=== PATIENT | female | born 1950 | race Caucasian/White ===

== ENCOUNTER → 2016-03-13 | Outpatient (CLI) | payer BC, MEDICARE ==
--- NOTE | 2016-03-13 12:44 | US ---
EXAMINATION TYPE: US thyroid st tissue head/neck DATE OF EXAM: 03/13/2016 11:12 AM COMPARISON: 01/16/2015 CLINICAL HISTORY: E04.1 Thyroid Nodule. GLAND SIZE: Right Lobe: 4.3 x 1.6 x 1.8 cm Overall Parenchyma: homogenous Left Lobe: 3.9 x 1.8 x 1.8 cm Overall Parenchyma: homogeneous Isthmus Thickness: 0.5 cm cm NODULES RIGHT: # of nodules measured on right: 1 1. 2.2 X 1.3 x 1.5 cm isoechoic solid nodule at the lower pole with well-defined margins; . This n odule is wider than tall and shows intranodular vascularity. Prior size: 2.0 x 1.5 x 1.4 cm LEFT: # of nodules measured on left: 2 1. 2.2 X 1.6 x 1.4 cm isoechoic solid nodule at the lower pole with well-defined margins; . This n odule is taller than wide and shows intranodular vascularity. Prior size: 2.0 x 1.5 x 1.4 cm 2. 0.6 X 0.4 x 0.5 cm isoechoic solid nodule at the upper pole with poorly defined margins; . This nodule is wider than tall and shows intranodular vascularity. Prior size: 0.6 x 0.4 x 0.5 cm ISTHMUS: # of nodules measured in the isthmus: 0 IMPRESSION: Bilateral nonspecific thyroid nodules.
== END | disposition home or self-care (01) ==
LOC: RADUSWWP 10:43
PROVIDERS: ATTEND Otolaryngology
DX: E04.2 Nontoxic multinodular goiter (principal)
CPT/HCPCS: 76536

== ENCOUNTER → 2016-04-03 | Outpatient (CLI) | payer BC, MEDICARE ==
--- NOTE | 2016-04-03 12:27 | FL ---
EXAMINATION TYPE: FL barium swallow w video DATE OF EXAM ORDERED: 04/03/2016 12:17 PM HISTORY: Dysphagia. COMPARISON: None. FINDINGS: There is transient penetration with nectar thick liquids. The patient had a lower other fo odstuffs well. IMPRESSION: THIS PATIENT DEMONSTRATES INCREASED RISK FOR ASPIRATION WITH NECTAR THICK LIQUIDS.
== END | disposition home or self-care (01) ==
LOC: RADFLWHC 11:52
PROVIDERS: ATTEND Otolaryngology
DX: R13.10 Dysphagia, unspecified (principal)
CPT/HCPCS: 74230

== ENCOUNTER 2016-09-10 09:51 | Day surgery (SDC) | payer BC, MEDICARE ==
[2016-09-08 10:17] VITALS: BMI 38.4
[~2016-09-10 09:51] MED LIST: LACTATED RINGERS 1,000 ML IV SCH; LIDOCAINE 1% 20 ML VIAL (10MG/ML) FOR IV START INTRADERMA PRN
[2016-09-10 10:23] VITALS: TEMP 97.7
[2016-09-10] MEDS ORDERED: PROPOFOL 10 MG/ML 20 ML VIAL IV ONE (10:32)
[2016-09-10] MEDS ORDERED: LIDOCAINE 1% INJ 10MG/ML (20 ML MDV) ONE (10:32)
--- NOTE | 2016-09-10 10:47 | P.PCN ---
Date of Procedure: 09/10/16 Preoperative Diagnosis: Postoperative Diagnosis: Procedure(s) Performed: BRIEF HISTORY: Patient is a 66-year-old, pleasant, white female, scheduled for an elective upper endoscopy as a part of evaluation of epigastric pain, severe heartburn and intermittent nausea vomiting for the last 6 months duration. She is being maintained on Protonix 40 mg daily despite which continues remains symptomatic. PROCEDURE PERFORMED: Esophagogastroduodenoscopy and biopsy. PREOPERATIVE DIAGNOSIS: Epigastric pain, severe heartburn and intermittent nausea vomiting of 6 month duration. IV sedation per anesthesia. PROCEDURE: After informed consent was obtained, the patient was brought into the endoscopy unit. IV sedation was administered by Anesthesia under continuous monitoring. Initially the Olympus GIF-140 video endoscope was inserted into the mouth. Esophagus intubated without any difficulty. It was gradually advanced into the stomach and duodenum and carefully examined. The bulb and the second part of the duodenum appeared normal. The scope at this time was withdrawn to the stomach, adequately insufflated with air, and upon careful examination, mucosa of the antrum, had mild gastritis and biopsies were done from this area. The body, cardia and the fundus appeared normal. The scope was then withdrawn into the esophagus. Small hiatal hernia noted. The GE junction was located at 39 cm from the incisors. The esophagus appeared normal. There were no erosions or ulcerations seen and the patient tolerated the procedure well. IMPRESSION: 1. Mild antral gastritis. 2. Small hiatal hernia but no evidence of esophagitis or Lira's esophagus. RECOMMENDATIONS: The findings of this examination were discussed with the patient as well as her family. She was advised to follow with the biopsy results. She was advised to increase the Protonix to 40 mg daily and follow antireflux measures. Implants: Indications for Procedure: Operative Findings: Description of Procedure:
[2016-09-10 11:10] VITALS: BP 139/86; PULSE 72; RESP 24
== END 2016-09-10 11:41 | disposition home or self-care (01) ==
LOC: ORWHC2ENDO 09:51
PROVIDERS: ATTEND Internal Medicine Gastroenterology
DX: K21.9 Gastro-esophageal reflux disease without esophagitis (principal); K29.70 Gastritis, unspecified, without bleeding; K44.9 Diaphragmatic hernia without obstruction or gangrene; I11.0 Hypertensive heart disease with heart failure; I50.9 Heart failure, unspecified; I25.10 Atherosclerotic heart disease of native coronary artery without angina pectoris; E78.5 Hyperlipidemia, unspecified; J44.9 Chronic obstructive pulmonary disease, unspecified; R42 Dizziness and giddiness; I25.2 Old myocardial infarction; Z88.5 Allergy status to narcotic agent; Z88.1 Allergy status to other antibiotic agents; Z88.8 Allergy status to other drugs, medicaments and biological substances; Z79.82 Long term (current) use of aspirin; Z79.02 Long term (current) use of antithrombotics/antiplatelets; Z79.51 Long term (current) use of inhaled steroids; Z79.899 Other long term (current) drug therapy; Z86.73 Personal history of transient ischemic attack (TIA), and cerebral infarction without residual deficits; Z95.5 Presence of coronary angioplasty implant and graft
CPT/HCPCS: 43239; 88305; 88342; J2001; J2704

== ENCOUNTER → 2016-10-22 | Outpatient (CLI) | payer BC, MEDICARE ==
[2016-10-22 16:00] LABS: CH 28.8; CHCM 33.7; HCT 39.5 % (34.0-46.0); HDW 2.61; HGB 13.5 gm/dL (11.4-16.0); MCH 29.4 pg (25.0-35.0); MCHC 34.2 g/dL (31.0-37.0); MCV 85.8 fL (80.0-100.0); Mean Platelet Volume 8.3; RDW 12.6 % (11.5-15.5)
[2016-10-22 16:03] LABS: Anion Gap 11 mmol/L; Blood Urea Nitrogen 14 mg/dL (7-17); Carbon Dioxide 26 mmol/L (22-30); Chloride 107 mmol/L (98-107); Non-African American GFR(MDRD) >60 (>60 ml/min/1.73 sqM); Potassium 4.3 mmol/L (3.5-5.1); Sodium 144 mmol/L (137-145)
== END | disposition home or self-care (01) ==
LOC: LABPAT 15:28
PROVIDERS: ATTEND Internal Medicine Cardiovascular Disease
DX: Z01.812 Encounter for preprocedural laboratory examination (principal); I25.10 Atherosclerotic heart disease of native coronary artery without angina pectoris
CPT/HCPCS: 80051; 82565; 84520; 85027

== ENCOUNTER 2016-10-28 06:28 | Day surgery (SDC) | payer BC, MEDICARE ==
[2016-10-27 09:06] VITALS: BMI 38.4
[~2016-10-28 06:28] MED LIST changes: +ALPRAZolam 0.25 MG TAB PO PRN; +ASPIRIN 325 MG TAB PO ONE; -LACTATED RINGERS 1,000 ML IV SCH; -LIDOCAINE 1% 20 ML VIAL (10MG/ML) FOR IV START INTRADERMA PRN; +SODIUM CHLORIDE 0.9% 1,000 ML in EMPTY BAG 1 BAG IV ONE
[2016-10-28 07:03] VITALS: TEMP 98.3
[2016-10-28] MEDS ORDERED: amLODIPine 5 MG TAB PO ONE (07:24)
[2016-10-28] MEDS ORDERED: IV FLUID CONTINUATION 1,000 ML IV ONE (07:30)
[2016-10-28] MEDS ORDERED: fentaNYL (PF) 50 MCG/ML 2 ML AMP IVP ONE (07:49)
[2016-10-28] MEDS ORDERED: MIDAZOLAM 2 MG/2 ML VIAL IVP ONE (07:49)
[2016-10-28] MEDS ORDERED: NITROGLYCERIN OINT 1 INCH/GM PACKET TOPICAL ONE (07:50)
[2016-10-28] MEDS ORDERED: LIDOCAINE 2% INJ 20 MG/ML SQ ONE (07:54)
[2016-10-28] MEDS ORDERED: METOPROLOL TARTRATE 5 MG/5 ML VIAL IVP ONE (08:00)
[2016-10-28] MEDS ORDERED: FUROSEMIDE 10 MG/ML 4 ML VIAL IVP ONE (08:13)
[2016-10-28] MEDS ORDERED: LABETALOL 5 MG/ML VIAL MDV IVP STA (08:18)
[2016-10-28] MEDS ORDERED: LABETALOL 5 MG/ML VIAL MDV IVP ONE (08:33)
[2016-10-28] MEDS ORDERED: NITROGLYCERIN SL TABS 0.4 MG TAB SUBLINGUAL ONE (08:44)
[2016-10-28] MEDS ORDERED: HEPARIN SODIUM 1,000 UN/ML (10ML VL) IV ONE (08:46)
--- NOTE | 2016-10-28 08:50 | P.PCN ---
Date of Procedure: 10/28/16 Preoperative Diagnosis: Chest pain and exertional shortness of breath Postoperative Diagnosis: Borderline lesion in the mid LAD and also origin of the major diagonal. patent stent in the RCA. Severe nonischemic cardiomyopathy and also 3+ mitral regurgitation Procedure(s) Performed: Left heart catheterization with left ventriculography Implants: Indications for Procedure: Operative Findings: Description of Procedure: HISTORY: This is a 66-year-old female with history of ischemic heart disease with previous stent placement of the RCA. He has been complaining of nausea on exertional shortness of breath and chest pains. Her nuclear scan did not reveal any inducible ischemia. There is a discrepancy in the LV function on the nuclear study and echocardiogram. On the echocardiogram LV function appear to be about 30%.. Patient is advised to have cardiac catheterization for definitive diagnosis. Patient had a catheterization to the right radial approach in 2014 but had severe spasms. I will try to do cardiac catheterization from right groin. CONSENT:I have discussed the risks, benefits and alternative therapies for the above-mentioned procedure and for both sedation/analgesia as well as necessary blood product administration, if indicated, as they pertain to this patient. The patient has indicated understanding and acceptance of the risks and procedures discussed. The PROCEDURE: Patient was brought to the lab in a fasting state. Patient was given some IV sedation. The right groin is infiltrated with lidocaine and right femoral artery was entered using Seldinger technique. A 6-[place] catheter was left in place and selective coronary arteriography and left ventriculography was performed. Patient tolerated the procedure well. She was found to have a borderline eccentric lesion in the mid LAD at the origin of the diagonal. Patient is going to have FFR by Dr. RASHIDA Wang. No immediate complications were noted . Patient's blood pressure has been high and has received IV labetalol, Lopressor and also Nitropaste. Conscious Sedation: Versed :1mg Fentanyl 50 g Duration 30 minutes HEMODYNAMICS: The aortic pressure has been in the range of 180/100. Left ankle end-diastolic pressure is 27. There was no gradient across the aortic valve SELECTIVE CORONARY ARTERIOGRAPHY: LEFT MAIN: Normal length and patent THE LEFT ANTERIOR DESCENDING CORONARY ARTERY: Josephine caliber vessel with a eccentric 60-70% lesion involving the mid LAD at the origin of the major diagonal. There is also disease involving the ostium of the diagonal which seemed to borderline. Rest of the vessel is free of occlusive disease THE LEFT CIRCUMFLEX AND IS CORONARY ARTERY: Moderate caliber vessel with a disease in the midportion of mild degree THE RIGHT CORONARY ARTERY: Good caliber vessel with patent stent in the proximal portion without any other significant obstructive disease LEFT VENTRICULOGRAPHY: . Mildly enlarged left ventricle with severe generalized hypokinesia. Ejection fraction is about 30%. There is 3+ mitral regurg FINAL IMPRESSION: Borderline lesion in the mid LAD and diagonal. Dr. RASHIDA Wang is going to assess the lesion with the FFR .If necessary, stenting will be performed PLAN: To be decided after FFR PROGNOSIS: Guarded
[2016-10-28] MEDS ORDERED: DOPamine DRIP 800 MG in DEXTROSE/WATER 1 500ML.BAG IV ONE (08:54)
[2016-10-28] MEDS ORDERED: IOHEXOL 350 MG/ML 100 ML BOTTLE INJ ONE (09:00)
[2016-10-28] MEDS ORDERED: ADENOSINE 90 MG in SODIUM CHLORIDE 0.9% 60 ML IVP ONE (09:02)
[2016-10-28] MEDS ORDERED: NITROGLYCERIN 1000MCG/10ML SYRINGE INTRACORON ONE (09:04)
[2016-10-28] MEDS ORDERED: RX INFO: IV CONTRAST WAS GIVEN 1 EACH MISC MISCELLANE PRN (09:57)
[2016-10-28] MEDS ORDERED: FUROSEMIDE 40 MG TAB PO STA (09:59)
[2016-10-28] MEDS ORDERED: SODIUM CHLORIDE 0.9% 1,000 ML IV SCH (10:00)
[2016-10-28] MEDS ORDERED: ONDANSETRON 4 MG/2 ML VIAL IVP STA (10:38)
[2016-10-28 12:33] VITALS: RESP 18
[2016-10-28 17:38] VITALS: PULSE 83
[2016-10-28 17:50] VITALS: BP 134/70
--- NOTE | 2016-10-29 07:56 | PCN ---
PROCEDURE NOTE DATE OF SERVICE: 10/28/2016 PROCEDURE: Fractional flow reserve assessment of a mid LAD lesion. PERFORMED BY: Dr. Risa Wang. CLINICAL INFORMATION: Mrs. Maggie Ji is a 66-year-old lady with obesity, hypertension, hyperlipidemia who is a patient of Dr. Coombs underwent stenting of RCA 2 years ago. Because of abnormal stress test and because of decreasing LV function, Dr. Coombs performed coronary angiography which revealed that the RCA was widely patent, but LAD has about a 40% to 50% equivocal lesion in the mid portion just after the diagonal branch. She was admitted FFR after due discussion. I proceeded to perform the procedure at the same setting. PROCEDURE NOTE: The existing 6-Gabonese introducer in the right femoral artery was used to perform the procedure. I used a standard left Sharath type guide catheter to cannulate the left coronary artery. I used a [employer] wire and wire was kept distally. As per standard protocol with adenosine infusion, iFR and FFR were obtained. The iFR was 0.9. FFR was 0.88. Prior to the initiation of the procedure, the patient developed hypotension after I gave her some nitroglycerin because of elevated blood pressure. I waited for some time and gave her a brief dopamine drip and then the pressure came back to normal and I then performed the FFR evaluation. The patient tolerated procedure well. There were no complications. FFR was normal at 0.88. No intervention is indicated. Findings were discussed with the patient and and I expect that she will be discharged later on today. Moderate conscious sedation was provided for a total duration of 30 minutes. Patient's oxygen saturation was monitored closely. MMODL / IJN: [id number] /
[2016-10-29] MEDS ORDERED: SPIRONOLACTONE 25 MG TAB PO SCH (09:00)
== END 2016-10-28 17:59 | disposition home or self-care (01) ==
LOC: CATHCVL 06:28
PROVIDERS: ATTEND Internal Medicine Cardiovascular Disease
DX: I25.10 Atherosclerotic heart disease of native coronary artery without angina pectoris (principal); I42.0 Dilated cardiomyopathy; I10 Essential (primary) hypertension; Z87.891 Personal history of nicotine dependence; Z95.5 Presence of coronary angioplasty implant and graft; E78.5 Hyperlipidemia, unspecified; Z79.02 Long term (current) use of antithrombotics/antiplatelets; Z79.82 Long term (current) use of aspirin; Z79.51 Long term (current) use of inhaled steroids; Z79.899 Other long term (current) drug therapy; Z88.1 Allergy status to other antibiotic agents; Z88.5 Allergy status to narcotic agent; Z88.8 Allergy status to other drugs, medicaments and biological substances
CPT/HCPCS: 93571; 93458; 85347; 99152; 99153 ×4; C1887; C1894 ×2; C1769 ×2; J2001; J2250; J1940; Q9967; J2405; J1265; J3010; J1644; J0153

== ENCOUNTER → 2016-11-02 | Outpatient (CLI) | payer BC, MEDICARE ==
[2016-11-02 12:39] LABS: Calcium 9.5 mg/dL (8.4-10.2); Potassium 5.1 mmol/L (3.5-5.1)
== END | disposition home or self-care (01) ==
LOC: LABWHC1 11:39
PROVIDERS: ATTEND Internal Medicine Cardiovascular Disease
DX: I50.9 Heart failure, unspecified (principal)
CPT/HCPCS: 36415; 80048

== ENCOUNTER 2016-11-13 08:56 | Observation (INO) | payer BC, MEDICARE ==
[2016-11-13] MEDS ORDERED: ASPIRIN 81 MG PO STA (09:16)
[2016-11-13] MEDS ORDERED: NITROGLYCERIN SL TABS 0.4 MG TAB SUBLINGUAL STA (09:16)
[2016-11-13] MEDS ORDERED: SODIUM CHLORIDE 0.9% 1,000 ML IV STA (09:16)
[2016-11-13] MEDS ORDERED: ONDANSETRON 4 MG/2 ML VIAL IVP STA (09:16)
--- NOTE | 2016-11-13 09:24 | ED ---
General Adult HPI <Rajendra Cheek - Last Filed: 11/13/16 11:13> - General Source: patient, RN notes reviewed Mode of arrival: wheelchair Limitations: no limitations <Moshe Capellan - Last Filed: 11/13/16 11:16> - General Chief complaint: Dizziness Stated complaint: vomiting and chest pressure Time Seen by Provider: 11/13/16 09:08 - History of Present Illness Initial comments: Patient's a 66-year-old female who presents emergency room today with chief complaint of symptoms of nausea vomiting lightheaded and dizzy and chest pain that started this morning. Patient does admit that she began having some symptoms of vertigo last night. She states she's had symptoms of the room spinning. States had symptoms similar to this in the past. She does admit that she's had some nausea vomiting beginning last night. She states this morning which woke up she had some anterior chest pain. She describes it as a "burning" type pain. Currently rates pain 5/10. She does admit to a history of cardiac disease. Patient states that she's had stents placed in the past. Patient states that pain started approximately 8 AM. Patient denies any other complaints or symptoms at this time. Patient denies any recent fever, chills, shortness of breath, back pain, numbness or tingling, dysuria or hematuria, constipation or diarrhea, headaches or visual changes, or any other complaints. (Moshe Capellan) - Related Data Home Medications Medication Instructions Recorded Confirmed Aspirin EC [Ecotrin] 325 mg PO HS 08/22/13 11/13/16 Ipratropium/Albuterol Sulfate 1 puff INHALATION RT-DAILY PRN 08/22/13 11/13/16 [Combivent Respimat Inhaler] Lisinopril [Zestril] 10 mg PO QAM 08/22/13 11/13/16 Meclizine [Antivert] 12.5 mg PO DAILY PRN 08/22/13 11/13/16 Metoprolol Succinate [Toprol XL] 50 mg PO HS 08/22/13 11/13/16 Pantoprazole Sodium [Protonix] 40 mg PO DAILY 08/22/13 11/13/16 Albuterol Nebulized [Ventolin 2.5 mg INHALATION RT-TID 09/08/16 11/13/16 Nebulized] Atorvastatin [Lipitor] 40 mg PO HS 09/08/16 11/13/16 Fluticasone Nasal [place] [Flonase 1 spr EA NOSTRIL BID PRN 09/08/16 11/13/16 Nasal [place]] Clopidogrel [Plavix] 75 mg PO HS 11/13/16 11/13/16 Furosemide [Lasix] 40 mg PO DAILY 11/13/16 11/13/16 Previous Rx's Medication Instructions Recorded Isosorbide Mononitrate ER [Imdur] 30 mg PO DAILY #30 tab.er.24h 09/29/14 Nitroglycerin Sl Tabs [Nitrostat] 0.4 mg SUBLINGUAL Q5M PRN #25 tab 09/29/14 Allergies Allergy/AdvReac Type Severity Reaction Status Date / Time azithromycin [From Zithromax] Allergy Rash/Hives Verified 11/13/16 09:25 cephalexin monohydrate Allergy Rash/Hives Verified 11/13/16 09:25 [From Keflex] dexamethasone [From Decadron] Allergy Rash/Hives Verified 11/13/16 09:25 dexamethasone sod phosphate Allergy Rash/Hives Verified 11/13/16 09:25 [From Decadron] codeine AdvReac Nausea & Verified 11/13/16 09:25 Vomiting morphine AdvReac Nausea & Verified 11/13/16 09:25 Vomiting Review of Systems ROS Other: All systems not noted in ROS Statement are negative. <Rajendra Cheek - Last Filed: 11/13/16 11:13> ROS Other: All systems not noted in ROS Statement are negative. <Moshe Capellan - Last Filed: 11/13/16 11:16> ROS Statement: Those systems with pertinent positive or pertinent negative responses have been documented in the HPI. Past Medical History Past Medical History: Asthma, Cancer, Chest Pain / Angina, COPD, CVA/TIA, Deep Vein Thrombosis (DVT), Eye Disorder, GERD/Reflux, Hyperlipidemia, Hypertension, Liver Disease, Memory Impairment, Osteoarthritis (OA), Pneumonia, Vascular Disorder Additional Past Medical History / Comment(s): 09/28/14 Pt admitted to floor s/p PTCA with 3 stents to RCA. Other HX:MIGRAINES, VERTIGO,TIA (MULTIPLE- DATES UKN ), NAKITA CATARACTS,HEART MURMUR, PVD, HIATAL HERNIA,. IBS, FATTY LIVER, PANCREATITITS, COLON POLYPS, KIDNEY CYSTS, URINARY CALCULI, CHRONIC PAIN,ANEMIA , DVT LEFT MESENTERIC VEIN 2007, BREAST-1977 AND UTERINE CANCER-1979 History of Any Multi-Drug Resistant Organisms: None Reported Past Surgical History: Appendectomy, Bladder Surgery, Bowel Resection, Cholecystectomy, Heart Catheterization, Heart Catheterization With Stent, Hysterectomy, Tonsillectomy Additional Past Surgical History / Comment(s): 09/28/14 PTCA with stents (3) to RCA. Other SX HX: COLONOSCOPY, NAKITA MASTECTOMY, AORTIC STENTS,FEMORAL ILIAC ARTERY STENTS X 6-8 Past Anesthesia/Blood Transfusion Reactions: Motion Sickness Date of Last Stent Placement:: UNKNOWN Past Psychological History: Anxiety Smoking Status: Former smoker Past Alcohol Use History: None Reported Past Drug Use History: None Reported - Past Family History Mother Family Medical History: No Reported History Father Family Medical History: Cancer Additional Family Medical History / Comment(s): colon <Moshe Capellan - Last Filed: 11/13/16 11:16> General Exam <Rajendra Cheek - Last Filed: 11/13/16 11:13> Limitations: no limitations <Moshe Capellan - Last Filed: 11/13/16 11:16> - General Exam Comments Initial Comments: General: The patient is awake and alert, in mild distress, and does not appear acutely ill. Eye: Pupils are equal, round and reactive to light, extra-ocular movements are intact. No nystagmus. There is normal conjunctiva bilaterally. No signs of icterus. Ears, nose, mouth and throat: There are moist mucous membranes and no oral lesions. Neck: The neck is supple, there is no tenderness or JVD. Cardiovascular: There is a regular rate and rhythm. No murmur, rub or gallop is appreciated. Respiratory: Lungs are clear to auscultation, respirations are non-labored, breath sounds are equal. No wheezes, stridor, rales, or rhonchi. Gastrointestinal: Normal appearance abdomen. Normal bowel sounds. Soft on palpation. Patient does have tenderness epigastric. No rebound tenderness. No guarding. No CVA tenderness. Musculoskeletal: Normal ROM, no tenderness. Strength 5/5. Sensation intact. Pulses equal bilaterally 2+. Neurological: A&O x 3. CN II-XII intact, There are no obvious motor or sensory deficits. Coordination appears grossly intact. Speech is normal. Skin: Skin is warm and dry and no rashes or lesions are noted. Psychiatric: Cooperative, appropriate mood & affect, normal judgment. (Moshe Capellan) EKG Findings - EKG Comments: EKG Findings:: EKG performed at 0915: Shows sinus tachycardia at 103 beats per minute. OK interval 164. QRS of 118. QT/QTC 336/440. Compared to previous EKG on 09/29/2014. <Moshe Capellan - Last Filed: 11/13/16 11:16> Medical Decision Making - Lab Data Result diagrams: 11/13/16 09:25 11/13/16 09:25 <Rajendra Cheek - Last Filed: 11/13/16 11:13> - Lab Data Result diagrams: 11/13/16 09:25 11/13/16 09:25 <Moshe Capellan - Last Filed: 11/13/16 11:16> - Medical Decision Making Patient reevaluated by myself, Dr. Cheek. Patient resting comfortably in bed and symptom-free at this time. Patient updated on results and plan. Case discussed with Dr. Szymanski, who will admit for Dr. Jacobson. (Rajendra Cheek) Patient's labs been reviewed are unremarkable. EKG shows no acute ST changes. Results were discussed with the patient. Patient will be admitted to the hospital for serial enzymes. Patient is aware the plan states understanding. ( Moshe Capellan) - Lab Data Lab Results 11/13/16 11/13/16 11/13/16 Range/Units 09:25 09:25 09:25 WBC 6.1 (3.8-10.6) k/uL RBC 4.81 (3.80-5.40) m/uL Hgb 14.1 (11.4-16.0) gm/dL Hct 42.0 (34.0-46.0) % MCV 87.3 (80.0-100.0) fL MCH 29.3 (25.0-35.0) pg MCHC 33.5 (31.0-37.0) g/dL RDW 13.7 (11.5-15.5) % Plt Count 186 (150-450) k/uL Neutrophils % 58 % Lymphocytes % 32 % Monocytes % 7 % Eosinophils % 1 % Basophils % 1 % Neutrophils # 3.5 (1.3-7.7) k/uL Lymphocytes # 2.0 (1.0-4.8) k/uL Monocytes # 0.4 (0-1.0) k/uL Eosinophils # 0.1 (0-0.7) k/uL Basophils # 0.0 (0-0.2) k/uL PT (9.0-12.0) sec INR (<1.2) APTT (22.0-30.0) sec Sodium 143 (137-145) mmol/L Potassium 4.1 (3.5-5.1) mmol/L Chloride 109 H (98-107) mmol/L Carbon Dioxide 23 (22-30) mmol/L Anion Gap 11 mmol/L BUN 14 (7-17) mg/dL Creatinine 0.80 (0.52-1.04) mg/dL Est GFR (MDRD) Af Amer >60 (>60 ml/min/1.73 sqM) Est GFR (MDRD) Non-Af >60 (>60 ml/min/1.73 sqM) Glucose 97 (74-99) mg/dL Calcium 9.4 (8.4-10.2) mg/dL Magnesium 1.7 (1.6-2.3) mg/dL Total Bilirubin 0.8 (0.2-1.3) mg/dL AST 27 (14-36) U/L ALT 40 (9-52) U/L Alkaline Phosphatase 62 (38-126) U/L Total Creatine Kinase 67 (30-135) U/L CK-MB (CK-2) 0.6 (0.0-2.4) ng/mL CK-MB (CK-2) Rel Index 0.9 Troponin I <0.012 (0.000-0.034) ng/mL Total Protein 6.9 (6.3-8.2) g/dL Albumin 4.0 (3.5-5.0) g/dL Urine Color Urine Appearance (Clear) Urine pH (5.0-8.0) Ur Specific [place] (1.001-1.035) Urine Protein (Negative) Urine Glucose (UA) (Negative) Urine Ketones (Negative) Urine Blood (Negative) Urine Nitrite (Negative) Urine Bilirubin (Negative) Urine Urobilinogen (<2.0) mg/dL Ur Leukocyte Esterase (Negative) Urine WBC (0-5) /hpf Ur Squamous Epith Cells (0-4) /hpf Urine Bacteria (None) /hpf Urine Mucus (None) /hpf 11/13/16 11/13/16 Range/Units 09:25 09:25 WBC (3.8-10.6) k/uL RBC (3.80-5.40) m/uL Hgb (11.4-16.0) gm/dL Hct (34.0-46.0) % MCV (80.0-100.0) fL MCH (25.0-35.0) pg MCHC (31.0-37.0) g/dL RDW (11.5-15.5) % Plt Count (150-450) k/uL Neutrophils % % Lymphocytes % % Monocytes % % Eosinophils % % Basophils % % Neutrophils # (1.3-7.7) k/uL Lymphocytes # (1.0-4.8) k/uL Monocytes # (0-1.0) k/uL Eosinophils # (0-0.7) k/uL Basophils # (0-0.2) k/uL PT 10.2 (9.0-12.0) sec INR 1.0 (<1.2) APTT 23.9 (22.0-30.0) sec Sodium (137-145) mmol/L Potassium (3.5-5.1) mmol/L Chloride (98-107) mmol/L Carbon Dioxide (22-30) mmol/L Anion Gap mmol/L BUN (7-17) mg/dL Creatinine (0.52-1.04) mg/dL Est GFR (MDRD) Af Amer (>60 ml/min/1.73 sqM) Est GFR (MDRD) Non-Af (>60 ml/min/1.73 sqM) Glucose (74-99) mg/dL Calcium (8.4-10.2) mg/dL Magnesium (1.6-2.3) mg/dL Total Bilirubin (0.2-1.3) mg/dL AST (14-36) U/L ALT (9-52) U/L Alkaline Phosphatase (38-126) U/L Total Creatine Kinase (30-135) U/L CK-MB (CK-2) (0.0-2.4) ng/mL CK-MB (CK-2) Rel Index Troponin I (0.000-0.034) ng/mL Total Protein (6.3-8.2) g/dL Albumin (3.5-5.0) g/dL Urine Color Yellow Urine Appearance Cloudy H (Clear) Urine pH 5.0 (5.0-8.0) Ur Specific [place] 1.017 (1.001-1.035) Urine Protein Trace H (Negative) Urine Glucose (UA) Negative (Negative) Urine Ketones Negative (Negative) Urine Blood Negative (Negative) Urine Nitrite Negative (Negative) Urine Bilirubin Negative (Negative) Urine Urobilinogen <2.0 (<2.0) mg/dL Ur Leukocyte Esterase Negative (Negative) Urine WBC 1 (0-5) /hpf Ur Squamous Epith Cells 6 H (0-4) /hpf Urine Bacteria Rare H (None) /hpf Urine Mucus Rare H (None) /hpf Disposition <Rajendra Cheek - Last Filed: 11/13/16 11:13> Time of Disposition: 11:15 <Moshe Capellan - Last Filed: 11/13/16 11:16> Clinical Impression: Chest pain Disposition: ADMITTED IP TO THIS HOSP Condition: Stable Referrals: Kailash Jacobson III, MD [Primary Care Provider] - 1-2 days
[2016-11-13 09:45] LABS: Basophils % (A) 1 %; CH 30.2; CHCM 34.8; Eosinophils # (A) 0.1 k/uL (0-0.7); Eosinophils % (A) 1 %; HDW 2.51; HGB 14.1 gm/dL (11.4-16.0); Luc # (Auto) 0.12; Luc % (Auto) 2; Lymphocytes % (A) 32 %; MCH 29.3 pg (25.0-35.0); MCHC 33.5 g/dL (31.0-37.0); MCV 87.3 fL (80.0-100.0); Mean Platelet Volume 8.7; Monocytes # (A) 0.4 k/uL (0-1.0); Monocytes % (A) 7 %; Neutrophils # (A) 3.5 k/uL (1.3-7.7); Neutrophils % (A) 58 %; RBC 4.81 m/uL (3.80-5.40); RDW 13.7 % (11.5-15.5); WBC 6.1 k/uL (3.8-10.6); WBC (Perox) 5.86
[2016-11-13 09:53] LABS: Appearance,Urine Cloudy (Clear); Bacteria,Urine Rare /hpf; Bilirubin,Urine Negative (Negative); Glucose,Urine (UA) Negative (Negative); Ketones,Urine Negative (Negative); Leukocyte Esterase,Urine Negative (Negative); Mucus,Urine Rare /hpf; Nitrite,Urine Negative (Negative); Partial Thromboplastin Time 23.9 sec (22.0-30.0); Particle Count 6192; Protein,Urine Trace (Negative); Prothrombin Time 10.2 sec (9.0-12.0); Specific Gravity,Urine 1.017 (1.001-1.035); Squamous Epithelial Cell,Urine 6 /hpf (0-4); UA Billing (MACRO vs. MICRO) MICRO; Urobilinogen,Urine <2.0 mg/dL (<2.0); WBC,Urine 1 /hpf (0-5)
--- NOTE | 2016-11-13 10:09 | XR ---
EXAMINATION TYPE: XR chest 2V DATE OF EXAM: 11/13/2016 COMPARISON: 11/16/2015 TECHNIQUE: PA and lateral views submitted. HISTORY: Chest pain FINDINGS: The lungs are clear and there is no pneumothorax, pleural effusion, or focal pneumonia. Heart size enlarged there is atherosclerotic change of the aorta. Mild interstitial process noted. Arthropathy o f the shoulders. Degenerative change of the spine. IMPRESSION: 1. Cardiomegaly. Interstitium somewhat coarsened which could be seen with early venous congestion. No sizable pleural effusion or overt failure. Correlate clinically.
[2016-11-13 10:10] LABS: ALT 40 U/L (9-52); AST 27 U/L (14-36); Alkaline Phosphatase 62 U/L (38-126); Anion Gap 11 mmol/L; Blood Urea Nitrogen 14 mg/dL (7-17); Calcium 9.4 mg/dL (8.4-10.2); Carbon Dioxide 23 mmol/L (22-30); Chloride 109 mmol/L (98-107); Glucose 97 mg/dL (74-99); Magnesium 1.7 mg/dL (1.6-2.3); Non-African American GFR(MDRD) >60 (>60 ml/min/1.73 sqM); Potassium 4.1 mmol/L (3.5-5.1); Sodium 143 mmol/L (137-145); Total Bilirubin 0.8 mg/dL (0.2-1.3); Total Protein 6.9 g/dL (6.3-8.2)
[2016-11-13 10:36] LABS: Creatine Kinase 67 U/L (30-135)
[2016-11-13 10:48] LABS: Creatine Kinase MB 0.6 ng/mL (0.0-2.4); Troponin I <0.012 ng/mL (0.000-0.034)
[2016-11-13] MEDS ORDERED: HEPARIN SODIUM,PORCINE 5,000 UNIT/ML 1 ML VIAL IV ONE (11:12)
[2016-11-13] MEDS ORDERED: NITROGLYCERIN SL TABS 0.4 MG TAB SUBLINGUAL PRN ×2 (11:12→13:05)
[2016-11-13] MEDS ORDERED: SODIUM CHLORIDE 0.9% 1,000 ML IV ONE (11:12)
[2016-11-13] MEDS ORDERED: HEPARIN SODIUM,PORCINE/D5W PMX 25,000 UNIT in DEXTROSE/WATER 1 500ML.BAG IV SCH (11:15)
[2016-11-13] MEDS ORDERED: FLUTICASONE 50MCG/SPRAY NASAL 16GM EA NOSTRIL PRN (13:05)
[2016-11-13] MEDS ORDERED: MECLIZINE 12.5 MG TAB PO PRN (13:05)
[2016-11-13] MEDS ORDERED: MECLIZINE 12.5 MG TAB PO STA (13:12)
--- NOTE | 2016-11-13 13:15 | P.CRDCN ---
History of Present Illness Consult date: 11/13/16 History of present illness: This is a 66-year-old white female patient of Dr. Coombs. She is seen and examined by myself along with Dr. Marquez. She presented to the emergency department with complaints of the room spinning, nausea and one episode of chest tightness. She states this started in the middle of the night. It woke her up and the room was spinning. It subsided on its own. It then happened again this morning and that is prompted her to present to the emergency department. She underwent cardiac catheterization earlier this month with Dr. Coombs and was found to have stable CAD. She has one stent in the RCA. In mild disease of the LAD. Most recent echocardiogram was performed in the office in July of this year showed an ejection fraction 30-35% with mild left ventricular hypertrophy. Her current medication regimen includes Lasix 40 mg daily, Plavix 75 mg daily, Toprol 50 mg daily, lisinopril 10 mg daily, Imdur 30 mg daily, Lipitor 40 mg daily and meclizine 12.5 mg daily when necessary. The patient states she does not take the meclizine very frequently. But she did take some morning with no relief. She states this happen to her in the past with similar episodes in the meclizine does not work. She continues to complain of ongoing mild dizziness. She is tolerating oral intake with no symptoms of nausea or vomiting. Review of Systems Extensive review of systems performed, negative except mentioned in HPI. Past Medical History Past Medical History: Asthma, Coronary Artery Disease (CAD), Cancer, Chest Pain / Angina, Heart Failure, COPD, CVA/TIA, Deep Vein Thrombosis (DVT), Eye Disorder , GERD/Reflux, Hyperlipidemia, Hypertension, Liver Disease, Memory Impairment, Osteoarthritis (OA), Pneumonia, Sleep Apnea/CPAP/BIPAP, Vascular Disorder Additional Past Medical History / Comment(s): MIGRAINES, VERTIGO,TIA (MULTIPLE- DATES [facility]), PAST MARCIO BUT PT STATES NO LONGER A PROBLEM, NAKITA CATARACTS, MITRAL REGURG, CARDIOMYOPATHY, HEART MURMUR, PVD, HIATAL HERNIA, IBS, FATTY LIVER, PANCREATITITS, COLON POLYPS, KIDNEY CYSTS, NEPHROLITHIASIS, UTIS, CHRONIC PAIN- BACK, DDD, OLD LOW BACK FX, ANEMIA, MTHFR GENE, DVT LEFT MESENTERIC VEIN 2007, DVT L LEG, BREAST-1977 WITH SX AND 1 DOSE CHEMO (UNABLE TO TOLERATE AND SINGLE PARENT ISSUES) AND UTERINE CANCER-1979 WITH SURGERY, PAST L TIBIAL FRACTURE. History of Any Multi-Drug Resistant Organisms: None Reported Past Surgical History: Appendectomy, Bladder Surgery, Bowel Resection, Breast Surgery, Cholecystectomy, Heart Catheterization, Heart Catheterization With Stent, Hysterectomy, Tonsillectomy Additional Past Surgical History / Comment(s): 10/28/16 CARDIAC CATH, 09/28/14 PCI / stents (3) to RCA, EGD, COLONOSCOPY, BOWEL RESECTION D/T PERFORATION, NAKITA MASTECTOMY, ACCIDENTAL AORTIC STENT (DURING FEM ILIAC STENTING A STENT TRAVELED TO AORTA ,FEMORAL ILIAC ARTERY STENTS X 6-8, BLADDER SUSPENSION, R CARATID ENDARECTOMY X2, Past Anesthesia/Blood Transfusion Reactions: Motion Sickness, Postoperative Nausea & Vomiting (PONV) Additional Past Anesthesia/Blood Transfusion Reaction / Comment(s): SEVERE PONV. PT HAS RECEIVED BLOOD IN 1977 WITHOUT REACTION. Date of Last Stent Placement:: 2014 Smoking Status: Former smoker - Past Family History Mother Family Medical History: No Reported History Father Family Medical History: Cancer, Coronary Artery Disease (CAD), Musculoskeletal Disorder, Neurologic Disorder Additional Family Medical History / Comment(s): COLON CANCER, PARKINSONS Medications and Allergies Home Medications Medication Instructions Recorded Confirmed Type Aspirin EC [Ecotrin] 325 mg PO HS 08/22/13 11/13/16 History Ipratropium/Albuterol Sulfate 1 puff INHALATION RT-DAILY PRN 08/22/13 11/13/16 History [Combivent Respimat Inhaler] Lisinopril [Zestril] 10 mg PO QAM 08/22/13 11/13/16 History Meclizine [Antivert] 12.5 mg PO DAILY PRN 08/22/13 11/13/16 History Metoprolol Succinate [Toprol XL] 50 mg PO HS 08/22/13 11/13/16 History Pantoprazole Sodium [Protonix] 40 mg PO DAILY 08/22/13 11/13/16 History Isosorbide Mononitrate ER [Imdur] 30 mg PO DAILY #30 tab.er.24h 09/29/14 Rx Nitroglycerin Sl Tabs [Nitrostat] 0.4 mg SUBLINGUAL Q5M PRN #25 tab 09/29/14 Rx Albuterol Nebulized [Ventolin 2.5 mg INHALATION RT-TID 09/08/16 11/13/16 History Nebulized] Atorvastatin [Lipitor] 40 mg PO HS 09/08/16 11/13/16 History Fluticasone Nasal [place] [Flonase 1 spr EA NOSTRIL BID PRN 09/08/16 11/13/16 History Nasal [place]] Clopidogrel [Plavix] 75 mg PO HS 11/13/16 11/13/16 History Furosemide [Lasix] 40 mg PO DAILY 11/13/16 11/13/16 History Allergies Allergy/AdvReac Type Severity Reaction Status Date / Time azithromycin [From Zithromax] Allergy Rash/Hives Verified 11/13/16 09:25 cephalexin monohydrate Allergy Rash/Hives Verified 11/13/16 09:25 [From Keflex] dexamethasone [From Decadron] Allergy Rash/Hives Verified 11/13/16 09:25 dexamethasone sod phosphate Allergy Rash/Hives Verified 11/13/16 09:25 [From Decadron] codeine AdvReac Nausea & Verified 11/13/16 09:25 Vomiting morphine AdvReac Nausea & Verified 11/13/16 09:25 Vomiting Physical Exam Vitals: Vital Signs Temp Pulse Pulse Resp BP BP Pulse Ox 11/13/16 12:00 98.8 F 67 18 177/93 95 11/13/16 11:38 96.8 F L 74 17 159/70 96 11/13/16 10:48 76 18 171/91 98 11/13/16 09:35 98 11/13/16 09:31 89 18 174/91 93 L 11/13/16 09:00 98.8 F 87 18 194/84 95 Intake and Output 11/12/16 11/13/16 11/13/16 22:59 06:59 14:59 Other: Voiding Method Toilet Weight 98.9 kg Patient Weight 11/14/16 06:59 Weight 98.9 kg GENERAL: This is a 66-year-old female in no apparent distress at the time of my examination. Obese. HEENT: Head is atraumatic, normocephalic. Pupils are equal, round. Sclerae anicteric. Conjunctivae are clear. Mucous membranes of the mouth are moist. Neck is supple. There is no jugular venous distention. No carotid bruit is heard. LUNGS: Clear to auscultation no wheezes, rales or rhonchi. No chest wall tenderness is noted on palpation or with deep breathing. HEART: Regular rate and rhythm without murmurs, rubs or gallops. S1 and S2 heard. ABDOMEN: Soft, nontender. Bowel sounds are heard. No organomegaly noted. EXTREMITIES: 2+ peripheral pulses with no evidence of peripheral edema and no calf tenderness noted. NEUROLOGIC: Patient is awake, alert and oriented x3. Results 11/13/16 09:25 11/13/16 09:25 Cardiac Enzymes 11/13/16 11/13/16 Range/Units 09:25 09:25 AST 27 (14-36) U/L CK-MB (CK-2) 0.6 (0.0-2.4) ng/mL Troponin I <0.012 (0.000-0.034) ng/mL Coagulation 11/13/16 Range/Units 09:25 PT 10.2 (9.0-12.0) sec APTT 23.9 (22.0-30.0) sec CBC 11/13/16 Range/Units 09:25 WBC 6.1 (3.8-10.6) k/uL RBC 4.81 (3.80-5.40) m/uL Hgb 14.1 (11.4-16.0) gm/dL Hct 42.0 (34.0-46.0) % Plt Count 186 (150-450) k/uL Comprehensive Metabolic Panel 11/13/16 Range/Units 09:25 Sodium 143 (137-145) mmol/L Potassium 4.1 (3.5-5.1) mmol/L Chloride 109 H (98-107) mmol/L Carbon Dioxide 23 (22-30) mmol/L BUN 14 (7-17) mg/dL Creatinine 0.80 (0.52-1.04) mg/dL Glucose 97 (74-99) mg/dL Calcium 9.4 (8.4-10.2) mg/dL AST 27 (14-36) U/L ALT 40 (9-52) U/L Alkaline Phosphatase 62 (38-126) U/L Total Protein 6.9 (6.3-8.2) g/dL Albumin 4.0 (3.5-5.0) g/dL Current Medications Generic Name Dose Route Start Last Admin Trade Name Freq PRN Reason Stop Dose Admin Albuterol Sulfate 2.5 mg 11/13/16 20:00 Ventolin Nebulized INHALATION RT-TID [facility] Aspirin 325 mg 11/14/16 09:00 Aspirin PO DAILY [facility] Atorvastatin Calcium 40 mg 11/13/16 21:00 Lipitor PO HS FELIC[facility] Clopidogrel Bisulfate 75 mg 11/13/16 21:00 Plavix PO HS [facility] Fluticasone Propionate 1 spray 11/13/16 13:05 Flonase Nasal [place] EA NOSTRIL BID PRN Sinus Symptoms Furosemide 40 mg 11/14/16 09:00 Lasix PO DAILY [facility] Heparin Sodium/Dextrose 25,000 500 mls @ 19.99 mls/hr 11/13/16 11:15 11:47 unit/ IV Solution IV 11.02 units/kg/hr .Q24H FELICIA 19.99 mls/hr Protocol Administration 11.02 UNITS/KG/HR Sodium Chloride 1,000 mls @ 20 mls/hr 11/13/16 11:12 11/13/16 11:46 Saline 0.9% IV 11/14/16 11:11 20 mls/hr .Q24H ONE Administration Isosorbide Mononitrate 30 mg 11/14/16 09:00 Imdur PO DAILY [facility] Lisinopril 10 mg 11/14/16 09:00 Zestril PO QAM [facility] Meclizine HCl 12.5 mg 11/13/16 13:05 Antivert PO DAILY PRN Vertigo Meclizine HCl 12.5 mg 11/13/16 13:07 Antivert PO 11/13/16 13:08 ONCE STA Metoprolol Succinate 50 mg 11/13/16 21:00 Toprol Xl PO HS [facility] Nitroglycerin 0.4 mg 11/13/16 11:12 Nitrostat SUBLINGUAL Q5M PRN Chest Pain Nitroglycerin 0.4 mg 11/13/16 13:05 Nitrostat SUBLINGUAL Q5M PRN Chest Pain Non-Formulary Medication 325 mg 11/13/16 21:00 Aspirin Ec PO HS [facility] Pantoprazole Sodium 40 mg 11/13/16 13:05 Protonix PO DAILY [facility] Intake and Output 11/12/16 11/13/16 11/13/16 22:59 06:59 14:59 Other: Voiding Method Toilet Weight 98.9 kg Patient Weight 11/14/16 06:59 Weight 98.9 kg 11/13/16 09:25 11/13/16 09:25 EKG Interpretations (text) EKG indicates sinus tachycardia with premature atrial complexes. She has no acute ST or T-wave abnormality. Assessment and Plan Plan: ASSESSMENT 1. Acute exacerbation of chronic vertigo 2. Chronic stable CAD on appropriate medical therapy 3. Essential hypertension 4. Dyslipidemia maintained on Lipitor 5. Chronic systolic heart failure with EF 30-35% PLAN Dose of meclizine now. Continue to encourage oral intake. Monitor serial troponins and EKGs. Continue cardiac telemetry monitoring to assess for non- sustained ventricular tachycardia/SVT/arrhythmia. Needs elective AICD to avoid sudden cardiac . We will continue to follow this patient, further recommendations will be based upon clinical course. Records from the office have been placed on the chart. Nurse Practitioner note has been reviewed, I agree with a documented findings and plan of care. Patient was seen and examined.
[2016-11-13 16:01] LABS: Creatine Kinase MB 1.1 ng/mL (0.0-2.4); Troponin I 0.02 ng/mL (0.000-0.034)
[2016-11-13] MEDS: ALBUTEROL NEBULIZED 2.5 MG/3 ML INHALATION SCH (20:58)
[2016-11-13] MEDS ORDERED: METOPROLOL SUCCINATE (ER) 50 MG TAB.ER.24H PO SCH (21:00)
[2016-11-13] MEDS ORDERED: NON-FORMULARY DRUG (Aspirin Ec 325 MG) PO SCH (21:00)
[2016-11-13] MEDS ORDERED: CLOPIDOGREL 75 MG TAB PO SCH (21:00)
[2016-11-13] MEDS ORDERED: ATORVASTATIN 40 MG TAB PO SCH (21:00)
[2016-11-13 22:37] LABS: Creatine Kinase MB 1.2 ng/mL (0.0-2.4); Troponin I 0.031 ng/mL (0.000-0.034)
[2016-11-14 04:12] LABS: Cholesterol 105 mg/dL (<200); HDL Cholesterol 40 mg/dL (40-60)
[2016-11-14] MEDS ORDERED: PANTOPRAZOLE 40 MG TABLET PO SCH (07:30)
[2016-11-14 08:15] VITALS: RESP 16
[2016-11-14] MEDS ORDERED: LISINOPRIL 10 MG TAB PO SCH (09:00)
[2016-11-14] MEDS ORDERED: ASPIRIN 325 MG TAB PO SCH (09:00)
[2016-11-14] MEDS ORDERED: ISOSORBIDE MONONITRATE ER 30 MG TAB.ER.24H PO SCH (09:00)
[2016-11-14] MEDS ORDERED: FUROSEMIDE 40 MG TAB PO SCH (09:00)
[2016-11-14] MEDS: ALBUTEROL NEBULIZED 2.5 MG/3 ML INHALATION SCH ×2 (09:27→13:06)
--- NOTE | 2016-11-14 11:59 | P.PN ---
Subjective Principal diagnosis: Dizziness and lightheadedness This is a pleasant 66-year-old female patient who sees Dr. Coombs as an outpatient with a known CAD and prior stenting of the RCA who underwent a heart catheterization a few weeks ago and that showed patent stent in the RCA with intermediate disease in the LAD and at that point and FFR was performed and came in to be nonischemic, presented to the hospital complaining of dizziness and lightheadedness and vertigo kind of symptoms. She did not have any symptoms of chest pain or chest discomfort nor exertional dyspnea or orthopnea or PND. The cardiac enzymes came in to be unremarkable. Objective - Vital Signs Vital signs: Vital Signs Temp 98.0 F 11/14/16 08:00 Pulse 83 11/14/16 09:39 Resp 16 11/14/16 08:00 BP 140/62 11/14/16 08:00 Pulse Ox 96 11/14/16 08:00 Intake & Output 11/13/16 11/14/16 11/14/16 18:59 06:59 18:59 Intake Total 354 192.57 Balance 354 192.57 Weight 98.9 kg Intake: Intake, IV Titration 192.57 Amount Heparin Sodium,Porcine/ 192.57 D5w Pmx 25,000 unit In Dextrose/Water 1 500ml. bag @ 11.02 UNITS/KG/HR 19.99 mls/hr IV .Q24H [facility]EL[facility] Rx#:[id number] Oral 354 Other: Voiding Method Toilet Toilet Toilet # Voids 1 - Constitutional General appearance: Present: no acute distress - Respiratory Respiratory: bilateral: CTA - Cardiovascular Rhythm: regular Heart sounds: normal: S1, S2 - Labs CBC & Chem 7: 11/13/16 09:25 11/13/16 09:25 Labs: Abnormal Lab Results - Last 24 Hours (Table) 11/13/16 11/14/16 Range/Units 18:58 03:17 APTT 43.3 H 55.1 H (22.0-30.0) sec Assessment and Plan Plan: This is a pleasant 66-year-old female patient with a known CAD and prior stenting, presented to the hospital with dizziness and lightheadedness. She has been asymptomatic since she has been admitted to the hospital. The cardiac workup overall came in to be unremarkable. From a perivascular standpoint of view, she can be discharged home.
[2016-11-14 12:08] VITALS: BP 183/96; PULSE 72; TEMP 97.7
--- NOTE | 2016-11-14 15:05 | P.HPIM ---
History of Present Illness H&P Date: 11/13/16 Chief Complaint: vertigo and dizziness Patient is a 66-year-old female with a known history of ischemic cardiac myopathy ejection fraction 30-35%, recent heart catheterization with stable coronary artery disease, dizziness/vertigo history as well as hypertension and multiple other medical problems came to the hospital with complaints of low spinning around last night and felt episode of nausea and chest tightness. Patient had this dizziness in the morning with more severity also felt chest pressure which made her come to the ER. Patient had recent cardiac catheterization. Patient is supposed to follow with the cardiology clinic for AICD placement. Otherwise patient denied any fever or chills. No short of breath. Chest pain did not have any radiation. No neck pain as pain. Patient was admitted to the hospital for cardiac evaluation and currently patient symptomatically improved. Except mild dizziness at this time. There are any recent travel or sick contact. Chest x-ray showed cardiac megaly and possible vascular congestion. D-dimer is not elevated at 0.38 Troponin x 2 negative. Review of Systems Constitutional: Patient denies any fever or chills . No generalized weakness or weight loss. Abdomen: Patient denied nausea vomiting and diarrhea and abdominal pain. Cardiovascular: Patient does have chest tightness. No short of breath no palpitations. Respiratory: patient denied any cough is from production. No shortness of breath Neurologic: Patient denied any numbness or tingling headache. Does have dizziness and vertigo. Musculoskeletal: Patient denies any complaints of joint swelling or deformity. Skin: Negative Psychiatric: Negative Endocrine: No heat or cold intolerance. No recent weight gain. Genitourinary: No dysuria or hematuria. All other 14 point ROS negative except the above Past Medical History Past Medical History: Asthma, Cancer, Chest Pain / Angina, COPD, CVA/TIA, Deep Vein Thrombosis (DVT), Eye Disorder, GERD/Reflux, Hyperlipidemia, Hypertension, Liver Disease, Memory Impairment, Osteoarthritis (OA), Pneumonia, Vascular Disorder Additional Past Medical History / Comment(s): 09/28/14 Pt admitted to floor s/p PTCA with 3 stents to RCA. Other HX:MIGRAINES, VERTIGO,TIA (MULTIPLE- DATES UKN ), NAKITA CATARACTS,HEART MURMUR, PVD, HIATAL HERNIA,. IBS, FATTY LIVER, PANCREATITITS, COLON POLYPS, KIDNEY CYSTS, URINARY CALCULI, CHRONIC PAIN,ANEMIA , DVT LEFT MESENTERIC VEIN 2007, BREAST-1977 AND UTERINE CANCER-1979 History of Any Multi-Drug Resistant Organisms: None Reported Past Surgical History: Appendectomy, Bladder Surgery, Bowel Resection, Cholecystectomy, Heart Catheterization, Heart Catheterization With Stent, Hysterectomy, Tonsillectomy Additional Past Surgical History / Comment(s): 09/28/14 PTCA with stents (3) to RCA. Other SX HX: COLONOSCOPY, NAKITA MASTECTOMY, AORTIC STENTS,FEMORAL ILIAC ARTERY STENTS X 6-8 Past Anesthesia/Blood Transfusion Reactions: Motion Sickness Date of Last Stent Placement:: UNKNOWN Past Psychological History: Anxiety Smoking Status: Former smoker Past Alcohol Use History: None Reported Past Drug Use History: None Reported - Past Family History Mother Family Medical History: No Reported History Father Family Medical History: Cancer Additional Family Medical History / Comment(s): colon Medications and Allergies Home Medications Medication Instructions Recorded Confirmed Type Aspirin EC [Ecotrin] 325 mg PO HS 08/22/13 11/13/16 History Ipratropium/Albuterol Sulfate 1 puff INHALATION RT-DAILY PRN 08/22/13 11/13/16 History [Combivent Respimat Inhaler] Lisinopril [Zestril] 10 mg PO QAM 08/22/13 11/13/16 History Meclizine [Antivert] 12.5 mg PO DAILY PRN 08/22/13 11/13/16 History Metoprolol Succinate [Toprol XL] 50 mg PO HS 08/22/13 11/13/16 History Pantoprazole Sodium [Protonix] 40 mg PO DAILY 08/22/13 11/13/16 History Isosorbide Mononitrate ER [Imdur] 30 mg PO DAILY #30 tab.er.24h 09/29/14 Rx Nitroglycerin Sl Tabs [Nitrostat] 0.4 mg SUBLINGUAL Q5M PRN #25 tab 09/29/14 Rx Albuterol Nebulized [Ventolin 2.5 mg INHALATION RT-TID 09/08/16 11/13/16 History Nebulized] Atorvastatin [Lipitor] 40 mg PO HS 09/08/16 11/13/16 History Fluticasone Nasal [place] [Flonase 1 spr EA NOSTRIL BID PRN 09/08/16 11/13/16 History Nasal [place]] Clopidogrel [Plavix] 75 mg PO HS 11/13/16 11/13/16 History Furosemide [Lasix] 40 mg PO DAILY 11/13/16 11/13/16 History Allergies Allergy/AdvReac Type Severity Reaction Status Date / Time azithromycin [From Zithromax] Allergy Rash/Hives Verified 11/13/16 09:25 cephalexin monohydrate Allergy Rash/Hives Verified 11/13/16 09:25 [From Keflex] dexamethasone [From Decadron] Allergy Rash/Hives Verified 11/13/16 09:25 dexamethasone sod phosphate Allergy Rash/Hives Verified 11/13/16 09:25 [From Decadron] codeine AdvReac Nausea & Verified 11/13/16 09:25 Vomiting morphine AdvReac Nausea & Verified 11/13/16 09:25 Vomiting Physical Exam Vitals: Vital Signs Temp Pulse Resp BP Pulse Ox 11/13/16 11:38 96.8 F L 74 17 159/70 96 11/13/16 10:48 76 18 171/91 98 11/13/16 09:35 98 11/13/16 09:31 89 18 174/91 93 L 11/13/16 09:00 98.8 F 87 18 194/84 95 Intake and Output 11/12/16 11/13/16 11/13/16 22:59 06:59 14:59 Other: Weight 90.718 kg Patient Weight 11/14/16 06:59 Weight 90.718 kg PHYSICAL EXAMINATION: Patient is lying in the bed comfortably, no acute distress, awake alert and oriented.. HEENT: Normocephalic. Neck is supple. Pupils reactive. Nostrils clear. Oral cavity is moist. Ears reveal no drainage. Neck reveals no JVD, carotid bruits, or thyromegaly. CHEST EXAMINATION: Trachea is central. Symmetrical expansion. Lung kan clear to auscultation and percussion. CARDIAC: Normal S1, S2 with no gallops. No murmurs ABDOMEN: Soft. Bowel sounds normal. No organomegaly. No abdominal bruits. Extremities: reveal no edema. No clubbing or cyanosis Neurologically awake, alert, oriented x3 with well-coordinated movements. No focal deficits noted Skin: No rash or skin lesions. Psychiatric: Operative. Nonsuicidal Musculoskeletal: No joint swelling or deformity. Normal range of motion. Results CBC & Chem 7: 11/13/16 09:25 11/13/16 09:25 Labs: Abnormal Lab Results - Last 24 Hours (Table) 11/13/16 11/13/16 Range/Units 09:25 09:25 Chloride 109 H (98-107) mmol/L Urine Appearance Cloudy H (Clear) Urine Protein Trace H (Negative) Ur Squamous Epith Cells 6 H (0-4) /hpf Urine Bacteria Rare H (None) /hpf Urine Mucus Rare H (None) /hpf Thrombosis Risk Factor Assmnt - DVT/VTE Prophylaxis DVT/VTE Prophylaxis: Pharmacologic Prophylaxis ordered Assessment and Plan Plan: #1 dizziness and vertigo possible acute on chronic benign positional vertigo. #2 chest tightness. We'll rule out ACS. Patient did have recent cardiac catheter patient showing stable CAD #3 history of coronary artery disease status post stent placement to artery RCA #4 cardiomyopathy ischemic ejection fraction 30-35% #5 chronic CHF with systolic dysfunction #6 hypertension #7 asthma/COPD #8 history of CVA/TIA with no residual weakness. #9 History of DVT #10 history of vertigo. On meclizine when necessary at home #11 fatty liver infiltration #12 history of uterine cancer and breast cancer #13 history of peripheral vascular disease and femoroiliac artery stents 6-8 #14 DVT prophylaxis Plan: 66-year-old female with recent cardiac catheterization was admitted to the hospital with dizziness and vertigo most likely her symptoms are related to her long-standing vertigo. Rule out ACS. Continue with telemetry monitoring. Continue with meclizine when necessary and cardiology consult has in place. We will continue the current management and continue the home medications. Further recommendations based on the clinical course and cardiology evaluation. Time with Patient: Greater than 30
--- NOTE | 2017-01-08 11:13 | P.DS ---
Providers Date of admission: 11/13/16 11:13 Expected date of discharge: 11/14/16 Attending physician: Boy Szymanski Consults: 11/13/16 11:12 Consult Physician Stat Consulting Provider: [facility] Consult Reason/Comments: chest pain Do you want consulting provider notified?: Yes Primary care physician: Kailash Willingham [facility] Course: Discharge diagnosis #1 dizziness and vertigo possible acute on chronic benign positional vertigo. #2 chest tightness. ruled out ACS. Patient did have recent cardiac catheter patient showing stable CAD #3 history of coronary artery disease status post stent placement to artery RCA #4 cardiomyopathy ischemic ejection fraction 30-35% #5 chronic CHF with systolic dysfunction #6 hypertension #7 asthma/COPD #8 history of CVA/TIA with no residual weakness. #9 History of DVT #10 history of vertigo. On meclizine when necessary at home #11 fatty liver infiltration #12 history of uterine cancer and breast cancer #13 history of peripheral vascular disease and femoroiliac artery stents 6-8 #14 DVT prophylaxis Hospital course Patient is a 66-year-old female with a known history of ischemic cardiac myopathy ejection fraction 30-35%, recent heart catheterization with stable coronary artery disease, dizziness/vertigo history as well as hypertension and multiple other medical problems came to the hospital with complaints of low spinning around last night and felt episode of nausea and chest tightness. Patient had this dizziness in the morning with more severity also felt chest pressure which made her come to the ER. Patient had recent cardiac catheterization. Patient is supposed to follow with the cardiology clinic for AICD placement. Otherwise patient denied any fever or chills. No short of breath. Chest pain did not have any radiation. No neck pain as pain. Patient was admitted to the hospital for cardiac evaluation and currently patient symptomatically improved. Except mild dizziness at this time. There are any recent travel or sick contact. Chest x-ray showed cardiac megaly and possible vascular congestion. D-dimer is not elevated at 0.38 Troponin x 2 negative. 66-year-old female with recent cardiac catheterization was admitted to the hospital with dizziness and vertigo most likely her symptoms are related to her long-standing vertigo. Ruled out ACS. Continued with telemetry monitoring. Continued with meclizine when necessary and cardiology has seen the patient. Cardiac workup is negative. Otherwise patient is improved clinically. Stable to be discharged home. Discharge physical examination was done Patient Condition at Discharge: Stable Plan - Discharge Summary New Discharge Prescriptions: Continue Pantoprazole Sodium [Protonix] 40 mg PO DAILY Metoprolol Succinate [Toprol XL] 50 mg PO HS Lisinopril [Zestril] 10 mg PO QAM Ipratropium/Albuterol Sulfate [Combivent Respimat Inhaler] 1 puff INHALATION RT-DAILY PRN PRN Reason: sob Aspirin EC [Ecotrin] 325 mg PO HS Meclizine [Antivert] 12.5 mg PO DAILY PRN PRN Reason: Vertigo Isosorbide Mononitrate ER [Imdur] 30 mg PO DAILY #30 tab.er.24h Nitroglycerin Sl Tabs [Nitrostat] 0.4 mg SUBLINGUAL Q5M PRN #25 tab PRN Reason: Chest Pain Fluticasone Nasal [place] [Flonase Nasal [place]] 1 spr EA NOSTRIL BID PRN PRN Reason: Sinus Symptoms Atorvastatin [Lipitor] 40 mg PO HS Albuterol Nebulized [Ventolin Nebulized] 2.5 mg INHALATION RT-TID No Action Clopidogrel [Plavix] 75 mg PO HS Spironolactone [Aldactone] 25 mg PO DAILY #30 tablet Discharge Medication List Aspirin EC [Ecotrin] 325 mg PO HS 08/22/13 [History] Ipratropium/Albuterol Sulfate [Combivent Respimat Inhaler] 1 puff INHALATION RT- DAILY PRN 08/22/13 [History] Lisinopril [Zestril] 10 mg PO QAM 08/22/13 [History] Meclizine [Antivert] 12.5 mg PO DAILY PRN 08/22/13 [History] Metoprolol Succinate [Toprol XL] 50 mg PO HS 08/22/13 [History] Pantoprazole Sodium [Protonix] 40 mg PO DAILY 08/22/13 [History] Isosorbide Mononitrate ER [Imdur] 30 mg PO DAILY #30 tab.er.24h 09/29/14 [Rx] Nitroglycerin Sl Tabs [Nitrostat] 0.4 mg SUBLINGUAL Q5M PRN #25 tab 09/29/14 [Rx ] Albuterol Nebulized [Ventolin Nebulized] 2.5 mg INHALATION RT-TID 09/08/16 [ History] Atorvastatin [Lipitor] 40 mg PO HS 09/08/16 [History] Fluticasone Nasal [place] [Flonase Nasal [place]] 1 spr EA NOSTRIL BID PRN 09/08/16 [History] Clopidogrel [Plavix] 75 mg PO HS 12/09/16 [History] Spironolactone [Aldactone] 25 mg PO DAILY #30 tablet 12/13/16 [Rx] Follow up Appointment(s)/Referral(s): Kailash Jacobson III, MD [Primary Care Provider] - 1-2 days Maksim Coombs MD [STAFF PHYSICIAN] - 1 Week Patient Instructions/Handouts: Chest Pain (DC) Discharge Disposition: HOME SELF-CARE
== END 2016-11-14 15:25 | disposition home or self-care (01) ==
LOC: EC 08:56 → 3OBS 11:13
PROVIDERS: ADMIT Internal Medicine; ATTEND Internal Medicine
DX: R42 Dizziness and giddiness (principal); R07.89 Other chest pain; R11.2 Nausea with vomiting, unspecified; J44.9 Chronic obstructive pulmonary disease, unspecified; K21.9 Gastro-esophageal reflux disease without esophagitis; M19.90 Unspecified osteoarthritis, unspecified site; E78.5 Hyperlipidemia, unspecified; F41.9 Anxiety disorder, unspecified; I25.10 Atherosclerotic heart disease of native coronary artery without angina pectoris; I50.22 Chronic systolic (congestive) heart failure; I11.0 Hypertensive heart disease with heart failure; I25.5 Ischemic cardiomyopathy; I73.9 Peripheral vascular disease, unspecified; Z95.5 Presence of coronary angioplasty implant and graft; Z79.899 Other long term (current) drug therapy; Z79.82 Long term (current) use of aspirin; Z79.02 Long term (current) use of antithrombotics/antiplatelets; Z88.1 Allergy status to other antibiotic agents; Z88.5 Allergy status to narcotic agent; Z88.8 Allergy status to other drugs, medicaments and biological substances; Z86.73 Personal history of transient ischemic attack (TIA), and cerebral infarction without residual deficits; Z86.718 Personal history of other venous thrombosis and embolism; Z87.442 Personal history of urinary calculi; Z86.010 Personal history of colon polyps; Z85.42 Personal history of malignant neoplasm of other parts of uterus; Z87.891 Personal history of nicotine dependence; Z85.3 Personal history of malignant neoplasm of breast; Z95.828 Presence of other vascular implants and grafts; K58.9 Irritable bowel syndrome, unspecified; K76.0 Fatty (change of) liver, not elsewhere classified; Z80.0 Family history of malignant neoplasm of digestive organs; Z82.0 Family history of epilepsy and other diseases of the nervous system; R41.3 Other amnesia; G89.29 Other chronic pain; G43.909 Migraine, unspecified, not intractable, without status migrainosus; Z92.21 Personal history of antineoplastic chemotherapy; Z87.01 Personal history of pneumonia (recurrent)
CPT/HCPCS: 36415; 71020; 80053; 80061; 81001; 82550; 82553; 83735; 84484; 85025; 85379; 85610; 85730; 93005; 94640; 94760; 96361; 96365; 96366; 96375; 96376; 99285

== ENCOUNTER → 2016-12-07 | Outpatient (CLI) | payer BC, MEDICARE ==
[2016-12-07 11:06] LABS: CH 30.1; CHCM 33.8; HCT 40.4 % (34.0-46.0); HDW 2.57; HGB 13.2 gm/dL (11.4-16.0); MCH 29.2 pg (25.0-35.0); MCHC 32.7 g/dL (31.0-37.0); MCV 89.4 fL (80.0-100.0); Mean Platelet Volume 8.6; RBC 4.53 m/uL (3.80-5.40); RDW 13.8 % (11.5-15.5); WBC 7.1 k/uL (3.8-10.6)
[2016-12-07 11:23] LABS: Anion Gap 9 mmol/L; Blood Urea Nitrogen 18 mg/dL (7-17); Calcium 9.8 mg/dL (8.4-10.2); Carbon Dioxide 26 mmol/L (22-30); Chloride 107 mmol/L (98-107); Glucose 88 mg/dL (74-99); Non-African American GFR(MDRD) >60 (>60 ml/min/1.73 sqM); Potassium 4.7 mmol/L (3.5-5.1); Sodium 142 mmol/L (137-145)
== END | disposition home or self-care (01) ==
LOC: LABWHC1 10:36
PROVIDERS: ATTEND Internal Medicine Clinical Cardiac Electrophysiology
DX: I42.0 Dilated cardiomyopathy (principal)
CPT/HCPCS: 36415; 80048; 85027

== ENCOUNTER → 2016-12-29 | Outpatient (CLI) | payer BC, MEDICARE ==
--- NOTE | 2016-12-29 14:31 | XR ---
EXAMINATION TYPE: XR chest 2V DATE OF EXAM: 12/29/2016 COMPARISON: Prior chest x-ray 12/13/2016 HISTORY: Pneumonia, productive cough TECHNIQUE: Frontal and lateral views of the chest are obtained. FINDINGS: There is no focal air space opacity, pleural effusion, or pneumothorax seen. The cardiac silhouette size is within normal limits. Intracardiac defibrillator is stable. There is hyperinflati on of the lungs suggesting underlying COPD. Calcified breast prostheses are symmetric. Surgical clips present in the right upper quadrant. The osseous structures are intact. IMPRESSION: No acute cardiopulmonary process.
== END | disposition home or self-care (01) ==
LOC: RADXRMAIN 10:36
PROVIDERS: ATTEND Internal Medicine Sleep Medicine
DX: J18.9 Pneumonia, unspecified organism (principal)
CPT/HCPCS: 71020

== ENCOUNTER → 2017-07-15 | Outpatient (CLI) | payer BC, MEDICARE ==
--- NOTE | 2017-07-15 11:05 | US ---
EXAMINATION TYPE: US abdomen complete DATE OF EXAM: 07/15/2017 COMPARISON: NONE CLINICAL HISTORY: R10.84 Generalized abd pain E04.2 Nontoxic...... epigastric pain, cholecystectomy EXAM MEASUREMENTS: Liver Length: 17.8 cm Gallbladder Wall: Surgically absent CBD: 0.4 cm Spleen: 12.8 cm Right Kidney: 10.0 x 3.9 x 4.9 cm Left Kidney: 9.4 x 5.1 x 5.3 cm body habitus and bowel gas limits exam Pancreas: portions seen appear wnl Liver: difficult to penetrate . There is partial visualization of the portal triads and right hemidi aphragm, most commonly related to underlying hepatic steatosis and limiting evaluation for hepatic ma sses. No discrete hepatic mass is seen on today's examination. Gallbladder: Surgically absent Evidence for sonographic Meyer's sign: no CBD: wnl Spleen: Prominent in size without splenomegaly Right Kidney: wnl Left Kidney: wnl Upper IVC: wnl Abd Aorta: wnl The liver is hyperechoic and heterogenous. The intrahepatic portion of the IVC and proximal abdomina l aorta are within normal limits. Common bile duct is unremarkable. The visualized portions of the p ancreas are homogenous. The spleen is unremarkable. Kidneys are symmetric and free of hydronephrosi s. No renal lesions are seen. IMPRESSION: Findings most commonly relating to hepatic steatosis, appearing mild in degree.
--- NOTE | 2017-07-15 11:10 | US ---
EXAMINATION TYPE: US thyroid st tissue head/neck DATE OF EXAM: 07/15/2017 COMPARISON: 07/15/2017, 03/13/2016 and 01/16/2015 CLINICAL HISTORY: R10.84 Generalized abd pain E04.2 Nontoxic...... follow up exam GLAND SIZE: Right Lobe: 4.7 x 1.2 x 2.2 cm Overall Parenchyma: heterogenous Left Lobe: 4.2 x 1.7 x 1.8 cm Overall Parenchyma: heterogeneous Isthmus Thickness: 0.5 cm NODULES RIGHT: # of nodules measured on right: 1 1. 2.0 X 1.4 X 1.9 cm hypoechoic solid nodule at the mid pole with well-defined margins. This nodul e is wider than tall and shows no intranodular vascularity. Prior size: 2.3 x 1.5 x 1.8 cm LEFT: # of nodules measured on left: 2 1. 2.2 X 1.4 x 1.7 cm isoechoic solid nodule at the lower pole with well-defined margins. This nod ule is wider than tall and shows no intranodular vascularity. Prior size: 2.1 x 1.5 x 1.5 cm 2. 0.6 X 0.6 x 0.4 cm hypoechoic solid nodule at the upper pole with well-defined margins. This nod ule is wider than tall and shows no intranodular vascularity. Prior size: 0.6 x 0.4 x 0.6 cm ISTHMUS: # of nodules measured in the isthmus: 0 Bilateral neck scanned, no evidence of lymphadenopathy. IMPRESSION: Similar size of bilateral thyroid nodules in comparison to the exams of 07/15/2017, 03/13/2016 and 12/24. Therefore findings likely represent a multinodular goiter. Continued surveillance is recommen ded.
== END | disposition home or self-care (01) ==
LOC: RADUSWWP 08:47
PROVIDERS: ATTEND Family Medicine
DX: E04.2 Nontoxic multinodular goiter (principal); R10.84 Generalized abdominal pain
CPT/HCPCS: 76536; 76700

== ENCOUNTER → 2017-08-12 | Outpatient (CLI) | payer BC, MEDICARE ==
--- NOTE | 2017-08-12 12:59 | XR ---
EXAMINATION TYPE: XR cervical spine comp DATE OF EXAM: 08/12/2017 COMPARISON: NONE HISTORY: Neck pain TECHNIQUE: Four views are submitted. FINDINGS: The odontoid is intact. There are no compression deformities. The prevertebral soft tissue structur es are within normal limits. Severe degenerative disc disease C4-5, C5-6 and C6-C7 with anterior hyp ertrophic spurring. Minimal anterolisthesis of C3 on 4. Multilevel severe facet arthropathy. Calcification the soft tissue the neck likely related carotid artery calcification there appear to be chest leads in the upper mediastinum. Bilateral foraminal encroachment suspected at levels C4-C7. IMPRESSION: 1. Severe degenerative multilevel disc disease with foraminal encroachment as discussed above..
--- NOTE | 2017-08-12 13:18 | XR ---
EXAM TYPE: LUMBAR SPINE X RAY SERIES COMPARISON: NONE HISTORY: Chronic low back pain TECHNIQUE: 4 views are submitted. FINDINGS: Alignment is anatomic. The pedicles are intact. The transverse processes are intact. Vascular sten ts are seen. Previous surgery in the gallbladder fossa noted. Sclerosis overlying the left sacrum lik [place]. A millimeter calcification overlying the right transverse process of L5 is indetermi joe. There is multilevel degenerative disc disease with facet arthropathy at levels L3-S1 and grade 1 ante rolisthesis L4 on L5 and L5 on S1 IMPRESSION: 1. Multilevel degenerative disc disease and severe facet arthropathy with grade 1 anterolisthesis of L4 on L5 and L5 on S1. 2. Calcification overlying the right transverse process of L5 likely outside the course of the ureter but should be correlated clinically.
== END | disposition home or self-care (01) ==
LOC: RADXRMAIN 12:09
PROVIDERS: ATTEND Family Medicine
DX: M51.37 Other intervertebral disc degeneration, lumbosacral region (principal); M46.86 Other specified inflammatory spondylopathies, lumbar region; M43.17 Spondylolisthesis, lumbosacral region; M50.321 Other cervical disc degeneration at C4-C5 level
CPT/HCPCS: 72050; 72110

== ENCOUNTER 2017-09-11 20:45 | Emergency (ER) | payer BC, MEDICARE ==
[2017-09-11] MEDS ORDERED: ASPIRIN 81 MG PO STA (21:06)
[2017-09-11] MEDS ORDERED: ONDANSETRON 4 MG/2 ML VIAL IVP STA (21:06)
[2017-09-11] MEDS ORDERED: SODIUM CHLORIDE 0.9% 1,000 ML IV STA (21:06)
--- NOTE | 2017-09-11 21:06 | ED ---
General Adult HPI - General Chief complaint: Chest Pain Stated complaint: Vomiting Time Seen by Provider: 09/11/17 20:55 Source: patient, family Mode of arrival: ambulatory Limitations: no limitations - History of Present Illness Initial comments: Maggie Ji is a 67-year-old female with extensive past medical history most significant for vertigo for which she has been prescribed meclizine in the past. Patient presents the emergency department today complaining of vertigo, nausea, vomiting and the development of epigastric abdominal and chest pain after vomiting. Maggie states that she was in her usual state of health today, she states that she attended the [employer] with her family and while watching the children on the rise she began to feel very dizzy. They then decided to leave the fair. She reports that her dizziness progressively worsened to about nausea and vomiting. She attempted to take meclizine at home but was unable to keep it down and continued to vomit and feel dizzy. Similar to previous episodes of vertigo however much more severe in nature. With the persistent nausea or vomiting and dizziness she decided to come to the emergency department. She does report some discomfort in her epigastrium and retrosternal area after vomiting. She denies any exertional chest pain, shortness of breath, palpitations. - Related Data Home Medications Medication Instructions Recorded Confirmed Aspirin EC [Ecotrin] 325 mg PO HS 08/22/13 09/11/17 Ipratropium/Albuterol Sulfate 1 puff INHALATION RT-DAILY PRN 08/22/13 09/11/17 [Combivent Respimat Inhaler] Lisinopril [Zestril] 10 mg PO QAM 08/22/13 09/11/17 Meclizine [Antivert] 12.5 mg PO DAILY PRN 08/22/13 09/11/17 Metoprolol Succinate [Toprol XL] 50 mg PO 08/22/13 09/11/17 Pantoprazole Sodium [Protonix] 40 mg PO DAILY 08/22/13 09/11/17 Albuterol Nebulized [Ventolin 2.5 mg INHALATION RT-TID 09/08/16 09/11/17 Nebulized] Atorvastatin [Lipitor] 40 mg PO HS 09/08/16 09/11/17 Fluticasone Nasal [place] [Flonase 1 spr EA NOSTRIL BID PRN 09/08/16 09/11/17 Nasal [place]] Clopidogrel [Plavix] 75 mg PO HS 12/09/16 09/11/17 Previous Rx's Medication Instructions Recorded Isosorbide Mononitrate ER [Imdur] 30 mg PO DAILY #30 tab.er.24h 09/29/14 Nitroglycerin Sl Tabs [Nitrostat] 0.4 mg SUBLINGUAL Q5M PRN #25 tab 09/29/14 Spironolactone [Aldactone] 25 mg PO DAILY #30 tablet 12/13/16 Allergies Allergy/AdvReac Type Severity Reaction Status Date / Time azithromycin [From Zithromax] Allergy Rash/Hives Verified 09/11/17 20:53 cephalexin monohydrate Allergy Rash/Hives Verified 09/11/17 20:53 [From Keflex] dexamethasone [From Decadron] Allergy Rash/Hives Verified 09/11/17 20:53 dexamethasone sod phosphate Allergy Rash/Hives Verified 09/11/17 20:53 [From Decadron] codeine AdvReac Nausea & Verified 09/11/17 20:53 Vomiting morphine AdvReac Nausea & Verified 09/11/17 20:53 Vomiting Review of Systems ROS Statement: Those systems with pertinent positive or pertinent negative responses have been documented in the HPI. ROS Other: All systems not noted in ROS Statement are negative. Constitutional: Denies: fever, chills Eyes: Denies: eye pain, vision change ENT: Denies: throat pain Respiratory: Denies: cough, dyspnea Cardiovascular: Reports: chest pain. Denies: palpitations, dyspnea on exertion , orthopnea, edema Endocrine: Denies: fatigue Gastrointestinal: Reports: nausea, vomiting. Denies: diarrhea, constipation Genitourinary: Denies: urgency, dysuria Musculoskeletal: Denies: back pain Skin: Denies: rash, lesions Neurological: Reports: abnormal gait, vertigo. Denies: headache, weakness, numbness, paresthesias, confusion Psychiatric: Denies: anxiety, depression Hematological/Lymphatic: Denies: easy bleeding, easy bruising Past Medical History Past Medical History: Asthma, Cancer, Chest Pain / Angina, COPD, CVA/TIA, Deep Vein Thrombosis (DVT), Eye Disorder, GERD/Reflux, Hyperlipidemia, Hypertension, Liver Disease, Memory Impairment, Osteoarthritis (OA), Pneumonia, Vascular Disorder Additional Past Medical History / Comment(s): 09/28/14 Pt admitted to floor s/p PTCA with 3 stents to RCA. Other HX:MIGRAINES, VERTIGO,TIA (MULTIPLE- DATES UKN ), NAKITA CATARACTS,HEART MURMUR, PVD, HIATAL HERNIA,. IBS, FATTY LIVER, PANCREATITITS, COLON POLYPS, KIDNEY CYSTS, URINARY CALCULI, CHRONIC PAIN,ANEMIA , DVT LEFT MESENTERIC VEIN 2007, BREAST-1977 AND UTERINE CANCER-1979 History of Any Multi-Drug Resistant Organisms: None Reported Past Surgical History: Appendectomy, Bladder Surgery, Bowel Resection, Cholecystectomy, Heart Catheterization, Heart Catheterization With Stent, Hysterectomy, Tonsillectomy Additional Past Surgical History / Comment(s): 09/28/14 PTCA with stents (3) to RCA. COLONOSCOPY. BOWEL RESECTION, MULT. NAKITA MASTECTOMY with implants. AORTIC STENT, FEMORAL ILIAC ARTERY STENTS X 6-8. Carotid surgery Past Anesthesia/Blood Transfusion Reactions: Motion Sickness Additional Past Anesthesia/Blood Transfusion Reaction / Comment(s): SEVERE PONV. PT HAS RECEIVED BLOOD IN 1977 WITHOUT REACTION. Date of Last Stent Placement:: UNKNOWN Past Psychological History: Anxiety Smoking Status: Former smoker Past Alcohol Use History: None Reported Past Drug Use History: None Reported - Past Family History Mother Family Medical History: No Reported History Father Family Medical History: Cancer Additional Family Medical History / Comment(s): colon General Exam Limitations: no limitations General appearance: alert, other (Patient required assistance standing from the wheelchair to the bed. Sitting in the bed she is very vertiginous and uncomfortable) Head exam: Present: atraumatic, normocephalic Eye exam: Present: normal appearance, PERRL, EOMI, nystagmus ENT exam: Present: normal exam, TM's normal bilaterally Neck exam: Present: normal inspection, full ROM, other (No carotid bruit) Respiratory exam: Present: normal lung sounds bilaterally, respiratory distress Cardiovascular Exam: Present: regular rate, normal rhythm GI/Abdominal exam: Present: soft, other (Heaving on exam). Absent: distended, tenderness, guarding, rebound, rigid, normal bowel sounds, diminished bowel sounds Extremities exam: Present: full ROM, normal capillary refill. Absent: pedal edema Neurological exam: Present: alert, oriented X3, CN II-XII intact Psychiatric exam: Present: normal affect, normal mood Skin exam: Present: warm, dry Course Vital Signs 09/11/17 09/11/17 20:50 22:47 Temperature 97.8 F 97.3 F L Pulse Rate 88 72 Respiratory 20 17 Rate Blood Pressure 144/97 150/70 O2 Sat by Pulse 97 98 Oximetry - Reevaluation(s) Reevaluation #1: Patient standing, walking around the room. States she is eager for discharge 09/11/17 23:59 Reevaluation #2: After asking the patient to ambulate in the hallway so that I could see her ambulating comfortably. The patient was noted to walk down the hallway and out of the emergency department without receiving discharge paperwork or instructions. 09/12/17 00:11 Medical Decision Making - Medical Decision Making The patient was seen and evaluated, this is a patient with a history of recurrent episodes of vertigo, has been prescribed meclizine in the past, reports she was watching rides the [employer] today when she developed dizziness which progressively worsened and causes nausea and vomiting. After multiple episodes of nonbloody nonbilious emesis she developed epigastric and retrosternal discomfort. On exam the patient has horizontal nystagmus upon head turning. This is worse when turning her head to the left. Labs and Valium were ordered Patient was reevaluated after receiving Valium and Zofran. She sitting comfortably in bed reports she is feeling much better. Patient reports that her nausea has resolved completely and she believes her vertigo has improved. She is eager for discharge home and states she would like to sleep in her own bed. Upon standing the patient again became vertiginous. At this time head CT and meclizine were ordered. CT with no acute findings, there are chronic changes noted Patient was reevaluated after the meclizine. She reports that this time her vertigo has resolved. She is able to turn her head left and right without symptoms. She reports that she just feels very tired and wants to go home to sleep. The patient that if she is able to ambulate in the ER independently she can be discharged home. Patient was seen getting out of bed and walking out of the ER. Patient did not receive her discharge paperwork or instructions. - Lab Data Result diagrams: 09/11/17 21:02 09/11/17 21:02 Lab Results 07/21/18 07/21/18 07/21/18 Range/Units 21:02 21:02 21:02 WBC 9.6 (3.8-10.6) k/uL RBC 5.03 (3.80-5.40) m/uL Hgb 14.7 (11.4-16.0) gm/dL Hct 42.4 (34.0-46.0) % MCV 84.3 (80.0-100.0) fL MCH 29.2 (25.0-35.0) pg MCHC 34.6 (31.0-37.0) g/dL RDW 12.1 (11.5-15.5) % Plt Count 197 (150-450) k/uL Neutrophils % 72 % Lymphocytes % 21 % Monocytes % 5 % Eosinophils % 1 % Basophils % 0 % Neutrophils # 6.9 (1.3-7.7) k/uL Lymphocytes # 2.0 (1.0-4.8) k/uL Monocytes # 0.5 (0-1.0) k/uL Eosinophils # 0.1 (0-0.7) k/uL Basophils # 0.0 (0-0.2) k/uL PT (9.0-12.0) sec INR (<1.2) APTT (22.0-30.0) sec Sodium 138 (137-145) mmol/L Potassium 4.6 (3.5-5.1) mmol/L Chloride 105 (98-107) mmol/L Carbon Dioxide 22 (22-30) mmol/L Anion Gap 11 mmol/L BUN 20 H (7-17) mg/dL Creatinine 0.90 (0.52-1.04) mg/dL Est GFR (CKD-EPI)AfAm 76 (>60 ml/min/1.73 sqM) Est GFR (CKD-EPI)NonAf 66 (>60 ml/min/1.73 sqM) Glucose 108 H (74-99) mg/dL Calcium 9.7 (8.4-10.2) mg/dL Magnesium 1.8 (1.6-2.3) mg/dL Total Bilirubin 0.8 (0.2-1.3) mg/dL AST 33 (14-36) U/L ALT 41 (9-52) U/L Alkaline Phosphatase 50 (38-126) U/L Total Creatine Kinase 48 (30-135) U/L CK-MB (CK-2) 0.3 (0.0-2.4) ng/mL CK-MB (CK-2) Rel Index 0.6 Troponin I <0.012 (0.000-0.034) ng/mL Total Protein 7.3 (6.3-8.2) g/dL Albumin 4.5 (3.5-5.0) g/dL Lipase 217 (23-300) U/L 09/11/17 Range/Units 21:02 WBC (3.8-10.6) k/uL RBC (3.80-5.40) m/uL Hgb (11.4-16.0) gm/dL Hct (34.0-46.0) % MCV (80.0-100.0) fL MCH (25.0-35.0) pg MCHC (31.0-37.0) g/dL RDW (11.5-15.5) % Plt Count (150-450) k/uL Neutrophils % % Lymphocytes % % Monocytes % % Eosinophils % % Basophils % % Neutrophils # (1.3-7.7) k/uL Lymphocytes # (1.0-4.8) k/uL Monocytes # (0-1.0) k/uL Eosinophils # (0-0.7) k/uL Basophils # (0-0.2) k/uL PT 10.2 (9.0-12.0) sec INR 1.0 (<1.2) APTT 22.4 (22.0-30.0) sec Sodium (137-145) mmol/L Potassium (3.5-5.1) mmol/L Chloride (98-107) mmol/L Carbon Dioxide (22-30) mmol/L Anion Gap mmol/L BUN (7-17) mg/dL Creatinine (0.52-1.04) mg/dL Est GFR (CKD-EPI)AfAm (>60 ml/min/1.73 sqM) Est GFR (CKD-EPI)NonAf (>60 ml/min/1.73 sqM) Glucose (74-99) mg/dL Calcium (8.4-10.2) mg/dL Magnesium (1.6-2.3) mg/dL Total Bilirubin (0.2-1.3) mg/dL AST (14-36) U/L ALT (9-52) U/L Alkaline Phosphatase (38-126) U/L Total Creatine Kinase (30-135) U/L CK-MB (CK-2) (0.0-2.4) ng/mL CK-MB (CK-2) Rel Index Troponin I (0.000-0.034) ng/mL Total Protein (6.3-8.2) g/dL Albumin (3.5-5.0) g/dL Lipase (23-300) U/L Disposition Clinical Impression: Vertigo Disposition: HOME SELF-CARE Instructions: Vertigo (ED) Is patient prescribed a controlled substance at d/c from ED?: No Referrals: Kailash Jacobson III, MD [Primary Care Provider] - 1-2 days Time of Disposition: 00:12
[2017-09-11] MEDS ORDERED: DIAZEPAM 5 MG/ML 2 ML INJ IVP STA (21:07)
[2017-09-11 21:23] LABS: Basophils % (A) 0 %; Eosinophils # (A) 0.1 k/uL (0-0.7); Eosinophils % (A) 1 %; HCT 42.4 % (34.0-46.0); HGB 14.7 gm/dL (11.4-16.0); Lymphocytes % (A) 21 %; MCH 29.2 pg (25.0-35.0); MCHC 34.6 g/dL (31.0-37.0); MCV 84.3 fL (80.0-100.0); Mean Platelet Volume 8.3; Monocytes # (A) 0.5 k/uL (0-1.0); Monocytes % (A) 5 %; Neutrophils # (A) 6.9 k/uL (1.3-7.7); Neutrophils % (A) 72 %; Platelet Count 197 k/uL (150-450); RBC 5.03 m/uL (3.80-5.40); RDW 12.1 % (11.5-15.5); WBC 9.6 k/uL (3.8-10.6)
[2017-09-11 21:31] LABS: Partial Thromboplastin Time 22.4 sec (22.0-30.0); Prothrombin Time 10.2 sec (9.0-12.0)
[2017-09-11 21:32] LABS: Albumin 4.5 g/dL (3.5-5.0); Calcium 9.7 mg/dL (8.4-10.2); Creatine Kinase 48 U/L (30-135); Magnesium 1.8 mg/dL (1.6-2.3); Potassium 4.6 mmol/L (3.5-5.1); Total Bilirubin 0.8 mg/dL (0.2-1.3); Total Protein 7.3 g/dL (6.3-8.2)
[2017-09-11 21:43] LABS: Creatine Kinase MB 0.3 ng/mL (0.0-2.4); Troponin I <0.012 ng/mL (0.000-0.034)
--- NOTE | 2017-09-11 21:51 | XR ---
EXAMINATION TYPE: XR chest 2V DATE OF EXAM: 09/11/2017 COMPARISON: Prior chest x-ray dated 12/29/2016. HISTORY: Chest pain and dizziness, history of COPD and hypertension. History of prior pacemaker inser tion and cardiac stents. TECHNIQUE: Frontal and lateral views of the chest are obtained. FINDINGS: Inspiratory effort is less optimal than when compared with the prior study. Stable position of the pacemaker and pacer wires as compared to the prior exam. Slight increased dens ity at the lung bases as compared to the prior study which could be due to atelectatic changes second juancho to the less inspiratory effort. Costophrenic angles are relatively sharp without pleural effusion s. No pneumothorax. Cardiac silhouette remains stable. The osseous structures are intact. IMPRESSION: Less inspiratory effort than when compared with the prior study with slight increased density in the lung bases which could be due to atelectatic changes or artifactual due to the lesser inspiratory eff ort. No pneumothorax or significant pleural effusions. Stable position of the pacemaker and pacer wir es.
[2017-09-11 22:48] VITALS: BP 150/70; PULSE 72; RESP 17; TEMP 97.3
[2017-09-11] MEDS ORDERED: MECLIZINE 12.5 MG TAB PO STA (23:00)
--- NOTE | 2017-09-11 23:27 | CT ---
EXAMINATION TYPE: CT brain wo con DATE OF EXAM: 09/11/2017 COMPARISON: 05/19/2011 MR scan HISTORY: Vertigo CT DLP: 1014.40 mGycm Automated exposure control for dose reduction was used. FINDINGS: Ventricles and sulci appear normal for age. There is no mass effect nor midline shift. There is no si gn of intracranial hemorrhage. There is mild white matter hypodensity. The calvarium is intact. IMPRESSION: WHITE MATTER HYPODENSITY CONSISTENT WITH CHRONIC SMALL VESSEL ISCHEMIA OR DEMYELINATING DISEASE. NO A CUTE INTRACRANIAL ABNORMALITY. NO CHANGE COMPARED TO MR SCAN.
== END 2017-09-12 | disposition home or self-care (01) ==
LOC: EC 20:45
DX: R42 Dizziness and giddiness (principal); H55.00 Unspecified nystagmus; R06.03 Acute respiratory distress; R11.2 Nausea with vomiting, unspecified; R10.13 Epigastric pain; R07.9 Chest pain, unspecified; J44.9 Chronic obstructive pulmonary disease, unspecified; E78.5 Hyperlipidemia, unspecified; I10 Essential (primary) hypertension; K21.9 Gastro-esophageal reflux disease without esophagitis; M19.90 Unspecified osteoarthritis, unspecified site; I73.9 Peripheral vascular disease, unspecified; Z87.891 Personal history of nicotine dependence; Z79.02 Long term (current) use of antithrombotics/antiplatelets; Z79.82 Long term (current) use of aspirin; Z79.899 Other long term (current) drug therapy; Z88.1 Allergy status to other antibiotic agents; Z88.5 Allergy status to narcotic agent; Z88.8 Allergy status to other drugs, medicaments and biological substances; Z86.73 Personal history of transient ischemic attack (TIA), and cerebral infarction without residual deficits; Z86.718 Personal history of other venous thrombosis and embolism; Z86.79 Personal history of other diseases of the circulatory system; Z85.3 Personal history of malignant neoplasm of breast; Z85.42 Personal history of malignant neoplasm of other parts of uterus; Z90.49 Acquired absence of other specified parts of digestive tract; Z90.710 Acquired absence of both cervix and uterus; Z90.13 Acquired absence of bilateral breasts and nipples
CPT/HCPCS: 99285; 96374; 96375; 96361; 36415; 80053; 82550; 82553; 83690; 83735; 84484; 85025; 85610; 85730; 71046; 70450; J3360; J2405

== ENCOUNTER → 2017-10-23 | Outpatient (CLI) | payer BC, MEDICARE ==
[2017-10-23 11:43] LABS: Albumin 4.3 g/dL (3.5-5.0); Calcium 9.6 mg/dL (8.4-10.2); Potassium 5.1 mmol/L (3.5-5.1); Total Bilirubin 0.7 mg/dL (0.2-1.3); Total Protein 7.4 g/dL (6.3-8.2)
== END | disposition home or self-care (01) ==
LOC: LABWHC1 10:21
PROVIDERS: ATTEND Internal Medicine Clinical Cardiac Electrophysiology
DX: I25.10 Atherosclerotic heart disease of native coronary artery without angina pectoris (principal); I21.9 Acute myocardial infarction, unspecified; I50.9 Heart failure, unspecified
CPT/HCPCS: 36415; 80053; 80061; 84443

== ENCOUNTER → 2018-01-03 | Outpatient (CLI) | payer BC, MEDICARE ==
--- NOTE | 2018-01-03 15:50 | CT ---
EXAMINATION TYPE: CT cervical spine wo con DATE OF EXAM: 01/03/2018 COMPARISON: None HISTORY: Neck pain CT DLP: 612.0 mGycm CONTRAST: None CT of the cervical spine is performed in the axial plane at 2 mm thick sections. Reconstructed image s in the coronal, and sagittal plane are reviewed on the computer. No acute fractures are evident. Vertebral body alignment is straightened. Disc space narrowing is present C4-5 C5-6 C6-7. Minimal posterior endplate spurring is present C5-6. Vertebral body heights are preserved. No spinal canal stenosis is evident Uncovertebral joint hypertrophy is contributing to severe stenosis at the C5-6 level. Moderate to sev ere foraminal narrowing is present C4-5. Some posterior endplate spurring has moderate anterior theca l sac compression C6-7 and C5-6. IMPRESSIONS: 1. Degenerative disc changes, endplate spurring, and uncovertebral joint hypertrophy. 2. No acute osseous abnormality.
--- NOTE | 2018-01-03 16:12 | CT ---
EXAMINATION TYPE: CT lumbar spine wo con DATE OF EXAM: 01/03/2018 COMPARISON: None HISTORY: Low back pain CT DLP: 1707.9 mGycm CONTRAST: None TECHNIQUE: CT of the lumbar spine is performed on a spiral scan at 3 mm thick sections. Reconstructed images are performed in the coronal and sagittal planes. FINDINGS: T10-T11: No focal disc herniation or significant disc bulge is evident. There is a small amount of ca lcification of the posterior longitudinal ligament. No stenosis is present. T11-12: No focal disc herniation or significant disc bulge is evident. No spinal canal stenosis or ne ural foraminal stenosis is present. T12-L1: No focal disc herniation or significant disc bulge is evident. No spinal canal stenosis or neural foraminal stenosis is present. L1-L2: No focal disc herniation or significant disc bulge is evident. No spinal canal stenosis or n eural foraminal stenosis is present L2-L3: Mild disc bulge is present with anterior thecal sac compression. No AP spinal canal stenosis i s present. Neural foramen are patent. L3-L4: Broad-based disc bulge has anterior thecal sac flattening. Ligamentum flavum laxity is presen t with some canal narrowing. L4-L5: Broad-based disc bulge is present with moderate anterior thecal sac compression. Facet hypertr ophy and ligamentum flavum laxity is contributing to spinal canal stenosis through this level. AP alba meter is 0.7 cm. L5-S1: There is a central focal bulge with moderate anterior thecal sac compression. AP spinal canal narrowing is not present. Diameter is 1.2 cm. Facet hypertrophy is present. Ligamentum flavum laxity is present. Vertebral alignment appears normal. IMPRESSION: 1. Multilevel disc bulging greatest at L4-5. Ligamentum flavum laxity is present. This is contributin g to spinal canal narrowing. 2. Disc bulge is also focal at L5-S1. 3. Milder disc bulging present L2-3 L3-4.
== END ==
LOC: RADCTMAIN 08:26
PROVIDERS: ATTEND Psychiatry & Neurology Neurology
DX: M50.30 Other cervical disc degeneration, unspecified cervical region (principal); M48.061 Spinal stenosis, lumbar region without neurogenic claudication; M51.27 Other intervertebral disc displacement, lumbosacral region; M53.2X6 Spinal instabilities, lumbar region
CPT/HCPCS: 72125; 72131

== ENCOUNTER → 2018-02-01 | Outpatient (CLI) | payer BC, MEDICARE ==
--- NOTE | 2018-02-01 13:53 | US ---
EXAMINATION TYPE: US thyroid st tissue head/neck DATE OF EXAM: 02/01/2018 COMPARISON: US July 15, 2017 CLINICAL HISTORY: E04.1 THYROID NODULE. GLAND SIZE: Right Lobe: 4.7 x 2.0 x 1.8 cm Overall Parenchyma: homogenous Left Lobe: 4.0 x 1.8 x 2.0 cm Overall Parenchyma: homogeneous Isthmus Thickness: 0.5 cm NODULES RIGHT: # of nodules measured on right: 1 1. 2.1 X 1.5 x 1.5 cm hypoechoic solid nodule at the lower pole with well-defined margins. This no dule is wider than tall and shows intranodular vascularity. Prior size: 1.9 x 1.4 x 1.9 cm LEFT: # of nodules measured on left: 2 1. 2.2 X 1.7 x 1.6 cm isoechoic solid nodule at the lower pole with well-defined margins; . This n odule is wider than tall and shows intranodular vascularity. Prior size: 2.2 x 1.7 x 1.4 cm 2. 0.6 X 0.4 x 0.6 cm hypoechoic solid nodule at the mid pole with well-defined margins; . This nod ule is wider than tall and shows no intranodular vascularity. Prior size: 0.6 x 0.4 x 0.6 cm ISTHMUS: # of nodules measured in the isthmus: 0 Bilateral neck scanned, no evidence of lymphadenopathy. Homogeneous small size thyroid with stable bilateral larger solid thyroid nodules, no new nodules are evident. IMPRESSION: As above, no significant interval change.
== END ==
LOC: RADUSWWP 13:19
PROVIDERS: ATTEND Otolaryngology
DX: E04.1 Nontoxic single thyroid nodule (principal)
CPT/HCPCS: 76536

== ENCOUNTER → 2018-04-28 | Outpatient (CLI) | payer BC, MEDICARE ==
--- NOTE | 2018-04-28 16:30 | CT ---
EXAMINATION TYPE: CT brain wo/w con DATE OF EXAM: 04/28/2018 COMPARISON: 09/11/2017 HISTORY: 67-year-old female Dizziness for one month TECHNIQUE: Examination was done in axial plane before and after administration of 100 mL Isovue 300 intravenous contrast. Coronal and sagittal reconstructions performed. CT DLP: 2108.4 mGycm Automated exposure control for dose reduction was used. FINDINGS: There is no evidence of acute intracranial hemorrhage, acute ischemic changes, mass, mass-effect, or extra-axial fluid collection. There is no effacement of cerebral sulci or basal subarachnoid cister ns. There is no hydrocephalus. There is no midline shift. Martinez-white matter distinction is preserv ed. Moderate confluent white matter hypodensities in both cerebral hemispheres redemonstrated. Benign bas al ganglionic calcifications. After contrast administration, no enhancing intracranial lesions. Dural venous sinuses are patent. Pe rsistent origin right PA. Paranasal sinuses and mastoid air cells are well pneumatized. Orbits and globes are intact. IMPRESSION: No acute intracranial abnormality seen. Stable moderate confluent white matter hypodensities nonspeci fic, probably related to changes of chronic small vessel ischemic disease. Demyelinating disease is a lso a differential consideration. No enhancing lesions.
== END ==
LOC: RADCTMAIN 12:54
PROVIDERS: ATTEND Psychiatry & Neurology Neurology
DX: R90.89 Other abnormal findings on diagnostic imaging of central nervous system (principal); Z88.5 Allergy status to narcotic agent; Z88.1 Allergy status to other antibiotic agents; Z88.8 Allergy status to other drugs, medicaments and biological substances
CPT/HCPCS: 82565; 84520; 70470; 36415; Q9967

== ENCOUNTER → 2018-05-31 | Outpatient (CLI) | payer BC, MEDICARE ==
[2018-05-31 23:20] LABS: Anion Gap 7.1 mmol/L (4.00-12.00); Calcium 9.8 mg/dL (8.7-10.3); Carbon Dioxide 26.9 mmol/L (21.6-31.8); Magnesium 1.7 mg/dL (1.5-2.4); Potassium 4.4 mmol/L (3.5-5.5)
== END | disposition home or self-care (01) ==
LOC: LABWHC1 13:21
PROVIDERS: ATTEND Nurse Practitioner Adult Health
DX: I10 Essential (primary) hypertension (principal)
CPT/HCPCS: 36415; 80048; 83735

== ENCOUNTER → 2018-07-26 | Outpatient (CLI) | payer BC, MEDICARE ==
[2018-07-26 16:53] LABS: Basophils % (A) 1 %; Eosinophils # (A) 0.1 k/uL (0-0.7); Eosinophils % (A) 2 %; HCT 42.6 % (34.0-46.0); Lymphocytes # (A) 2.5 k/uL (1.0-4.8); Lymphocytes % (A) 37 %; MCH 28.3 pg (25.0-35.0); MCHC 32.9 g/dL (31.0-37.0); Monocytes # (A) 0.4 k/uL (0-1.0); Monocytes % (A) 6 %; Neutrophils # (A) 3.6 k/uL (1.3-7.7); Neutrophils % (A) 53 %; Platelet Count 194 k/uL (150-450); RBC 4.96 m/uL (3.80-5.40); RDW 12.1 % (11.5-15.5); WBC 6.8 k/uL (3.8-10.6)
[2018-07-27 01:10] LABS: Albumin 4.7 g/dL (3.80-4.90); Albumin/Globulin Ratio 2.24 (1.60-3.17); Anion Gap 8.9 mmol/L (4.00-12.00); Calcium 9.6 mg/dL (8.7-10.3); Carbon Dioxide 23.1 mmol/L (21.6-31.8); Globulin 2.1 g/dL (1.6-3.3); Potassium 4.8 mmol/L (3.5-5.5); Total Bilirubin 0.8 mg/dL (0.3-1.2); Total Protein 6.8 g/dL (6.2-8.2)
== END ==
LOC: LABWHC1 16:16
PROVIDERS: ATTEND Family Medicine
DX: R68.81 Early satiety (principal)
CPT/HCPCS: 36415; 80053; 85025

== ENCOUNTER → 2018-08-03 | Outpatient (CLI) | payer BC, MEDICARE ==
--- NOTE | 2018-08-03 11:56 | US ---
EXAMINATION TYPE: US abdomen complete DATE OF EXAM: 08/03/2018 COMPARISON: US 2018, CT 2016 CLINICAL HISTORY: R63.0 Anorexia,R14.0Abdominal distension,R68.81,. Bloating and abdomen pain after e ating x couple months, history of cholecystectomy EXAM MEASUREMENTS: Liver Length: 16.9 cm Gallbladder Wall: surgically absent CBD: 0.4 cm Spleen: 11.0 cm Right Kidney: 9.5 x 5.5 x 4.7 cm Left Kidney: 9.6 x 4.6 x 4.3 cm Difficult and limited study due to patient body habitus Pancreas: limited by overlying midline bowel gas Liver: mildly heterogeneous, attenuating, small 0.7cm cyst left lobe Gallbladder: surgically absent Evidence for sonographic Meyer's sign: no CBD: wnl Spleen: wnl Right Kidney: 0.5cm echogenic focus inferior pole, linear column of Boy Left Kidney: No hydronephrosis or nephrolithiasis Upper IVC: wnl Abd Aorta: visualized portions wnl, limited by overlying midline bowel gas The intrahepatic portion of the IVC and proximal abdominal aorta are within normal limits. Common bi le duct is unremarkable. The visualized portions of the pancreas are homogenous. The spleen is unre markable. Kidneys are symmetric and free of hydronephrosis. No renal lesions are seen. IMPRESSION: 1. Sonographic findings most commonly related to hepatic steatosis appearing mild in degree. Correlat e with liver function tests. 2. 7 mm left hepatic cyst is incidentally seen. 3. Nonobstructing 5 mm right renal calculus is seen.
== END | disposition home or self-care (01) ==
LOC: RADUSWWP 09:31
PROVIDERS: ATTEND Family Medicine
DX: N20.0 Calculus of kidney (principal); K76.0 Fatty (change of) liver, not elsewhere classified; K76.89 Other specified diseases of liver; R68.81 Early satiety; R14.0 Abdominal distension (gaseous); K59.09 Other constipation; R63.0 Anorexia; Z86.718 Personal history of other venous thrombosis and embolism
CPT/HCPCS: 76700

== ENCOUNTER 2018-09-28 08:09 | Day surgery (SDC) | payer BC, MEDICARE ==
[2018-09-23 10:33] VITALS: BMI 39.6
[~2018-09-28 08:09] MED LIST changes: -ALPRAZolam 0.25 MG TAB PO PRN; -ASPIRIN 325 MG TAB PO ONE; +LACTATED RINGERS 1,000 ML IV SCH; +LIDOCAINE 1% 20 ML VIAL (10MG/ML) FOR IV START INTRADERMA PRN; -SODIUM CHLORIDE 0.9% 1,000 ML in EMPTY BAG 1 BAG IV ONE
[2018-09-28 09:03] VITALS: TEMP 98.3
[2018-09-28] MEDS ORDERED: ONDANSETRON 4 MG/2 ML VIAL IVP ONE (09:23)
[2018-09-28] MEDS ORDERED: PROPOFOL 10 MG/ML 20 ML VIAL IV ONE (09:28)
[2018-09-28] MEDS ORDERED: LIDOCAINE 1% INJ 10MG/ML (20 ML MDV) ONE (09:28)
--- NOTE | 2018-09-28 09:38 | P.PCN ---
Date of Procedure: 09/28/18 Procedure(s) Performed: BRIEF HISTORY: Patient is a 68-year-old, pleasant, female, scheduled for an upper endoscopy as a part of evaluation of epigastric pain, abdominal bloating and early satiety for the last several months duration. Her symptoms are worse in the morning. No weight loss. Because of this and she is scheduled for an upper endoscopy to evaluate further.. PROCEDURE PERFORMED: Esophagogastroduodenoscopy with biopsy. PREOPERATIVE DIAGNOSIS: Postprandial epigastric pain and abdominal bl oating/early satiety a few months duration. IV sedation per anesthesia. PROCEDURE: After informed consent was obtained, the patient was brought into the endoscopy unit. IV sedation was administered by Anesthesia under continuous monitoring. Initially the Olympus GIF-140 video endoscope was inserted into the mouth. Esophagus intubated without any difficulty. It was gradually advanced into the stomach and duodenum and carefully examined. The bulb and the second part of the duodenum appeared normal. Biopsies were done from the duodenum to rule out celiac disease. The scope at this time was withdrawn to the stomach, adequately insufflated with air, and upon careful examination, mucosa of the antrum, had mild gastritis and biopsies were done from this area. The body, cardia and the fundus appeared normal. The scope was then withdrawn into the esophagus. The GE junction was located at 39 cm from the incisors. The esophagus appeared normal. There were no erosions or ulcerations seen , biopsies were done from the distal esophagus and the patient tolerated the procedure well. IMPRESSION: 1. Mild antral gastritis. 2. No evidence of esophagitis or peptic ulcer disease. RECOMMENDATIONS: The findings of this examination were discussed with the patient as well as her family. She was advised to follow with the biopsy results. She will continue with Protonix 40 mg daily and was briefly advised about small frequent meals and antireflux measures.
[2018-09-28 09:44] VITALS: RESP 16
[2018-09-28 09:57] VITALS: BP 138/77; PULSE 87
== END 2018-09-28 10:19 | disposition home or self-care (01) ==
LOC: ORWHC2ENDO 08:09
PROVIDERS: ATTEND Internal Medicine Gastroenterology
DX: K29.70 Gastritis, unspecified, without bleeding (principal); K31.9 Disease of stomach and duodenum, unspecified; K21.0 Gastro-esophageal reflux disease with esophagitis; E66.01 Morbid (severe) obesity due to excess calories; J44.9 Chronic obstructive pulmonary disease, unspecified; Z68.41 Body mass index [BMI] 40.0-44.9, adult; I25.119 Atherosclerotic heart disease of native coronary artery with unspecified angina pectoris; E72.12 Methylenetetrahydrofolate reductase deficiency; I11.0 Hypertensive heart disease with heart failure; I50.9 Heart failure, unspecified; Z86.73 Personal history of transient ischemic attack (TIA), and cerebral infarction without residual deficits; Z86.718 Personal history of other venous thrombosis and embolism; I25.2 Old myocardial infarction; Z85.3 Personal history of malignant neoplasm of breast; Z88.1 Allergy status to other antibiotic agents; Z88.5 Allergy status to narcotic agent; Z88.8 Allergy status to other drugs, medicaments and biological substances; Z79.82 Long term (current) use of aspirin; Z79.899 Other long term (current) drug therapy; Z90.13 Acquired absence of bilateral breasts and nipples; Z90.49 Acquired absence of other specified parts of digestive tract; Z90.710 Acquired absence of both cervix and uterus; Z87.891 Personal history of nicotine dependence; Z87.01 Personal history of pneumonia (recurrent)
CPT/HCPCS: 88305; 43239; J2405; J2001; J2704

== ENCOUNTER 2018-11-16 22:03 | Inpatient (IN) | payer BC, MEDICARE ==
[2018-11-16] MEDS ORDERED: SODIUM CHLORIDE 0.9% 500 ML 500 ML IV STA (22:35)
[2018-11-16] MEDS ORDERED: ONDANSETRON 4 MG/2 ML VIAL IVP STA (22:35)
[2018-11-16] MEDS ORDERED: MORPHINE SULFATE 4 MG/ML SYRINGE IV STA (22:35)
[2018-11-16] MEDS ORDERED: HYDROmorphone 1 MG/ML 1 ML SYRINGE IVP STA (22:50)
[2018-11-16 22:58] LABS: Anisocytosis Slight; Basophils % (A) 0 %; Eosinophils # (A) 0.1 k/uL (0-0.7); Eosinophils % (A) 1 %; HCT 44.2 % (34.0-46.0); HGB 15.4 gm/dL (11.4-16.0); Lymphocytes # (A) 1.3 k/uL (1.0-4.8); Lymphocytes % (A) 11 %; MCH 29.4 pg (25.0-35.0); MCHC 34.8 g/dL (31.0-37.0); MCV 84.6 fL (80.0-100.0); Mean Platelet Volume 8.5; Monocytes # (A) 0.3 k/uL (0-1.0); Monocytes % (A) 2 %; Neutrophils # (A) 10.2 k/uL (1.3-7.7); Neutrophils % (A) 85 %; Platelet Count 252 k/uL (150-450); RBC 5.23 m/uL (3.80-5.40); RDW 16.2 % (11.5-15.5)
--- NOTE | 2018-11-16 23:04 | ED ---
Abdominal Pain HPI - General Chief Complaint: Abdominal Pain Stated Complaint: Abd Pain Source: patient Mode of arrival: ambulatory Limitations: no limitations - History of Present Illness Initial Comments: Patient is a 59-year-old female with past medical history of small bowel o bstructions who presents to the emergency Department with reported nausea, vomiting and abdominal pain since yesterday. The patient reported that she ate dinner yesterday and afterwards she did feel nauseated. She has had several episodes of nonbilious, nonbloody vomiting. She awoke from sleep this morning with additional vomiting. She attempted to eat lunch however she took several bites and then began vomiting again. She's been unable to hold down any food or water. She is also reporting to diffuse abdominal pain. She was concerned for food poisoning however her ate the same food and did not get sick. She denies any fevers or chills. No chest pain or shortness of breath. She has been a patient of Dr. Prakash in the past. She has had to have surgeries for small bowel resections secondary to small bowel obstructions. States that her symptoms do feel similar at this time. She denies any back or flank pain. No changes in her urination to include dysuria, hematuria or difficulty voiding. States that she's had no flatus. Denies any bowel movements today. No diar valentino, melanotic stools or hematochezia. There are no other alleviating, precipitating or modifying factors - Related Data Home Medications Medication Instructions Recorded Confirmed Aspirin EC [Ecotrin] 81 mg PO HS 08/22/13 11/16/18 Meclizine [Antivert] 12.5 mg PO DAILY PRN 08/22/13 11/16/18 Metoprolol Succinate [Toprol XL] 50 mg PO DAILY 08/22/13 11/16/18 Pantoprazole Sodium [Protonix] 40 mg PO DAILY 08/22/13 11/16/18 Albuterol Nebulized [Ventolin 2.5 mg INHALATION RT-TID PRN 09/08/16 11/16/18 Nebulized] Fluticasone Nasal [place] [Flonase 1 spr EA NOSTRIL BID PRN 09/08/16 11/16/18 Nasal [place]] Clopidogrel [Plavix] 75 mg PO HS 12/09/16 11/16/18 Cetirizine HCl [Zyrtec] 10 mg PO DAILY 09/23/18 11/16/18 Furosemide [Lasix] 40 mg PO Q2D 09/23/18 11/16/18 Pravastatin Sodium [Pravachol] 40 mg PO HS 09/23/18 11/16/18 Sacubitril/Valsartan [Entresto 49 1 tab PO BID 09/23/18 11/16/18 mg-51 mg Tablet] Spironolactone [Aldactone] 25 mg PO DAILY 09/23/18 11/16/18 Previous Rx's Medication Instructions Recorded Nitroglycerin Sl Tabs [Nitrostat] 0.4 mg SUBLINGUAL Q5M PRN #25 tab 09/29/14 Allergies Allergy/AdvReac Type Severity Reaction Status Date / Time azithromycin [From Zithromax] Allergy Rash/Hives Verified 11/16/18 22:34 cephalexin monohydrate Allergy Rash/Hives Verified 11/16/18 22:34 [From Keflex] dexamethasone [From Decadron] Allergy Rash/Hives Verified 11/16/18 22:34 dexamethasone sod phosphate Allergy Rash/Hives Verified 11/16/18 22:34 [From Decadron] codeine AdvReac Nausea & Verified 11/16/18 22:34 Vomiting morphine AdvReac Nausea & Verified 11/16/18 22:34 Vomiting Review of Systems ROS Statement: Those systems with pertinent positive or pertinent negative responses have been documented in the HPI. ROS Other: All systems not noted in ROS Statement are negative. Past Medical History Past Medical History: Asthma, Cancer, Chest Pain / Angina, Heart Failure, COPD, CVA/TIA, Deep Vein Thrombosis (DVT), Eye Disorder, GERD/Reflux, Hyperlipidemia, Hypertension, Liver Disease, Memory Impairment, Osteoarthritis (OA), Pneumonia, Renal Disease, Vascular Disorder Additional Past Medical History / Comment(s): fullness after eating a few bites and distention,states lasix afftects my kidneys,09/28/14 Pt admitted to floor s/p PTCA with 3 stents to RCA. Other HX:MIGRAINES, VERTIGO,TIA (MULTIPLE- DATES UKN), NAKITA CATARACTS,HEART MURMUR, PVD, HIATAL HERNIA,. IBS, FATTY LIVER, PANCREATITITS, COLON POLYPS, KIDNEY CYSTS, URINARY CALCULI, CHRONIC PAIN,ANEMIA, DVT LEFT MESENTERIC VEIN 2007, [id number] received AND UTERINE CANCER- 1979 History of Any Multi-Drug Resistant Organisms: None Reported Past Surgical History: AICD, Appendectomy, Bladder Surgery, Bowel Resection, Cholecystectomy, Heart Catheterization, Heart Catheterization With Stent, Hysterectomy, Pacemaker, Tonsillectomy Additional Past Surgical History / Comment(s): 09/28/14 PTCA with stents (3) to RCA. COLONOSCOPY. BOWEL RESECTION, MULT. NAKITA MASTECTOMY with implants. AORTIC STENT, FEMORAL ILIAC ARTERY STENTS X 10. Rt Carotid surgery X 2 Past Anesthesia/Blood Transfusion Reactions: Motion Sickness, Postoperative Nausea & Vomiting (PONV) Additional Past Anesthesia/Blood Transfusion Reaction / Comment(s): SEVERE PONV. PT HAS RECEIVED BLOOD IN 1977 WITHOUT REACTION. Date of Last Stent Placement:: UNKNOWN Type of Cardiac Device: Permanent Pacemaker, AICD Device Placement Date:: [place] Past Psychological History: Anxiety Smoking Status: Former smoker Past Alcohol Use History: None Reported Past Drug Use History: None Reported - Past Family History Mother Family Medical History: Diabetes Mellitus Additional Family Medical History / Comment(s): severe diabetic Father Family Medical History: Cancer Additional Family Medical History / Comment(s): colon General Exam Limitations: no limitations Course Vital Signs 11/16/18 11/16/18 11/17/18 22:11 23:20 01:00 Temperature 98.0 F Pulse Rate 107 H 78 71 Respiratory 18 18 18 Rate Blood Pressure 116/79 124/84 119/74 O2 Sat by Pulse 94 L 95 96 Oximetry Medical Decision Making - Medical Decision Making Upon arrival the patient is placed into room 3. A thorough history and physical exam was performed. Peripheral IV is established. The patient was given 4 mg of morphine for pain control and 4 mg of Zofran for nausea. A 12-lead EKG is performed. The patient is given a 500 mL bolus of normal saline. Laboratory st udies were conducted. White blood cell count is 12, BUNs 19, glucose 137. Lactic acid is 3, first troponin is negative. Urinalysis shows 1+ protein, 18 white blood cells, rare sediment, 5 hyaline casts and few mucus. The patient is sent over for a CT contrast which demonstrates mildly dilated loops of small bowel down to the distal ileum suggestive of ileus or partial mechanical obstruction. I did discuss this with the patient. I did recommend hospital admission for antiemetics, pain control and an NG tube. The patient did agree to this. A call discuss case with Dr. Mason. She does greed to medicine admission with her to consult. I did admit the patient to the [facility] hospitalist. I did initiate antibiotics on the patient because of her elevated white blood cell count. The patient remained in stable condition and was transported to the floor - Lab Data Result diagrams: 11/16/18 22:40 11/16/18 22:40 Lab Results 11/16/18 11/16/18 11/16/18 Range/Units 22:40 22:40 22:40 WBC 12.0 H (3.8-10.6) k/uL RBC 5.23 (3.80-5.40) m/uL Hgb 15.4 (11.4-16.0) gm/dL Hct 44.2 (34.0-46.0) % MCV 84.6 (80.0-100.0) fL MCH 29.4 (25.0-35.0) pg MCHC 34.8 (31.0-37.0) g/dL RDW 16.2 H (11.5-15.5) % Plt Count 252 (150-450) k/uL Neutrophils % 85 % Lymphocytes % 11 % Monocytes % 2 % Eosinophils % 1 % Basophils % 0 % Neutrophils # 10.2 H (1.3-7.7) k/uL Lymphocytes # 1.3 (1.0-4.8) k/uL Monocytes # 0.3 (0-1.0) k/uL Eosinophils # 0.1 (0-0.7) k/uL Basophils # 0.0 (0-0.2) k/uL Anisocytosis Slight PT 9.9 (9.0-12.0) sec INR 0.9 (<1.2) APTT 25.2 (22.0-30.0) sec Sodium 140 (137-145) mmol/L Potassium 4.6 (3.5-5.1) mmol/L Chloride 99 (98-107) mmol/L Carbon Dioxide 27 (22-30) mmol/L Anion Gap 14 mmol/L BUN 19 H (7-17) mg/dL Creatinine 1.00 (0.52-1.04) mg/dL Est GFR (CKD-EPI)AfAm 67 (>60 ml/min/1.73 sqM) Est GFR (CKD-EPI)NonAf 58 (>60 ml/min/1.73 sqM) Glucose 137 H (74-99) mg/dL Lactic Ac Sepsis Rflx Plasma Lactic Acid Mark (0.7-2.0) mmol/L Calcium 10.4 H (8.4-10.2) mg/dL Total Bilirubin 0.7 (0.2-1.3) mg/dL AST 32 (14-36) U/L ALT 41 (9-52) U/L Alkaline Phosphatase 54 (38-126) U/L Troponin I (0.000-0.034) ng/mL Total Protein 8.1 (6.3-8.2) g/dL Albumin 4.7 (3.5-5.0) g/dL Lipase 152 (23-300) U/L Urine Color Urine Appearance (Clear) Urine pH (5.0-8.0) Ur Specific [place] (1.001-1.035) Urine Protein (Negative) Urine Glucose (UA) (Negative) Urine Ketones (Negative) Urine Blood (Negative) Urine Nitrite (Negative) Urine Bilirubin (Negative) Urine Urobilinogen (<2.0) mg/dL Ur Leukocyte Esterase (Negative) Urine WBC (0-5) /hpf Ur Squamous Epith Cells (0-4) /hpf Amorphous Sediment (None) /hpf Hyaline Casts (0-2) /lpf Urine Mucus (None) /hpf 11/16/18 11/16/18 11/16/18 Range/Units 22:40 22:40 23:21 WBC (3.8-10.6) k/uL RBC (3.80-5.40) m/uL Hgb (11.4-16.0) gm/dL Hct (34.0-46.0) % MCV (80.0-100.0) fL MCH (25.0-35.0) pg MCHC (31.0-37.0) g/dL RDW (11.5-15.5) % Plt Count (150-450) k/uL Neutrophils % % Lymphocytes % % Monocytes % % Eosinophils % % Basophils % % Neutrophils # (1.3-7.7) k/uL Lymphocytes # (1.0-4.8) k/uL Monocytes # (0-1.0) k/uL Eosinophils # (0-0.7) k/uL Basophils # (0-0.2) k/uL Anisocytosis PT (9.0-12.0) sec INR (<1.2) APTT (22.0-30.0) sec Sodium (137-145) mmol/L Potassium (3.5-5.1) mmol/L Chloride (98-107) mmol/L Carbon Dioxide (22-30) mmol/L Anion Gap mmol/L BUN (7-17) mg/dL Creatinine (0.52-1.04) mg/dL Est GFR (CKD-EPI)AfAm (>60 ml/min/1.73 sqM) Est GFR (CKD-EPI)NonAf (>60 ml/min/1.73 sqM) Glucose (74-99) mg/dL Lactic Ac Sepsis Rflx Y Plasma Lactic Acid Mark 3.0 H* (0.7-2.0) mmol/L Calcium (8.4-10.2) mg/dL Total Bilirubin (0.2-1.3) mg/dL AST (14-36) U/L ALT (9-52) U/L Alkaline Phosphatase (38-126) U/L Troponin I <0.012 (0.000-0.034) ng/mL Total Protein (6.3-8.2) g/dL Albumin (3.5-5.0) g/dL Lipase (23-300) U/L Urine Color Urine Appearance (Clear) Urine pH (5.0-8.0) Ur Specific [place] (1.001-1.035) Urine Protein (Negative) Urine Glucose (UA) (Negative) Urine Ketones (Negative) Urine Blood (Negative) Urine Nitrite (Negative) Urine Bilirubin (Negative) Urine Urobilinogen (<2.0) mg/dL Ur Leukocyte Esterase (Negative) Urine WBC (0-5) /hpf Ur Squamous Epith Cells (0-4) /hpf Amorphous Sediment (None) /hpf Hyaline Casts (0-2) /lpf Urine Mucus (None) /hpf 11/17/18 Range/Units 00:30 WBC (3.8-10.6) k/uL RBC (3.80-5.40) m/uL Hgb (11.4-16.0) gm/dL Hct (34.0-46.0) % MCV (80.0-100.0) fL MCH (25.0-35.0) pg MCHC (31.0-37.0) g/dL RDW (11.5-15.5) % Plt Count (150-450) k/uL Neutrophils % % Lymphocytes % % Monocytes % % Eosinophils % % Basophils % % Neutrophils # (1.3-7.7) k/uL Lymphocytes # (1.0-4.8) k/uL Monocytes # (0-1.0) k/uL Eosinophils # (0-0.7) k/uL Basophils # (0-0.2) k/uL Anisocytosis PT (9.0-12.0) sec INR (<1.2) APTT (22.0-30.0) sec Sodium (137-145) mmol/L Potassium (3.5-5.1) mmol/L Chloride (98-107) mmol/L Carbon Dioxide (22-30) mmol/L Anion Gap mmol/L BUN (7-17) mg/dL Creatinine (0.52-1.04) mg/dL Est GFR (CKD-EPI)AfAm (>60 ml/min/1.73 sqM) Est GFR (CKD-EPI)NonAf (>60 ml/min/1.73 sqM) Glucose (74-99) mg/dL Lactic Ac Sepsis Rflx Plasma Lactic Acid Mark (0.7-2.0) mmol/L Calcium (8.4-10.2) mg/dL Total Bilirubin (0.2-1.3) mg/dL AST (14-36) U/L ALT (9-52) U/L Alkaline Phosphatase (38-126) U/L Troponin I (0.000-0.034) ng/mL Total Protein (6.3-8.2) g/dL Albumin (3.5-5.0) g/dL Lipase (23-300) U/L Urine Color Yellow Urine Appearance Turbid H (Clear) Urine pH 5.5 (5.0-8.0) Ur Specific [place] 1.030 (1.001-1.035) Urine Protein 1+ H (Negative) Urine Glucose (UA) Negative (Negative) Urine Ketones Negative (Negative) Urine Blood Negative (Negative) Urine Nitrite Negative (Negative) Urine Bilirubin Negative (Negative) Urine Urobilinogen 3.0 (<2.0) mg/dL Ur Leukocyte Esterase Negative (Negative) Urine WBC 18 H (0-5) /hpf Ur Squamous Epith Cells 3 (0-4) /hpf Amorphous Sediment Rare H (None) /hpf Hyaline Casts 5 H (0-2) /lpf Urine Mucus Few H (None) /hpf - EKG Data EKG Comments: EKG demonstrates a normal sinus rhythm with a ventricular rate of 88. DE interval 126. QRS 114. QTC 471. There are inverted T waves and ST depression in leads 2, 3, aVF, V5 and V6. This is Compared to previous EKG from August 2017 and appears similar. Disposition Clinical Impression: Abdominal pain, Ileus, Partial small bowel obstruction Disposition: ADMITTED IP TO THIS HOSP Condition: Stable Is patient prescribed a controlled substance at d/c from ED?: No Decision to Admit Reason: Admit from EC Decision Date: 11/17/18 Decision Time: 00:39
[2018-11-16 23:07] LABS: INR 0.9 (<1.2); Partial Thromboplastin Time 25.2 sec (22.0-30.0); Prothrombin Time 9.9 sec (9.0-12.0)
[2018-11-16 23:10] LABS: Albumin 4.7 g/dL (3.5-5.0); Calcium 10.4 mg/dL (8.4-10.2); Potassium 4.6 mmol/L (3.5-5.1); Total Bilirubin 0.7 mg/dL (0.2-1.3); Total Protein 8.1 g/dL (6.3-8.2)
--- NOTE | 2018-11-17 00:09 | CT ---
EXAMINATION TYPE: CT abdomen pelvis wo con DATE OF EXAM: 11/16/2018 COMPARISON: 07/26/2015 HISTORY: PAIN CT DLP: 1060 mGycm Automated exposure control for dose reduction was used. TECHNIQUE: Helical acquisition of images was performed from the lung bases through the pelvis. FINDINGS: Multiple axial sections were obtained from the diaphragm to the floor the pelvis with no contrast. Lung bases are clear of infiltrate. There is no pleural effusion. Heart size is normal. There are jackson ateral breast implants. There is no pericardial effusion. Stomach appears intact. There are clips from cholecystectomy. Liver spleen pancreas appear normal. Bi le ducts are not dilated. There is no adrenal mass. Kidneys show normal size and contour. There is 2 mm calcification posterior left kidney. There is no hydronephrosis. Ureters are not dilated. There is no retroperitoneal adenop athy. Abdominal aorta is atheromatous. Bladder is almost empty. There is no inguinal hernia. There is small amount of free fluid in the pelvis. There is no mesenteric edema. There are multiple distended fluid-filled small bowel loops. This is mo re likely related to ileus. Small bowel is dilated up to 3.3 cm. There are surgical clips at the hepa tic flexure of the colon. There is apparent right hemicolectomy. Terminal ileum is distended. There is no evidence of free air. There is no ascites. Lumbar spine is intact. Bony pelvis appears in tact. There are some spondylotic changes and facet arthropathy in the lower lumbar spine. IMPRESSION: TINY LEFT RENAL CALCULUS. NO RENAL OBSTRUCTION. MILDLY DILATED LOOPS OF SMALL BOWEL DOWN TO THE DISTA L ILEUM SUGGESTIVE OF ILEUS OR PARTIAL MECHANICAL OBSTRUCTION. THIS APPEARS NEW COMPARED TO OLD EXAM. MINIMAL FREE FLUID IN THE PELVIS. RIGHT COLON SURGERY NOTED.
[2018-11-17] MEDS ORDERED: ONDANSETRON 4 MG/2 ML VIAL IVP PRN (00:39)
[2018-11-17] MEDS ORDERED: NALOXONE 0.4 MG/ML 1 ML VIAL IV PRN (00:39)
[2018-11-17] MEDS ORDERED: HYDROmorphone 1 MG/ML 1 ML SYRINGE IVP PRN (00:39)
[2018-11-17] MEDS ORDERED: ALBUTEROL NEBULIZED 2.5 MG/3 ML INHALATION PRN (00:42)
[2018-11-17 00:58] LABS: Amorphous Sediment,Urine Rare /hpf; Appearance,Urine Turbid (Clear); Bilirubin,Urine Negative (Negative); Blood,Urine Negative (Negative); Color,Urine Yellow; Glucose,Urine (UA) Negative (Negative); Hyaline Casts,Urine 5 /lpf (0-2); Ketones,Urine Negative (Negative); Leukocyte Esterase,Urine Negative (Negative); Mucus,Urine Few /hpf; Nitrite,Urine Negative (Negative); PH, Urine 5.5 (5.0-8.0); Protein,Urine 1+ (Negative); Squamous Epithelial Cell,Urine 3 /hpf (0-4); WBC,Urine 18 /hpf (0-5)
[2018-11-17] MEDS: SODIUM CHLORIDE 0.9% 1,000 ML IV SCH ×2 (00:58→15:18)
[2018-11-17] MEDS ORDERED: PROMETHAZINE INJ 25 MG in SODIUM CHLORIDE 0.9% 50 ML IVPB PRN (02:42)
[2018-11-17] MEDS: SPIRONOLACTONE 25 MG TAB PO SCH (08:09)
[2018-11-17] MEDS: LORATADINE 10 MG TAB PO SCH (08:09)
[2018-11-17] MEDS: METOPROLOL SUCCINATE (ER) 50 MG TAB.ER.24H PO SCH (08:09)
[2018-11-17] MEDS: SACUBITRIL/VALSARTAN 49 MG-51 MG TABLET PO SCH ×2 (08:09→20:42)
[2018-11-17] MEDS ORDERED: PANTOPRAZOLE 40 MG TABLET PO SCH (09:00)
[2018-11-17] MEDS ORDERED: KETOROLAC 30 MG/ML 1 ML VIAL IVP PRN (09:42)
--- NOTE | 2018-11-17 11:42 | P.HPIM ---
History of Present Illness 68-year-old present female came in with complaints of nausea vomiting abdominal pain severe diffuse restarted couple days ago. Patient is found to have a partial small bowel obstruction patient is not in any opiates for pain. Patient does have significant cardiac history including ischemic remapped ejection fraction of around 25% has an AICD in place patient is receiving IV fluids patient has a NG tube and draining significantly from the NG to. Patient will be resumed on IV fluids with close monitoring for heart failure exacerbation. Patient is on both aspirin and Plavix the patient's last cardiac catheterization was 2 years ago and stent was placed 2 years ago. Patient's vomiting is nonbilious nonbloody abdominal pain is better now. Review of Systems REVIEW OF SYSTEMS: CONSTITUTIONAL: No fever, no malaise, no fatigue. HEENT: No recent visual problems or hearing problems. Denied any sore throat. CARDIOVASCULAR: No chest pain, orthopnea, PND, no palpitations, no syncope. PULMONARY: No shortness of breath, no cough, no hemoptysis. GASTROINTESTINAL: As mentioned in HPI NEUROLOGICAL: No headaches, no weakness, no numbness. HEMATOLOGICAL: Denies any bleeding or petechiae. GENITOURINARY: Denies any burning micturition, frequency, or urgency. MUSCULOSKELETAL/RHEUMATOLOGICAL: Denies any joint pain, swelling, or any muscle pain. ENDOCRINE: Denies any polyuria or polydipsia. The rest of the 14-point review of systems is negative. Past Medical History Past Medical History: Asthma, Cancer, Chest Pain / Angina, Heart Failure, COPD, CVA/TIA, Deep Vein Thrombosis (DVT), Eye Disorder, GERD/Reflux, Hyperlipidemia, Hypertension, Liver Disease, Memory Impairment, Osteoarthritis (OA), Pneumonia, Renal Disease, Vascular Disorder Additional Past Medical History / Comment(s): fullness after eating a few bites and distention,states lasix afftects my kidneys,09/28/14 Pt admitted to floor s/p PTCA with 3 stents to RCA. Other HX:MIGRAINES, VERTIGO,TIA (MULTIPLE- DATES UKN), NAKITA CATARACTS,HEART MURMUR, PVD, HIATAL HERNIA,. IBS, FATTY LIVER, PANCREATITITS, COLON POLYPS, KIDNEY CYSTS, URINARY CALCULI, CHRONIC PAIN,ANEMIA, DVT LEFT MESENTERIC VEIN 2007, [id number] received AND UTERINE CANCER- 1979 History of Any Multi-Drug Resistant Organisms: None Reported Past Surgical History: AICD, Appendectomy, Bladder Surgery, Bowel Resection, Cholecystectomy, Heart Catheterization, Heart Catheterization With Stent, Hysterectomy, Pacemaker, Tonsillectomy Additional Past Surgical History / Comment(s): 09/28/14 PTCA with stents (3) to RCA. COLONOSCOPY. BOWEL RESECTION, MULT. NAKITA MASTECTOMY with implants. AORTIC STENT, FEMORAL ILIAC ARTERY STENTS X 10. Rt Carotid surgery X 2 Past Anesthesia/Blood Transfusion Reactions: Motion Sickness, Postoperative Nausea & Vomiting (PONV) Additional Past Anesthesia/Blood Transfusion Reaction / Comment(s): SEVERE PONV. PT HAS RECEIVED BLOOD IN 1977 WITHOUT REACTION. Date of Last Stent Placement:: UNKNOWN Type of Cardiac Device: Permanent Pacemaker, AICD Device Placement Date:: Nusirt Past Psychological History: Anxiety Smoking Status: Former smoker Past Alcohol Use History: None Reported Past Drug Use History: None Reported - Past Family History Mother Family Medical History: Diabetes Mellitus Additional Family Medical History / Comment(s): severe diabetic Father Family Medical History: Cancer Additional Family Medical History / Comment(s): colon Medications and Allergies Home Medications Medication Instructions Recorded Confirmed Type Aspirin EC [Ecotrin] 81 mg PO HS 08/22/13 11/16/18 History Meclizine [Antivert] 12.5 mg PO DAILY PRN 08/22/13 11/16/18 History Metoprolol Succinate [Toprol XL] 50 mg PO DAILY 08/22/13 11/16/18 History Pantoprazole Sodium [Protonix] 40 mg PO DAILY 08/22/13 11/16/18 History Nitroglycerin Sl Tabs [Nitrostat] 0.4 mg SUBLINGUAL Q5M PRN #25 tab 09/29/14 11/16/18 Rx Albuterol Nebulized [Ventolin 2.5 mg INHALATION RT-TID PRN 09/08/16 11/16/18 History Nebulized] Fluticasone Nasal [place] [Flonase 1 spr EA NOSTRIL BID PRN 09/08/16 11/16/18 History Nasal [place]] Clopidogrel [Plavix] 75 mg PO HS 12/09/16 11/16/18 History Cetirizine HCl [Zyrtec] 10 mg PO DAILY 09/23/18 11/16/18 History Furosemide [Lasix] 40 mg PO Q2D 09/23/18 11/16/18 History Pravastatin Sodium [Pravachol] 40 mg PO HS 09/23/18 11/16/18 History Sacubitril/Valsartan [Entresto 49 1 tab PO BID 09/23/18 11/16/18 History mg-51 mg Tablet] Spironolactone [Aldactone] 25 mg PO DAILY 09/23/18 11/16/18 History Allergies Allergy/AdvReac Type Severity Reaction Status Date / Time azithromycin [From Zithromax] Allergy Rash/Hives Verified 11/16/18 22:34 cephalexin monohydrate Allergy Rash/Hives Verified 11/16/18 22:34 [From Keflex] dexamethasone [From Decadron] Allergy Rash/Hives Verified 11/16/18 22:34 dexamethasone sod phosphate Allergy Rash/Hives Verified 11/16/18 22:34 [From Decadron] codeine AdvReac Nausea & Verified 11/16/18 22:34 Vomiting morphine AdvReac Nausea & Verified 11/16/18 22:34 Vomiting Physical Exam Vitals: Vital Signs Temp Pulse Pulse Resp BP BP Pulse Ox 11/17/18 06:50 97.9 F 77 16 138/81 92 L 11/17/18 03:16 96.7 F L 85 18 127/75 94 L 11/17/18 01:00 71 18 119/74 96 11/16/18 23:20 78 18 124/84 95 11/16/18 22:11 98.0 F 107 H 18 116/79 94 L Intake and Output 11/16/18 11/17/18 11/17/18 22:59 06:59 14:59 Intake Total 0 Output Total 200 Balance -200 Intake: Oral 0 Output: Gastric Drainage 200 Other: Voiding Method Toilet # Voids 0 1 Weight 102.058 kg PHYSICAL EXAMINATION: GENERAL: The patient is alert and oriented x3, not in any acute distress. Well developed, well nourished. HEENT: Pupils are round and equally reacting to light. EOMI. No scleral icterus. No conjunctival pallor. Normocephalic, atraumatic. No pharyngeal erythema. No thyromegaly. CARDIOVASCULAR: S1 and S2 present. No murmurs, rubs, or gallops. PULMONARY: Chest is clear to auscultation, no wheezing or crackles. ABDOMEN: Abdomen is distended nontender NG tube in place sluggish bowel sounds MUSCULOSKELETAL: No joint swelling or deformity. EXTREMITIES: No cyanosis, clubbing, or pedal edema. NEUROLOGICAL: Gross neurological examination did not reveal any focal deficits. SKIN: No rashes. Results CBC & Chem 7: 11/16/18 22:40 11/16/18 22:40 Labs: Abnormal Lab Results - Last 24 Hours (Table) 11/16/18 11/16/18 11/16/18 Range/Units 22:40 22:40 22:40 WBC 12.0 H (3.8-10.6) k/uL RDW 16.2 H (11.5-15.5) % Neutrophils # 10.2 H (1.3-7.7) k/uL BUN 19 H (7-17) mg/dL Glucose 137 H (74-99) mg/dL Plasma Lactic Acid Mark 3.0 H* (0.7-2.0) mmol/L Calcium 10.4 H (8.4-10.2) mg/dL Urine Appearance (Clear) Urine Protein (Negative) Urine WBC (0-5) /hpf Amorphous Sediment (None) /hpf Hyaline Casts (0-2) /lpf Urine Mucus (None) /hpf 11/17/18 11/17/18 11/17/18 Range/Units 00:30 03:35 07:13 WBC (3.8-10.6) k/uL RDW (11.5-15.5) % Neutrophils # (1.3-7.7) k/uL BUN (7-17) mg/dL Glucose (74-99) mg/dL Plasma Lactic Acid Mark 3.0 H* 2.3 H* (0.7-2.0) mmol/L Calcium (8.4-10.2) mg/dL Urine Appearance Turbid H (Clear) Urine Protein 1+ H (Negative) Urine WBC 18 H (0-5) /hpf Amorphous Sediment Rare H (None) /hpf Hyaline Casts 5 H (0-2) /lpf Urine Mucus Few H (None) /hpf Thrombosis Risk Factor Assmnt - Choose All That Apply Any of the Below Risk Factors Present?: Yes Each Factor Represents 1 point: Abnormal pulmonary function (COPD), Heart failure (<1month), Hx of IBD, Obesity (BMI >25) Other Risk Factors: Yes Each Risk Factor Represents 3 Points: History of DVT/PE Thrombosis Risk Factor Assessment Total Risk Factor Score: 7 Thrombosis Risk Factor Assessment Level: High Risk Assessment and Plan Plan: -Partial small bowel obstruction: Patient is presently nothing by mouth with the as needed ice chips patient is an NG tube in place link his IV fluids to 75 mL per hour. We'll closely monitor for any heart failure exacerbation -congestive heart failure chronic systolic dysfunction ejection fraction of around 25% ischemic myopathy patient will be resumed on her heart failure medications whenever she can tolerate oral medications, Lasix will be held as patient is receiving IV fluids. Patient has an AICD as mentioned above -Mild acute renal failure: Prerenal azotemia probably from nausea vomiting. -Coronary artery disease -History of DVT in the past Heparin hyperlipidemia -Hypertension
[2018-11-17] MEDS ORDERED: SODIUM CHLORIDE 0.9% 500 ML 500 ML IV ONE (14:49)
--- NOTE | 2018-11-17 14:53 | P.GSCN ---
<Hailey Perry - Last Filed: 11/17/18 14:49> History of Present Illness Consult date: 11/17/18 Reason for Consult: partial SBO Requesting physician: Domi Driscoll History of present illness: CHIEF COMPLAINT: abdominal pain HISTORY OF PRESENT ILLNESS: A 68-year-old female who presented to emergency room with a chief complaint of abdominal pain. Patient reports making spaghetti for dinner on Wednesday and began having some crampy abdominal pain afterwards. She had no other symptoms at that time. She states she had a few bites of left lower spaghetti yesterday for lunch and began having extreme abdominal pain. She reports having a bowel movement yesterday morning. She denies passing flatu s or having a bowel movement since that time. She reports nausea and vomiting yesterday. She states her abdomen was very bloated yesterday. Denies fever or chills. Patient reports having two surgeries for bowel obstructions and states her last one was about 10 years ago. She also reports having a bowel resection many years ago due to "little tiny holes in her colon". PAST MEDICAL HISTORY: See list. PAST SURGICAL HISTORY: See list. MEDICATIONS: See list. ALLERGIES: See list. SOCIAL HISTORY: No illicit drug use. REVIEW OF SYSTEMS: CONSTITUTIONAL: Denies fever or chills. HEENT: Denies blurred vision, vision changes, or eye pain. Denies hemoptysis ENDOCRINE: Denies heat or cold intolerance. CARDIOVASCULAR: Denies chest pain or pressure. RESPIRATORY: No shortness of breath. GASTROINTESTINAL: See HPI for pertinent information NEURO: Denies history of seizures. PSYCH: No depression or suicidal ideation HEMATOLOGIC: Denies bleeding disorders. LYMPHATIC: The patient denies any lumps and bumps around the neck. GENITOURINARY: Denies any blood in urine or increased urinary frequency. MUSCULOSKELETAL: Denies myalgias. Denies joint swelling. Denies decreased range of motion beyond patients baseline. SKIN: Denies pruitis. Denies rash. PHYSICAL EXAM: VITAL SIGNS: Reviewed GENERAL: Well-developed in no acute distress. HEENT: NG to LIS with bilious drainage. No sclera icterus. Extraocular movements grossly intact. Moist buccal mucosa. Head is atraumatic, normocephalic. Hears conversational speech. No nasal drainage. NECK: Supple without lymphadenopathy. CHEST: Non-labored respirations and equal bilateral excursions. CARDIOVASCULAR: Regular rate with regular rhythm. Palpable 2+ radial pulses. ABDOMEN: Soft. Distended. Nontender. No peritoneal signs. MUSCULOSKELETAL: No clubbing, cyanosis or edema. NEUROLOGIC: No focal or lateralizing signs. Cranial nerves II through XII grossly intact. PSYCH: Appropriate affect. Alert and oriented to person, place and time. SKIN: Well perfused. Good skin turgor. LABORATORY DATA: WBC 12.0. Hemoglobin 15.4. Potassium 4.6. BUN 19. Creatinine 1.0. Lactic acid 3.1. IMAGING: CT abdomen and pelvis: Tiny left renal calculus. No renal obstruction. Mildly dilated loops of small bowel down to the distal ileum suggestive of ileus or partial mechanical obstruction. Minimal free fluid in the pelvis. Right colon surgery noted. ASSESSMENT: 1. Abdominal pain 2. Partial small bowel obstruction 3. History of small bowel obstructions requiring surgical intervention 4. History of bowel resection 5. Coronary artery disease PLAN: 1. NPO except ice chips and popsicles 2. Continue IV fluids. 500cc bolus x 1. Patient does have cardiac history so will be cautious with IV fluid administration. Patient did have echocardiogram completed in July of 2016 at [facility] which reports EF of 35%. 3. Continue NG to LIS 4. Will attempt conservative management of bowel obstruction at this time. Hold aspirin and plavix in case patient requires surgical intervention Nurse practitioner note has been reviewed by physician. Signing provider agrees with the documented findings, assessment, and plan of care. Past Medical History Past Medical History: Asthma, Cancer, Chest Pain / Angina, Heart Failure, COPD, CVA/TIA, Deep Vein Thrombosis (DVT), Eye Disorder, GERD/Reflux, Hyperlipidemia, Hypertension, Liver Disease, Memory Impairment, Osteoarthritis (OA), Pneumonia, Renal Disease, Vascular Disorder Additional Past Medical History / Comment(s): fullness after eating a few bites and distention,states lasix afftects my kidneys,09/28/14 Pt admitted to floor s/p PTCA with 3 stents to RCA. Other HX:MIGRAINES, VERTIGO,TIA (MULTIPLE- DATES UKN), NAKITA CATARACTS,HEART MURMUR, PVD, HIATAL HERNIA,. IBS, FATTY LIVER, PANCREATITITS, COLON POLYPS, KIDNEY CYSTS, URINARY CALCULI, CHRONIC PAIN,ANEMIA, DVT LEFT MESENTERIC VEIN 2007, [id number] received AND UTERINE CANCER- 1979 History of Any Multi-Drug Resistant Organisms: None Reported Past Surgical History: AICD, Appendectomy, Bladder Surgery, Bowel Resection, Cholecystectomy, Heart Catheterization, Heart Catheterization With Stent, Hysterectomy, Pacemaker, Tonsillectomy Additional Past Surgical History / Comment(s): 09/28/14 PTCA with stents (3) to R CA. COLONOSCOPY. BOWEL RESECTION, MULT. NAKITA MASTECTOMY with implants. AORTIC STENT, FEMORAL ILIAC ARTERY STENTS X 10. Rt Carotid surgery X 2 Past Anesthesia/Blood Transfusion Reactions: Motion Sickness, Postoperative Nausea & Vomiting (PONV) Additional Past Anesthesia/Blood Transfusion Reaction / Comm: SEVERE PONV. PT HAS RECEIVED BLOOD IN 1977 WITHOUT REACTION. Date of Last Stent Placement:: UNKNOWN Type of Cardiac Device: Permanent Pacemaker, AICD Device Placement Date:: Scint-X Past Psychological History: Anxiety Smoking Status: Former smoker Past Alcohol Use History: None Reported Past Drug Use History: None Reported - Past Family History Mother Family Medical History: Diabetes Mellitus Additional Family Medical History / Comment(s): severe diabetic Father Family Medical History: Cancer Additional Family Medical History / Comment(s): colon Medications and Allergies Home Medications Medication Instructions Recorded Confirmed Type Aspirin EC [Ecotrin] 81 mg PO HS 08/22/13 11/16/18 History Meclizine [Antivert] 12.5 mg PO DAILY PRN 08/22/13 11/16/18 History Metoprolol Succinate [Toprol XL] 50 mg PO DAILY 08/22/13 11/16/18 History Pantoprazole Sodium [Protonix] 40 mg PO DAILY 08/22/13 11/16/18 History Nitroglycerin Sl Tabs [Nitrostat] 0.4 mg SUBLINGUAL Q5M PRN #25 tab 09/29/14 11/16/18 Rx Albuterol Nebulized [Ventolin 2.5 mg INHALATION RT-TID PRN 09/08/16 11/16/18 History Nebulized] Fluticasone Nasal [place] [Flonase 1 spr EA NOSTRIL BID PRN 09/08/16 11/16/18 History Nasal [place]] Clopidogrel [Plavix] 75 mg PO HS 12/09/16 11/16/18 History Cetirizine HCl [Zyrtec] 10 mg PO DAILY 09/23/18 11/16/18 History Furosemide [Lasix] 40 mg PO Q2D 09/23/18 11/16/18 History Pravastatin Sodium [Pravachol] 40 mg PO HS 09/23/18 11/16/18 History Sacubitril/Valsartan [Entresto 49 1 tab PO BID 09/23/18 11/16/18 History mg-51 mg Tablet] Spironolactone [Aldactone] 25 mg PO DAILY 09/23/18 11/16/18 History Allergies Allergy/AdvReac Type Severity Reaction Status Date / Time azithromycin [From Zithromax] Allergy Rash/Hives Verified 11/16/18 22:34 cephalexin monohydrate Allergy Rash/Hives Verified 11/16/18 22:34 [From Keflex] dexamethasone [From Decadron] Allergy Rash/Hives Verified 11/16/18 22:34 dexamethasone sod phosphate Allergy Rash/Hives Verified 11/16/18 22:34 [From Decadron] codeine AdvReac Nausea & Verified 11/16/18 22:34 Vomiting morphine AdvReac Nausea & Verified 11/16/18 22:34 Vomiting Surgical - Exam Vital Signs Temp Pulse Resp BP Pulse Ox 98.0 F 107 H 18 116/79 94 L 11/16/18 22:11 11/16/18 22:11 11/16/18 22:11 11/16/18 22:11 11/16/18 22:11 Results - Labs 11/16/18 22:40 11/16/18 22:40 Abnormal Lab Results - Last 24 Hours (Table) 11/16/18 11/16/18 11/16/18 Range/Units 22:40 22:40 22:40 WBC 12.0 H (3.8-10.6) k/uL RDW 16.2 H (11.5-15.5) % Neutrophils # 10.2 H (1.3-7.7) k/uL BUN 19 H (7-17) mg/dL Glucose 137 H (74-99) mg/dL Plasma Lactic Acid Mark 3.0 H* (0.7-2.0) mmol/L Calcium 10.4 H (8.4-10.2) mg/dL Urine Appearance (Clear) Urine Protein (Negative) Urine WBC (0-5) /hpf Amorphous Sediment (None) /hpf Hyaline Casts (0-2) /lpf Urine Mucus (None) /hpf 11/17/18 11/17/18 11/17/18 Range/Units 00:30 03:35 07:13 WBC (3.8-10.6) k/uL RDW (11.5-15.5) % Neutrophils # (1.3-7.7) k/uL BUN (7-17) mg/dL Glucose (74-99) mg/dL Plasma Lactic Acid Mark 3.0 H* 2.3 H* (0.7-2.0) mmol/L Calcium (8.4-10.2) mg/dL Urine Appearance Turbid H (Clear) Urine Protein 1+ H (Negative) Urine WBC 18 H (0-5) /hpf Amorphous Sediment Rare H (None) /hpf Hyaline Casts 5 H (0-2) /lpf Urine Mucus Few H (None) /hpf 11/17/18 Range/Units 11:50 WBC (3.8-10.6) k/uL RDW (11.5-15.5) % Neutrophils # (1.3-7.7) k/uL BUN (7-17) mg/dL Glucose (74-99) mg/dL Plasma Lactic Acid Mark 3.1 H* (0.7-2.0) mmol/L Calcium (8.4-10.2) mg/dL Urine Appearance (Clear) Urine Protein (Negative) Urine WBC (0-5) /hpf Amorphous Sediment (None) /hpf Hyaline Casts (0-2) /lpf Urine Mucus (None) /hpf Diabetes panel 11/16/18 Range/Units 22:40 Sodium 140 (137-145) mmol/L Potassium 4.6 (3.5-5.1) mmol/L Chloride 99 (98-107) mmol/L Carbon Dioxide 27 (22-30) mmol/L BUN 19 H (7-17) mg/dL Creatinine 1.00 (0.52-1.04) mg/dL Glucose 137 H (74-99) mg/dL Calcium 10.4 H (8.4-10.2) mg/dL AST 32 (14-36) U/L ALT 41 (9-52) U/L Alkaline Phosphatase 54 (38-126) U/L Total Protein 8.1 (6.3-8.2) g/dL Albumin 4.7 (3.5-5.0) g/dL Calcium panel 11/16/18 Range/Units 22:40 Calcium 10.4 H (8.4-10.2) mg/dL Albumin 4.7 (3.5-5.0) g/dL Pituitary panel 11/16/18 Range/Units 22:40 Sodium 140 (137-145) mmol/L Potassium 4.6 (3.5-5.1) mmol/L Chloride 99 (98-107) mmol/L Carbon Dioxide 27 (22-30) mmol/L BUN 19 H (7-17) mg/dL Creatinine 1.00 (0.52-1.04) mg/dL Glucose 137 H (74-99) mg/dL Calcium 10.4 H (8.4-10.2) mg/dL Adrenal panel 11/16/18 Range/Units 22:40 Sodium 140 (137-145) mmol/L Potassium 4.6 (3.5-5.1) mmol/L Chloride 99 (98-107) mmol/L Carbon Dioxide 27 (22-30) mmol/L BUN 19 H (7-17) mg/dL Creatinine 1.00 (0.52-1.04) mg/dL Glucose 137 H (74-99) mg/dL Calcium 10.4 H (8.4-10.2) mg/dL Total Bilirubin 0.7 (0.2-1.3) mg/dL AST 32 (14-36) U/L ALT 41 (9-52) U/L Alkaline Phosphatase 54 (38-126) U/L Total Protein 8.1 (6.3-8.2) g/dL Albumin 4.7 (3.5-5.0) g/dL Assessment and Plan (1) Abdominal pain Current Visit: Yes Status: Acute Code(s): R10.9 - UNSPECIFIED ABDOMINAL PAIN SNOMED Code(s): 58636173 (2) Partial small bowel obstruction Current Visit: Yes Status: Acute Code(s): K56.600 - PARTIAL INTESTINAL OBSTRUCTION, UNSPECIFIED TO CAUSE SNOMED Code(s): 365519529 <Reema Hickman - Last Filed: 11/18/18 09:35> History of Present Illness History of present illness: Patient seen and evaluated. In the evening, patient is passing flatus and having bowel movements. I personally discontinued her NG tube at 1821 11/18/18. Surgical - Exam Vital Signs Temp Pulse Resp BP Pulse Ox 98.0 F 107 H 18 116/79 94 L 11/16/18 22:11 11/16/18 22:11 11/16/18 22:11 11/16/18 22:11 11/16/18 22:11 Results - Labs 11/18/18 07:58 11/18/18 07:58 Abnormal Lab Results - Last 24 Hours (Table) 11/17/18 11/18/18 Range/Units 11:50 07:58 BUN 25 H (7-17) mg/dL Creatinine 1.06 H (0.52-1.04) mg/dL Plasma Lactic Acid Mark 3.1 H* (0.7-2.0) mmol/L Diabetes panel 11/18/18 Range/Units 07:58 Sodium 141 (137-145) mmol/L Potassium 4.2 (3.5-5.1) mmol/L Chloride 106 (98-107) mmol/L Carbon Dioxide 28 (22-30) mmol/L BUN 25 H (7-17) mg/dL Creatinine 1.06 H (0.52-1.04) mg/dL Glucose 99 (74-99) mg/dL Calcium 8.7 (8.4-10.2) mg/dL Calcium panel 11/18/18 Range/Units 07:58 Calcium 8.7 (8.4-10.2) mg/dL Pituitary panel 11/18/18 Range/Units 07:58 Sodium 141 (137-145) mmol/L Potassium 4.2 (3.5-5.1) mmol/L Chloride 106 (98-107) mmol/L Carbon Dioxide 28 (22-30) mmol/L BUN 25 H (7-17) mg/dL Creatinine 1.06 H (0.52-1.04) mg/dL Glucose 99 (74-99) mg/dL Calcium 8.7 (8.4-10.2) mg/dL Adrenal panel 11/18/18 Range/Units 07:58 Sodium 141 (137-145) mmol/L Potassium 4.2 (3.5-5.1) mmol/L Chloride 106 (98-107) mmol/L Carbon Dioxide 28 (22-30) mmol/L BUN 25 H (7-17) mg/dL Creatinine 1.06 H (0.52-1.04) mg/dL Glucose 99 (74-99) mg/dL Calcium 8.7 (8.4-10.2) mg/dL
[2018-11-17] MEDS: HEPARIN SODIUM,PORCINE 5,000 UNIT/ML 1 ML VIAL SQ SCH (16:51)
[2018-11-17] MEDS ORDERED: CLOPIDOGREL 75 MG TAB PO SCH (21:00)
[2018-11-17] MEDS ORDERED: ASPIRIN 81 MG PO SCH (21:00)
[2018-11-18] MEDS: HEPARIN SODIUM,PORCINE 5,000 UNIT/ML 1 ML VIAL SQ SCH ×2 (00:03→07:55)
[2018-11-18] MEDS: SODIUM CHLORIDE 0.9% 1,000 ML IV SCH (03:45)
[2018-11-18 07:43] VITALS: BP 126/74; PULSE 87; RESP 14; TEMP 98.2
[2018-11-18] MEDS: LORATADINE 10 MG TAB PO SCH (07:55)
[2018-11-18] MEDS: SPIRONOLACTONE 25 MG TAB PO SCH (07:55)
[2018-11-18] MEDS: METOPROLOL SUCCINATE (ER) 50 MG TAB.ER.24H PO SCH (07:55)
[2018-11-18] MEDS: SACUBITRIL/VALSARTAN 49 MG-51 MG TABLET PO SCH (07:57)
[2018-11-18 08:35] LABS: Basophils % (A) 0 %; Eosinophils # (A) 0.1 k/uL (0-0.7); Eosinophils % (A) 1 %; HCT 38.1 % (34.0-46.0); Lymphocytes # (A) 2.3 k/uL (1.0-4.8); Lymphocytes % (A) 25 %; MCH 29.8 pg (25.0-35.0); MCHC 34.3 g/dL (31.0-37.0); Mean Platelet Volume 7.3; Monocytes # (A) 0.5 k/uL (0-1.0); Monocytes % (A) 6 %; Neutrophils # (A) 6.3 k/uL (1.3-7.7); Neutrophils % (A) 67 %; Platelet Count 264 k/uL (150-450); RBC 4.38 m/uL (3.80-5.40); RDW 12.2 % (11.5-15.5); WBC 9.4 k/uL (3.8-10.6)
[2018-11-18 08:48] LABS: Calcium 8.7 mg/dL (8.4-10.2); Potassium 4.2 mmol/L (3.5-5.1)
[2018-11-18] MEDS ORDERED: PANTOPRAZOLE 40 MG/10 ML VIAL IVP SCH (09:00)
--- NOTE | 2018-11-18 09:35 | P.PN ---
Progress Note - Text Progress Note Date: 11/18/18 Please see separate note. Patient is passing flatus and having bowel movements. May start full liquid diet and advance diet as tolerated. She may be discharged home tomorrow.
[2018-11-18 10:29] VITALS: BMI 34.2
--- NOTE | 2018-11-18 12:09 | P.DS ---
Providers Date of admission: 11/17/18 00:39 Expected date of discharge: 11/18/18 Attending physician: Anaid Webb Consults: 11/17/18 00:40 Consult Physician Urgent Consulting Provider: Reema Hickman Consult Reason/Comments: ileus vs partial sbo Do you want consulting provider notified?: Already Contacted Primary care physician: [facility] Course: Final diagnosis -Partial small bowel obstruction -congestive heart failure chronic systolic dysfunction ejection fraction of around 25% ischemic myopathy -Mild acute renal failure: Prerenal azotemia probably from nausea vomiting. 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 Total time taken is 35 minutes. History of present illness This is a 68-year-old female who was recently admitted for partial small bowel obstruction with some nausea and vomiting and abdominal pain and was being closely monitored. Surgery was following. No surgical intervention was needed at this time. Patient did have an NG tube which was discontinued yesterday patient was tolerating ice chips and clear liquids. Patient was passing gas and had bowel movements yesterday and today. Patient states that she has some mild discomfort when eating but is not severe at all. Patient states that she would like to go home as she feels much better. Currently patient's condition is stable with much improvement sitting up in a chair with at the bedside. Patient is not requiring any oxygen and denies any shortness of breath or chest pain or palpitations at this time. Patient is afebrile. Discussed with the patient at length about continuing with a soft diet for the next couple of days and advancing as tolerated. Patient handouts and pamphlets were provided about soft diets. On exam vital signs are stable. Temp is 98.2F, pulse is 87, respirations are 14, oxygen saturation is 93% on room air, blood pressure is 126/74. Cardio S1 and S2 are heard. Respiratory system shows clear to auscultation. Abdomen is soft, obese, nontender upon palpation. Nervous system shows no focal deficits. Please refer to medication reconciliation sheet for a list of medications. Patient Condition at Discharge: Stable Plan - Discharge Summary New Discharge Prescriptions: Continue Pantoprazole Sodium [Protonix] 40 mg PO DAILY Metoprolol Succinate [Toprol XL] 50 mg PO DAILY Aspirin EC [Ecotrin] 81 mg PO HS Meclizine [Antivert] 12.5 mg PO DAILY PRN PRN Reason: Vertigo Nitroglycerin Sl Tabs [Nitrostat] 0.4 mg SUBLINGUAL Q5M PRN #25 tab PRN Reason: Chest Pain Fluticasone Nasal [place] [Flonase Nasal [place]] 1 spr EA NOSTRIL BID PRN PRN Reason: Sinus Symptoms Albuterol Nebulized [Ventolin Nebulized] 2.5 mg INHALATION RT-TID PRN PRN Reason: Shortness Of Breath Clopidogrel [Plavix] 75 mg PO HS Pravastatin Sodium [Pravachol] 40 mg PO HS Furosemide [Lasix] 40 mg PO Q2D Cetirizine HCl [Zyrtec] 10 mg PO DAILY Spironolactone [Aldactone] 25 mg PO DAILY Sacubitril/Valsartan [Entresto 49 mg-51 mg Tablet] 1 tab PO BID Discharge Medication List Aspirin EC [Ecotrin] 81 mg PO HS 08/22/13 [History] Meclizine [Antivert] 12.5 mg PO DAILY PRN 08/22/13 [History] Metoprolol Succinate [Toprol XL] 50 mg PO DAILY 08/22/13 [History] Pantoprazole Sodium [Protonix] 40 mg PO DAILY 08/22/13 [History] Nitroglycerin Sl Tabs [Nitrostat] 0.4 mg SUBLINGUAL Q5M PRN #25 tab 09/29/14 [Rx] Albuterol Nebulized [Ventolin Nebulized] 2.5 mg INHALATION RT-TID PRN 09/08/16 [History] Fluticasone Nasal [place] [Flonase Nasal [place]] 1 spr EA NOSTRIL BID PRN 09/08/16 [History] Clopidogrel [Plavix] 75 mg PO HS 12/09/16 [History] Cetirizine HCl [Zyrtec] 10 mg PO DAILY 09/23/18 [History] Furosemide [Lasix] 40 mg PO Q2D 09/23/18 [History] Pravastatin Sodium [Pravachol] 40 mg PO HS 09/23/18 [History] Sacubitril/Valsartan [Entresto 49 mg-51 mg Tablet] 1 tab PO BID 09/23/18 [History] Spironolactone [Aldactone] 25 mg PO DAILY 09/23/18 [History] Follow up Appointment(s)/Referral(s): Kailash Jacobson III, MD [Primary Care Provider] - 1-2 days Ambulatory/Diagnostic Orders: Basic Metabolic Panel [LAB.AMB] Time Frame: 3 Days, Location: None Selected Patient Instructions/Handouts: Soft Diet (DC), Ileus (DC) Activity/Diet/Wound Care/Special Instructions: Activity Limited until follow-up Follow-up with primary care provider this week Continue with soft diet for a couple of days and advance as tolerated Repeat labs in 3 days Discharge Disposition: HOME SELF-CARE
== END 2018-11-18 11:36 | disposition home or self-care (01) | DRG 389 ==
LOC: EC 22:03 → 4MS4W 11-17 00:39
PROVIDERS: ADMIT Hospitalist; ATTEND Hospitalist
DX: K56.600 Partial intestinal obstruction, unspecified as to cause (principal); I50.22 Chronic systolic (congestive) heart failure; N17.9 Acute kidney failure, unspecified; I25.5 Ischemic cardiomyopathy; I11.0 Hypertensive heart disease with heart failure; E78.5 Hyperlipidemia, unspecified; F41.9 Anxiety disorder, unspecified; I25.10 Atherosclerotic heart disease of native coronary artery without angina pectoris; I73.9 Peripheral vascular disease, unspecified; J44.9 Chronic obstructive pulmonary disease, unspecified; K21.9 Gastro-esophageal reflux disease without esophagitis; E66.9 Obesity, unspecified; Z79.82 Long term (current) use of aspirin; Z79.899 Other long term (current) drug therapy; Z83.3 Family history of diabetes mellitus; Z85.42 Personal history of malignant neoplasm of other parts of uterus; Z86.010 Personal history of colon polyps; Z86.718 Personal history of other venous thrombosis and embolism; Z86.73 Personal history of transient ischemic attack (TIA), and cerebral infarction without residual deficits; Z87.442 Personal history of urinary calculi; Z87.891 Personal history of nicotine dependence; Z90.49 Acquired absence of other specified parts of digestive tract; Z90.710 Acquired absence of both cervix and uterus; Z95.5 Presence of coronary angioplasty implant and graft; Z95.810 Presence of automatic (implantable) cardiac defibrillator; Z68.34 Body mass index [BMI] 34.0-34.9, adult; Z88.1 Allergy status to other antibiotic agents; Z88.5 Allergy status to narcotic agent; Z88.8 Allergy status to other drugs, medicaments and biological substances; Z90.89 Acquired absence of other organs
CPT/HCPCS: 36415; 74176; 80048; 80053; 81001; 83605; 83690; 84484; 85025; 85610; 85730; 93005; 96361; 96374; 96375; 99285

== ENCOUNTER → 2018-11-21 | Outpatient (CLI) | payer BC, MEDICARE ==
[2018-11-21 19:24] LABS: African American GFR (CKD) 75.6 (60.0-200.0); Anion Gap 11.1 mmol/L (4.00-12.00); Calcium 9.6 mg/dL (8.7-10.3); Carbon Dioxide 25.9 mmol/L (21.6-31.8); Potassium 4.2 mmol/L (3.5-5.5)
== END | disposition home or self-care (01) ==
LOC: LABWHC1 11:54
PROVIDERS: ATTEND Registered Nurse
DX: R79.89 Other specified abnormal findings of blood chemistry (principal)
CPT/HCPCS: 36415; 80048

== ENCOUNTER → 2018-12-06 | Outpatient (CLI) | payer BC, MEDICARE ==
[2018-12-06 13:53] LABS: Basophils # (A) 0.1 k/uL (0-0.2); Basophils % (A) 1 %; Eosinophils # (A) 0.1 k/uL (0-0.7); Eosinophils % (A) 2 %; HCT 41.1 % (34.0-46.0); HGB 13.9 gm/dL (11.4-16.0); Lymphocytes # (A) 2.1 k/uL (1.0-4.8); Lymphocytes % (A) 33 %; MCH 29.8 pg (25.0-35.0); MCHC 33.7 g/dL (31.0-37.0); MCV 88.4 fL (80.0-100.0); Mean Platelet Volume 7.6; Monocytes # (A) 0.5 k/uL (0-1.0); Monocytes % (A) 8 %; Neutrophils # (A) 3.4 k/uL (1.3-7.7); Neutrophils % (A) 53 %; Platelet Count 175 k/uL (150-450); RBC 4.65 m/uL (3.80-5.40); WBC 6.4 k/uL (3.8-10.6)
[2018-12-07 13:36] LABS: Alt. alternata IgE Class CLASS 0; Alternaria alternata IgE <0.35 kU/L (<0.35); Asperg. fumagatus IgE <0.35 kU/L (<0.35); Asperg. fumagatus IgE Class CLASS 0; Candida albicans IgE Class CLASS 0; Clad herbarum IgE <0.35 kU/L (<0.35); Clad herbarum IgE Class CLASS 0; Mucor racemosus IgE <0.35 kU/L (<0.35); Mucor racemosus IgE Class CLASS 0; Penicillium chrysogenum IgE <0.35 kU/L (<0.35); Penicillium chrysogenum IgE Cl CLASS 0
== END | disposition home or self-care (01) ==
LOC: LABWHC1 12:41
PROVIDERS: ATTEND Internal Medicine Sleep Medicine
DX: B44.81 Allergic bronchopulmonary aspergillosis (principal); J45.909 Unspecified asthma, uncomplicated
CPT/HCPCS: 36415; 82785; 85025; 86001; 86003; 86606; 86609

== ENCOUNTER → 2019-01-30 | Outpatient (CLI) | payer BC, MEDICARE ==
--- NOTE | 2019-01-30 14:10 | US ---
EXAMINATION TYPE: US thyroid st tissue head/neck DATE OF EXAM: 01/30/2019 COMPARISON: Thyroid ultrasound dated 02/01/2018 CLINICAL HISTORY: E04.1 Thyroid nodule. GLAND SIZE: Right Lobe: 4.0 x 1.6 x 1.6 cm Overall Parenchyma: heterogenous Left Lobe: 3.9 x 1.9 x 1.8 cm Overall Parenchyma: heterogeneous Isthmus Thickness: 0.5 cm NODULES RIGHT: # of nodules measured on right: 1. 2.1 X 1.5 x 1.5 cm isoechoic solid nodule at the mid pole with well-defined margins. This nodul e is wider than tall and shows intranodular vascularity. Prior size: 2.1 x 1.5 x 1.5cm LEFT: # of nodules measured on left: 2 1. 2.2 X 1.6 x 1.5 cm isoechoic solid nodule at the mid pole with well-defined margins. This nodul e is taller than wide and shows intranodular vascularity. Prior size: 2.2 x 1.7 x 1.6 cm 2. 0.6 X 0.5 x 0.5 cm hypoechoic cystic nodule at the lower pole with well-defined margins. This nod ule is wider than tall and shows no intranodular vascularity. Prior size: 0.6x 0.4 x 0.6 cm ISTHMUS: # of nodules measured in the isthmus: 0 Bilateral neck scanned, no evidence of lymphadenopathy. IMPRESSION: Similar size of the bilateral thyroid nodules in comparison to the prior exam of 2018. Ov erall multinodular goiter.
== END | disposition home or self-care (01) ==
LOC: RADUSWWP 11:57
PROVIDERS: ATTEND Otolaryngology
DX: E04.2 Nontoxic multinodular goiter (principal)
CPT/HCPCS: 76536

== ENCOUNTER → 2019-03-21 | Outpatient (CLI) | payer BC, MEDICARE ==
[2019-03-21 10:00] LABS: Basophils % (A) 0 %; Eosinophils # (A) 0.1 k/uL (0-0.7); Eosinophils % (A) 2 %; HCT 41.2 % (34.0-46.0); HGB 13.3 gm/dL (11.4-16.0); Lymphocytes % (A) 30 %; MCH 28.6 pg (25.0-35.0); MCHC 32.3 g/dL (31.0-37.0); MCV 88.6 fL (80.0-100.0); Mean Platelet Volume 8.9; Monocytes # (A) 0.5 k/uL (0-1.0); Monocytes % (A) 7 %; Neutrophils # (A) 3.8 k/uL (1.3-7.7); Neutrophils % (A) 58 %; Platelet Count 165 k/uL (150-450); RBC 4.65 m/uL (3.80-5.40); RDW 12.3 % (11.5-15.5); WBC 6.6 k/uL (3.8-10.6)
[2019-03-21 18:19] LABS: African American GFR (CKD) 59.3 (60.0-200.0); Albumin 4.4 g/dL (3.80-4.90); Albumin/Globulin Ratio 2.2 (1.60-3.17); Anion Gap 9.7 mmol/L (4.00-12.00); BUN/Creat Ratio 18.18 Ratio (12.00-20.00); Calcium 9.3 mg/dL (8.7-10.3); Carbon Dioxide 26.3 mmol/L (21.6-31.8); Chol/HDL Ratio 3.78; LDL Cholesterol,Calculated 74.2 mg/dL (0.0-131.0); Non-African American GFR(CKD) 51.2 (60.0-200.0); Potassium 4.5 mmol/L (3.5-5.5); Total Bilirubin 0.7 mg/dL (0.2-1.2); Total Protein 6.4 g/dL (6.2-8.2); VLDL Calculation 39.8 mg/dL (5.00-40.00)
== END | disposition home or self-care (01) ==
LOC: LABWHC1 09:15
PROVIDERS: ATTEND Family Medicine
DX: Z00.01 Encounter for general adult medical examination with abnormal findings (principal)
CPT/HCPCS: 36415; 80053; 80061; 84443; 85025

== ENCOUNTER 2019-04-22 07:06 | Emergency (ER) | payer BC, MEDICARE ==
[2019-04-22] MEDS ORDERED: DIAZEPAM 5 MG/ML 2 ML INJ IVP STA (07:09)
[2019-04-22] MEDS ORDERED: ONDANSETRON 4 MG/2 ML VIAL IVP STA ×2 (07:09→07:55)
[2019-04-22 07:19] VITALS: RESP 18; TEMP 98.2
[2019-04-22] MEDS ORDERED: SODIUM CHLORIDE 0.9% 500 ML 500 ML IV STA (07:26)
[2019-04-22 07:45] LABS: Basophils % (A) 0 %; Eosinophils # (A) 0.1 k/uL (0-0.7); Eosinophils % (A) 2 %; HCT 43.4 % (34.0-46.0); HGB 14.2 gm/dL (11.4-16.0); Lymphocytes % (A) 29 %; MCH 28.8 pg (25.0-35.0); MCHC 32.8 g/dL (31.0-37.0); MCV 87.8 fL (80.0-100.0); Monocytes # (A) 0.4 k/uL (0-1.0); Monocytes % (A) 6 %; Neutrophils # (A) 4.4 k/uL (1.3-7.7); Neutrophils % (A) 62 %; Platelet Count 165 k/uL (150-450); RBC 4.95 m/uL (3.80-5.40); RDW 12.3 % (11.5-15.5); WBC 7.1 k/uL (3.8-10.6)
[2019-04-22 07:53] LABS: Albumin 4.5 g/dL (3.5-5.0); Calcium 9.4 mg/dL (8.4-10.2); Potassium 4.1 mmol/L (3.5-5.1); Total Bilirubin 0.6 mg/dL (0.2-1.3); Total Protein 7.7 g/dL (6.3-8.2)
--- NOTE | 2019-04-22 08:11 | ED ---
Dizziness HPI - General Chief Complaint: Dizziness Stated Complaint: NVD/Vertigo Time Seen by Provider: 04/22/19 07:15 Source: patient, EMS Mode of arrival: EMS - History of Present Illness Initial Comments: The patient is a 68-year-old female past history of heart failure with ICD, TIA hypertension and hyperlipidemia who presents to the emergency room with reported vertiginous symptoms. Patient has a history of vertigo. States that her episodes are quite frequent and she required hospitalization for one week due to it. Symptoms started around 4 AM this morning. She attempted to get out of bed however anytime she changed positions she had extremity nauseated with vomiting. She does have meclizine at home to take for her symptoms. She took 12.5 mg around 5 AM without improvement. She was unable to get up from bed to use the restroom therefore called EMS. They did give her Zofran 4 mg ODT tablet which the patient ended up throwing up. She does admit to mild, intermittent chest discomfort. The patient has an AICD however cannot remember the last time she had a cardiac evaluation. She denies any current chest pain. Admits to left ear fullness and tinnitus. Admits to nonproductive cough. Grandson has been sick recently and she was concerned she is getting an upper respiratory infection. No fevers or chills. Denies any head trauma. No headaches or visual changes. No unilateral numbness or weakness. Patient has history of TIA without residual symptoms. She is on Plavix. Patient does admit to a sudden onset of symptoms. No recent chiropractic manipulations of the neck. There are no other alleviating, precipitating or modifying factors - Related Data Home Medications Medication Instructions Recorded Confirmed Aspirin EC [Ecotrin] 81 mg PO HS 08/22/13 11/16/18 Meclizine [Antivert] 12.5 mg PO DAILY PRN 08/22/13 11/16/18 Metoprolol Succinate [Toprol XL] 50 mg PO DAILY 08/22/13 11/16/18 Pantoprazole Sodium [Protonix] 40 mg PO DAILY 08/22/13 11/16/18 Albuterol Nebulized [Ventolin 2.5 mg INHALATION RT-TID PRN 09/08/16 11/16/18 Nebulized] Fluticasone Nasal [place] [Flonase 1 spr EA NOSTRIL BID PRN 09/08/16 11/16/18 Nasal [place]] Clopidogrel [Plavix] 75 mg PO HS 12/09/16 11/16/18 Cetirizine HCl [Zyrtec] 10 mg PO DAILY 09/23/18 11/16/18 Furosemide [Lasix] 40 mg PO Q2D 09/23/18 11/16/18 Pravastatin Sodium [Pravachol] 40 mg PO HS 09/23/18 11/16/18 Sacubitril/Valsartan [Entresto 49 1 tab PO BID 09/23/18 11/16/18 mg-51 mg Tablet] Spironolactone [Aldactone] 25 mg PO DAILY 09/23/18 11/16/18 Previous Rx's Medication Instructions Recorded Nitroglycerin Sl Tabs [Nitrostat] 0.4 mg SUBLINGUAL Q5M PRN #25 tab 09/29/14 Allergies Allergy/AdvReac Type Severity Reaction Status Date / Time azithromycin [From Zithromax] Allergy Rash/Hives Verified 04/22/19 07:10 cephalexin monohydrate Allergy Rash/Hives Verified 04/22/19 07:10 [From Keflex] dexamethasone [From Decadron] Allergy Rash/Hives Verified 04/22/19 07:10 dexamethasone sod phosphate Allergy Rash/Hives Verified 04/22/19 07:10 [From Decadron] codeine AdvReac Nausea & Verified 04/22/19 07:10 Vomiting morphine AdvReac Nausea & Verified 04/22/19 07:10 Vomiting Review of Systems ROS Statement: Those systems with pertinent positive or pertinent negative responses have been documented in the HPI. ROS Other: All systems not noted in ROS Statement are negative. Past Medical History Past Medical History: Asthma, Cancer, Chest Pain / Angina, Heart Failure, COPD, CVA/TIA, Deep Vein Thrombosis (DVT), Eye Disorder, GERD/Reflux, Hyperlipidemia, Hypertension, Liver Disease, Memory Impairment, Osteoarthritis (OA), Pneumonia, Renal Disease, Vascular Disorder Additional Past Medical History / Comment(s): fullness after eating a few bites and distention,states lasix afftects my kidneys,09/28/14 Pt admitted to floor s/p PTCA with 3 stents to RCA. Other HX:MIGRAINES, VERTIGO,TIA (MULTIPLE- DATES UKN), NAKITA CATARACTS,HEART MURMUR, PVD, HIATAL HERNIA,. IBS, FATTY LIVER, PANCRE ATITITS, COLON POLYPS, KIDNEY CYSTS, URINARY CALCULI, CHRONIC PAIN,ANEMIA, DVT LEFT MESENTERIC VEIN 2007, [id number] received AND UTERINE CANCER-1979 History of Any Multi-Drug Resistant Organisms: None Reported Past Surgical History: AICD, Appendectomy, Bladder Surgery, Bowel Resection, Cholecystectomy, Heart Catheterization, Heart Catheterization With Stent, Hysterectomy, Pacemaker, Tonsillectomy Additional Past Surgical History / Comment(s): 09/28/14 PTCA with stents (3) to RCA. COLONOSCOPY. BOWEL RESECTION, MULT. NAKITA MASTECTOMY with implants. AORTIC STENT, FEMORAL ILIAC ARTERY STENTS X 10. Rt Carotid surgery X 2 Past Anesthesia/Blood Transfusion Reactions: Motion Sickness, Postoperative Nausea & Vomiting (PONV) Additional Past Anesthesia/Blood Transfusion Reaction / Comment(s): SEVERE PONV. PT HAS RECEIVED BLOOD IN 1977 WITHOUT REACTION. Date of Last Stent Placement:: UNKNOWN Type of Cardiac Device: Permanent Pacemaker, AICD Device Placement Date:: Polar Past Psychological History: Anxiety Smoking Status: Former smoker Past Alcohol Use History: None Reported Past Drug Use History: None Reported - Past Family History Mother Family Medical History: Diabetes Mellitus Additional Family Medical History / Comment(s): severe diabetic Father Family Medical History: Cancer Additional Family Medical History / Comment(s): colon General Exam General appearance: alert, other (She arrives vomiting. patient remains upright in bed, unwilling to move her head to the left or right.) Head exam: Present: atraumatic, normocephalic, normal inspection Eye exam: Present: normal appearance, PERRL, EOMI, nystagmus (horizontal, no vertical or rotary nystagmus. ). Absent: scleral icterus, conjunctival injection, periorbital swelling ENT exam: Present: normal exam, mucous membranes moist Neck exam: Present: normal inspection. Absent: tenderness, meningismus, lymphadenopathy Respiratory exam: Present: normal lung sounds bilaterally. Absent: respiratory distress, wheezes, rales, rhonchi, stridor Cardiovascular Exam: Present: regular rate, normal rhythm, normal heart sounds. Absent: systolic murmur, diastolic murmur, rubs, gallop, clicks GI/Abdominal exam: Present: soft, normal bowel sounds. Absent: distended, tenderness, guarding, rebound, rigid Extremities exam: Present: normal inspection, full ROM, normal capillary refill. Absent: tenderness, pedal edema, joint swelling, calf tenderness Back exam: Present: normal inspection Neurological exam: Present: alert, oriented X3, CN II-XII intact, normal gait, other (patient is up and ambulatory to the bathroom without ataxia. Finger to nose is symmetric bilaterally. No truncal ataxia. No dysdiadochokinesia) Psychiatric exam: Present: normal affect, normal mood Skin exam: Present: warm, dry, intact, normal color. Absent: rash Course Vital Signs 04/22/19 04/22/19 04/22/19 07:11 09:01 10:00 Temperature 98.2 F Pulse Rate 87 86 Respiratory 18 18 18 Rate Blood Pressure 143/92 117/68 159/86 O2 Sat by Pulse 95 Oximetry EKG Findings - EKG Comments: EKG Findings:: EKG demonstrates a sinus rhythm with frequent PVCs. Rate of 100. IA interval 170. QRS 122. QTC of 485. No prolonged intervals. No acute ST segment elevations or depressions concerning for ischemic changes Medical Decision Making - Medical Decision Making Upon arrival the patient was placed into room 7. A thorough history and physical exam was performed. Peripheral IV had been established by EMS. The patient was given 5 mg of Valium and 4 mg of Zofran IV. I did recommend laboratory studies. Glucose is 138. Because the patient reports that this is the worst case of vertigo she has ever had, I recommended CT of her brain which was performed without contrast, which demonstrated no acute intracranial abnormality with chronic white matter ischemic changes. Chest x-ray demonstrates no acute intrathoracic process. The patient was notified of her results at 8:30. The patient reports to still feeling nauseated. She was given additional 4 mg at this time she did vomit when she laid flat for CT. She was also provided with a dose of Antivert 25 mg. I reevaluated the patient at 9:15 am and she does request to get up and ambulate to the bathroom to see if her symptoms are still present. She does ambulate without ataxia and does well until she returned from the bathroom. I recommended transfer to an outside facility with neurology capabilities and MRI. The patient understood this but thought that maybe with a little time, she would be better enough to go home. I did reevaluate her at 10:00. Patient reports to worsening vertiginous symptoms once again and begins vomiting. At this time I did order some Reglan and Benadryl. I once again stressed to the patient that requires hospital admission with MRI as I am highly concerned for a cerebellar stroke. The patient understood this. She is requesting to see if the new medications help her. The patient was evaluated once again at 10:30 am and reports she feels as if she is going to vomit. She does finally agree to transfer to [facility]. I called and discussed the case with them. Accepting doctor is Dr. Pacheco. The patient will be given an additional 5 mg of Valium prior to transfer. - Lab Data Result diagrams: 04/22/19 07:23 04/22/19 07:23 Lab Results 04/22/19 04/22/19 04/22/19 Range/Units 07:23 07:23 07:23 WBC 7.1 (3.8-10.6) k/uL RBC 4.95 (3.80-5.40) m/uL Hgb 14.2 (11.4-16.0) gm/dL Hct 43.4 (34.0-46.0) % MCV 87.8 (80.0-100.0) fL MCH 28.8 (25.0-35.0) pg MCHC 32.8 (31.0-37.0) g/dL RDW 12.3 (11.5-15.5) % Plt Count 165 (150-450) k/uL Neutrophils % 62 % Lymphocytes % 29 % Monocytes % 6 % Eosinophils % 2 % Basophils % 0 % Neutrophils # 4.4 (1.3-7.7) k/uL Lymphocytes # 2.0 (1.0-4.8) k/uL Monocytes # 0.4 (0-1.0) k/uL Eosinophils # 0.1 (0-0.7) k/uL Basophils # 0.0 (0-0.2) k/uL Sodium 138 (137-145) mmol/L Potassium 4.1 (3.5-5.1) mmol/L Chloride 105 (98-107) mmol/L Carbon Dioxide 20 L (22-30) mmol/L Anion Gap 13 mmol/L BUN 17 (7-17) mg/dL Creatinine 0.87 (0.52-1.04) mg/dL Est GFR (CKD-EPI)AfAm 79 (>60 ml/min/1.73 sqM) Est GFR (CKD-EPI)NonAf 68 (>60 ml/min/1.73 sqM) Glucose 138 H (74-99) mg/dL Calcium 9.4 (8.4-10.2) mg/dL Total Bilirubin 0.6 (0.2-1.3) mg/dL AST 38 H (14-36) U/L ALT 35 H (4-34) U/L Alkaline Phosphatase 43 (38-126) U/L Troponin I <0.012 (0.000-0.034) ng/mL Total Protein 7.7 (6.3-8.2) g/dL Albumin 4.5 (3.5-5.0) g/dL Urine Color Urine Appearance (Clear) Urine pH (5.0-8.0) Ur Specific [place] (1.001-1.035) Urine Protein (Negative) Urine Glucose (UA) (Negative) Urine Ketones (Negative) Urine Blood (Negative) Urine Nitrite (Negative) Urine Bilirubin (Negative) Urine Urobilinogen (<2.0) mg/dL Ur Leukocyte Esterase (Negative) Urine RBC (0-5) /hpf Urine WBC (0-5) /hpf Ur Squamous Epith Cells (0-4) /hpf Hyaline Casts (0-2) /lpf Urine Mucus (None) /hpf 04/22/19 Range/Units 09:58 WBC (3.8-10.6) k/uL RBC (3.80-5.40) m/uL Hgb (11.4-16.0) gm/dL Hct (34.0-46.0) % MCV (80.0-100.0) fL MCH (25.0-35.0) pg MCHC (31.0-37.0) g/dL RDW (11.5-15.5) % Plt Count (150-450) k/uL Neutrophils % % Lymphocytes % % Monocytes % % Eosinophils % % Basophils % % Neutrophils # (1.3-7.7) k/uL Lymphocytes # (1.0-4.8) k/uL Monocytes # (0-1.0) k/uL Eosinophils # (0-0.7) k/uL Basophils # (0-0.2) k/uL Sodium (137-145) mmol/L Potassium (3.5-5.1) mmol/L Chloride (98-107) mmol/L Carbon Dioxide (22-30) mmol/L Anion Gap mmol/L BUN (7-17) mg/dL Creatinine (0.52-1.04) mg/dL Est GFR (CKD-EPI)AfAm (>60 ml/min/1.73 sqM) Est GFR (CKD-EPI)NonAf (>60 ml/min/1.73 sqM) Glucose (74-99) mg/dL Calcium (8.4-10.2) mg/dL Total Bilirubin (0.2-1.3) mg/dL AST (14-36) U/L ALT (4-34) U/L Alkaline Phosphatase (38-126) U/L Troponin I (0.000-0.034) ng/mL Total Protein (6.3-8.2) g/dL Albumin (3.5-5.0) g/dL Urine Color Light Yellow Urine Appearance Clear (Clear) Urine pH 5.5 (5.0-8.0) Ur Specific [place] 1.018 (1.001-1.035) Urine Protein 2+ H (Negative) Urine Glucose (UA) Negative (Negative) Urine Ketones Negative (Negative) Urine Blood Negative (Negative) Urine Nitrite Negative (Negative) Urine Bilirubin Negative (Negative) Urine Urobilinogen <2.0 (<2.0) mg/dL Ur Leukocyte Esterase Negative (Negative) Urine RBC 1 (0-5) /hpf Urine WBC 1 (0-5) /hpf Ur Squamous Epith Cells 2 (0-4) /hpf Hyaline Casts 7 H (0-2) /lpf Urine Mucus Few H (None) /hpf Disposition Clinical Impression: Vertigo Disposition: OTHER INSTITUTION NOT DEFINED Condition: Stable Is patient prescribed a controlled substance at d/c from ED?: No Referrals: Kailash Jacobson III, MD [Primary Care Provider] - 1-2 days - Out of Hospital Transfer - Req. Specs Out of Hospital Transfer - Requested Specifics: Other Emergency Center ([facility]
--- NOTE | 2019-04-22 08:17 | XR ---
EXAMINATION TYPE: XR chest 2V DATE OF EXAM: 04/22/2019 HISTORY: cough. REFERENCE: Previous study dated 09/11/2017. FINDINGS: There is unipolar pacemaker place on the left. The lungs are clear. Pleural spaces are clear. Heart size is upper limits of normal. IMPRESSION: NO ACUTE INTRATHORACIC DISEASE.
--- NOTE | 2019-04-22 08:19 | CT ---
EXAMINATION TYPE: CT brain wo con DATE OF EXAM: 04/22/2019 COMPARISON: Previous study dated 04/28/2018. HISTORY: NVD/Vertigo CT DLP: 1099.4 mGycm Automated exposure control for dose reduction was used. FINDINGS: Central structures are midline. There is no evidence of hydrocephalus. There is diffuse periventricul ar white matter lucency, compatible with chronic white matter ischemic change. This is unchanged from the previous study. There is no focal lesion, mass effect or midline shift. There is physiologic jina cification of the basal ganglia. Visualized portions of the paranasal sinuses and mastoids are clear. The bony calvarium is intact. IMPRESSION: 1. NO ACUTE INTRACRANIAL ABNORMALITY. 2. CHRONIC WHITE MATTER ISCHEMIC CHANGE.
[2019-04-22] MEDS ORDERED: MECLIZINE 12.5 MG TAB PO STA (08:35)
[2019-04-22] MEDS ORDERED: METOCLOPRAMIDE 5 MG/ML 2 ML VIAL IVP STA (10:02)
[2019-04-22] MEDS ORDERED: diphenhydrAMINE 50 MG/ML 1 ML VIAL IVP STA (10:02)
[2019-04-22 10:10] LABS: Appearance,Urine Clear (Clear); Bilirubin,Urine Negative (Negative); Blood,Urine Negative (Negative); Color,Urine Light Yellow; Glucose,Urine (UA) Negative (Negative); Hyaline Casts,Urine 7 /lpf (0-2); Ketones,Urine Negative (Negative); Leukocyte Esterase,Urine Negative (Negative); Mucus,Urine Few /hpf; Nitrite,Urine Negative (Negative); PH, Urine 5.5 (5.0-8.0); Protein,Urine 2+ (Negative); RBC,Urine 1 /hpf (0-5); Specific Gravity,Urine 1.018 (1.001-1.035); Squamous Epithelial Cell,Urine 2 /hpf (0-4); Urobilinogen,Urine <2.0 mg/dL (<2.0); WBC,Urine 1 /hpf (0-5)
[2019-04-22 11:01] VITALS: BP 133/96; PULSE 84
== END 2019-04-22 11:18 | disposition other institution (70) ==
LOC: EC 07:06
DX: R42 Dizziness and giddiness (principal); R11.2 Nausea with vomiting, unspecified; J44.9 Chronic obstructive pulmonary disease, unspecified; I11.0 Hypertensive heart disease with heart failure; I50.9 Heart failure, unspecified; I25.2 Old myocardial infarction; K21.9 Gastro-esophageal reflux disease without esophagitis; E78.5 Hyperlipidemia, unspecified; M19.90 Unspecified osteoarthritis, unspecified site; K58.9 Irritable bowel syndrome, unspecified; F41.9 Anxiety disorder, unspecified; Z79.82 Long term (current) use of aspirin; Z79.02 Long term (current) use of antithrombotics/antiplatelets; Z79.51 Long term (current) use of inhaled steroids; Z79.899 Other long term (current) drug therapy; Z88.1 Allergy status to other antibiotic agents; Z88.8 Allergy status to other drugs, medicaments and biological substances; Z88.5 Allergy status to narcotic agent; Z85.42 Personal history of malignant neoplasm of other parts of uterus; Z85.3 Personal history of malignant neoplasm of breast; Z87.891 Personal history of nicotine dependence; Z92.21 Personal history of antineoplastic chemotherapy; Z95.810 Presence of automatic (implantable) cardiac defibrillator; Z95.5 Presence of coronary angioplasty implant and graft; Z86.73 Personal history of transient ischemic attack (TIA), and cerebral infarction without residual deficits; Z86.718 Personal history of other venous thrombosis and embolism; Z90.13 Acquired absence of bilateral breasts and nipples
CPT/HCPCS: 36415; 93005; 80053; 84484; 85025; 81001; 71046; 70450; 99285; 96374; 96375 ×3; 96376; J1200; J2765; J3360; J2405

== ENCOUNTER 2019-09-26 14:15 | Emergency (ER) | payer MEDICARE, BC ==
[2019-09-26 14:27] VITALS: TEMP 97.9
[2019-09-26] MEDS ORDERED: SODIUM CHLORIDE 0.9% 1,000 ML IV STA (14:45)
[2019-09-26] MEDS ORDERED: KETOROLAC 30 MG/ML 1 ML VIAL IVP STA (14:45)
--- NOTE | 2019-09-26 14:48 | ED ---
Abdominal Pain HPI - General Chief Complaint: Abdominal Pain Stated Complaint: Back/Abd Pain Time Seen by Provider: 09/26/19 14:27 Source: patient, family Mode of arrival: wheelchair Limitations: no limitations - History of Present Illness Initial Comments: Patient is a 69-year-old female, history of heart disease, COPD, multiple abdominal surgeries, kidney stones, presenting to the emergency department complaining of left sided flank pain and left-sided abdominal pain started suddenly this morning. Patient states the pain began approximately 9:30 this morning and has been steadily increasing. Patient states has been coming and waves and has radiation from her left low back into her left side of her abdomen. She currently rates the pain 8/10. She denies any alleviating factors. She denies any nausea, vomiting, diarrhea. She's been having normal bowel movements, her last was this morning. She denies any fever or chills. She denies any chest pain or shortness of breath. She denies any dysuria or increased frequency. She has no further complaints. Upon arrival to the ER, her vital signs are stable. - Related Data Home Medications Medication Instructions Recorded Confirmed Aspirin EC [Ecotrin] 81 mg PO HS 08/22/13 11/16/18 Meclizine [Antivert] 12.5 mg PO DAILY PRN 08/22/13 11/16/18 Metoprolol Succinate [Toprol XL] 50 mg PO DAILY 08/22/13 11/16/18 Pantoprazole Sodium [Protonix] 40 mg PO DAILY 08/22/13 11/16/18 Albuterol Nebulized [Ventolin 2.5 mg INHALATION RT-TID PRN 09/08/16 11/16/18 Nebulized] Fluticasone Nasal [place] [Flonase 1 spr EA NOSTRIL BID PRN 09/08/16 11/16/18 Nasal [place]] Clopidogrel [Plavix] 75 mg PO HS 12/09/16 11/16/18 Cetirizine HCl [Zyrtec] 10 mg PO DAILY 09/23/18 11/16/18 Furosemide [Lasix] 40 mg PO Q2D 09/23/18 11/16/18 Pravastatin Sodium [Pravachol] 40 mg PO HS 09/23/18 11/16/18 Sacubitril/Valsartan [Entresto 49 1 tab PO BID 09/23/18 11/16/18 mg-51 mg Tablet] Spironolactone [Aldactone] 25 mg PO DAILY 09/23/18 11/16/18 Previous Rx's Medication Instructions Recorded Nitroglycerin Sl Tabs [Nitrostat] 0.4 mg SUBLINGUAL Q5M PRN #25 tab 09/29/14 Hydrocodone/Acetaminophen [Lackey 1 tab PO Q6HR PRN #10 tab 09/26/19 5-325] Sulfamethox-Tmp 800-160Mg [Bactrim 1 each PO BID 5 Days #10 tab 09/26/19 Ds] Allergies Allergy/AdvReac Type Severity Reaction Status Date / Time azithromycin [From Zithromax] Allergy Rash/Hives Verified 04/22/19 07:10 cephalexin monohydrate Allergy Rash/Hives Verified 04/22/19 07:10 [From Keflex] dexamethasone [From Decadron] Allergy Rash/Hives Verified 04/22/19 07:10 dexamethasone sod phosphate Allergy Rash/Hives Verified 04/22/19 07:10 [From Decadron] codeine AdvReac Nausea & Verified 04/22/19 07:10 Vomiting morphine AdvReac Nausea & Verified 04/22/19 07:10 Vomiting Review of Systems ROS Statement: Those systems with pertinent positive or pertinent negative responses have been documented in the HPI. ROS Other: All systems not noted in ROS Statement are negative. Past Medical History Past Medical History: Asthma, Cancer, Chest Pain / Angina, Heart Failure, COPD, CVA/TIA, Deep Vein Thrombosis (DVT), Eye Disorder, GERD/Reflux, Hyperlipidemia, Hypertension, Liver Disease, Memory Impairment, Osteoarthritis (OA), Pneumonia, Renal Disease, Vascular Disorder Additional Past Medical History / Comment(s): fullness after eating a few bites and distention,states lasix afftects my kidneys,09/28/14 Pt admitted to floor s/p PTCA with 3 stents to RCA. Other HX:MIGRAINES, VERTIGO,TIA (MULTIPLE- DATES UKN), NAKITA CATARACTS,HEART MURMUR, PVD, HIATAL HERNIA,. IBS, FATTY LIVER, PANCREATITITS, COLON POLYPS, KIDNEY CYSTS, URINARY CALCULI, CHRONIC PAIN,ANEMIA, DVT LEFT MESENTERIC VEIN 2007, [id number] received AND UTERINE CANCER- 1979 History of Any Multi-Drug Resistant Organisms: None Reported Past Surgical History: AICD, Appendectomy, Bladder Surgery, Bowel Resection, Cholecystectomy, Heart Catheterization, Heart Catheterization With Stent, Hysterectomy, Pacemaker, Tonsillectomy Additional Past Surgical History / Comment(s): 09/28/14 PTCA with stents (3) to RCA. COLONOSCOPY. BOWEL RESECTION, MULT. NAKITA MASTECTOMY with implants. AORTIC STENT, FEMORAL ILIAC ARTERY STENTS X 10. Rt Carotid surgery X 2 Past Anesthesia/Blood Transfusion Reactions: Motion Sickness, Postoperative Nausea & Vomiting (PONV) Additional Past Anesthesia/Blood Transfusion Reaction / Comment(s): SEVERE PONV. PT HAS RECEIVED BLOOD IN 1977 WITHOUT REACTION. Date of Last Stent Placement:: UNKNOWN Type of Cardiac Device: Permanent Pacemaker, AICD Device Placement Date:: [email or web address] Past Psychological History: Anxiety Smoking Status: Never smoker Past Alcohol Use History: None Reported Past Drug Use History: None Reported - Past Family History Mother Family Medical History: Diabetes Mellitus Additional Family Medical History / Comment(s): severe diabetic Father Family Medical History: Cancer Additional Family Medical History / Comment(s): colon General Exam - General Exam Comments Initial Comments: GENERAL: Patient is well-developed and well-nourished. Patient is nontoxic and in no acute distress, but does appear uncomfortable, sitting upright on the gurney. HEAD: Atraumatic, normocephalic. EYES: Pupils equal round and reactive to light, extraocular movements intact, sclera anicteric, conjunctiva are normal. Eyelids were unremarkable. ENT: TMs normal, nares patent, oropharynx clear without exudates. Moist mucous membranes. NECK: Normal range of motion, supple without lymphadenopathy or JVD. LUNGS: Unlabored respirations. Breath sounds clear to auscultation bilaterally and equal. No wheezes rales or rhonchi. HEART: Regular rate and rhythm without murmurs, rubs or gallops. ABDOMEN: Tender on the left flank, left side of the abdomen. Soft, normoactive bowel sounds. No guarding, no rebound. No masses appreciated. : Deferred MUSCULOSKELETAL: Normal extremities with adequate strength and normal range of motion, no pitting or edema. No clubbing or cyanosis. NEUROLOGICAL: Normal speech, normal gait. Symmetrical smile. PSYCH: Normal mood, normal affect. SKIN: Warm, Dry, normal turgor, no rashes or lesions noted. Limitations: no limitations Course Vital Signs 09/26/19 14:25 Temperature 97.9 F Pulse Rate 79 Respiratory 17 Rate Blood Pressure 145/100 O2 Sat by Pulse 97 Oximetry Medical Decision Making - Medical Decision Making Patient is 69-year-old female here for left-sided flank pain, left abdominal pain that started suddenly this morning. She does have history of kidney stones, bowel obstruction. Denies any fevers. Vital signs are stable upon arrival. Labs show slight white count 11.1, kidney function is stable, lipase is normal. Urine shows a lot of blood, wbc's. Computed tomography scan of the abdomen shows a 3 mm left ureteral stone, mild hydronephrosis. No other abnormalities seen. Patient was given pain control, fluids reports improvement in her symptoms. I did discuss his findings with the patient. Patient will be given dose of Bactrim in the ER and will be sent home to continue with Bactrim as well as Lackey as needed for pain. Patient is in agreement with this plan of care. She'll follow-up with her PCP. Strict return parameters were discussed with the patient she verbalized understanding. Case discussed with Dr. Muhammad. - Lab Data Result diagrams: 09/26/19 15:01 09/26/19 15:01 Lab Results 09/26/19 09/26/19 09/26/19 Range/Units 15:01 15:01 15:01 WBC 11.1 H (3.8-10.6) k/uL RBC 5.03 (3.80-5.40) m/uL Hgb 14.8 (11.4-16.0) gm/dL Hct 44.2 (34.0-46.0) % MCV 87.8 (80.0-100.0) fL MCH 29.5 (25.0-35.0) pg MCHC 33.6 (31.0-37.0) g/dL RDW 12.1 (11.5-15.5) % Plt Count 186 (150-450) k/uL Neutrophils % 76 % Lymphocytes % 16 % Monocytes % 5 % Eosinophils % 1 % Basophils % 1 % Neutrophils # 8.4 H (1.3-7.7) k/uL Lymphocytes # 1.8 (1.0-4.8) k/uL Monocytes # 0.5 (0-1.0) k/uL Eosinophils # 0.2 (0-0.7) k/uL Basophils # 0.1 (0-0.2) k/uL Sodium 138 (137-145) mmol/L Potassium 4.4 (3.5-5.1) mmol/L Chloride 102 (98-107) mmol/L Carbon Dioxide 24 (22-30) mmol/L Anion Gap 12 mmol/L BUN 21 H (7-17) mg/dL Creatinine 1.03 (0.52-1.04) mg/dL Est GFR (CKD-EPI)AfAm 64 (>60 ml/min/1.73 sqM) Est GFR (CKD-EPI)NonAf 55 (>60 ml/min/1.73 sqM) Glucose 106 H (74-99) mg/dL Plasma Lactic Acid Mark (0.7-2.0) mmol/L Calcium 10.0 (8.4-10.2) mg/dL Total Bilirubin 1.0 (0.2-1.3) mg/dL AST 44 H (14-36) U/L ALT 43 H (4-34) U/L Alkaline Phosphatase 49 (38-126) U/L Total Protein 7.7 (6.3-8.2) g/dL Albumin 4.8 (3.5-5.0) g/dL Lipase 168 (23-300) U/L Urine Color Yellow Urine Appearance Cloudy H (Clear) Urine pH 5.0 (5.0-8.0) Ur Specific [place] 1.023 (1.001-1.035) Urine Protein Trace H (Negative) Urine Glucose (UA) Negative (Negative) Urine Ketones Trace H (Negative) Urine Blood Large H (Negative) Urine Nitrite Negative (Negative) Urine Bilirubin Negative (Negative) Urine Urobilinogen 2.0 (<2.0) mg/dL Ur Leukocyte Esterase Negative (Negative) Urine RBC >182 H (0-5) /hpf Urine WBC >182 H (0-5) /hpf Ur Squamous Epith Cells 5 H (0-4) /hpf Urine Bacteria Rare H (None) /hpf Hyaline Casts 10 H (0-2) /lpf Urine Mucus Many H (None) /hpf 09/26/19 Range/Units 15:01 WBC (3.8-10.6) k/uL RBC (3.80-5.40) m/uL Hgb (11.4-16.0) gm/dL Hct (34.0-46.0) % MCV (80.0-100.0) fL MCH (25.0-35.0) pg MCHC (31.0-37.0) g/dL RDW (11.5-15.5) % Plt Count (150-450) k/uL Neutrophils % % Lymphocytes % % Monocytes % % Eosinophils % % Basophils % % Neutrophils # (1.3-7.7) k/uL Lymphocytes # (1.0-4.8) k/uL Monocytes # (0-1.0) k/uL Eosinophils # (0-0.7) k/uL Basophils # (0-0.2) k/uL Sodium (137-145) mmol/L Potassium (3.5-5.1) mmol/L Chloride (98-107) mmol/L Carbon Dioxide (22-30) mmol/L Anion Gap mmol/L BUN (7-17) mg/dL Creatinine (0.52-1.04) mg/dL Est GFR (CKD-EPI)AfAm (>60 ml/min/1.73 sqM) Est GFR (CKD-EPI)NonAf (>60 ml/min/1.73 sqM) Glucose (74-99) mg/dL Plasma Lactic Acid Mark 1.3 (0.7-2.0) mmol/L Calcium (8.4-10.2) mg/dL Total Bilirubin (0.2-1.3) mg/dL AST (14-36) U/L ALT (4-34) U/L Alkaline Phosphatase (38-126) U/L Total Protein (6.3-8.2) g/dL Albumin (3.5-5.0) g/dL Lipase (23-300) U/L Urine Color Urine Appearance (Clear) Urine pH (5.0-8.0) Ur Specific [place] (1.001-1.035) Urine Protein (Negative) Urine Glucose (UA) (Negative) Urine Ketones (Negative) Urine Blood (Negative) Urine Nitrite (Negative) Urine Bilirubin (Negative) Urine Urobilinogen (<2.0) mg/dL Ur Leukocyte Esterase (Negative) Urine RBC (0-5) /hpf Urine WBC (0-5) /hpf Ur Squamous Epith Cells (0-4) /hpf Urine Bacteria (None) /hpf Hyaline Casts (0-2) /lpf Urine Mucus (None) /hpf Disposition Clinical Impression: Left flank pain, Left ureteral stone, UTI (urinary tract infection) Disposition: HOME SELF-CARE Condition: Stable Instructions (If sedation given, give patient instructions): Kidney Stones (ED) Additional Instructions: Please return to the Emergency Department if symptoms worsen or any other concerns. Take antibiotic and pain medicine as prescribed. Continue to increase fluid intake as discussed. Follow up with PCP in 1-3 days. Prescriptions: Sulfamethox-Tmp 800-160Mg [Bactrim Ds] 1 each PO BID 5 Days #10 tab Hydrocodone/Acetaminophen [Lackey 5-325] 1 tab PO Q6HR PRN #10 tab PRN Reason: Pain Is patient prescribed a controlled substance at d/c from ED?: No Referrals: Kailash Jacobson III, MD [Primary Care Provider] - 1-2 days
[2019-09-26 15:08] LABS: Basophils # (A) 0.1 k/uL (0-0.2); Basophils % (A) 1 %; Eosinophils # (A) 0.2 k/uL (0-0.7); Eosinophils % (A) 1 %; HCT 44.2 % (34.0-46.0); HGB 14.8 gm/dL (11.4-16.0); Lymphocytes # (A) 1.8 k/uL (1.0-4.8); Lymphocytes % (A) 16 %; MCH 29.5 pg (25.0-35.0); MCHC 33.6 g/dL (31.0-37.0); MCV 87.8 fL (80.0-100.0); Monocytes # (A) 0.5 k/uL (0-1.0); Monocytes % (A) 5 %; Neutrophils # (A) 8.4 k/uL (1.3-7.7); Neutrophils % (A) 76 %; Platelet Count 186 k/uL (150-450); RBC 5.03 m/uL (3.80-5.40); RDW 12.1 % (11.5-15.5); WBC 11.1 k/uL (3.8-10.6)
[2019-09-26 15:16] LABS: Albumin 4.8 g/dL (3.5-5.0); Potassium 4.4 mmol/L (3.5-5.1); Total Protein 7.7 g/dL (6.3-8.2)
[2019-09-26 15:22] LABS: Appearance,Urine Cloudy (Clear); Bacteria,Urine Rare /hpf; Bilirubin,Urine Negative (Negative); Blood,Urine Large (Negative); Color,Urine Yellow; Glucose,Urine (UA) Negative (Negative); Hyaline Casts,Urine 10 /lpf (0-2); Ketones,Urine Trace (Negative); Leukocyte Esterase,Urine Negative (Negative); Mucus,Urine Many /hpf; Nitrite,Urine Negative (Negative); Protein,Urine Trace (Negative); RBC,Urine >182 /hpf (0-5); Specific Gravity,Urine 1.023 (1.001-1.035); Squamous Epithelial Cell,Urine 5 /hpf (0-4); WBC,Urine >182 /hpf (0-5)
[2019-09-26] MEDS ORDERED: HYDROcodone/APAP 5-325MG 1 EACH TAB PO STA (15:33)
--- NOTE | 2019-09-26 15:53 | CT ---
EXAMINATION TYPE: CT abdomen pelvis wo con DATE OF EXAM: 09/26/2019 COMPARISON: CT abdomen pelvis 11/16/2018 HISTORY: Left flank pain. CT DLP: 1114.4 mGycm Automated exposure control for dose reduction was used. TECHNIQUE: Helical acquisition of images was performed from the lung bases through the pelvis. FINDINGS: LUNG BASES: Incompletely visualized pacemaker leads. Calcified coronary artery disease. Cardiac size normal. No pericardial or pleural effusion. LIVER/GB: Liver is normal in attenuation and not enlarged. No intrahepatic or extrahepatic biliary du ctal dilatation. Status post cholecystectomy. PANCREAS: No peripancreatic inflammation. SPLEEN: Not enlarged. ADRENALS: No nodule. KIDNEYS: Punctate nonobstructing nephrolithiasis of the right renal lower pole. No right hydronephros is. There is mild left hydroureteronephrosis. There is a 3 mm calculus at the left ureterovesicular j unction. Minimal left perinephric stranding. BOWEL: No evidence of bowel obstruction. Anastomosis within the right lower quadrant with right travis colectomy postsurgical changes. PERITONEUM: No free air or free fluid. LYMPH NODES: No lymphadenopathy. PELVIS: Urinary bladder is nondistended. Uterus likely surgically absent. VASCULATURE: No abdominal aortic aneurysm. Marked calcified atherosclerotic disease. Bilateral common iliac stents. Vascular calcifications are noted. OSSEOUS STRUCTURES: No acute osseous abnormality. Degenerative changes of the spine. IMPRESSION: 1. Partially obstructive 3 mm calculus at the left ureterovesicular junction. Mild left hydroureteron ephrosis. 2. Nonobstructive punctate right renal calculi.
[2019-09-26] MEDS ORDERED: SULFAMETHOX-TMP 800-160MG 1 EACH TAB PO STA (16:13)
[2019-09-26 16:35] VITALS: BP 124/83; PULSE 80; RESP 14
== END 2019-09-26 16:20 | disposition home or self-care (01) ==
LOC: EC 14:15
DX: N39.0 Urinary tract infection, site not specified (principal); N13.2 Hydronephrosis with renal and ureteral calculous obstruction; J44.9 Chronic obstructive pulmonary disease, unspecified; I11.0 Hypertensive heart disease with heart failure; I50.9 Heart failure, unspecified; K21.9 Gastro-esophageal reflux disease without esophagitis; E78.5 Hyperlipidemia, unspecified; M19.90 Unspecified osteoarthritis, unspecified site; G43.909 Migraine, unspecified, not intractable, without status migrainosus; Z79.01 Long term (current) use of anticoagulants; Z79.82 Long term (current) use of aspirin; Z79.899 Other long term (current) drug therapy; Z88.1 Allergy status to other antibiotic agents; Z88.2 Allergy status to sulfonamides; Z88.5 Allergy status to narcotic agent; Z88.8 Allergy status to other drugs, medicaments and biological substances; Z90.13 Acquired absence of bilateral breasts and nipples; Z90.49 Acquired absence of other specified parts of digestive tract; Z85.3 Personal history of malignant neoplasm of breast; Z85.42 Personal history of malignant neoplasm of other parts of uterus; Z98.42 Cataract extraction status, left eye; Z98.41 Cataract extraction status, right eye; Z95.810 Presence of automatic (implantable) cardiac defibrillator; Z86.718 Personal history of other venous thrombosis and embolism; Z86.73 Personal history of transient ischemic attack (TIA), and cerebral infarction without residual deficits
CPT/HCPCS: 36415; 80053; 83605; 83690; 85025; 81001; 87086; 74176; 99284; 96374; 96361; J1885

== ENCOUNTER → 2019-11-27 | Outpatient (CLI) | payer MEDICARE, BC ==
--- NOTE | 2019-11-27 14:38 | CT ---
EXAMINATION TYPE: CT iac wo/w con, CT orbits wo/w con DATE OF EXAM: 11/27/2019 COMPARISON: None HISTORY: Benign paroxysmal vertigo, right ear. CT DLP: 396.12 (accession [id number]), 926.73 (accession [id number]) mGycm. Automated Exposure Control f or Dose Reduction was Utilized. TECHNIQUE: CT scan of internal auditory canal is performed without contrast, thin cut axial images a re obtained, coronal reformatted images are also reviewed. Contrast enhanced CT of the orbits was al so performed. FINDINGS: The external auditory canals are patent bilaterally. Mastoid air cells show no evidence of abnormal opacification bilaterally. The middle ear ossicles are symmetric and unremarkable. There is no evidence of suspicious surrounding soft tissue density to suggest cholesteatoma. The scutum is preserved bilaterally. The cochlea and the semicircular canals are symmetric and unremarkable. Ves tibular aqueduct and internal carotid canal appear unremarkable. Temporomandibular joints are maintained bilaterally. Visualized paranasal sinuses are grossly clear. Visualized portion brain parenchyma is felt within normal limits. The globes are symmetric bilaterally as are the extraocular musculature. Optic nerves are free of mas s lesion. Intra and extraconal soft tissues are free of mass or fluid collection. No inflammatory pro cess seen. No evidence for proptosis. IMPRESSION: No significant abnormality seen to account for patient's symptoms.
== END | disposition home or self-care (01) ==
LOC: RADCTMAIN 13:11
PROVIDERS: ATTEND Psychiatry & Neurology Neurology
DX: H81.11 Benign paroxysmal vertigo, right ear (principal); Z13.89 Encounter for screening for other disorder
CPT/HCPCS: 82565; 84520; 70482 ×2; 36415; Q9967

== ENCOUNTER → 2019-12-06 | Outpatient (CLI) | payer MEDICARE, BC ==
--- NOTE | 2019-12-06 12:32 | US ---
EXAMINATION TYPE: US kidneys/renal and bladder DATE OF EXAM: 12/06/2019 COMPARISON: CT abdomen pelvis 09/26/2019 CLINICAL HISTORY: N13.2 HYDRONEPHROSIS WITH RENAL AND URETERAL CALCULUS. EXAM MEASUREMENTS: Right Kidney: 9.3 x 5.0 x 4.7 Left Kidney: 9.5 x 4.4 x 4.5 Right Kidney: Normal. Left Kidney: Normal. Punctate echogenic focus of the lower pole likely represents adjacent fat. Bladder: Normal Bilateral Jets seen: Yes There is no evidence for hydronephrosis at this point in time. No masses are identified. The urinar y bladder is anechoic. Bilateral ureteral jets are seen. IMPRESSION: 1. No hydronephrosis bilaterally. 2. Normal urinary bladder.
== END | disposition home or self-care (01) ==
LOC: RADUSWWP 07:32
PROVIDERS: ATTEND Family Medicine
DX: N13.2 Hydronephrosis with renal and ureteral calculous obstruction (principal)
CPT/HCPCS: 76770

== ENCOUNTER → 2019-12-20 | Outpatient (CLI) | payer MEDICARE, BC ==
[2019-12-20 17:15] LABS: African American GFR (CKD) 66.1 (60.0-200.0); Anion Gap 14.2 mmol/L (4.00-12.00); Calcium 9.6 mg/dL (8.7-10.3); Carbon Dioxide 21.8 mmol/L (21.6-31.8); Potassium 4.6 mmol/L (3.5-5.5)
== END | disposition home or self-care (01) ==
LOC: LABWHC1 09:41
PROVIDERS: ATTEND Physician Assistant
DX: I50.9 Heart failure, unspecified (principal)
CPT/HCPCS: 36415; 80048

== ENCOUNTER → 2020-02-06 | Outpatient (CLI) | payer MEDICARE, BC ==
--- NOTE | 2020-02-06 14:05 | US ---
EXAMINATION TYPE: US thyroid st tissue head/neck DATE OF EXAM: 02/06/2020 COMPARISON: US CLINICAL HISTORY: E04.1 Throid Nodule. F/U GLAND SIZE: Right Lobe: 4.8 x 1.7 x 2.1 cm Overall Parenchyma: heterogenous Left Lobe: 4.3 x 1.7 x 1.9 cm Overall Parenchyma: heterogeneous Isthmus Thickness: 0.4 cm NODULES RIGHT: # of nodules measured on right: 1 1. 2.3 X 1.5 x 1.8 cm solid or almost completely solid, hypoechoic nodule, which is wider than tall , with smooth margins, without echogenic foci. Prior size: 2.1 x 1.5 x 1.5 cm LEFT: # of nodules measured on left: 2 1. 2.3 X 1.7 x 1.7 cm solid or almost completely solid, isoechoic nodule, which is wider than tall, with smooth margins, without echogenic foci. Prior size: 2.2 x 1.6 x 1.5 cm 2. 0.7 X 0.4 x 0.5 cm solid or almost completely solid, hypoechoic nodule, which is wider than tall , with smooth margins, without echogenic foci. Prior size: 0.6 x 0.5 x 0.5 cm Bilateral neck scanned, no evidence of lymphadenopathy. Essentially stable nodules bilateral. IMPRESSION: Stable large nodule left lobe thyroid. 2017 ACR TI-RADS LEVEL: 4. If this is not been biopsied, biopsy would be recommended. Otherwise, foll ow-up 1 year. *Highest TI-RADS level nodule reported
== END | disposition home or self-care (01) ==
LOC: RADUSWWP 13:20
PROVIDERS: ATTEND Otolaryngology
DX: E04.1 Nontoxic single thyroid nodule (principal)
CPT/HCPCS: 76536

== ENCOUNTER → 2020-02-20 | Outpatient (CLI) | payer MEDICARE, BC ==
[2020-02-20 14:53] LABS: Basophils # (A) 0.1 k/uL (0-0.2); Basophils % (A) 1 %; Eosinophils # (A) 0.1 k/uL (0-0.7); Eosinophils % (A) 1 %; HCT 40.8 % (34.0-46.0); HGB 13.9 gm/dL (11.4-16.0); Lymphocytes # (A) 2.2 k/uL (1.0-4.8); Lymphocytes % (A) 35 %; MCH 30.1 pg (25.0-35.0); MCV 88.3 fL (80.0-100.0); Mean Platelet Volume 9.2; Monocytes # (A) 0.4 k/uL (0-1.0); Monocytes % (A) 7 %; Neutrophils # (A) 3.4 k/uL (1.3-7.7); Neutrophils % (A) 54 %; Platelet Count 171 k/uL (150-450); RBC 4.62 m/uL (3.80-5.40); WBC 6.4 k/uL (3.8-10.6)
[2020-02-21 01:09] LABS: African American GFR (CKD) 66.1 (60.0-200.0); Albumin 4.6 g/dL (3.80-4.90); Albumin/Globulin Ratio 2.09 (1.60-3.17); Anion Gap 9.4 mmol/L (4.00-12.00); Calcium 9.5 mg/dL (8.7-10.3); Carbon Dioxide 26.6 mmol/L (21.6-31.8); Globulin 2.2 g/dL (1.6-3.3); Potassium 4.6 mmol/L (3.5-5.5); Total Bilirubin 0.8 mg/dL (0.2-1.2); Total Protein 6.8 g/dL (6.2-8.2)
== END | disposition home or self-care (01) ==
LOC: LABWHC1 13:13
PROVIDERS: ATTEND Family Medicine
DX: E04.2 Nontoxic multinodular goiter (principal); A88.1 Epidemic vertigo; I11.0 Hypertensive heart disease with heart failure; I25.10 Atherosclerotic heart disease of native coronary artery without angina pectoris; I42.9 Cardiomyopathy, unspecified; I50.42 Chronic combined systolic (congestive) and diastolic (congestive) heart failure; J44.9 Chronic obstructive pulmonary disease, unspecified
CPT/HCPCS: 36415; 80053; 84439; 84443; 85025

== ENCOUNTER → 2020-05-20 | Outpatient (CLI) | payer MEDICARE, BC ==
--- NOTE | 2020-05-20 14:44 | CT ---
EXAMINATION TYPE: CT ChestAbdPelvis w con DATE OF EXAM: 05/20/2020 COMPARISON: September 26, 2019 HISTORY: thoracic anerurysm, liver cysts, renal stones CT DLP: 1989.2 mGycm CONTRAST: CT scan of the chest, abdomen and pelvis is performed with Oral Contrast and with IV Contrast, patien t injected with 100 mL of Isovue 300. CT Chest: LUNGS: The lungs are clear and free of infiltrate or atelectasis. No pulmonary nodule or mass is det ected. No pleural effusion or CT evidence of interstitial lung disease. MEDIASTINUM: Thoracic aorta is of normal caliber. The heart is not enlarged. No evidence for media stinal mass or adenopathy. HILAR STRUCTURES: No evidence for mass. No hilar adenopathy is appreciated. OTHER: Bilateral saline breast implants are in place. CONTRAST CT ABDOMEN AND PELVIS FINDINGS: LIVER/GB: The gallbladder surgically absent. There is evidence of hepatic steatosis. No space occupyi ng hepatic lesion. Biliary tree is of normal caliber. PANCREAS: No inflammation. No distinct mass. SPLEEN: No splenic enlargement. No lesion seen. ADRENALS: No nodule. No thickening. KIDNEYS/BLADDER: No hydronephrosis. No nephrolithiasis. No disctinct renal mass. BOWEL: Normal appendix. Normal bowel caliber. No inflammation. GENITAL ORGANS: Hysterectomy changes identified. LYMPH NODES: No greater than 1cm abdominal or pelvic lymph nodes are appreciated. AORTA: Abdominal and thoracic aorta are normal caliber. Bilateral iliac stents are in place. Mild sca ttered atheromatous change noted. OSSEOUS STRUCTURES: No significant abnormality is seen. OTHER: No significant additional abnormality is seen. IMPRESSION: 1. Hepatic steatosis with the cholecystectomy change. No hepatic lesion identified.
== END | disposition home or self-care (01) ==
LOC: RADCTMAIN 11:56
PROVIDERS: ATTEND Family Medicine
DX: K76.0 Fatty (change of) liver, not elsewhere classified (principal); Z90.49 Acquired absence of other specified parts of digestive tract
CPT/HCPCS: 82565; 84520; 71260; 74177; 36415; Q9967

== ENCOUNTER 2020-06-19 10:40 | Emergency (ER) | payer BC, MEDICARE, OTHER ==
[2020-06-19 10:48] VITALS: BP 144/89; PULSE 98; RESP 18; TEMP 97.9
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
--- NOTE | 2020-06-19 12:16 | XR ---
EXAMINATION TYPE: XR cervical spine comp DATE OF EXAM: 06/19/2020 COMPARISON: NONE HISTORY: Pain TECHNIQUE: 6 views submitted FINDINGS: There is severe multilevel degenerative disc disease. 2 mm anterolisthesis of C3 on C4. Mul tilevel facet arthropathy. Lateral view is limited to the level of C6-C7. Prevertebral soft tissue st ructures are similar to the prior exam. Therefore stable. Multilevel foraminal encroachment suspected . Odontoid intact. Soft tissue calcification in the right likely related carotid artery atherosclerot ic changes.. Cardiac leads noted. IMPRESSION: 1. Severe multilevel degenerative disc disease. Slight anterolisthesis of C3 on C4. Recommend follow- up CT scan. 2. Suspect right carotid atherosclerotic changes.
--- NOTE | 2020-06-19 12:17 | XR ---
EXAMINATION TYPE: XR chest 2V DATE OF EXAM: 06/19/2020 COMPARISON: 04/22/2019 TECHNIQUE: PA and lateral views submitted. HISTORY: Pain FINDINGS: The lungs are clear and there is no pneumothorax, pleural effusion, or focal pneumonia. Cardiac víctor ce seen. Surgical clips right upper quadrant. Heart size normal. No overt failure. Atherosclerotic ch nadeem aorta. IMPRESSION: 1. No acute process.
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
== END 2020-06-19 13:44 | disposition home or self-care (01) ==
LOC: EC 10:40
DX: Z04.1 Encounter for examination and observation following transport accident (principal); I11.0 Hypertensive heart disease with heart failure; I50.9 Heart failure, unspecified; J44.9 Chronic obstructive pulmonary disease, unspecified; E78.5 Hyperlipidemia, unspecified; K21.9 Gastro-esophageal reflux disease without esophagitis; F41.9 Anxiety disorder, unspecified; Z79.51 Long term (current) use of inhaled steroids; Z79.899 Other long term (current) drug therapy; Z79.82 Long term (current) use of aspirin; Z88.1 Allergy status to other antibiotic agents; Z88.8 Allergy status to other drugs, medicaments and biological substances; Z88.5 Allergy status to narcotic agent; Z95.0 Presence of cardiac pacemaker; Z90.13 Acquired absence of bilateral breasts and nipples; Z95.5 Presence of coronary angioplasty implant and graft; Z86.73 Personal history of transient ischemic attack (TIA), and cerebral infarction without residual deficits; Z86.718 Personal history of other venous thrombosis and embolism; Z85.3 Personal history of malignant neoplasm of breast; Z85.42 Personal history of malignant neoplasm of other parts of uterus; Z92.21 Personal history of antineoplastic chemotherapy
CPT/HCPCS: 71046; 72050; 72125; 99284

== ENCOUNTER → 2020-11-22 | Outpatient (CLI) | payer MEDICARE, BC ==
--- NOTE | 2020-11-22 15:14 | XR ---
Bilateral hips HISTORY: M25.551 M25.552 2 views of each hip submitted There is marginal spurring of the right femoral head, left femoral head. Alignment and joint spaces a re maintained, bone mineralization is within normal limits. IMPRESSION: Mild osteoarthritic changes.
== END | disposition home or self-care (01) ==
LOC: RADXRMAIN 13:25
PROVIDERS: ATTEND Psychiatry & Neurology Neurology
DX: M16.0 Bilateral primary osteoarthritis of hip (principal)
CPT/HCPCS: 73521

== ENCOUNTER → 2020-11-29 | Outpatient (CLI) | payer MEDICARE, BC ==
--- NOTE | 2020-12-01 08:57 | CT ---
EXAMINATION TYPE: CT lumbar spine wo con DATE OF EXAM: 11/29/2020 COMPARISON: CT 01/03/2018 HISTORY: low back pain, no injury CT DLP: 1465.2 mGycm Automated exposure control for dose reduction was used. An unenhanced CT of the lumbar spine was performed. Bone and soft tissue window settings are submitt ed as well as coronal and sagittal reconstructions. FINDINGS: Lumbar vertebral bodies show preserved height, alignment, stable mineralization. Loss of disc height is present at L2-3, L3-4, L5-S1, is multilevel spondylosis. Atheromatous changes are present noted in cidentally in the aorta, bilateral iliac stents are present. Lung bases are clear. No pleural effusio n. L1-L2: Normal disc space height. No disc herniation protrusion or central stenosis. No facet joint arthropathy. No evidence for foraminal encroachment. L2-L3: Mild posterior disc bulge noted. No significant spinal stenosis. Minimal encroachment of the f oramina due to circumferential extension of disc material. L3-L4: Posterior disc bulge causes anterior mass effect on the thecal sac. There is facet arthropathy with hypertrophy ligamentum flavum causing posterior lateral mass effect on the thecal sac, some spi nal stenosis, mild is suspected. Circumferential extension of disc material encroaches minimally on t he inferior aspect of the foramina. L4-L5: Posterior broad-based disc bulge causes anterior mass effect on the thecal sac. Facet arthropa thy with virtually the ligamentum flavum contributes to cause moderate to severe spinal stenosis bebe lar to prior exam. Circumflex frontal extension of disc material encroaches upon the inferior aspect of the foramina. L5-S1: Facet arthropathy changes extensive. Posterior disc bulge effaces the anterior thecal sac and possibly contact the proximal S1 nerve roots. Findings similar to prior exam. No definite foraminal e ncroachment. IMPRESSION: Degenerative disc disease, spinal stenosis, facet arthropathy and foraminal encroachment are similar to prior exam..
== END | disposition home or self-care (01) ==
LOC: RADCTMAIN 18:19
PROVIDERS: ATTEND Psychiatry & Neurology Neurology
DX: M51.36 Other intervertebral disc degeneration, lumbar region (principal); M48.061 Spinal stenosis, lumbar region without neurogenic claudication
CPT/HCPCS: 72131

== ENCOUNTER → 2020-12-24 | Outpatient (CLI) | payer MEDICARE, BC ==
--- NOTE | 2020-12-24 15:12 | XR ---
EXAMINATION TYPE: XR chest 2V DATE OF EXAM: 12/24/2020 COMPARISON: Chest x-ray 06/19/2020 HISTORY: J40, shortness of breath TECHNIQUE: Frontal and lateral views of the chest are obtained. FINDINGS: There is no focal air space opacity, pleural effusion, or pneumothorax seen. There is a ge nerator in the left pectoral region, intracardiac defibrillator lead present right ventricle. Aorta i s dense. Prominent lung volume can be seen in underlying COPD. Surgical clips present in the upper ab domen. The cardiac silhouette size is within normal limits. The osseous structures are intact. IMPRESSION: No acute cardiopulmonary process.
== END | disposition home or self-care (01) ==
LOC: RADXRMAIN 14:17
PROVIDERS: ATTEND Internal Medicine Sleep Medicine
DX: R06.02 Shortness of breath (principal)
CPT/HCPCS: 71046

== ENCOUNTER → 2021-02-06 | Outpatient (CLI) | payer MEDICARE, BC ==
--- NOTE | 2021-02-06 16:47 | US ---
EXAMINATION TYPE: US thyroid st tissue head/neck DATE OF EXAM: 02/06/2021 COMPARISON: 02/06/2020 CLINICAL HISTORY: 70-year-old female E04.1 THYROID NODULE. Follow up TECHNIQUE: Multiple sonographic images of the thyroid gland are obtained. FINDINGS: GLAND SIZE: Right Lobe: 5.4 x 1.8 x 2.1 cm Overall Parenchyma: heterogenous Left Lobe: 4.2 x 2.0 x 1.9 cm Overall Parenchyma: heterogeneous Isthmus Thickness: 0.6 cm NODULES RIGHT: # of nodules measured on right: 1 1. 2.2 X 1.8 x 1.6 cm, lower mid, solid or almost completely solid, TR 4 hypoechoic nodule, which i s taller than wide, with ill-defined margins, without echogenic foci. Prior size: 2.3 x 1.5 x 1.8 cm LEFT: # of nodules measured on left: 2 1. 2.4 X 1.7 x 1.8 cm, lower mid, mixed but primarily solid, TR 3 isoechoic nodule, which is wider than tall, with smooth margins, without echogenic foci. Prior size: 2.3 x 1.7 x 1.7 cm 2. 0.6 X 0.5 x 0.5 cm, mid mid, TR 4 solid or almost completely solid, hypoechoic nodule, which is taller than wide, with lobulated or irregular margins, without echogenic foci. Prior size: 0.7 x 0.4 x 0.5 cm ISTHMUS: # of nodules measured in the isthmus: 0 Bilateral neck scanned, no evidence of lymphadenopathy. IMPRESSION: Findings suggest multinodular goiter. Dominant nodules measure 2.2 cm on the right and 2.4 cm on the left, not significantly changed.
== END | disposition home or self-care (01) ==
LOC: RADUSWWP 12:03
PROVIDERS: ATTEND Otolaryngology
DX: E04.2 Nontoxic multinodular goiter (principal)
CPT/HCPCS: 76536

== ENCOUNTER → 2021-03-20 | Outpatient (CLI) | payer MEDICARE, BC ==
[2021-03-20 19:42] LABS: Basophils # (A) 0.06 X 10*3/uL (0.00-0.10); Basophils % (A) 0.9 %; Eosinophils # (A) 0.11 X 10*3/uL (0.04-0.35); Eosinophils % (A) 1.6 %; HCT 43.3 % (37.2-46.3); HGB 13.7 g/dL (12.0-15.0); Lymphocytes # (A) 2.18 X 10*3/uL (0.90-5.00); Lymphocytes % (A) 30.9 %; MCH 28.7 pg (27.0-32.0); MCHC 31.6 g/dL (32.0-37.0); MCV 90.8 fL (80.0-97.0); Mean Platelet Volume 12.9 fL (9.5-12.2); Monocytes # (A) 0.64 X 10*3/uL (0.20-1.00); Monocytes % (A) 9.1 %; Neutrophils # (A) 4.05 X 10*3/uL (1.80-7.70); Neutrophils % (A) 57.4 %; Platelet Count 201 X 10*3/uL (140-440); RBC 4.77 X 10*6/uL (4.10-5.20); RDW 12.2 % (11.5-14.5); WBC 7.05 X 10*3/uL (4.50-10.00)
[2021-03-20 20:09] LABS: LDL Cholesterol,Calculated 78.1 mg/dL (0.0-131.0)
== END | disposition home or self-care (01) ==
LOC: LABWHC1 09:56
PROVIDERS: ATTEND Family Medicine
DX: I11.0 Hypertensive heart disease with heart failure (principal); I25.10 Atherosclerotic heart disease of native coronary artery without angina pectoris; I42.9 Cardiomyopathy, unspecified; I50.42 Chronic combined systolic (congestive) and diastolic (congestive) heart failure; I73.9 Peripheral vascular disease, unspecified; J44.9 Chronic obstructive pulmonary disease, unspecified; E78.2 Mixed hyperlipidemia; E55.9 Vitamin D deficiency, unspecified
CPT/HCPCS: 36415; 80061; 82306; 84439; 84443; 85025

== ENCOUNTER → 2021-05-01 | Outpatient (CLI) | payer MEDICARE, BC ==
--- NOTE | 2021-05-01 12:51 | XR ---
EXAMINATION TYPE: XR chest 2V DATE OF EXAM: 05/01/2021 COMPARISON: Chest x-ray 12/24/[address] 01/24/2016, 05/20/2020 HISTORY: J 44.1, shortness of breath and bronchitis TECHNIQUE: Frontal and lateral views of the chest are obtained. FINDINGS: There is no focal air space opacity, pleural effusion, or pneumothorax seen. The cardiac silhouette size is within normal limits. There is a generator in left pectoral region, intracardiac d efibrillator lead is present. Right hemidiaphragm is elevated. There are prominent epicardial fat pad s. Bronchial wall thickening is present. The osseous structures are intact. Surgical clips are pres ent in the right upper quadrant. The aorta is dense. Right upper lobe lung nodule present and stable on CT not in with certainty on chest x-ray IMPRESSION: Correlate for bronchitis, reactive airways disease.
== END | disposition home or self-care (01) ==
LOC: RADXRMAIN 10:44
PROVIDERS: ATTEND Internal Medicine Sleep Medicine
DX: J44.1 Chronic obstructive pulmonary disease with (acute) exacerbation (principal)
CPT/HCPCS: 71046

== ENCOUNTER 2021-05-05 10:00 | Inpatient (IN) | payer MEDICARE, BC ==
[2021-05-05 11:36] LABS: Basophils % (A) 0 %; Eosinophils # (A) 0.2 k/uL (0-0.7); Eosinophils % (A) 1 %; HCT 42.6 % (34.0-46.0); HGB 14.4 gm/dL (11.4-16.0); Lymphocytes # (A) 1.4 k/uL (1.0-4.8); Lymphocytes % (A) 12 %; MCH 30.2 pg (25.0-35.0); MCHC 33.9 g/dL (31.0-37.0); MCV 89.3 fL (80.0-100.0); Mean Platelet Volume 9.1; Monocytes # (A) 0.4 k/uL (0-1.0); Monocytes % (A) 4 %; Neutrophils # (A) 9.5 k/uL (1.3-7.7); Neutrophils % (A) 81 %; Platelet Count 168 k/uL (150-450); RBC 4.77 m/uL (3.80-5.40); RDW 12.6 % (11.5-15.5); WBC 11.7 k/uL (3.8-10.6)
[2021-05-05 11:44] LABS: Albumin 4.3 g/dL (3.5-5.0); Calcium 8.9 mg/dL (8.4-10.2); Total Bilirubin 1.3 mg/dL (0.2-1.3); Total Protein 7.4 g/dL (6.3-8.2)
--- NOTE | 2021-05-05 12:13 | XR ---
EXAMINATION TYPE: XR chest 2V DATE OF EXAM: 05/05/2021 COMPARISON: 05/01/2021 HISTORY: 70 year-old female shortness of breath, difficulty breathing TECHNIQUE: PA and lateral views FINDINGS: Left anterior chest wall ICD generator right ventricular lead. Heart normal size. Hazy lower lung den sities related to overlying soft tissue. Some strandy atelectasis is present. No consolidation or ple ural effusion. Mild hyperinflation. IMPRESSION: Mild hyperinflation may relate to a depth of inspiration or underlying emphysema. Clinically correlat e. There is some strandy atelectasis in the lower lungs. Otherwise, no acute process seen.
[2021-05-05] MEDS ORDERED: Magnesium Replacement Protocol 1 EACH MISC MISCELLANE PRN (12:35)
[2021-05-05] MEDS ORDERED: ACETAMINOPHEN TAB 325 MG TAB PO STA (12:53)
[2021-05-05] MEDS ORDERED: NALOXONE 0.4 MG/ML 1 ML VIAL IV PRN (13:14)
[2021-05-05] MEDS ORDERED: ACETAMINOPHEN TAB 325 MG TAB PO PRN (13:14)
[2021-05-05] MEDS: MAGNESIUM SULFATE-D5W PMX 1 GM in DEXTROSE/WATER 1 100ML.BAG IVPB SCH ×3 (13:27→19:51)
[2021-05-05] MEDS ORDERED: methylPREDNISolone SOD SUCCI 125 MG/2 ML VIAL IV STA (13:43)
--- NOTE | 2021-05-05 13:49 | ED ---
General Adult HPI - General Chief complaint: Shortness of Breath Stated complaint: SOB Time Seen by Provider: 05/05/21 10:22 Source: patient Mode of arrival: ambulatory Limitations: no limitations - History of Present Illness Initial comments: She is a 70-year-old female with a history of CHF, COPD, hypertension, hyperlipidemia presenting with a chief complaint of cough. Patient was seen by her PCP 3 days ago who prescribed her doxycycline and prednisone for bronchitis. Patient states she has been noncompliant with the medication due to it causing nausea and diarrhea. He states that over the weekend the cough has worsened and she was encouraged to come to the ER to rule out pneumonia. She states that today she has been able to produce sputum. She states cough is worse with laying down and exertion. Patient admits to some chest tightness and headache. Denies chest pain, chills, abdominal pain, vomiting, constipation, palpitations, hemoptysis, hematemesis, hematochezia. - Related Data Home Medications Medication Instructions Recorded Confirmed Metoprolol Succinate [Toprol XL] 50 mg PO DAILY 08/22/13 06/19/20 Pantoprazole Sodium [Protonix] 40 mg PO DAILY 08/22/13 06/19/20 Fluticasone Nasal [place] [Flonase 1 spr EA NOSTRIL BID 09/08/16 06/19/20 Nasal [place]] Cetirizine HCl [Zyrtec] 10 mg PO DAILY 09/23/18 06/19/20 Pravastatin Sodium [Pravachol] 40 mg PO HS 09/23/18 06/19/20 Sacubitril/Valsartan [Entresto 49 1 tab PO BID 09/23/18 06/19/20 mg-51 mg Tablet] Spironolactone [Aldactone] 25 mg PO DAILY 09/23/18 06/19/20 Aspirin EC [Ecotrin Low Dose] 81 mg PO HS 06/19/20 06/19/20 Meclizine [Antivert] 25 mg PO BID PRN 06/19/20 06/19/20 Albuterol Sulfate [Albuterol 2 puff PO RT-Q6H PRN 05/05/21 05/05/21 Sulfate Hfa] Ondansetron [Zofran] 4 mg PO DAILY PRN 05/05/21 05/05/21 Previous Rx's Medication Instructions Recorded Nitroglycerin Sl Tabs [Nitrostat] 0.4 mg SUBLINGUAL Q5M PRN #25 tab 09/29/14 Allergies Allergy/AdvReac Type Severity Reaction Status Date / Time amoxicillin [From Augmentin] Allergy SEE Verified 05/05/21 13:21 COMMENTS azithromycin [From Zithromax] Allergy Rash/Hives Verified 05/05/21 10:06 cephalexin monohydrate Allergy Rash/Hives Verified 05/05/21 10:06 [From Keflex] clavulanic acid Allergy SEE Verified 05/05/21 13:21 [From Augmentin] COMMENTS dexamethasone [From Decadron] Allergy Rash/Hives Verified 05/05/21 10:06 dexamethasone sod phosphate Allergy Rash/Hives Verified 05/05/21 10:06 [From Decadron] codeine AdvReac Nausea & Verified 05/05/21 10:06 Vomiting doxycycline AdvReac Nausea & Verified 05/05/21 13:21 Vomiting morphine AdvReac Nausea & Verified 05/05/21 10:06 Vomiting Review of Systems ROS Statement: Those systems with pertinent positive or pertinent negative responses have been documented in the HPI. ROS Other: All systems not noted in ROS Statement are negative. Past Medical History Past Medical History: Asthma, Cancer, Chest Pain / Angina, Heart Failure, COPD, CVA/TIA, Deep Vein Thrombosis (DVT), Eye Disorder, GERD/Reflux, Hyperlipidemia, Hypertension, Liver Disease, Memory Impairment, Osteoarthritis (OA), Pneumonia, Renal Disease, Vascular Disorder Additional Past Medical History / Comment(s): fullness after eating a few bites and distention,states lasix afftects my kidneys,09/28/14 Pt admitted to floor s/p PTCA with 3 stents to RCA. Other HX:MIGRAINES, VERTIGO,TIA (MULTIPLE- DATES UKN), NAKITA CATARACTS,HEART MURMUR, PVD, HIATAL HERNIA,. IBS, FATTY LIVER, PANCREATITITS, COLON POLYPS, KIDNEY CYSTS, URINARY CALCULI, CHRONIC PAIN,ANEMIA, DVT LEFT MESENTERIC VEIN 2007, [id number] received AND UTERINE CANCER- 1979 History of Any Multi-Drug Resistant Organisms: None Reported Past Surgical History: AICD, Appendectomy, Bladder Surgery, Bowel Resection, Cholecystectomy, Heart Catheterization, Heart Catheterization With Stent, Hysterectomy, Pacemaker, Tonsillectomy Additional Past Surgical History / Comment(s): 09/28/14 PTCA with stents (3) to RCA. COLONOSCOPY. BOWEL RESECTION, MULT. NAKITA MASTECTOMY with implants. AORTIC STENT, FEMORAL ILIAC ARTERY STENTS X 10. Rt Carotid surgery X 2 Past Anesthesia/Blood Transfusion Reactions: Motion Sickness, Postoperative Nausea & Vomiting (PONV) Additional Past Anesthesia/Blood Transfusion Reaction / Comment(s): SEVERE PONV. PT HAS RECEIVED BLOOD IN 1977 WITHOUT REACTION. Date of Last Stent Placement:: UNKNOWN Type of Cardiac Device: Permanent Pacemaker, AICD Device Placement Date:: [place] Past Psychological History: Anxiety Smoking Status: Never smoker Past Alcohol Use History: None Reported Past Drug Use History: None Reported - Past Family History Mother Family Medical History: Diabetes Mellitus Additional Family Medical History / Comment(s): severe diabetic Father Family Medical History: Cancer Additional Family Medical History / Comment(s): colon General Exam Limitations: no limitations General appearance: alert, in no apparent distress Head exam: Present: atraumatic, normocephalic, normal inspection Eye exam: Present: normal appearance, PERRL, EOMI. Absent: scleral icterus, conjunctival injection, periorbital swelling ENT exam: Present: normal exam, mucous membranes moist Neck exam: Present: normal inspection Respiratory exam: Present: rhonchi. Absent: respiratory distress, wheezes, rales, stridor Cardiovascular Exam: Present: regular rate, normal rhythm, normal heart sounds. Absent: systolic murmur, diastolic murmur, rubs, gallop, clicks GI/Abdominal exam: Present: soft, normal bowel sounds. Absent: distended, tenderness, guarding, rebound, rigid Neurological exam: Present: alert, oriented X3, CN II-XII intact Psychiatric exam: Present: normal affect, normal mood Skin exam: Present: warm, dry, intact, normal color. Absent: rash Course Vital Signs 05/05/21 05/05/21 10:01 11:27 Temperature 100.7 F H 99.2 F Pulse Rate 78 80 Respiratory 18 14 Rate Blood Pressure 151/88 144/90 O2 Sat by Pulse 95 95 Oximetry EKG Findings - EKG Results: EKG: interpreted by ERMD (Left axis deviation, rate of 120 bpm, occasional PVCs) EKG shows: tachycardia Medical Decision Making - Medical Decision Making Patient is a 70-year-old female resenting with a chief complaint of cough. History of COPD, CHF, hypertension, hyperlipidemia. She states cough began about 3 days ago, she was evaluated by her PCP who diagnosed with bronchitis and prescribed her doxycycline and prednisone. Patient was noncompliant with medication due to nausea and diarrhea. Cough and shortness of breath has been increasing. Patient appeared for ED evaluation to rule out pneumonia. On exam there is expiratory rhonchi, patient is having coughing spells throughout exam. EKG is remarkable for sinus tachycardia with occasional PVCs. Lab work remarkable for hypomagnesemia with magnesium of 1.0. X-ray was remarkable for some strandy atelectasis in the lower lungs otherwise no acute process seen. Patient is being admitted to Dr. Reyna from [facility] hospitalist group for hypomagnesemia and bronchitis. I spoke with Dr. Reyna and he advised IV steroids and holding doxycycline at this time. She was given 125 mg of Solu- Medrol IV and is having magnesium replaced per EMR algorithm. Answered all questions. Patient conveyed verbal understanding and agreed with the plan. I discussed this case with my attending Dr. Braxton. - Lab Data Result diagrams: 05/05/21 11:26 05/05/21 11:26 Lab Results 05/05/21 05/05/21 05/05/21 Range/Units 11:26 11:26 11:26 WBC 11.7 H (3.8-10.6) k/uL RBC 4.77 (3.80-5.40) m/uL Hgb 14.4 (11.4-16.0) gm/dL Hct 42.6 (34.0-46.0) % MCV 89.3 (80.0-100.0) fL MCH 30.2 (25.0-35.0) pg MCHC 33.9 (31.0-37.0) g/dL RDW 12.6 (11.5-15.5) % Plt Count 168 (150-450) k/uL MPV 9.1 Neutrophils % 81 % Lymphocytes % 12 % Monocytes % 4 % Eosinophils % 1 % Basophils % 0 % Neutrophils # 9.5 H (1.3-7.7) k/uL Lymphocytes # 1.4 (1.0-4.8) k/uL Monocytes # 0.4 (0-1.0) k/uL Eosinophils # 0.2 (0-0.7) k/uL Basophils # 0.0 (0-0.2) k/uL Sodium 140 (137-145) mmol/L Potassium 4.0 (3.5-5.1) mmol/L Chloride 105 (98-107) mmol/L Carbon Dioxide 24 (22-30) mmol/L Anion Gap 11 mmol/L BUN 10 (7-17) mg/dL Creatinine 0.96 (0.52-1.04) mg/dL Est GFR (CKD-EPI)AfAm 69 (>60 ml/min/1.73 sqM) Est GFR (CKD-EPI)NonAf 60 (>60 ml/min/1.73 sqM) Glucose 108 H (74-99) mg/dL Plasma Lactic Acid Mark 1.8 (0.7-2.0) mmol/L Calcium 8.9 (8.4-10.2) mg/dL Magnesium 1.0 L (1.6-2.3) mg/dL Total Bilirubin 1.3 (0.2-1.3) mg/dL AST 35 (14-36) U/L ALT 33 (4-34) U/L Alkaline Phosphatase 41 (38-126) U/L Troponin I (0.000-0.034) ng/mL Total Protein 7.4 (6.3-8.2) g/dL Albumin 4.3 (3.5-5.0) g/dL Coronavirus (PCR) (Not Detectd) Influenza Type A RNA (Not Detectd) Influenza Type B (PCR) (Not Detectd) 05/05/21 05/05/21 05/05/21 Range/Units 11:26 11:26 11:29 WBC (3.8-10.6) k/uL RBC (3.80-5.40) m/uL Hgb (11.4-16.0) gm/dL Hct (34.0-46.0) % MCV (80.0-100.0) fL MCH (25.0-35.0) pg MCHC (31.0-37.0) g/dL RDW (11.5-15.5) % Plt Count (150-450) k/uL MPV Neutrophils % % Lymphocytes % % Monocytes % % Eosinophils % % Basophils % % Neutrophils # (1.3-7.7) k/uL Lymphocytes # (1.0-4.8) k/uL Monocytes # (0-1.0) k/uL Eosinophils # (0-0.7) k/uL Basophils # (0-0.2) k/uL Sodium (137-145) mmol/L Potassium (3.5-5.1) mmol/L Chloride (98-107) mmol/L Carbon Dioxide (22-30) mmol/L Anion Gap mmol/L BUN (7-17) mg/dL Creatinine (0.52-1.04) mg/dL Est GFR (CKD-EPI)AfAm (>60 ml/min/1.73 sqM) Est GFR (CKD-EPI)NonAf (>60 ml/min/1.73 sqM) Glucose (74-99) mg/dL Plasma Lactic Acid Mark (0.7-2.0) mmol/L Calcium (8.4-10.2) mg/dL Magnesium (1.6-2.3) mg/dL Total Bilirubin (0.2-1.3) mg/dL AST (14-36) U/L ALT (4-34) U/L Alkaline Phosphatase (38-126) U/L Troponin I <0.012 (0.000-0.034) ng/mL Total Protein (6.3-8.2) g/dL Albumin (3.5-5.0) g/dL Coronavirus (PCR) Not Detected (Not Detectd) Influenza Type A RNA Not Detected (Not Detectd) Influenza Type B (PCR) Not Detected (Not Detectd) Disposition Clinical Impression: Hypomagnesemia, Bronchitis Disposition: ADMITTED IP TO THIS [facility] Condition: Good Instructions (If sedation given, give patient instructions): Acute Bronchitis (ED) Is patient prescribed a controlled substance at d/c from ED?: No Referrals: Kailash Jacobson III, MD [Primary Care Provider] - 1-2 days Decision Date: 05/05/21 Decision Time: 13:52
--- NOTE | 2021-05-05 22:24 | P.HPIM ---
History of Present Illness H&P Date: 05/05/21 Chief Complaint: cough Patient is a 70-year-old female with a known history of asthma/COPD, chronic CHF with systolic dysfunction, cardiomyopathy ischemic status post AICD placement, history of DVT, CVA/TIA, hypertension, hyperlipidemia, memory impairment and fatty infiltration of liver, chronic pain and history of breast cancer status post chemotherapy and uterine cancer in 1979, anxiety presents to ER with complaints of shortness of breath and congestive cough. Patient was seen by her physician and was started prednisone and doxycycline. Patient throughout prednisone plan after taking doxycycline patient developed nausea vomiting and diarrhea. Patient felt very weak and has been having nausea vomiting for the past 1 week. patient called her physician and encouraged her to go to ER for further evaluation. Patient does have cough without any sputum production, unable to bring up any sputum. Symptoms gets worse when she lies down flat. No complaints of chest pain or tightness. No headache or dizziness or lightheadedness no complaints of abdominal pain. On admission patient had temperature at 100.7. Chest x-ray showed mild hyperinflation may relate to depth of inspiration or underlying emphysema. Correlate clinically. There is some strandy atelectasis in the lower lungs otherwise no acute process seen. EKG showed sinus tachycardia with occasional PVCs. Laboratory showed WBC 11.7 hemoglobin 14.4 and platelets 168 neutrophils 9.5 Sodium 140 potassium 4.0 chloride 105 bicarb is 24 BUN 10 and creatinine 0.96 magnesium level is 1.0 total bilirubin 1.3 liver enzymes are not elevated. proBNP level is 742 Coronavirus PCR not detected influenza PCR negative. Review of Systems Constitutional: Patient denies any fever or chills . Does have generalized weakness. Abdomen: Patient does have nausea and vomiting and diarrhea and no abdominal pain. Cardiovascular: Patient denies any chest pain. Positive short of breath no palpitations. Respiratory: Cough without sputum production and shortness of breath Neurologic: Patient denied any numbness or tingling headache. Musculoskeletal: Patient denies any complaints of joint swelling or deformity. Skin: Negative Psychiatric: Negative Endocrine: No heat or cold intolerance. No recent weight gain. Genitourinary: No dysuria or hematuria. All other 14 point ROS negative except the above Past Medical History Past Medical History: Asthma, Cancer, Chest Pain / Angina, Heart Failure, COPD, CVA/TIA, Deep Vein Thrombosis (DVT), Eye Disorder, GERD/Reflux, Hyperlipidemia, Hypertension, Liver Disease, Memory Impairment, Osteoarthritis (OA), Pneumonia, Renal Disease, Vascular Disorder Additional Past Medical History / Comment(s): fullness after eating a few bites and distention,states lasix afftects my kidneys,09/28/14 Pt admitted to floor s/p PTCA with 3 stents to RCA. Other HX:MIGRAINES, VERTIGO,TIA (MULTIPLE- DATES UKN), NAKITA CATARACTS,HEART MURMUR, PVD, HIATAL HERNIA,. IBS, FATTY LIVER, PANCREATITITS, COLON POLYPS, KIDNEY CYSTS, URINARY CALCULI, CHRONIC PAIN,ANEMIA, DVT LEFT MESENTERIC VEIN 2007, [id number] received AND UTERINE CANCER- 1979 History of Any Multi-Drug Resistant Organisms: None Reported Past Surgical History: AICD, Appendectomy, Bladder Surgery, Bowel Resection, Cholecystectomy, Heart Catheterization, Heart Catheterization With Stent, Hysterectomy, Pacemaker, Tonsillectomy Additional Past Surgical History / Comment(s): 09/28/14 PTCA with stents (3) to RCA. COLONOSCOPY. BOWEL RESECTION, MULT. NAKITA MASTECTOMY with implants. AORTIC STENT, FEMORAL ILIAC ARTERY STENTS X 10. Rt Carotid surgery X 2 Past Anesthesia/Blood Transfusion Reactions: Motion Sickness, Postoperative Nausea & Vomiting (PONV) Additional Past Anesthesia/Blood Transfusion Reaction / Comment(s): SEVERE PONV. PT HAS RECEIVED BLOOD IN 1977 WITHOUT REACTION. Date of Last Stent Placement:: UNKNOWN Type of Cardiac Device: Permanent Pacemaker, AICD Device Placement Date:: [employer] Past Psychological History: Anxiety Smoking Status: Never smoker Past Alcohol Use History: None Reported Past Drug Use History: None Reported - Past Family History Mother Family Medical History: Diabetes Mellitus Additional Family Medical History / Comment(s): severe diabetic Father Family Medical History: Cancer Additional Family Medical History / Comment(s): colon Medications and Allergies Home Medications Medication Instructions Recorded Confirmed Type Metoprolol Succinate [Toprol XL] 50 mg PO BID 08/22/13 05/05/21 History Pantoprazole Sodium [Protonix] 40 mg PO DAILY 08/22/13 05/05/21 History Nitroglycerin Sl Tabs [Nitrostat] 0.4 mg SUBLINGUAL Q5M PRN #25 tab 09/29/14 05/05/21 Rx Fluticasone Nasal [place] [Flonase 1 spr EA NOSTRIL BID 09/08/16 05/05/21 History Nasal [place]] Cetirizine HCl [Zyrtec] 10 mg PO DAILY 09/23/18 05/05/21 History Pravastatin Sodium [Pravachol] 40 mg PO HS 09/23/18 05/05/21 History Sacubitril/Valsartan [Entresto 49 1 tab PO BID 09/23/18 05/05/21 History mg-51 mg Tablet] Spironolactone [Aldactone] 25 mg PO DAILY 09/23/18 05/05/21 History Aspirin EC [Ecotrin Low Dose] 81 mg PO HS 06/19/20 05/05/21 History Meclizine [Antivert] 25 mg PO TID PRN 06/19/20 05/05/21 History Albuterol Sulfate [Albuterol 2 puff PO RT-Q6H PRN 05/05/21 05/05/21 History Sulfate Hfa] Ondansetron [Zofran] 4 mg PO DAILY PRN 05/05/21 05/05/21 History Allergies Allergy/AdvReac Type Severity Reaction Status Date / Time amoxicillin [From Augmentin] Allergy SEE Verified 05/05/21 13:21 COMMENTS azithromycin [From Zithromax] Allergy Rash/Hives Verified 05/05/21 10:06 cephalexin monohydrate Allergy Rash/Hives Verified 05/05/21 10:06 [From Keflex] clavulanic acid Allergy SEE Verified 05/05/21 13:21 [From Augmentin] COMMENTS dexamethasone [From Decadron] Allergy Rash/Hives Verified 05/05/21 10:06 dexamethasone sod phosphate Allergy Rash/Hives Verified 05/05/21 10:06 [From Decadron] codeine AdvReac Nausea & Verified 05/05/21 10:06 Vomiting doxycycline AdvReac Nausea & Verified 05/05/21 13:21 Vomiting morphine AdvReac Nausea & Verified 05/05/21 10:06 Vomiting Physical Exam Vitals: Vital Signs Temp Pulse Resp BP Pulse Ox 05/05/21 19:08 98.3 F 96 14 119/75 93 L 05/05/21 11:27 99.2 F 80 14 144/90 95 05/05/21 10:01 100.7 F H 78 18 151/88 95 Intake and Output 0305/05/21 05/05/21 06:59 14:59 22:59 Other: Weight 104.326 kg PHYSICAL EXAMINATION: Patient is lying in the bed comfortably, no acute distress, awake alert and oriented.. HEENT: Normocephalic. Neck is supple. Pupils reactive. Nostrils clear. Oral cavity is moist. Neck reveals no JVD, carotid bruits, or thyromegaly. CHEST EXAMINATION: Trachea is central. Symmetrical expansion. Patient does have expiratory wheezing bibasilar diminished sounds.. CARDIAC: Normal S1, S2 with no gallops. No murmurs ABDOMEN: Soft. Bowel sounds normal. No organomegaly. No abdominal bruits. Extremities: reveal no edema. No clubbing or cyanosis Neurologically awake, alert, oriented x3 with well-coordinated movements. No focal deficits noted Skin: No rash or skin lesions. Psychiatric: Cooperative. Nonsuicidal, anxious. Musculoskeletal: No joint swelling or deformity. Normal range of motion. Results CBC & Chem 7: 05/05/21 11:26 05/05/21 11:26 Labs: Abnormal Lab Results - Last 24 Hours (Table) 05/05/21 05/05/21 Range/Units 11:26 11:26 WBC 11.7 H (3.8-10.6) k/uL Neutrophils # 9.5 H (1.3-7.7) k/uL Glucose 108 H (74-99) mg/dL Magnesium 1.0 L (1.6-2.3) mg/dL Thrombosis Risk Factor Assmnt - DVT/VTE Prophylaxis DVT/VTE Prophylaxis: Pharmacologic Prophylaxis ordered Assessment and Plan Assessment: Shortness of breath secondary to acute asthma/COPD exacerbation Nausea vomiting and diarrhea likely due to antibiotic use. Improved now Severe hypomagnesemia Chronic CHF with systolic dysfunction Ischemic cardiomyopathy status post ICD placement Hypertension Hyperlipidemia GERD Memory impairment History of DVT History of CVA/TIA with no residual weakness History of breast cancer and uterine cancer GI and DVT prophylaxis with Pepcid, heparin subcu Plan: Patient will be continued oxygen supplementation as needed. Was given a dose of IV Solu-Medrol in the ER. Continue with Solu-Medrol 40 mg every 8 hourly and duo nebs. Patient will be started Levaquin due to allergy to multiple antibiotics. Replace magnesium. Patient will be continued home medications and follow-up closely. Cardio to follow closely. Follow-up CBC and BMP tomorrow. Time with Patient: Greater than 30
[2021-05-05] MEDS: guaiFENesin SYRUP 100MG/5ML 200 MG/10 ML CUP PO PRN (22:29)
[2021-05-05] MEDS ORDERED: LEVOFLOXACIN 500 MG TAB PO SCH (23:00)
[2021-05-06] MEDS: methylPREDNISolone SOD SUCCI 40 MG/ML 1 ML VIAL IV SCH ×4 (00:59→23:03)
[2021-05-06] MEDS: IPRATROPIUM-ALBUTEROL 3 ML NEB INHALATION PRN ×2 (01:00→19:26)
[2021-05-06 07:32] LABS: Glucose,Whole Blood 145 mg/dL (75-99)
[2021-05-06] MEDS: HEPARIN SODIUM,PORCINE/PF 5,000 UNIT/0.5 ML SYRINGE SQ SCH ×2 (08:41→19:55)
[2021-05-06] MEDS: SACUBITRIL/VALSARTAN 49 MG-51 MG TABLET PO SCH ×2 (08:41→20:21)
[2021-05-06] MEDS: METOPROLOL SUCCINATE (ER) 50 MG TAB.ER.24H PO SCH ×2 (08:41→20:21)
[2021-05-06] MEDS: SPIRONOLACTONE 25 MG TAB PO SCH (08:42)
[2021-05-06] MEDS ORDERED: FAMOTIDINE 20 MG TAB PO SCH (09:00)
[2021-05-06 09:06] LABS: Basophils # (A) 0.01 X 10*3/uL (0.00-0.10); Basophils % (A) 0.1 %; Eosinophils # (A) 0 X 10*3/uL (0.04-0.35); Eosinophils % (A) 0 %; HCT 38.5 % (37.2-46.3); HGB 12.4 g/dL (12.0-15.0); Immature Grans, Automated 0.5 %; Lymphocytes # (A) 0.66 X 10*3/uL (0.90-5.00); Lymphocytes % (A) 8.2 %; MCH 28.8 pg (27.0-32.0); MCHC 32.2 g/dL (32.0-37.0); MCV 89.5 fL (80.0-97.0); Mean Platelet Volume 12.5 fL (9.5-12.2); Monocytes # (A) 0.16 X 10*3/uL (0.20-1.00); NRBC Per 100 WBC 0 /100 WBCS (0.0-0.0); Neutrophils # (A) 7.19 X 10*3/uL (1.80-7.70); Neutrophils % (A) 89.2 %; Platelet Count 169 X 10*3/uL (140-440); RDW 12.5 % (11.5-14.5); WBC 8.06 X 10*3/uL (4.50-10.00)
[2021-05-06 09:14] LABS: African American GFR (CKD) 52.7 (60.0-200.0); Albumin 4.2 g/dL (3.8-4.9); Albumin/Globulin Ratio 1.75 (1.60-3.17); Anion Gap 13.9 mmol/L (10.00-18.00); BUN/Creat Ratio 12.75 Ratio (12.00-20.00); Blood Urea Nitrogen 15.3 mg/dL (9.0-27.0); Calcium 9.1 mg/dL (8.7-10.3); Carbon Dioxide 23.1 mmol/L (20.0-27.5); Globulin 2.4 g/dL (1.6-3.3); Magnesium 2.2 mg/dL (1.5-2.4); Non-African American GFR(CKD) 45.4 (60.0-200.0); Potassium 4.1 mmol/L (3.5-5.5); Total Bilirubin 0.7 mg/dL (0.30-1.20); Total Protein 6.6 g/dL (6.2-8.2)
[2021-05-06 12:08] LABS: Glucose,Whole Blood 139 mg/dL (75-99)
[2021-05-06 15:35] VITALS: BMI 42.0
--- NOTE | 2021-05-06 16:18 | CT ---
EXAMINATION TYPE: CT angio chest DATE OF EXAM: 05/06/2021 COMPARISON: CT May 20, 2020 HISTORY: SOB CT DLP: 484 mGycm. Automated Exposure Control for Dose Reduction was Utilized. CONTRAST: CTA scan of the thorax is performed with IV Contrast, patient injected with 80 mL of Isovue 370, pulm onary embolism protocol. MIP Images are created on CT scanner and reviewed. FINDINGS: LUNGS: Mild bibasilar linear scarring and/or atelectasis. No suspicious greater than 5 mm pulmonary n odules or masses. No suspicious focal consolidation. No pleural effusion or pneumothorax seen bilater ally. MEDIASTINUM: There is suboptimal bolus with most dense contrast in the SVC. No central pulmonary emb olism. Cannot entirely exclude segmental and subsegmental PE on this study. There are no greater than 1 cm hilar or mediastinal lymph nodes. No pericardial effusion is seen. Mild cardiomegaly redemons trated with mild to moderate left ventricular dilatation. Moderate to severe three-vessel coronary ar lisa calcification again seen. Single lead pacemaker/defibrillator redemonstrated. Stable low dense 1 .3 cm prevascular mediastinal lesion possible thin-walled cyst axial image 55. OTHER: Bilateral subpectoral breast implants redemonstrated. Cholecystectomy clips again seen. IMPRESSION: Suboptimal study without central pulmonary embolism. Cannot entirely exclude peripheral p ulmonary emboli. No suspicious acute pulmonary infiltrate.
[2021-05-06 17:47] LABS: Glucose,Whole Blood 143 mg/dL (75-99)
--- NOTE | 2021-05-06 17:54 | P.CNPUL ---
History of Present Illness Consult date: 05/06/21 Reason for consult: dyspnea, cough, COPD, hypoxemia, abnormal CXR/CT Chief complaint: Shortness of breath cough and poor response to outpatient the rapy History of present illness: Patient is a 70-year-old female came into the hospital for evaluation of ongoing cough congestion shortness of breath she is well-known to me have seen her in the office she was seen with COPD exacerbation in the office prescribed oral antibiotics and oral steroids 2 courses without any significant relief symptoms were persistent decided to come into the hospital for further evaluation and intervention and treatment as per advise. On specific questioning she denies any seizure-like activity loss of consciousness or hemiparesis, denies any chest pain or radiation of pain some pleuritic component of chest pain however is present which she feels is not present anymore, shortness breath is they're unable to complete full sentences, denies any hemoptysis does have cough with thick white sputum production, denies any bowel or bladder related problems and denies any nausea vomiting or diarrhea does have some gag due to consistent co ughing. On arrival she had a temperature 100.7, she was tachypneic tachycardic with some occasional PVCs magnesium level was very low BNP was 742, influenza and as well as covert were negative, white cell count 11,000 hemoglobin is 14, chest x-ray shows hyperinflation consistent with emphysema also have the strandy atelectasis bilaterally occult pneumonia cannot be excluded Review of Systems All systems: negative Past Medical History Past Medical History: Asthma, Cancer, Chest Pain / Angina, Heart Failure, COPD, CVA/TIA, Deep Vein Thrombosis (DVT), Eye Disorder, GERD/Reflux, Hyperlipidemia, Hypertension, Liver Disease, Memory Impairment, Osteoarthritis (OA), Pneumonia, Renal Disease, Thyroid Disorder, Vascular Disorder Additional Past Medical History / Comment(s): fullness after eating a few bites and distention,states lasix afftects my kidneys,09/28/14 Pt admitted to floor s/p PTCA with 3 stents to RCA. Other HX:MIGRAINES, VERTIGO,TIA (MULTIPLE- DATES [facility]N), NAKITA CATARACTS,HEART MURMUR, PVD, HIATAL HERNIA,. IBS, FATTY LIVER, PANCREATITITS, COLON POLYPS, KIDNEY CYSTS, URINARY CALCULI, CHRONIC PAIN,ANEMIA, DVT LEFT MESENTERIC VEIN 2007, [id number] received AND UTERINE CANCER- 1979 History of Any Multi-Drug Resistant Organisms: None Reported Past Surgical History: AICD, Appendectomy, Bladder Surgery, Bowel Resection, Ch olecystectomy, Heart Catheterization, Heart Catheterization With Stent, Hysterectomy, Pacemaker, Tonsillectomy Additional Past Surgical History / Comment(s): 09/28/14 PTCA with stents (3) to RCA. COLONOSCOPY. BOWEL RESECTION, MULT. NAKITA MASTECTOMY with implants. AORTIC STENT, FEMORAL ILIAC ARTERY STENTS X 10. Rt Carotid surgery X 2 Past Anesthesia/Blood Transfusion Reactions: Motion Sickness, Postoperative Nausea & Vomiting (PONV) Additional Past Anesthesia/Blood Transfusion Reaction / Comment(s): SEVERE PONV. PT HAS RECEIVED BLOOD IN 1977 WITHOUT REACTION. Date of Last Stent Placement:: UNKNOWN Type of Cardiac Device: Permanent Pacemaker, AICD Device Placement Date:: [employer] Past Psychological History: Anxiety Additional Psychological History / Comment(s): Pt resides with her spouse. She is independent. She uses no assistive device or home care. She drives. Smoking Status: Never smoker Past Alcohol Use History: None Reported Additional Past Alcohol Use History / Comment(s): PT STATES SHE QUIT SMOKING IN 2003, smoked approx 20 years,1ppd Past Drug Use History: None Reported - Past Family History Sister(s) Family Medical History: Dementia Additional Family Medical History / Comment(s): Brain bleeds Mother Family Medical History: Diabetes Mellitus Additional Family Medical History / Comment(s): severe diabetic, kidney diease, heart attack Father Family Medical History: Cancer, CVA/TIA Additional Family Medical History / Comment(s): colon, heart attack Medications and Allergies Home Medications Medication Instructions Recorded Confirmed Type Metoprolol Succinate [Toprol XL] 50 mg PO BID 08/22/13 05/05/21 History Pantoprazole Sodium [Protonix] 40 mg PO DAILY 08/22/13 05/05/21 History Nitroglycerin Sl Tabs [Nitrostat] 0.4 mg SUBLINGUAL Q5M PRN #25 tab 09/29/14 05/05/21 Rx Fluticasone Nasal [place] [Flonase 1 spr EA NOSTRIL BID 09/08/16 05/05/21 History Nasal [place]] Cetirizine HCl [Zyrtec] 10 mg PO DAILY 09/23/18 05/05/21 History Pravastatin Sodium [Pravachol] 40 mg PO HS 09/23/18 05/05/21 History Sacubitril/Valsartan [Entresto 49 1 tab PO BID 09/23/18 05/05/21 History mg-51 mg Tablet] Spironolactone [Aldactone] 25 mg PO DAILY 09/23/18 05/05/21 History Aspirin EC [Ecotrin Low Dose] 81 mg PO HS 06/19/20 05/05/21 History Meclizine [Antivert] 25 mg PO TID PRN 06/19/20 05/05/21 History Albuterol Sulfate [Albuterol 2 puff PO RT-Q6H PRN 05/05/21 05/05/21 History Sulfate Hfa] Ondansetron [Zofran] 4 mg PO DAILY PRN 05/05/21 05/05/21 History Allergies Allergy/AdvReac Type Severity Reaction Status Date / Time amoxicillin [From Augmentin] Allergy SEE Verified 05/05/21 13:21 COMMENTS azithromycin [From Zithromax] Allergy Rash/Hives Verified 05/05/21 10:06 cephalexin monohydrate Allergy Rash/Hives Verified 05/05/21 10:06 [From Keflex] clavulanic acid Allergy SEE Verified 05/05/21 13:21 [From Augmentin] COMMENTS dexamethasone [From Decadron] Allergy Rash/Hives Verified 05/05/21 10:06 dexamethasone sod phosphate Allergy Rash/Hives Verified 05/05/21 10:06 [From Decadron] codeine AdvReac Nausea & Verified 05/05/21 10:06 Vomiting doxycycline AdvReac Nausea & Verified 05/05/21 13:21 Vomiting morphine AdvReac Nausea & Verified 05/05/21 10:06 Vomiting Physical Exam Vitals: Vital Signs Temp Pulse Pulse Pulse Resp BP BP 05/06/21 13:05 98.1 F 86 19 117/63 05/06/21 04:18 98.6 F 105 H 16 101/60 05/06/21 02:31 98.4 F 55 L 18 129/73 05/06/21 01:08 115 H 05/06/21 01:04 90 18 127/83 05/06/21 01:01 104 H 05/05/21 19:08 98.3 F 96 14 119/75 Pulse Ox 05/06/21 13:05 92 L 05/06/21 04:18 91 L 05/06/21 02:31 98 05/06/21 01:08 05/06/21 01:04 100 05/06/21 01:01 05/05/21 19:08 93 L Intake and Output 05/06/21 05/06/21 05/06/21 06:59 14:59 22:59 Intake Total 200 Balance 200 Intake: Oral 200 Other: # Voids 1 Weight 104.326 kg 104.326 kg - Constitutional General appearance: disheveled, mild distress - EENT Eyes: PERRLA ENT: pharyngeal erythema Ears: bilateral: normal - Neck Carotids: bilateral: upstroke normal Thyroid: bilateral: normal size - Respiratory Respiratory: bilateral: diminished, wheezing - Cardiovascular Rhythm: regular Heart sounds: normal: S1, S2 - Gastrointestinal General gastrointestinal: normal bowel sounds - Integumentary Integumentary: normal turgor - Neurologic Neurologic: CNII-XII intact - Musculoskeletal Musculoskeletal: gait normal, generalized weakness, strength equal bilaterally - Psychiatric Psychiatric: A&O x's 3, appropriate affect, intact judgment & insight Results - Laboratory Findings CBC and BMP: 05/06/21 06:09 05/06/21 06:09 Abnormal lab findings: Abnormal Labs 05/05/21 05/05/21 05/06/21 11:26 11:26 06:09 WBC 11.7 H MPV Neutrophils # 9.5 H Lymphocytes # Monocytes # Eosinophils # Est GFR (CKD-EPI)AfAm 52.7 L Est GFR (CKD-EPI)NonAf 45.4 L Glucose 108 H 175 H POC Glucose (mg/dL) Magnesium 1.0 L Alkaline Phosphatase 36 L 05/06/21 05/06/21 05/06/21 06:09 07:30 11:53 WBC MPV 12.5 H Neutrophils # Lymphocytes # 0.66 L Monocytes # 0.16 L Eosinophils # 0 L Est GFR (CKD-EPI)AfAm Est GFR (CKD-EPI)NonAf Glucose POC Glucose (mg/dL) 145 H 139 H Magnesium Alkaline Phosphatase - Diagnostic Findings Chest x-ray: report reviewed, image reviewed Assessment and Plan Assessment: Tracheobronchitis Acute COPD exacerbation History of recurrent pneumonia Recent finding of pulmonary nodules on outpatient x-ray Pleuritic chest pain atypical but however pulmonary embolism cannot be excluded History of congestive heart failure Ischemic cardiomyopathy status post AICD Hypertension hypertensive cardiovascular disease Dyslipidemia History of CVA TIA History of breast cancer and uterine cancer Plan: Bronchodilators IV steroids Deep breathing sense incentive spirometry Antibiotics Supplemental oxygen We'll get a computed tomography scan of his chest with IV contrast on PE protocol Patient is concerned about recurrent pneumonia and bronchitis will proceed with bronchoscopy, procedure explained to the patient as well as risk alternative and side effect, patient would like to proceed with bronchoscopy Time with Patient: Greater than 30
[2021-05-06] MEDS: ASPIRIN 81 MG PO SCH (20:13)
[2021-05-06] MEDS: PRAVASTATIN SODIUM 40 MG TAB PO SCH (20:21)
[2021-05-06 20:26] LABS: Glucose,Whole Blood 145 mg/dL (75-99)
[2021-05-06] MEDS: LEVOFLOXACIN 250 MG TAB PO SCH (23:03)
--- NOTE | 2021-05-06 23:51 | P.PN ---
Subjective Progress Note Date: 05/06/21 Patient is a 70-year-old female with a known history of asthma/COPD, chronic CHF with systolic dysfunction, cardiomyopathy ischemic status post AICD placement, history of DVT, CVA/TIA, hypertension, hyperlipidemia, memory impairment and fatty infiltration of liver, chronic pain and history of breast cancer status post chemotherapy and uterine cancer in 1979, anxiety presents to ER with complaints of shortness of breath and congestive cough. Patient was seen by her physician and was started prednisone and doxycycline. Patient throughout prednisone plan after taking doxycycline patient developed nausea vomiting and diarrhea. Patient felt very weak and has been having nausea vomiting for the past 1 week. patient called her physician and encouraged her to go to ER for further evaluation. Patient does have cough without any sputum production, unable to bring up any sputum. Symptoms gets worse when she lies down flat. No complaints of chest pain or tightness. No headache or dizziness or l ightheadedness no complaints of abdominal pain. On admission patient had temperature at 100.7. Chest x-ray showed mild hyperinflation may relate to depth of inspiration or underlying emphysema. Correlate clinically. There is some strandy atelectasis in the lower lungs otherwise no acute process seen. EKG showed sinus tachycardia with occasional PVCs. Laboratory showed WBC 11.7 hemoglobin 14.4 and platelets 168 neutrophils 9.5 Sodium 140 potassium 4.0 chloride 105 bicarb is 24 BUN 10 and creatinine 0.96 magnesium level is 1.0 total bilirubin 1.3 liver enzymes are not elevated. proBNP level is 742 Coronavirus PCR not detected influenza PCR negative. 05/06/2021 Patient is seen in follow up this morning and continues to be bronchospastic and audible wheezing noted on exam. Patient is maintained on IV steroids along with breathing inhalational treatments. Patient states she feels somewhat better although continues to find herself short of breath and frequent coughing spells persist. Patient denies worsening shortness of breath, chest pain or palpitations. Patient is afebrile. Patient is tolerating diet with no reports of nausea or vomiting noted. Magnesium improved after replacement and is 2.[address] Boyd is consulted and pending. Review of systems: Constitutional: No reports of fatigue, fever, or chills Cardiovascular: No reports of chest pain or palpitations Respiratory: No reports of worsening shortness of breath, reports continued cough GI: reports of nausea, no reports of of vomiting, no diarrhea : No reports of dysuria or retention Neurovascular: no reports of generalized weakness All medications have been reviewed Active Medications Acetaminophen (Acetaminophen Tab 325 Mg Tab) 650 mg PO Q6HR PRN PRN Reason: Mild Pain or Fever > 100.5 Albuterol/Ipratropium (Ipratropium-Albuterol 3 Ml Neb) 3 ml INHALATION RT-QID PRN PRN Reason: Shortness Of Breath Or Wheezing Last Admin: 05/06/21 01:00 Dose: 3 ml Documented by: Aspirin (Aspirin 81 Mg) 81 mg PO HS [facility] Famotidine (Famotidine 20 Mg Tab) 20 mg PO DAILY [facility] Guaifenesin (Guaifenesin Syrup 100mg/5ml 200 Mg/10 Ml Cup) 200 mg PO Q6HR PRN PRN Reason: Cough Last Admin: 05/05/21 22:29 Dose: 200 mg Documented by: Heparin Sodium (Porcine) (Heparin Sodium,Porcine/Pf 5,000 Unit/0.5 Ml Syringe) 5,000 unit SQ Q12HR [facility] Last Admin: 05/06/21 08:41 Dose: Not Given Documented by: Levofloxacin (Levofloxacin 250 Mg Tab) 250 mg PO Q24H [facility]; Protocol Methylprednisolone Sodium Succinate (Methylprednisolone Sod Succi 40 Mg/Ml 1 Ml Vial) 40 mg IV Q8HR [facility] Last Admin: 05/06/21 08:40 Dose: 40 mg Documented by: Metoprolol Succinate (Metoprolol Succinate (Er) 50 Mg Tab.Er.24h) 50 mg PO BID [facility] Last Admin: 05/06/21 08:41 Dose: 50 mg Documented by: Miscellaneous Information (Magnesium Replacement Protocol 1 Each [facility]) 1 each MISCELLANE DAILY PRN; Protocol PRN Reason: Per Protocol Naloxone HCl (Naloxone 0.4 Mg/Ml 1 Ml Vial) 0.2 mg IV Q2M PRN PRN Reason: Opioid Reversal Pravastatin Sodium (Pravastatin Sodium 40 Mg Tab) 40 mg PO HS [facility] Sacubitril/Valsartan (Sacubitril/Valsartan 49 Mg-51 Mg Tablet) 1 each PO BID [facility] Last Admin: 05/06/21 08:41 Dose: 1 each Documented by: Spironolactone (Spironolactone 25 Mg Tab) 25 mg PO DAILY [facility] Last Admin: 05/06/21 08:42 Dose: 25 mg Documented by: Physical examination: GENERAL: The patient is alert and oriented x4, Well developed, well nourished. HEENT: Pupils are round and equally reacting to light. EOMI. does have scleral icterus. No conjunctival pallor. Normocephalic, atraumatic. No pharyngeal erythema. No thyromegaly. CARDIOVASCULAR: S1 and S2 muffled PULMONARY: diminished breath sounds bilaterally with significan expiratory wheezing and rhonchi noted. ABDOMEN: soft. Nontender on exam. obese. non-distended, normoactive bowel sounds. No palpable organomegaly. MUSCULOSKELETAL: No joint swelling or deformity. EXTREMITIES: No cyanosis, clubbing, or pedal edema. NEUROLOGICAL: Gross neurological examination did not reveal any focal deficits. SKIN: No rashes. Assessment: Shortness of breath secondary to acute asthma/COPD exacerbation Nausea vomiting and diarrhea likely due to antibiotic use. Improved now Severe hypomagnesemia, improved at 2.2 today Chronic CHF with systolic dysfunction Ischemic cardiomyopathy status post ICD placement Hypertension Hyperlipidemia GERD Memory impairment History of DVT History of CVA/TIA with no residual weakness History of breast cancer and uterine cancer GI prophylaxis with Pepcid DVT prophylaxis heparin subcu Plan: Patient will be continued oxygen supplementation as needed. Currently room air. Pulmonary Dr. Boyd consulted and appreciate input and recommendations Recommend to continue IV steroids and breathing inhalational treatments Encouraged increased activity as tolerated Magnesium improved after replacement and is 2.2 today Continue antibiotics Recommend repeat am labs Prognosis is guarded The impression and plan of care has been dictated by Nena Godfrey, nurse practitioner as directed. Dr. Axel MD I have performed a history and examination and MDM of this patient, discussed the same with the dictator, and agree with the dictator's assessment and plan as written ,documented as a scribe. Based on total visit time, I have performed more than 50% of the visit. Objective - Vital Signs Vital signs: Vital Signs Temp 98.6 F 05/06/21 04:18 Pulse 105 H 05/06/21 04:18 Resp 16 05/06/21 04:18 BP 101/60 05/06/21 04:18 Pulse Ox 91 L 05/06/21 04:18 Intake & Output 05/05/21 05/06/21 05/06/21 18:59 06:59 18:59 Intake Total 200 Balance 200 Weight 104.326 kg 104.326 kg Intake: Oral 200 Other: # Voids 1 - Labs CBC & Chem 7: 05/06/21 06:09 05/06/21 06:09 Labs: Abnormal Lab Results - Last 24 Hours (Table) 05/05/21 05/05/21 05/06/21 Range/Units 11:26 11:26 06:09 WBC 11.7 H (3.8-10.6) k/uL MPV (9.5-12.2) fL Neutrophils # 9.5 H (1.3-7.7) k/uL Lymphocytes # (0.90-5.00) X 10*3/uL Monocytes # (0.20-1.00) X 10*3/uL Eosinophils # (0.04-0.35) X 10*3/uL Est GFR (CKD-EPI)AfAm 52.7 L (60.0-200.0) Est GFR (CKD-EPI)NonAf 45.4 L (60.0-200.0) Glucose 108 H 175 H (74-99) mg/dL POC Glucose (mg/dL) (75-99) mg/dL Magnesium 1.0 L (1.6-2.3) mg/dL Alkaline Phosphatase 36 L (41-126) U/L 05/06/21 05/06/21 Range/Units 06:09 07:30 WBC (3.8-10.6) k/uL MPV 12.5 H (9.5-12.2) fL Neutrophils # (1.3-7.7) k/uL Lymphocytes # 0.66 L (0.90-5.00) X 10*3/uL Monocytes # 0.16 L (0.20-1.00) X 10*3/uL Eosinophils # 0 L (0.04-0.35) X 10*3/uL Est GFR (CKD-EPI)AfAm (60.0-200.0) Est GFR (CKD-EPI)NonAf (60.0-200.0) Glucose (74-99) mg/dL POC Glucose (mg/dL) 145 H (75-99) mg/dL Magnesium (1.6-2.3) mg/dL Alkaline Phosphatase (41-126) U/L
[2021-05-07] MEDS: guaiFENesin SYRUP 100MG/5ML 200 MG/10 ML CUP PO PRN (04:20)
[2021-05-07 07:05] LABS: Glucose,Whole Blood 113 mg/dL (75-99)
[2021-05-07] MEDS: FAMOTIDINE 20 MG TAB PO SCH (09:15)
[2021-05-07] MEDS: SPIRONOLACTONE 25 MG TAB PO SCH (09:15)
[2021-05-07] MEDS: METOPROLOL SUCCINATE (ER) 50 MG TAB.ER.24H PO SCH ×2 (09:15→20:17)
[2021-05-07] MEDS: methylPREDNISolone SOD SUCCI 40 MG/ML 1 ML VIAL IV SCH ×2 (09:15→23:20)
[2021-05-07] MEDS: HEPARIN SODIUM,PORCINE/PF 5,000 UNIT/0.5 ML SYRINGE SQ SCH ×3 (09:16→20:12)
[2021-05-07] MEDS: SACUBITRIL/VALSARTAN 49 MG-51 MG TABLET PO SCH ×2 (09:17→20:17)
[2021-05-07 09:37] LABS: Basophils # (A) 0.01 X 10*3/uL (0.00-0.10); Basophils % (A) 0.1 %; Eosinophils # (A) 0 X 10*3/uL (0.04-0.35); Eosinophils % (A) 0 %; HCT 42.5 % (37.2-46.3); HGB 13.3 g/dL (12.0-15.0); Immature Grans, Automated 1.1 %; Lymphocytes # (A) 1.34 X 10*3/uL (0.90-5.00); MCH 28.7 pg (27.0-32.0); MCHC 31.3 g/dL (32.0-37.0); MCV 91.6 fL (80.0-97.0); Mean Platelet Volume 12.5 fL (9.5-12.2); Monocytes # (A) 0.84 X 10*3/uL (0.20-1.00); Monocytes % (A) 6.3 %; NRBC Per 100 WBC 0 /100 WBCS (0.0-0.0); Neutrophils % (A) 82.5 %; Platelet Count 196 X 10*3/uL (140-440); RBC 4.64 X 10*6/uL (4.10-5.20); RDW 12.7 % (11.5-14.5); WBC 13.44 X 10*3/uL (4.50-10.00)
[2021-05-07 11:54] LABS: Glucose,Whole Blood 104 mg/dL (75-99)
[2021-05-07 14:33] LABS: African American GFR (CKD) 57.2 (60.0-200.0); Anion Gap 14.1 mmol/L (10.00-18.00); BUN/Creat Ratio 20.09 Ratio (12.00-20.00); Blood Urea Nitrogen 22.5 mg/dL (9.0-27.0); Calcium 9.5 mg/dL (8.7-10.3); Carbon Dioxide 21.2 mmol/L (20.0-27.5); Non-African American GFR(CKD) 49.4 (60.0-200.0); Potassium 4.7 mmol/L (3.5-5.5)
[2021-05-07] MEDS ORDERED: PROPOFOL 10 MG/ML 20 ML VIAL IV ONE (14:36)
[2021-05-07] MEDS ORDERED: ONDANSETRON 4 MG/2 ML VIAL ONE (14:36)
[2021-05-07] MEDS ORDERED: KETAMINE 10 MG/ML 20 ML VIAL ONE (14:36)
[2021-05-07] MEDS ORDERED: MIDAZOLAM 2 MG/2 ML VIAL ONE (14:36)
[2021-05-07] MEDS ORDERED: fentaNYL (PF) 50 MCG/ML 2 ML AMP ONE (14:36)
[2021-05-07] MEDS ORDERED: LIDOCAINE 1% INJ 10MG/ML (20 ML MDV) ONE (14:36)
[2021-05-07] MEDS ORDERED: LIDOCAINE 2% INJ 20 MG/ML INTRATRACH ONE (14:42)
[2021-05-07] MEDS ORDERED: LACTATED RINGERS 1,000 ML IV ONE (14:54)
[2021-05-07] MEDS ORDERED: methylPREDNISolone SOD SUCCI 40 MG/ML 1 ML VIAL IV SCH (16:00)
[2021-05-07] MEDS ORDERED: ONDANSETRON 4 MG/2 ML VIAL IVP PRN (16:05)
--- NOTE | 2021-05-07 16:17 | P.PN ---
Subjective Progress Note Date: 05/07/21 Principal diagnosis: Tracheobronchitis Acute COPD exacerbation History of recurrent pneumonia Recent finding of pulmonary nodules on outpatient x-ray Pleuritic chest pain atypical but however pulmonary embolism cannot be excluded History of congestive heart failure Ischemic cardiomyopathy status post AICD Hypertension hypertensive cardiovascular disease Dyslipidemia History of CVA TIA History of breast cancer and uterine cancer 05/07/2021, patient seen and evaluated examined, and is still left shortness of breath, intermittent wheezing, a she remains on bronchodilators by nebulization treatment, has been on oral antibiotics along with IV steroids and continuation of her home medications, patient is still feeling congested in the chest unable to expectorate secretions, computed tomography scan of the IV contrast was reviewed and discussed with the patient and at bedside, no pulmonary embolism seen, no specific nodules identified, peribronchial thickening however noted, discussed with patient about bronchoscopy side effect alternate if patient wants to proceed with bronchoscopy for pulmonary toilet and due to recurrent pneumonia Patient is a 70-year-old female came into the hospital for evaluation of ongoing cough congestion shortness of breath she is well-known to me have seen her in the office she was seen with COPD exacerbation in the office prescribed oral antibiotics and oral steroids 2 courses without any significant relief symptoms were persistent decided to come into the hospital for further evaluation and intervention and treatment as per advise. On specific questioning she denies any seizure-like activity loss of consciousness or hemiparesis, denies any chest pain or radiation of pain some pleuritic component of chest pain however is present which she feels is not present anymore, shortness breath is they're unable to complete full sentences, denies any hemoptysis does have cough with thick white sputum production, denies any bowel or bladder related problems and denies any nausea vomiting or diarrhea does have some gag due to consistent coughing. On arrival she had a temperature 100.7, she was tachypneic tachyca rdic with some occasional PVCs magnesium level was very low BNP was 742, influenza and as well as covert were negative, white cell count 11,000 hemoglobin is 14, chest x-ray shows hyperinflation consistent with emphysema also have the strandy atelectasis bilaterally occult pneumonia cannot be exclud ed Objective - Vital Signs Vital signs: Vital Signs Temp 97.6 F 05/07/21 15:30 Pulse 86 03/16/22 16:03 Resp 20 05/07/21 12:55 BP 137/89 05/07/21 16:03 Pulse Ox 91 L 05/07/21 16:03 Intake & Output 05/06/21 05/07/21 05/07/21 18:59 06:59 18:59 Intake Total 1040 400 300 Balance 1040 400 300 Weight 104.326 kg Intake: IV 300 Oral 1040 400 Other: Voiding Method Toilet # Voids 2 2 - Exam - Constitutional General appearance: disheveled, mild distress - EENT Eyes: PERRLA ENT: pharyngeal erythema Ears: bilateral: normal - Neck Carotids: bilateral: upstroke normal Thyroid: bilateral: normal size - Respiratory Respiratory: bilateral: diminished, wheezing - Cardiovascular Rhythm: regular Heart sounds: normal: S1, S2 - Gastrointestinal General gastrointestinal: normal bowel sounds - Integumentary Integumentary: normal turgor - Neurologic Neurologic: CNII-XII intact - Musculoskeletal Musculoskeletal: gait normal, generalized weakness, strength equal bilaterally - Psychiatric Psychiatric: A&O x's 3, appropriate affect, intact judgment & insight - Labs CBC & Chem 7: 05/07/21 06:14 05/07/21 06:14 Labs: Abnormal Lab Results - Last 24 Hours (Table) 05/06/21 05/06/21 05/07/21 Range/Units 17:30 20:24 06:14 WBC 13.44 H (4.50-10.00) X 10*3/uL MCHC 31.3 L (32.0-37.0) g/dL MPV 12.5 H (9.5-12.2) fL Immature Gran # 0.15 H (0.00-0.04) X 10*3/uL Neutrophils # 11.10 H (1.80-7.70) X 10*3/uL Eosinophils # 0 L (0.04-0.35) X 10*3/uL Est GFR (CKD-EPI)AfAm (60.0-200.0) Est GFR (CKD-EPI)NonAf (60.0-200.0) BUN/Creatinine Ratio (12.00-20.00) Ratio POC Glucose (mg/dL) 143 H 145 H (75-99) mg/dL 05/07/21 05/07/21 05/07/21 Range/Units 06:14 07:03 11:51 WBC (4.50-10.00) X 10*3/uL MCHC (32.0-37.0) g/dL MPV (9.5-12.2) fL Immature Gran # (0.00-0.04) X 10*3/uL Neutrophils # (1.80-7.70) X 10*3/uL Eosinophils # (0.04-0.35) X 10*3/uL Est GFR (CKD-EPI)AfAm 57.2 L (60.0-200.0) Est GFR (CKD-EPI)NonAf 49.4 L (60.0-200.0) BUN/Creatinine Ratio 20.09 H (12.00-20.00) Ratio POC Glucose (mg/dL) 113 H 104 H (75-99) mg/dL Assessment and Plan Assessment: Tracheobronchitis Acute COPD exacerbation History of recurrent pneumonia Recent finding of pulmonary nodules on outpatient x-ray Pleuritic chest pain atypical but however pulmonary embolism cannot be excluded History of congestive heart failure Ischemic cardiomyopathy status post AICD Hypertension hypertensive cardiovascular disease Dyslipidemia History of CVA TIA History of breast cancer and uterine cancer Plan: Bronchodilators IV steroids Deep breathing sense incentive spirometry Antibiotics Supplemental oxygen Reviewed with the patient computed tomography scan of his chest with IV contrast on PE protocol Patient is concerned about recurrent pneumonia and bronchitis will proceed with bronchoscopy later on today, procedure explained to the patient as well as risk alternative and side effect, patient would like to proceed with bronchoscopy Time with Patient: Greater than 30
--- NOTE | 2021-05-07 16:21 | P.PCN ---
Date of Procedure: 05/07/21 Preoperative Diagnosis: Recurrent pneumonia Postoperative Diagnosis: Recurrent pneumonia Procedure(s) Performed: Bronchoscopy, bronchoalveolar lavage of right lower lobe, left lower lobe, right upper lobe Anesthesia: MAC Surgeon: Ye Ali Condition: stable Disposition: floor Indications for Procedure: As above Operative Findings: Has developed Description of Procedure: Patient prepared and draped in the usual fashion for anesthesia was provided by the nurse discovery guide please look at the notes at length, patient had immediate desaturation after propofol sats went down all the way to 60s, Oleg spent over was given by anesthesia followed by bag valve mask ventilation with 100% oxygen with that her oxygen saturation improved to 95% after bagging multiple times. Fiberoptic bronchoscope was passed through the right nares, the vocal cord were normal in function and structure, slight less movement of right vocal cord however noted, tip of the scope was passed beyond the vocal cords diffuse edema of the tracheobronchial tree was noted with extensive mucus plugging in respiratory secretions and impacted into the bronchial moser of the right upper lobe and both lower lobe BAL was performed with aggressive cleaning and section patient continued to have intermittent desaturation episodes during which bronchoscope was withdrawn into the trachea once saturations stabilized into 90s proceeded into the lower segments. No endobronchial mass or lesion was noted no bleeding identified, BAL was predominantly performed from the right upper lobe right lower lobe and left lower lobe, patient tolerated procedure well except intermittent desaturation bronchoscope was withdrawn slowly oxygen saturation improved to mid 90s otherwise patient tolerated procedure well no complication noted
[2021-05-07 20:15] LABS: Glucose,Whole Blood 146 mg/dL (75-99)
[2021-05-07] MEDS: PRAVASTATIN SODIUM 40 MG TAB PO SCH (20:17)
[2021-05-07] MEDS: ASPIRIN 81 MG PO SCH (20:17)
[2021-05-07] MEDS: LEVOFLOXACIN 250 MG TAB PO SCH (23:21)
--- NOTE | 2021-05-07 23:58 | P.PN ---
Subjective Progress Note Date: 05/07/21 Patient is a 70-year-old female with a known history of asthma/COPD, chronic CHF with systolic dysfunction, cardiomyopathy ischemic status post AICD placement, history of DVT, CVA/TIA, hypertension, hyperlipidemia, memory impairment and fatty infiltration of liver, chronic pain and history of breast cancer status post chemotherapy and uterine cancer in 1979, anxiety presents to ER with complaints of shortness of breath and congestive cough. Patient was seen by her physician and was started prednisone and doxycycline. Patient throughout prednisone plan after taking doxycycline patient developed nausea vomiting and diarrhea. Patient felt very weak and has been having nausea vomiting for the past 1 week. patient called her physician and encouraged her to go to ER for further evaluation. Patient does have cough without any sputum production, unable to bring up any sputum. Symptoms gets worse when she lies down flat. No complaints of chest pain or tightness. No headache or dizziness or l ightheadedness no complaints of abdominal pain. On admission patient had temperature at 100.7. Chest x-ray showed mild hyperinflation may relate to depth of inspiration or underlying emphysema. Correlate clinically. There is some strandy atelectasis in the lower lungs otherwise no acute process seen. EKG showed sinus tachycardia with occasional PVCs. Laboratory showed WBC 11.7 hemoglobin 14.4 and platelets 168 neutrophils 9.5 Sodium 140 potassium 4.0 chloride 105 bicarb is 24 BUN 10 and creatinine 0.96 magnesium level is 1.0 total bilirubin 1.3 liver enzymes are not elevated. proBNP level is 742 Coronavirus PCR not detected influenza PCR negative. 05/06/2021 Patient is seen in follow up this morning and continues to be bronchospastic and audible wheezing noted on exam. Patient is maintained on IV steroids along with breathing inhalational treatments. Patient states she feels somewhat better although continues to find herself short of breath and frequent coughing spells persist. Patient denies worsening shortness of breath, chest pain or palpitations. Patient is afebrile. Patient is tolerating diet with no reports of nausea or vomiting noted. Magnesium improved after replacement and is 2.[address] Boyd is consulted and pending. 05/07/2021 Patient is seen this morning in follow up and has been evaluated by pulmonary and is scheduled to undergo bronchoscopy with Dr. Boyd today. Patient reports to having rough night with continuous coughing and no sleep. Patient reports to diarrhea approx 4 episodes since last night as well. Will order cdiff test. Patient denies worsening shortness of breath. Patient is afebrile. Patient is currently NPO for the bronch. Will await report. Review of systems: Constitutional: No reports of fatigue, fever, or chills Cardiovascular: No reports of chest pain or palpitations Respiratory: No reports of worsening shortness of breath, reports continued cough GI: reports of nausea, no reports of of vomiting, reports 4 episodes of diarrhea : No reports of dysuria or retention Neurovascular: no reports of generalized weakness All medications have been reviewed Active Medications Acetaminophen (Acetaminophen Tab 325 Mg Tab) 650 mg PO Q6HR PRN PRN Reason: Mild Pain or Fever > 100.5 Albuterol/Ipratropium (Ipratropium-Albuterol 3 Ml Neb) 3 ml INHALATION RT-QID PRN PRN Reason: Shortness Of Breath Or Wheezing Last Admin: 05/06/21 19:26 Dose: 3 ml Documented by: Aspirin (Aspirin 81 Mg) 81 mg PO HS FOR[facility]LY [facility], [facility]1983 Last Admin: 05/07/21 20:17 Dose: 81 mg Documented by: Famotidine (Famotidine 20 Mg Tab) 20 mg PO DAILY FOR[facility]LY [facility], [facility]1983 Last Admin: 05/07/21 09:15 Dose: 20 mg Documented by: Guaifenesin (Guaifenesin Syrup 100mg/5ml 200 Mg/10 Ml Cup) 200 mg PO Q6HR PRN PRN Reason: Cough Last Admin: 05/07/21 04:20 Dose: 200 mg Documented by: Heparin Sodium (Porcine) (Heparin Sodium,Porcine/Pf 5,000 Unit/0.5 Ml Syringe) 5,000 unit SQ Q12HR [facility], [facility]1983 Last Admin: 05/07/21 20:12 Dose: Not Given Documented by: Levofloxacin (Levofloxacin 250 Mg Tab) 250 mg PO Q24H [facility], [facility]; Protocol Last Admin: 05/07/21 23:21 Dose: 250 mg Documented by: Methylprednisolone Sodium Succinate (Methylprednisolone Sod Succi 40 Mg/Ml 1 Ml Vial) 40 mg IV Q8HR [facility], [facility]1983 Last Admin: 05/07/21 23:20 Dose: 40 mg Documented by: Metoprolol Succinate (Metoprolol Succinate (Er) 50 Mg Tab.Er.24h) 50 mg PO BID [facility], [facility] Last Admin: 05/07/21 20:17 Dose: Not Given Documented by: Miscellaneous Information (Magnesium Replacement Protocol 1 Each Misc) 1 each MISCELLANE DAILY PRN; Protocol PRN Reason: Per Protocol Naloxone HCl (Naloxone 0.4 Mg/Ml 1 Ml Vial) 0.2 mg IV Q2M PRN PRN Reason: Opioid Reversal Ondansetron HCl (Ondansetron 4 Mg/2 Ml Vial) 4 mg IVP Q6HR PRN PRN Reason: Nausea And Vomiting Last Admin: 05/07/21 16:10 Dose: 4 mg Documented by: Pravastatin Sodium (Pravastatin Sodium 40 Mg Tab) 40 mg PO HS [facility], [facility] Last Admin: 05/07/21 20:17 Dose: 40 mg Documented by: Sacubitril/Valsartan (Sacubitril/Valsartan 49 Mg-51 Mg Tablet) 1 each PO BID [facility], [facility]1983 Last Admin: 05/07/21 20:17 Dose: 1 each Documented by: Spironolactone (Spironolactone 25 Mg Tab) 25 mg PO DAILY [facility] Last Admin: 05/07/21 09:15 Dose: 25 mg Documented by: Physical examination: GENERAL: The patient is alert and oriented x4, Well developed, well nourished. HEENT: Pupils are round and equally reacting to light. EOMI. no scleral icterus. No conjunctival pallor. Normocephalic, atraumatic. No pharyngeal erythema. No thyromegaly. CARDIOVASCULAR: S1 and S2 muffled PULMONARY: diminished breath sounds bilaterally with significant expiratory wheezing and rhonchi noted. ABDOMEN: soft. Nontender on exam. obese. non-distended, normoactive bowel sounds. No palpable organomegaly. MUSCULOSKELETAL: No joint swelling or deformity. EXTREMITIES: No cyanosis, clubbing, or pedal edema. NEUROLOGICAL: Gross neurological examination did not reveal any focal deficits. SKIN: No rashes. Assessment: Shortness of breath secondary to acute asthma/COPD exacerbation Nausea vomiting and diarrhea likely due to antibiotic use. Improved now Severe hypomagnesemia, improved Chronic CHF with systolic dysfunction, not in exacerbation Ischemic cardiomyopathy status post ICD placement Hypertension Hyperlipidemia GERD Memory impairment History of DVT History of CVA/TIA with no residual weakness History of breast cancer and uterine cancer GI prophylaxis with Pepcid DVT prophylaxis heparin subcu full code Plan: Patient will be continued oxygen supplementation as needed. Currently room air. Pulmonary Dr. Oliver melo and patient is scheduled for bronchoscopy today Recommend to continue IV steroids and breathing inhalational treatments Encouraged increased activity as tolerated Magnesium improved Continue antibiotics Recommend repeat am labs Prognosis is guarded The impression and plan of care has been dictated by Nena Godfrey, nurse practitioner as directed. Dr. Axel MD I have performed a history and examination and MDM of this patient, discussed the same with the dictator, and agree with the dictator's assessment and plan as written ,documented as a scribe. Based on total visit time, I have performed more than 50% of the visit. Objective - Vital Signs Vital signs: Vital Signs Temp 98.0 F 05/07/21 04:16 Pulse 89 05/07/21 04:16 Resp 18 05/07/21 04:16 BP 120/69 05/07/21 04:16 Pulse Ox 93 L 05/07/21 04:16 Intake & Output 05/06/21 05/07/21 05/07/21 18:59 06:59 18:59 Intake Total 1040 400 Balance 1040 400 Weight 104.326 kg Intake: Oral 1040 400 Other: Voiding Method Toilet # Voids 2 2 - Labs CBC & Chem 7: 05/07/21 06:14 05/07/21 06:14 Labs: Abnormal Lab Results - Last 24 Hours (Table) 05/06/21 05/06/21 05/06/21 Range/Units 11:53 17:30 20:24 POC Glucose (mg/dL) 139 H 143 H 145 H (75-99) mg/dL 05/07/21 Range/Units 07:03 POC Glucose (mg/dL) 113 H (75-99) mg/dL
[2021-05-08 06:09] VITALS: RESP 20
[2021-05-08 06:49] LABS: African American GFR (CKD) 66 (>60 ml/min/1.73 sqM); Anion Gap 6 mmol/L; Blood Urea Nitrogen 24 mg/dL (7-17); Calcium 9.1 mg/dL (8.4-10.2); Carbon Dioxide 28 mmol/L (22-30); Chloride 105 mmol/L (98-107); Glucose 114 mg/dL (74-99); Non-African American GFR(CKD) 57 (>60 ml/min/1.73 sqM); Potassium 4.6 mmol/L (3.5-5.1); Sodium 139 mmol/L (137-145)
[2021-05-08 06:57] LABS: Glucose,Whole Blood 154 mg/dL (75-99)
[2021-05-08] MEDS: methylPREDNISolone SOD SUCCI 40 MG/ML 1 ML VIAL IV SCH (09:34)
[2021-05-08] MEDS: METOPROLOL SUCCINATE (ER) 50 MG TAB.ER.24H PO SCH (09:35)
[2021-05-08] MEDS: FAMOTIDINE 20 MG TAB PO SCH (09:35)
[2021-05-08] MEDS: SPIRONOLACTONE 25 MG TAB PO SCH (09:35)
[2021-05-08] MEDS: SACUBITRIL/VALSARTAN 49 MG-51 MG TABLET PO SCH (09:35)
[2021-05-08] MEDS: HEPARIN SODIUM,PORCINE/PF 5,000 UNIT/0.5 ML SYRINGE SQ SCH (09:35)
--- NOTE | 2021-05-08 10:26 | P.PN ---
Subjective Progress Note Date: 05/08/21 Principal diagnosis: Tracheobronchitis Acute COPD exacerbation History of recurrent pneumonia Recent finding of pulmonary nodules on outpatient x-ray Pleuritic chest pain atypical but however pulmonary embolism cannot be excluded History of congestive heart failure Ischemic cardiomyopathy status post AICD Hypertension hypertensive cardiovascular disease Dyslipidemia History of CVA TIA History of breast cancer and uterine cancer 05/08/2021 patient seen eval examined overall feeling better less congested less cough, sequence of events of bronchoscopy and bronchoscopic features with bronchoscopic finding reviewed with the patient, culture results and cytology remains pending, patient wishes to go home would recommend oral antibiotics and oral steroids pending follow-up next week 05/07/2021, patient seen and evaluated examined, and is still left shortness of breath, intermittent wheezing, a she remains on bronchodilators by nebulization treatment, has been on oral antibiotics along with IV steroids and continuation of her home medications, patient is still feeling congested in the chest unable to expectorate secretions, computed tomography scan of the IV contrast was reviewed and discussed with the patient and at bedside, no pulmonary embolism seen, no specific nodules identified, peribronchial thickening however noted, discussed with patient about bronchoscopy side effect alternate if patient wants to proceed with bronchoscopy for pulmonary toilet and due to recurrent pneumonia Patient is a 70-year-old female came into the hospital for evaluation of ongoing cough congestion shortness of breath she is well-known to me have seen her in the office she was seen with COPD exacerbation in the office prescribed oral antibiotics and oral steroids 2 courses without any significant relief symptoms were persistent decided to come into the hospital for further evaluation and intervention and treatment as per advise. On specific questioning she denies any seizure-like activity loss of consciousness or hemiparesis, denies any chest pain or radiation of pain some pleuritic component of chest pain however is present which she feels is not present anymore, shortness breath is they're unable to complete full sentences, denies any hemoptysis does have cough with thick white sputum production, denies any bowel or bladder related problems and denies any nausea vomiting or diarrhea does have some gag due to consistent coughing. On arrival she had a temperature 100.7, she was tachypneic tachycardic with some occasional PVCs magnesium level was very low BNP was 742, influenza and as well as covert were negative, white cell count 11,000 hemoglobin is 14, chest x-ray shows hyperinflation consistent with emphysema also have the strandy atelectasis bilaterally occult pneumonia cannot be excluded Objective - Vital Signs Vital signs: Vital Signs Temp 97.8 F 05/08/21 05:00 Pulse 55 L 05/08/21 05:00 Resp 20 05/08/21 05:00 BP 109/71 05/08/21 05:00 Pulse Ox 93 L 05/08/21 05:00 Intake & Output 05/07/21 05/08/21 05/08/21 18:59 06:59 18:59 Intake Total 300 600 Balance 300 600 Intake: IV 300 Oral 600 Other: Voiding Method Toilet Toilet # Voids 4 2 # Bowel Movements 1 - Exam - Constitutional General appearance: disheveled, mild distress - EENT Eyes: PERRLA ENT: pharyngeal erythema Ears: bilateral: normal - Neck Carotids: bilateral: upstroke normal Thyroid: bilateral: normal size - Respiratory Respiratory: bilateral: diminished, wheezing - Cardiovascular Rhythm: regular Heart sounds: normal: S1, S2 - Gastrointestinal General gastrointestinal: normal bowel sounds - Integumentary Integumentary: normal turgor - Neurologic Neurologic: CNII-XII intact - Musculoskeletal Musculoskeletal: gait normal, generalized weakness, strength equal bilaterally - Psychiatric Psychiatric: A&O x's 3, appropriate affect, intact judgment & insight - Labs CBC & Chem 7: 05/07/21 06:14 05/08/21 05:40 Labs: Abnormal Lab Results - Last 24 Hours (Table) 05/07/21 05/07/21 05/07/21 Range/Units 06:14 11:51 20:14 BUN (7-17) mg/dL Est GFR (CKD-EPI)AfAm 57.2 L (60.0-200.0) Est GFR (CKD-EPI)NonAf 49.4 L (60.0-200.0) BUN/Creatinine Ratio 20.09 H (12.00-20.00) Ratio Glucose (74-99) mg/dL POC Glucose (mg/dL) 104 H 146 H (75-99) mg/dL 05/08/21 05/08/21 Range/Units 05:40 06:53 BUN 24 H (7-17) mg/dL Est GFR (CKD-EPI)AfAm (60.0-200.0) Est GFR (CKD-EPI)NonAf (60.0-200.0) BUN/Creatinine Ratio (12.00-20.00) Ratio Glucose 114 H (74-99) mg/dL POC Glucose (mg/dL) 154 H (75-99) mg/dL Microbiology - Last 24 Hours (Table) 05/07/21 12:00 Fungal Culture - Preliminary Bronchial Washings - Right 05/07/21 12:00 Acid Fast Bacilli Culture - Preliminary Bronchial Washings - Right 05/07/21 12:00 Bronchial Washings Culture - Preliminary Bronchial Washings - Right Assessment and Plan Assessment: Tracheobronchitis Acute COPD exacerbation History of recurrent pneumonia Recent finding of pulmonary nodules on outpatient x-ray, however computed tomography scan of the chest no nodules seen Pleuritic chest pain atypical likely related to cough/musculoskeletal tracheobronchitis and COPD exacerbation History of congestive heart failure Ischemic cardiomyopathy status post AICD Hypertension hypertensive cardiovascular disease Dyslipidemia History of CVA TIA History of breast cancer and uterine cancer Plan: Bronchodilators IV steroids, can be switched to oral at the time of this Deep breathing sense incentive spirometry Antibiotics Supplemental oxygen Reviewed with the patient computed tomography scan of his chest with IV contrast on PE protocol Bronchoscopic finding reviewed with the patient Time with Patient: Greater than 30
[2021-05-08 11:28] VITALS: BP 120/71; PULSE 57; TEMP 98
[2021-05-08 11:47] LABS: Glucose,Whole Blood 119 mg/dL (75-99)
--- NOTE | 2021-05-08 14:07 | P.DS ---
Providers Date of admission: 05/05/21 12:34 Expected date of discharge: 05/08/21 Attending physician: Lisa Reyna Consults: 05/06/21 12:48 Consult Physician Urgent Consulting Provider: Ye Boyd Consult Reason/Comments: COPD exac, known to patient Do you want consulting provider notified?: Yes Primary care physician: Kailash Jacobson Hospital Course: Final diagnosis Shortness of breath secondary to acute asthma/COPD exacerbation Nausea vomiting and diarrhea likely due to antibiotic use. Improved now Severe hypomagnesemia, improved Chronic CHF with systolic dysfunction, not in exacerbation Ischemic cardiomyopathy status post ICD placement Hypertension Hyperlipidemia GERD Memory impairment History of DVT History of CVA/TIA with no residual weakness History of breast cancer and uterine cancer GI prophylaxis with Pepcid DVT prophylaxis heparin subcu full code Discharge disposition Patient is being discharged in a stable condition with guarded prognosis to home. Patient will follow-up with Dr. Jacobson upon discharge. Patient will continue with a short course of oral antibiotics in the form of Levaquin 250 mg daily for the next 5 days along with a prednisone taper on discharge. Patient to continue with breathing inhalational treatments and albuterol inhalers. Patient will follow-up with pulmonary Dr. Boyd in the outpatient setting. Total time taken is greater than 35 minutes. Hospital course This is a pleasant 70-year-old female who was recently admitted with increasing shortness of breath and COPD acute exacerbation was being closely monitored. Patient started on IV steroids along with breathing inhalational treatments. Patient also with significant hypomagnesemia at 1.1 and replaced and improved. Patient had been experiencing multiple episodes of vomiting and loose stools and failed outpatient therapy with the start of doxycycline and steroids. Pulmonary Dr. Boyd consulted as she sees him in the outpatient setting as patient continued to be bronchospastic wheezing and underwent bronchoscopy with BAL and washings were sent for analysis and currently pending. Patient will follow-up with Dr. Boyd in the clinic in one week. Patient reports to feeling much better and asking if she can go home. Case management following an arrangements being made to supply patient with a nebulizer to manage her COPD. Currently no reports of chest pain, worsening shortness of breath, or palpitations. Patient is afebrile. No reports of nausea or vomiting and patient is tolerating diet. She will be discharged home today. Guarded prognosis. Physical exam: GENERAL: The patient is alert and oriented x4, Well developed, well nourished. HEENT: Pupils are round and equally reacting to light. EOMI. no scleral icterus. No conjunctival pallor. Normocephalic, atraumatic. No pharyngeal erythema. No thyromegaly. CARDIOVASCULAR: S1 and S2 muffled PULMONARY: diminished breath sounds bilaterally with mild expiratory wheezing noted. Improvement status post bronchoscopy ABDOMEN: soft. Nontender on exam. obese. non-distended, normoactive bowel sounds. No palpable organomegaly. MUSCULOSKELETAL: No joint swelling or deformity. EXTREMITIES: No cyanosis, clubbing, or pedal edema. NEUROLOGICAL: Gross neurological examination did not reveal any focal deficits. SKIN: No rashes. Please refer to medication reconciliation sheet for a list of medications. The impression and plan of care has been dictated by Nena Godfrey, Nurse Practitioner as directed. Dr. Axel MD I have performed a history and examination and MDM of this patient, discussed the same with the dictator, and agree with the dictator's assessment and plan as written ,documented as a scribe. Based on total visit time, I have performed more than 50% of the visit. Patient Condition at Discharge: Good Plan - Discharge Summary Discharge Rx Participant: No New Discharge Prescriptions: New Ipratropium-Albuterol Nebulize [Duoneb 0.5 mg-3 mg/3 ml Soln] 3 ml INHALATION RT-QID PRN 30 Days #120 ml PRN Reason: Shortness Of Breath Or Wheezing Levofloxacin [Levaquin] 250 mg PO Q24H 5 Days #5 tab Famotidine [Pepcid] 20 mg PO DAILY 30 Days #30 tab predniSONE 10 mg PO DIRECTED #30 tab Acetaminophen Tab [Tylenol] 650 mg PO Q6HR PRN tab PRN Reason: Mild Pain Or Fever > 100.5 Continue Pantoprazole Sodium [Protonix] 40 mg PO DAILY Metoprolol Succinate [Toprol XL] 50 mg PO BID Nitroglycerin Sl Tabs [Nitrostat] 0.4 mg SUBLINGUAL Q5M PRN #25 tab PRN Reason: Chest Pain Fluticasone Nasal [place] [Flonase Nasal [place]] 1 spr EA NOSTRIL BID Pravastatin Sodium [Pravachol] 40 mg PO HS Cetirizine HCl [Zyrtec] 10 mg PO DAILY Spironolactone [Aldactone] 25 mg PO DAILY Sacubitril/Valsartan [Entresto 49 mg-51 mg Tablet] 1 tab PO BID Aspirin EC [Ecotrin Low Dose] 81 mg PO HS Meclizine [Antivert] 25 mg PO TID PRN PRN Reason: Vertigo Albuterol Sulfate [Albuterol Sulfate Hfa] 2 puff PO RT-Q6H PRN PRN Reason: Shortness Of Breath Ondansetron [Zofran] 4 mg PO DAILY PRN PRN Reason: Nausea Discharge Medication List Metoprolol Succinate [Toprol XL] 50 mg PO BID 08/22/13 [History] Pantoprazole Sodium [Protonix] 40 mg PO DAILY 08/22/13 [History] Nitroglycerin Sl Tabs [Nitrostat] 0.4 mg SUBLINGUAL Q5M PRN #25 tab 09/29/14 [Rx] Fluticasone Nasal [place] [Flonase Nasal [place]] 1 spr EA NOSTRIL BID 09/08/16 [History] Cetirizine HCl [Zyrtec] 10 mg PO DAILY 09/23/18 [History] Pravastatin Sodium [Pravachol] 40 mg PO HS 09/23/18 [History] Sacubitril/Valsartan [Entresto 49 mg-51 mg Tablet] 1 tab PO BID 09/23/18 [History] Spironolactone [Aldactone] 25 mg PO DAILY 09/23/18 [History] Aspirin EC [Ecotrin Low Dose] 81 mg PO HS 06/19/20 [History] Meclizine [Antivert] 25 mg PO TID PRN 06/19/20 [History] Albuterol Sulfate [Albuterol Sulfate Hfa] 2 puff PO RT-Q6H PRN 05/05/21 [History] Ondansetron [Zofran] 4 mg PO DAILY PRN 05/05/21 [History] Acetaminophen Tab [Tylenol] 650 mg PO Q6HR PRN tab 05/08/21 [Rx] Famotidine [Pepcid] 20 mg PO DAILY 30 Days #30 tab 05/08/21 [Rx] Ipratropium-Albuterol Nebulize [Duoneb 0.5 mg-3 mg/3 ml Soln] 3 ml INHALATION RT-QID PRN 30 Days #120 ml 05/08/21 [Rx] Levofloxacin [Levaquin] 250 mg PO Q24H 5 Days #5 tab 05/08/21 [Rx] predniSONE 10 mg PO DIRECTED #30 tab 05/08/21 [Rx] Follow up Appointment(s)/Referral(s): Kailash Jacobson III, MD [Primary Care Provider] - 05/15/21 12:00 pm () Ye Boyd MD [STAFF PHYSICIAN] - 1 Week (Office closed at time of discharge. Patient to make own follow-up appt. ) Ambulatory/Diagnostic Orders: Basic Metabolic Panel [LAB.AMB] Time Frame: 3 Days, Location: None Selected Patient Instructions/Handouts: Famotidine (By mouth), Prednisone (By mouth), Levofloxacin (By mouth), Ipratropium/Albuterol (By breathing), Acute Bronchitis (ED), Pneumonia (DC), Flexible Bronchoscopy (DC) Discharge/Stand Alone Forms: Who Do I Call?, Help In The Home Discharge Disposition: HOME SELF-CARE
== END 2021-05-08 14:45 | disposition home or self-care (01) | DRG 202 ==
LOC: EC 10:00 → 5NMEDONC 12:34
PROVIDERS: ADMIT Internal Medicine; ATTEND Internal Medicine
PROC: 0B9F8ZZ Drainage of Right Lower Lung Lobe, Via Natural or Artificial Opening Endoscopic (ICD-10-PCS; principal; 2021-05-05)
PROC: 0B9C8ZZ Drainage of Right Upper Lung Lobe, Via Natural or Artificial Opening Endoscopic (ICD-10-PCS; principal; 2021-05-05)
PROC: 0B9J8ZZ Drainage of Left Lower Lung Lobe, Via Natural or Artificial Opening Endoscopic (ICD-10-PCS; principal; 2021-05-05)
DX: J45.901 Unspecified asthma with (acute) exacerbation (principal); J44.1 Chronic obstructive pulmonary disease with (acute) exacerbation; I50.22 Chronic systolic (congestive) heart failure; J98.11 Atelectasis; I49.3 Ventricular premature depolarization; I73.9 Peripheral vascular disease, unspecified; K21.9 Gastro-esophageal reflux disease without esophagitis; K76.0 Fatty (change of) liver, not elsewhere classified; R09.02 Hypoxemia; E78.5 Hyperlipidemia, unspecified; E83.42 Hypomagnesemia; F41.9 Anxiety disorder, unspecified; I11.0 Hypertensive heart disease with heart failure; I25.5 Ischemic cardiomyopathy; I25.10 Atherosclerotic heart disease of native coronary artery without angina pectoris; R41.3 Other amnesia; G43.909 Migraine, unspecified, not intractable, without status migrainosus; Z98.42 Cataract extraction status, left eye; Z98.41 Cataract extraction status, right eye; Z86.010 Personal history of colon polyps; Z90.13 Acquired absence of bilateral breasts and nipples; Z85.3 Personal history of malignant neoplasm of breast; Z98.82 Breast implant status; Z79.52 Long term (current) use of systemic steroids; Z79.899 Other long term (current) drug therapy; Z79.82 Long term (current) use of aspirin; Z82.3 Family history of stroke; Z82.49 Family history of ischemic heart disease and other diseases of the circulatory system; Z83.3 Family history of diabetes mellitus; Z85.42 Personal history of malignant neoplasm of other parts of uterus; Z86.718 Personal history of other venous thrombosis and embolism; Z86.73 Personal history of transient ischemic attack (TIA), and cerebral infarction without residual deficits; Z87.01 Personal history of pneumonia (recurrent); Z87.442 Personal history of urinary calculi; Z90.710 Acquired absence of both cervix and uterus; Z91.14 Patient's other noncompliance with medication regimen; Z92.21 Personal history of antineoplastic chemotherapy; Z95.5 Presence of coronary angioplasty implant and graft; Z95.810 Presence of automatic (implantable) cardiac defibrillator; Z88.1 Allergy status to other antibiotic agents; Z88.5 Allergy status to narcotic agent; Z88.0 Allergy status to penicillin; Z90.49 Acquired absence of other specified parts of digestive tract; Z90.89 Acquired absence of other organs; Z98.890 Other specified postprocedural states; Z80.0 Family history of malignant neoplasm of digestive organs
CPT/HCPCS: 31624; 36415; 71046; 71275; 80048; 80053; 83605; 83735; 83880; 84484; 85025; 87070; 87102; 87116; 87205; 87206; 87252; 87502; 87635; 88108; 88305; 93005; 96374; 96375; 99285

== ENCOUNTER → 2021-05-15 | Outpatient (CLI) | payer MEDICARE, BC ==
[2021-05-15 19:04] LABS: African American GFR (CKD) 59.2 (60.0-200.0); Anion Gap 15.6 mmol/L (10.00-18.00); BUN/Creat Ratio 15.6 Ratio (12.00-20.00); Calcium 9.6 mg/dL (8.7-10.3); Carbon Dioxide 20.2 mmol/L (20.0-27.5); Potassium 4.6 mmol/L (3.5-5.5)
== END | disposition home or self-care (01) ==
LOC: LABWHC1 13:22
PROVIDERS: ATTEND Registered Nurse
DX: E83.42 Hypomagnesemia (principal); R94.4 Abnormal results of kidney function studies
CPT/HCPCS: 36415; 80048; 83735

== ENCOUNTER → 2021-06-24 | Outpatient (CLI) | payer MEDICARE, BC ==
[2021-06-24 18:30] LABS: Basophils # (A) 0.06 X 10*3/uL (0.00-0.10); Basophils % (A) 0.9 %; Eosinophils # (A) 0.07 X 10*3/uL (0.04-0.35); HCT 42.8 % (37.2-46.3); HGB 13.4 g/dL (12.0-15.0); Immature Grans, Automated 0.1 %; Lymphocytes # (A) 2.07 X 10*3/uL (0.90-5.00); Lymphocytes % (A) 29.7 %; MCH 28.5 pg (27.0-32.0); MCHC 31.3 g/dL (32.0-37.0); MCV 90.9 fL (80.0-97.0); Mean Platelet Volume 12.3 fL (9.5-12.2); Monocytes # (A) 0.67 X 10*3/uL (0.20-1.00); Monocytes % (A) 9.6 %; NRBC Per 100 WBC 0 /100 WBCS (0.0-0.0); Neutrophils # (A) 4.08 X 10*3/uL (1.80-7.70); Neutrophils % (A) 58.7 %; Platelet Count 204 X 10*3/uL (140-440); RBC 4.71 X 10*6/uL (4.10-5.20); RDW 12.5 % (11.5-14.5); WBC 6.96 X 10*3/uL (4.50-10.00)
[2021-06-24 19:42] LABS: ALT 33 U/L (8-44); AST 27 U/L (13-35); African American GFR (CKD) 66.2 (60.0-200.0); Albumin 4.4 g/dL (3.8-4.9); Albumin/Globulin Ratio 1.52 (1.60-3.17); Alkaline Phosphatase 38 U/L (41-126); BUN/Creat Ratio 12.99 Ratio (12.00-20.00); Blood Urea Nitrogen 12.9 mg/dL (9.0-27.0); Calcium 9.9 mg/dL (8.7-10.3); Carbon Dioxide 23.5 mmol/L (20.0-27.5); Chloride 104 mmol/L (96-109); Chol/HDL Ratio 3.72 Ratio; Globulin 2.9 g/dL (1.6-3.3); Glucose 98 mg/dL (70-110); LDL Cholesterol,Calculated 72.8 mg/dL (0.0-131.0); Magnesium 1.7 mg/dL (1.5-2.4); Non-African American GFR(CKD) 57.1 (60.0-200.0); Potassium 4.4 mmol/L (3.5-5.5); Sodium 140 mmol/L (135-145); Total Protein 7.3 g/dL (6.2-8.2)
== END | disposition home or self-care (01) ==
LOC: LABWHC1 10:01
PROVIDERS: ATTEND Family Medicine
DX: Z00.01 Encounter for general adult medical examination with abnormal findings (principal); K21.9 Gastro-esophageal reflux disease without esophagitis; I25.10 Atherosclerotic heart disease of native coronary artery without angina pectoris; I42.9 Cardiomyopathy, unspecified; I73.9 Peripheral vascular disease, unspecified; E83.42 Hypomagnesemia; M15.0 Primary generalized (osteo)arthritis; E78.2 Mixed hyperlipidemia; I50.42 Chronic combined systolic (congestive) and diastolic (congestive) heart failure; I65.21 Occlusion and stenosis of right carotid artery; E66.01 Morbid (severe) obesity due to excess calories; I11.0 Hypertensive heart disease with heart failure
CPT/HCPCS: 36415; 80053; 80061; 82306; 83735; 85025

== ENCOUNTER → 2021-11-24 | Outpatient (CLI) | payer MEDICARE, BC ==
--- NOTE | 2021-11-24 12:35 | XR ---
EXAMINATION TYPE: XR chest 2V DATE OF EXAM: 11/24/2021 COMPARISON: 05/05/2021 TECHNIQUE: PA and lateral views submitted. HISTORY: Shortness of breath FINDINGS: The lungs are clear and there is no pneumothorax, pleural effusion, or focal pneumonia. Atheroscler otic change aorta. Heart size normal. Cardiac device seen. Biapical pleural thickening. No overt fail ure. Hypertrophic and degenerative change of the spine. IMPRESSION: 1. No acute process.
== END | disposition home or self-care (01) ==
LOC: RADXRMAIN 12:14
PROVIDERS: ATTEND Internal Medicine Sleep Medicine
DX: J44.1 Chronic obstructive pulmonary disease with (acute) exacerbation (principal)
CPT/HCPCS: 71046

== ENCOUNTER 2022-01-26 16:56 | Inpatient (IN) | payer MEDICARE, BC ==
[2022-01-26 19:31] LABS: Basophils # (A) 0.1 k/uL (0-0.2); Basophils % (A) 0 %; Eosinophils # (A) 0.1 k/uL (0-0.7); Eosinophils % (A) 1 %; HCT 44.3 % (34.0-46.0); HGB 15.1 gm/dL (11.4-16.0); Lymphocytes # (A) 1.6 k/uL (1.0-4.8); Lymphocytes % (A) 13 %; MCH 30.2 pg (25.0-35.0); MCV 88.8 fL (80.0-100.0); Mean Platelet Volume 8.8; Monocytes # (A) 0.5 k/uL (0-1.0); Monocytes % (A) 4 %; Neutrophils % (A) 81 %; Platelet Count 292 k/uL (150-450); RBC 4.99 m/uL (3.80-5.40); RDW 12.1 % (11.5-15.5); WBC 12.4 k/uL (3.8-10.6)
[2022-01-26] MEDS ORDERED: IPRATROPIUM 0.5 MG/2.5 ML NEBU INHALATION STA (19:34)
[2022-01-26] MEDS ORDERED: ALBUTEROL NEBULIZED 2.5 MG/3 ML INHALATION STA (19:34)
--- NOTE | 2022-01-26 19:40 | ED ---
General Adult HPI - General Chief complaint: Shortness of Breath Stated complaint: Pnemonia Time Seen by Provider: 01/26/22 19:27 Source: patient Mode of arrival: ambulatory - History of Present Illness Initial comments: Dictation was produced using [employer] dictation software. please excuse any grammatical, word or spelling errors. Chief Complaint: 71-year-old female with extensive pulmonary and cardiac history presents to the ER for cough, congestion and mild sore throat History of Present Illness: 71-year-old female she presents to emergency department for recurrence of cough and congestion. Patient has extensive pulmonary history. 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 Denies any fevers but does complain of some chills and night sweats. She states that this is her fourth bout of pneumonia this year. States that her shortness of breath is worse when lying flat. Patient denies any history of heart failure but she does have history of coronary artery disease and pacemaker. The ROS documented in this emergency department record has been reviewed and confirmed by me. Those systems with pertinent positive or negative responses have been documented in the HPI. All other systems are other negative and/or noncontributory. PHYSICAL EXAM: General Impression: Alert and oriented x3, acute distress secondary to dyspnea HEENT: Normocephalic atraumatic, extra-ocular movements intact, pupils equal and reactive to light bilaterally, mucous membranes moist. Cardiovascular: Heart regular rate and rhythm Chest: Mild dyspnea, diffuse rhonchi Abdomen: abdomen soft, non-tender, non-distended, no organomegaly Musculoskeletal: Pulses present and equal in all extremities, no peripheral edema Motor: no focal deficits noted Neurological: CN II-XII grossly intact, no focal motor or sensory deficits noted Skin: Intact with no visualized rashes Psych: Normal affect and mood ED course: 71-year-old female sent from restaurant crew member office for admission to treat COPD exacerbation and likely a recurrence of pneumonia. vital signs upon arrival shows 93% on room air, rest vital signs within acceptable limits. EKG concerning for ischemic changes. However patient does not complain of any chest pain. She does not have any diaphoresis or radiating symptoms to the extremity. Denies any nausea. Abdomen evaluation obtained. Mild leukocytosis 12.4. Coag panel is negative. Metabolic panel is negative. Troponin is negative. Chest x-ray shows lingular infiltrate. Patient given Levaquin. She also ordered for breathing treatment. [facility] be [facility] with consultation to pulmonology. Nursing notes and chart review was performed My EKG interpretation: Ventricular rate 72, sinus rhythm,. 174, QRS 120, QTC 447. No ME prolongation, no QTC prolongation.there is appeared to be diffuse ST depressions and inferior leads and lateral precordial leads. This EKG is nonspecific. Critical Care: yes Critical Care time: 33 - Related Data Home Medications Medication Instructions Recorded Confirmed Metoprolol Succinate [Toprol XL] 50 mg PO BID 08/22/13 05/05/21 Pantoprazole Sodium [Protonix] 40 mg PO DAILY 08/22/13 05/05/21 Fluticasone Nasal [place] [Flonase 1 spr EA NOSTRIL BID 09/08/16 05/05/21 Nasal [place]] Cetirizine HCl [Zyrtec] 10 mg PO DAILY 09/23/18 05/05/21 Pravastatin Sodium [Pravachol] 40 mg PO HS 09/23/18 05/05/21 Sacubitril/Valsartan [Entresto 49 1 tab PO BID 09/23/18 05/05/21 mg-51 mg Tablet] Spironolactone [Aldactone] 25 mg PO DAILY 09/23/18 05/05/21 Aspirin EC [Ecotrin Low Dose] 81 mg PO HS 06/19/20 05/05/21 Meclizine [Antivert] 25 mg PO TID PRN 06/19/20 05/05/21 Albuterol Sulfate [Albuterol 2 puff PO RT-Q6H PRN 05/05/21 05/05/21 Sulfate Hfa] Ondansetron [Zofran] 4 mg PO DAILY PRN 05/05/21 05/05/21 Previous Rx's Medication Instructions Recorded Nitroglycerin Sl Tabs [Nitrostat] 0.4 mg SUBLINGUAL Q5M PRN #25 tab 09/29/14 Acetaminophen Tab [Tylenol] 650 mg PO Q6HR PRN tab 05/08/21 Famotidine [Pepcid] 20 mg PO DAILY 30 Days #30 tab 05/08/21 Ipratropium-Albuterol Nebulize 3 ml INHALATION RT-QID PRN 30 Days 05/08/21 [Duoneb 0.5 mg-3 mg/3 ml Soln] #120 ml Levofloxacin [Levaquin] 250 mg PO Q24H 5 Days #5 tab 05/08/21 predniSONE 10 mg PO DIRECTED #30 tab 05/08/21 Allergies Allergy/AdvReac Type Severity Reaction Status Date / Time amoxicillin [From Augmentin] Allergy SEE Verified 01/26/22 17:11 COMMENTS azithromycin [From Zithromax] Allergy Rash/Hives Verified 01/26/22 17:11 cephalexin monohydrate Allergy Rash/Hives Verified 01/26/22 17:11 [From Keflex] clavulanic acid Allergy SEE Verified 01/26/22 17:11 [From Augmentin] COMMENTS dexamethasone [From Decadron] Allergy Rash/Hives Verified 01/26/22 17:11 dexamethasone sod phosphate Allergy Rash/Hives Verified 01/26/22 17:11 [From Decadron] codeine AdvReac Nausea & Verified 01/26/22 17:11 Vomiting doxycycline AdvReac Nausea & Verified 01/26/22 17:11 Vomiting morphine AdvReac Nausea & Verified 01/26/22 17:11 Vomiting Review of Systems ROS Statement: Those systems with pertinent positive or pertinent negative responses have been documented in the HPI. ROS Other: All systems not noted in ROS Statement are negative. Past Medical History Past Medical History: Asthma, Cancer, Chest Pain / Angina, Heart Failure, COPD, CVA/TIA, Deep Vein Thrombosis (DVT), Eye Disorder, GERD/Reflux, Hyperlipidemia, Hypertension, Liver Disease, Memory Impairment, Osteoarthritis (OA), Pneumonia, Renal Disease, Thyroid Disorder, Vascular Disorder Additional Past Medical History / Comment(s): fullness after eating a few bites and distention,states lasix afftects my kidneys,09/28/14 Pt admitted to floor s/p PTCA with 3 stents to RCA. Other HX:MIGRAINES, VERTIGO,TIA (MULTIPLE- DATES UKN), NAKITA CATARACTS,HEART MURMUR, PVD, HIATAL HERNIA,. IBS, FATTY LIVER, PANCREATITITS, COLON POLYPS, KIDNEY CYSTS, URINARY CALCULI, CHRONIC PAIN,ANEMIA, DVT LEFT MESENTERIC VEIN 2007, [id number] received AND UTERINE CANCER- 1979 History of Any Multi-Drug Resistant Organisms: None Reported Past Surgical History: AICD, Appendectomy, Bladder Surgery, Bowel Resection, Cholecystectomy, Heart Catheterization, Heart Catheterization With Stent, Hysterectomy, Pacemaker, Tonsillectomy Additional Past Surgical History / Comment(s): 09/28/14 PTCA with stents (3) to RCA. COLONOSCOPY. BOWEL RESECTION, MULT. NAKITA MASTECTOMY with implants. AORTIC STENT, FEMORAL ILIAC ARTERY STENTS X 10. Rt Carotid surgery X 2 Past Anesthesia/Blood Transfusion Reactions: Motion Sickness, Postoperative Nausea & Vomiting (PONV) Additional Past Anesthesia/Blood Transfusion Reaction / Comment(s): SEVERE PONV. PT HAS RECEIVED BLOOD IN 1977 WITHOUT REACTION. Date of Last Stent Placement:: UNKNOWN Type of Cardiac Device: Permanent Pacemaker, AICD Device Placement Date:: [employer] Past Psychological History: Anxiety Smoking Status: Never smoker Past Alcohol Use History: None Reported Past Drug Use History: None Reported - Past Family History Sister(s) Family Medical History: Dementia Additional Family Medical History / Comment(s): Brain bleeds Mother Family Medical History: Diabetes Mellitus Additional Family Medical History / Comment(s): severe diabetic, kidney diease, heart attack Father Family Medical History: Cancer, CVA/TIA Additional Family Medical History / Comment(s): colon, heart attack Course Vital Signs 01/26/22 01/26/22 01/26/22 17:07 20:00 20:19 Temperature 97.5 F L Pulse Rate 88 72 91 Respiratory 18 18 Rate Blood Pressure 165/91 193/96 O2 Sat by Pulse 93 L 97 Oximetry Medical Decision Making - Lab Data Result diagrams: 01/26/22 19:17 01/26/22 19:17 Lab Results 01/26/22 01/26/22 01/26/22 Range/Units 19:17 19:17 19:17 WBC 12.4 H (3.8-10.6) k/uL RBC 4.99 (3.80-5.40) m/uL Hgb 15.1 (11.4-16.0) gm/dL Hct 44.3 (34.0-46.0) % MCV 88.8 (80.0-100.0) fL MCH 30.2 (25.0-35.0) pg MCHC 34.0 (31.0-37.0) g/dL RDW 12.1 (11.5-15.5) % Plt Count 292 (150-450) k/uL MPV 8.8 Neutrophils % 81 % Lymphocytes % 13 % Monocytes % 4 % Eosinophils % 1 % Basophils % 0 % Neutrophils # 10.0 H (1.3-7.7) k/uL Lymphocytes # 1.6 (1.0-4.8) k/uL Monocytes # 0.5 (0-1.0) k/uL Eosinophils # 0.1 (0-0.7) k/uL Basophils # 0.1 (0-0.2) k/uL PT 10.4 (9.0-12.0) sec INR 1.0 (<1.2) APTT 24.0 (22.0-30.0) sec Sodium 138 (137-145) mmol/L Potassium 4.5 (3.5-5.1) mmol/L Chloride 106 (98-107) mmol/L Carbon Dioxide 22 (22-30) mmol/L Anion Gap 10 mmol/L BUN 21 H (7-17) mg/dL Creatinine 1.43 H (0.52-1.04) mg/dL Est GFR (CKD-EPI)AfAm 42 (>60 ml/min/1.73 sqM) Est GFR (CKD-EPI)NonAf 37 (>60 ml/min/1.73 sqM) Glucose 112 H (74-99) mg/dL Calcium 9.6 (8.4-10.2) mg/dL Magnesium 1.7 (1.6-2.3) mg/dL Total Bilirubin 0.7 (0.2-1.3) mg/dL AST 25 (14-36) U/L ALT 27 (4-34) U/L Alkaline Phosphatase 40 (38-126) U/L Troponin I (0.000-0.034) ng/mL Total Protein 7.3 (6.3-8.2) g/dL Albumin 4.4 (3.5-5.0) g/dL 01/26/22 Range/Units 19:17 WBC (3.8-10.6) k/uL RBC (3.80-5.40) m/uL Hgb (11.4-16.0) gm/dL Hct (34.0-46.0) % MCV (80.0-100.0) fL MCH (25.0-35.0) pg MCHC (31.0-37.0) g/dL RDW (11.5-15.5) % Plt Count (150-450) k/uL MPV Neutrophils % % Lymphocytes % % Monocytes % % Eosinophils % % Basophils % % Neutrophils # (1.3-7.7) k/uL Lymphocytes # (1.0-4.8) k/uL Monocytes # (0-1.0) k/uL Eosinophils # (0-0.7) k/uL Basophils # (0-0.2) k/uL PT (9.0-12.0) sec INR (<1.2) APTT (22.0-30.0) sec Sodium (137-145) mmol/L Potassium (3.5-5.1) mmol/L Chloride (98-107) mmol/L Carbon Dioxide (22-30) mmol/L Anion Gap mmol/L BUN (7-17) mg/dL Creatinine (0.52-1.04) mg/dL Est GFR (CKD-EPI)AfAm (>60 ml/min/1.73 sqM) Est GFR (CKD-EPI)NonAf (>60 ml/min/1.73 sqM) Glucose (74-99) mg/dL Calcium (8.4-10.2) mg/dL Magnesium (1.6-2.3) mg/dL Total Bilirubin (0.2-1.3) mg/dL AST (14-36) U/L ALT (4-34) U/L Alkaline Phosphatase (38-126) U/L Troponin I <0.012 (0.000-0.034) ng/mL Total Protein (6.3-8.2) g/dL Albumin (3.5-5.0) g/dL Disposition Clinical Impression: Pneumonia Disposition: ADMITTED IP TO THIS [facility] Condition: Serious Referrals: Kailash Jacobson III, MD [Primary Care Provider] - 1-2 days Decision Time: 20:34
[2022-01-26 19:43] LABS: Prothrombin Time 10.4 sec (9.0-12.0)
[2022-01-26 19:49] LABS: Albumin 4.4 g/dL (3.5-5.0); Calcium 9.6 mg/dL (8.4-10.2); Magnesium 1.7 mg/dL (1.6-2.3); Potassium 4.5 mmol/L (3.5-5.1); Total Bilirubin 0.7 mg/dL (0.2-1.3); Total Protein 7.3 g/dL (6.3-8.2)
--- NOTE | 2022-01-26 19:56 | XR ---
EXAMINATION TYPE: XR chest 2V DATE OF EXAM: 01/26/2022 COMPARISON: 11/24/2021 HISTORY: Difficulty breathing TECHNIQUE: 2 views FINDINGS: There is coarsening of the interstitial markings. There is left axillary pacemaker. No pleu ral effusion. There are no hilar masses. Bony thorax is intact. There is some increased density in th e lingula left upper lobe. IMPRESSION: There is some lingula pleural thickening or infiltrate which is increased compared to old exam. No heart failure.
[2022-01-26] MEDS ORDERED: LEVOFLOXACIN 750MG-D5W PMX 750 MG in DEXTROSE/WATER 1 150ML.BAG IVPB STA (20:05)
[2022-01-26] MEDS ORDERED: NALOXONE 0.4 MG/ML 1 ML VIAL IVP PRN (20:31)
[2022-01-26] MEDS ORDERED: LEVOFLOXACIN 750MG-D5W PMX 750 MG in DEXTROSE/WATER 1 150ML.BAG IVPB SCH (21:00)
[2022-01-27] MEDS ORDERED: NITROGLYCERIN SL TABS 0.4 MG TAB SUBLINGUAL PRN (07:24)
[2022-01-27] MEDS ORDERED: BENZONATATE 100 MG CAP PO PRN (07:24)
[2022-01-27] MEDS ORDERED: ALBUTEROL NEBULIZED 2.5 MG/3 ML INHALATION PRN ×2 (07:24→07:32)
[2022-01-27] MEDS ORDERED: DEXTROSE 50% SYRINGE 50 ML IVP PRN ×2 (07:41)
--- NOTE | 2022-01-27 07:43 | P.HPIM ---
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 Boyd for respiratory symptoms and pneumonia and for IV antibiotic. Patient has been complaining of from shortness of breath with cough and occasional phlegm for about one month but with no chest pain. She denies abdominal pain vomiting diarrhea, no urinary complaints, no headache dizziness weakness or numbness. She denies smoking alcohol or illicit drugs. She quit smoking in 2002 after 20 years she has history of COPD and asthma and her symptoms started at the age of 59 She does not have pets at home Vitals on admission showing no fever, blood pressure on the high side, currently improved. Mildly tachycardic, Mild leukocytosis, rest of CBC, INR is unremarkable Creatinine is mildly elevated at 1.4, BNP 699 troponin negative. Chest x-ray shows some lingula pleural thickening or infiltrate which is increased compared to old exam. No heart failure. By radiologist Patient was started on Levaquin and pulmonary team were consulted Review of Systems Review of systems CONSTITUTIONAL: No fever, no malaise, no fatigue. HEENT: No recent visual problems or hearing problems. Denied any sore throat. CARDIOVASCULAR: No orthopnea, PND, no palpitations, no syncope. PULMONARY: No chest wall tenderness, no hemoptysis. GASTROINTESTINAL: No diarrhea, no nausea, no vomiting, no abdominal pain. Normoactive bowel sounds. NEUROLOGICAL: No headaches, no weakness, no numbness. HEMATOLOGICAL: Denies any bleeding or petechiae. GENITOURINARY: Denies any burning micturition, frequency, or urgency. MUSCULOSKELETAL/RHEUMATOLOGICAL: Denies any joint pain, swelling, or any muscle pain. ENDOCRINE: Denies any polyuria or polydipsia. Past Medical History Past Medical History: Asthma, Cancer, Chest Pain / Angina, Heart Failure, COPD, CVA/TIA, Deep Vein Thrombosis (DVT), Eye Disorder, GERD/Reflux, Hyperlipidemia, Hypertension, Liver Disease, Memory Impairment, Osteoarthritis (OA), Pneumonia, Renal Disease, Thyroid Disorder, Vascular Disorder Additional Past Medical History / Comment(s): fullness after eating a few bites and distention,states lasix afftects my kidneys,09/28/14 Pt admitted to floor s/p PTCA with 3 stents to RCA. Other HX:MIGRAINES, VERTIGO,TIA (MULTIPLE- DATES UKN), NAKITA CATARACTS,HEART MURMUR, PVD, HIATAL HERNIA,. IBS, FATTY LIVER, PANCREATITITS, COLON POLYPS, KIDNEY CYSTS, URINARY CALCULI, CHRONIC PAIN,ANEMIA, DVT LEFT MESENTERIC VEIN 2007, [id number] received AND UTERINE CANCER- 1979 History of Any Multi-Drug Resistant Organisms: None Reported Past Surgical History: AICD, Appendectomy, Bladder Surgery, Bowel Resection, Cholecystectomy, Heart Catheterization, Heart Catheterization With Stent, Hysterectomy, Pacemaker, Tonsillectomy Additional Past Surgical History / Comment(s): 09/28/14 PTCA with stents (3) to RCA. COLONOSCOPY. BOWEL RESECTION, MULT. NAKITA MASTECTOMY with implants. AORTIC STENT, FEMORAL ILIAC ARTERY STENTS X 10. Rt Carotid surgery X 2 Past Anesthesia/Blood Transfusion Reactions: Motion Sickness, Postoperative Nausea & Vomiting (PONV) Additional Past Anesthesia/Blood Transfusion Reaction / Comment(s): SEVERE PONV. PT HAS RECEIVED BLOOD IN 1977 WITHOUT REACTION. Date of Last Stent Placement:: UNKNOWN Type of Cardiac Device: Permanent Pacemaker, AICD Device Placement Date:: [employer] Past Psychological History: Anxiety Smoking Status: Never smoker Past Alcohol Use History: None Reported Past Drug Use History: None Reported - Past Family History Sister(s) Family Medical History: Dementia Additional Family Medical History / Comment(s): Brain bleeds Mother Family Medical History: Diabetes Mellitus Additional Family Medical History / Comment(s): severe diabetic, kidney diease, heart attack Father Family Medical History: Cancer, CVA/TIA Additional Family Medical History / Comment(s): colon, heart attack Medications and Allergies Home Medications Medication Instructions Recorded Confirmed Type Metoprolol Succinate [Toprol XL] 50 mg PO DAILY 08/22/13 01/26/22 History Pantoprazole Sodium [Protonix] 40 mg PO HS 08/22/13 01/26/22 History Nitroglycerin Sl Tabs [Nitrostat] 0.4 mg SUBLINGUAL Q5M PRN #25 tab 09/29/14 01/26/22 Rx Fluticasone Nasal [place] [Flonase 1 spr EA NOSTRIL DAILY 09/08/16 01/26/22 History Nasal [place]] Cetirizine HCl [Zyrtec] 10 mg PO DAILY 09/23/18 01/26/22 History Pravastatin Sodium [Pravachol] 40 mg PO HS 09/23/18 01/26/22 History Sacubitril/Valsartan [Entresto 49 1 tab PO BID 09/23/18 01/26/22 History mg-51 mg Tablet] Spironolactone [Aldactone] 25 mg PO DAILY 09/23/18 01/26/22 History Aspirin EC [Ecotrin Low Dose] 81 mg PO HS 06/19/20 01/26/22 History Meclizine [Antivert] 25 mg PO DAILY 06/19/20 01/26/22 History Albuterol Sulfate [Albuterol 2 puff PO RT-Q6H PRN 05/05/21 01/26/22 History Sulfate Hfa] Ondansetron [Zofran] 4 mg PO DAILY PRN 05/05/21 01/26/22 History Benzonatate [Tessalon [place]] 100 mg PO TID PRN 01/26/22 01/26/22 History Furosemide [Lasix] 40 mg PO DIRECTED PRN 01/26/22 01/26/22 History predniSONE See Taper PO DIRECTED 01/26/22 01/26/22 History Allergies Allergy/AdvReac Type Severity Reaction Status Date / Time amoxicillin [From Augmentin] Allergy SEE Verified 01/26/22 21:01 COMMENTS azithromycin [From Zithromax] Allergy Rash/Hives Verified 01/26/22 21:01 cephalexin monohydrate Allergy Rash/Hives Verified 01/26/22 21:01 [From Keflex] clavulanic acid Allergy SEE Verified 01/26/22 21:01 [From Augmentin] COMMENTS dexamethasone [From Decadron] Allergy Rash/Hives Verified 01/26/22 21:01 dexamethasone sod phosphate Allergy Rash/Hives Verified 01/26/22 21:01 [From Decadron] codeine AdvReac Nausea & Verified 01/26/22 21:01 Vomiting doxycycline AdvReac Nausea & Verified 01/26/22 21:01 Vomiting morphine AdvReac Nausea & Verified 01/26/22 21:01 Vomiting Physical Exam Vitals: Vital Signs Temp Pulse Resp BP Pulse Ox 01/27/22 05:24 72 20 135/70 93 L 01/27/22 04:00 85 22 127/66 96 01/27/22 03:07 75 20 131/74 94 L 01/27/22 02:00 73 20 123/55 94 L 01/27/22 00:26 92 12 115/88 94 L 01/26/22 23:00 98 18 98 01/26/22 22:00 112 H 18 118/88 93 L 01/26/22 21:05 74 01/26/22 21:00 105 H 16 146/80 93 L 01/26/22 20:40 76 01/26/22 20:19 91 01/26/22 20:00 72 18 193/96 97 01/26/22 17:07 97.5 F L 88 18 165/91 93 L Intake and Output 01/26/22 01/27/22 01/27/22 22:59 06:59 14:59 Other: Weight 103.873 kg GENERAL: The patient is alert and oriented x3, not in any acute distress. Well developed, well nourished. HEENT: Pupils are round and equally reacting to light. EOMI. No scleral icterus. No conjunctival pallor. Normocephalic, atraumatic. No pharyngeal erythema. No thyromegaly. CARDIOVASCULAR: S1 and S2 present. No murmurs, rubs, or gallops. -PULMONARY: Chest is clear to auscultation, no crackles. expiratory wheezing ABDOMEN: Soft, nontender, nondistended, normoactive bowel sounds. No palpable organomegaly. MUSCULOSKELETAL: No joint swelling or deformity. EXTREMITIES: No cyanosis, clubbing, or pedal edema. NEUROLOGICAL: Gross neurological examination did not reveal any focal deficits. SKIN: No rashes. no petechiae. Gait is normal Results CBC & Chem 7: 01/26/22 19:17 01/26/22 19:17 Labs: Abnormal Lab Results - Last 24 Hours (Table) 01/26/22 01/26/22 Range/Units 19:17 19:17 WBC 12.4 H (3.8-10.6) k/uL Neutrophils # 10.0 H (1.3-7.7) k/uL BUN 21 H (7-17) mg/dL Creatinine 1.43 H (0.52-1.04) mg/dL Glucose 112 H (74-99) mg/dL Assessment and Plan Assessment: Acute COPD exacerbation Possible community acquired pneumonia of the lingula of the lung Chronic heart failure, status post pacemaker and AICD. She follows up with Dr. Ambriz History of CVA/TIA History of DVT History of gastroesophageal reflux disease Hypertension Hyperlipidemia Memory problem Hypothyroidism History of coronary artery disease status post stents History of migraine History of vertigo Status post pacemaker and AICD Obesity with BMI of 41.9 Plan: Continue with Levaquin procalcitonin Start Solu-Medrol and Symbicort and bronchodilator Pulmonary consult Labs and medication were reviewed.. Continue same treatment. Continue with symptomatic treatment. Resume home medication. Monitor lytes and vitals. DVT and GI prophylaxis. Further recommendations as per clinical course of the patient DVT prophylaxis: Subcutaneous heparin GI Prophylaxis: Ppi Prognosis is guarded
[2022-01-27 07:56] LABS: African American GFR (CKD) 60 (>60 ml/min/1.73 sqM); Anion Gap 11 mmol/L; Blood Urea Nitrogen 26 mg/dL (7-17); Calcium 9.4 mg/dL (8.4-10.2); Carbon Dioxide 23 mmol/L (22-30); Chloride 107 mmol/L (98-107); Glucose 77 mg/dL (74-99); Non-African American GFR(CKD) 52 (>60 ml/min/1.73 sqM); Potassium 3.8 mmol/L (3.5-5.1); Sodium 141 mmol/L (137-145)
[2022-01-27] MEDS: IPRATROPIUM-ALBUTEROL 3 ML NEB INHALATION SCH ×4 (08:00→19:59)
[2022-01-27 08:07] LABS: Basophils # (A) 0.1 k/uL (0-0.2); Basophils % (A) 1 %; Eosinophils % (A) 0 %; HCT 41.8 % (34.0-46.0); HGB 14.1 gm/dL (11.4-16.0); Lymphocytes # (A) 3.3 k/uL (1.0-4.8); Lymphocytes % (A) 23 %; MCH 30.5 pg (25.0-35.0); MCHC 33.7 g/dL (31.0-37.0); MCV 90.5 fL (80.0-100.0); Mean Platelet Volume 8.9; Monocytes # (A) 0.9 k/uL (0-1.0); Monocytes % (A) 6 %; Neutrophils # (A) 9.9 k/uL (1.3-7.7); Neutrophils % (A) 69 %; Platelet Count 304 k/uL (150-450); RBC 4.61 m/uL (3.80-5.40); RDW 12.3 % (11.5-15.5); WBC 14.4 k/uL (3.8-10.6)
[2022-01-27] MEDS: METOPROLOL SUCCINATE (ER) 50 MG TAB.ER.24H PO SCH (08:35)
[2022-01-27] MEDS: MECLIZINE 25 MG TAB PO SCH (08:35)
[2022-01-27] MEDS: methylPREDNISolone SOD SUCCI 125 MG/2 ML VIAL IV SCH ×3 (08:36→17:12)
[2022-01-27] MEDS: FLUTICASONE 50MCG/SPRAY NASAL 16GM EA NOSTRIL SCH (08:36)
[2022-01-27] MEDS ORDERED: predniSONE 20 MG TAB PO SCH (09:00)
[2022-01-27] MEDS: SYMBICORT 160-4.5 MCG INHALER INHALATION SCH ×2 (12:06→20:00)
[2022-01-27 13:04] LABS: Glucose,Whole Blood 131 mg/dL (70-110)
[2022-01-27] MEDS: INSULIN ASPART (NovoLOG) 100 UNIT/ML VIAL SQ SCH ×3 (13:21→20:46)
--- NOTE | 2022-01-27 13:47 | P.CNPUL ---
History of Present Illness Consult date: 01/27/22 Reason for consult: dyspnea, cough, COPD, hypoxemia, pneumonia Chief complaint: Worsening or shortness of breath History of present illness: Patient is a 71-year-old female with severe COPD as well as has a component of asthmatic bronchitis she has ongoing symptoms going on for last several week which have been progressive patient was treated with multiple courses of antibiotics and steroids without any significant relief she was seen in the office yesterday very short of breath very coarse breath sounds bilaterally is present with respiratory respiratory wheezing and rhonchi advised to be admitted into the hospital as likelihood of decompensation and developed an respiratory failure was high patient has very congested cough but mostly nonproductive, labs reviewed white cell count is 12.4 increased to 14.4, BUN/creatinine is 21/1.43, chest x-ray shows coarse bilateral interstitial marking some increased density in the lingular left upper lobe seen, patient has been on bronchodilator, Tessalon Perles, broad-spectrum antibiotics with Levaquin along with Solu-Medrol and supplemental oxygen at room air her oxygen saturation have been 88-90% when she is resting not talking improved to low 90s Review of Systems All systems: negative Past Medical History Past Medical History: Asthma, Cancer, Chest Pain / Angina, Heart Failure, COPD, CVA/TIA, Deep Vein Thrombosis (DVT), Eye Disorder, GERD/Reflux, Hyperlipidemia, Hypertension, Liver Disease, Memory Impairment, Osteoarthritis (OA), Pneumonia, Renal Disease, Thyroid Disorder, Vascular Disorder Additional Past Medical History / Comment(s): fullness after eating a few bites and distention,states lasix afftects my kidneys,09/28/14 Pt admitted to floor s/p PTCA with 3 stents to RCA. Other HX:MIGRAINES, VERTIGO,TIA (MULTIPLE- DATES UKN), NAKITA CATARACTS,HEART MURMUR, PVD, HIATAL HERNIA,. IBS, FATTY LIVER, PANCREATITITS, COLON POLYPS, KIDNEY CYSTS, URINARY CALCULI, CHRONIC PAIN,ANEMIA, DVT LEFT MESENTERIC VEIN 2007, [id number] received AND UTERINE CANCER- 1979 History of Any Multi-Drug Resistant Organisms: None Reported Past Surgical History: AICD, Appendectomy, Bladder Surgery, Bowel Resection, Cholecystectomy, Heart Catheterization, Heart Catheterization With Stent, Hysterectomy, Pacemaker, Tonsillectomy Additional Past Surgical History / Comment(s): 09/28/14 PTCA with stents (3) to RCA. COLONOSCOPY. BOWEL RESECTION, MULT. NAKITA MASTECTOMY with implants. AORTIC STENT, FEMORAL ILIAC ARTERY STENTS X 10. Rt Carotid surgery X 2 Past Anesthesia/Blood Transfusion Reactions: Motion Sickness, Postoperative Nausea & Vomiting (PONV) Additional Past Anesthesia/Blood Transfusion Reaction / Comment(s): SEVERE PONV. PT HAS RECEIVED BLOOD IN 1977 WITHOUT REACTION. Date of Last Stent Placement:: UNKNOWN Type of Cardiac Device: Permanent Pacemaker, AICD Device Placement Date:: [employer] Past Psychological History: Anxiety Smoking Status: Never smoker Past Alcohol Use History: None Reported Past Drug Use History: None Reported - Past Family History Sister(s) Family Medical History: Dementia Additional Family Medical History / Comment(s): Brain bleeds Mother Family Medical History: Diabetes Mellitus Additional Family Medical History / Comment(s): severe diabetic, kidney diease, heart attack Father Family Medical History: Cancer, CVA/TIA Additional Family Medical History / Comment(s): colon, heart attack Medications and Allergies Home Medications Medication Instructions Recorded Confirmed Type Metoprolol Succinate [Toprol XL] 50 mg PO DAILY 08/22/13 01/26/22 History Pantoprazole Sodium [Protonix] 40 mg PO HS 08/22/13 01/26/22 History Nitroglycerin Sl Tabs [Nitrostat] 0.4 mg SUBLINGUAL Q5M PRN #25 tab 09/29/14 01/26/22 Rx Fluticasone Nasal [place] [Flonase 1 spr EA NOSTRIL DAILY 09/08/16 01/26/22 History Nasal [place]] Cetirizine HCl [Zyrtec] 10 mg PO DAILY 09/23/18 01/26/22 History Pravastatin Sodium [Pravachol] 40 mg PO HS 09/23/18 01/26/22 History Sacubitril/Valsartan [Entresto 49 1 tab PO BID 09/23/18 01/26/22 History mg-51 mg Tablet] Spironolactone [Aldactone] 25 mg PO DAILY 09/23/18 01/26/22 History Aspirin EC [Ecotrin Low Dose] 81 mg PO HS 06/19/20 01/26/22 History Meclizine [Antivert] 25 mg PO DAILY 06/19/20 01/26/22 History Albuterol Sulfate [Albuterol 2 puff PO RT-Q6H PRN 05/05/21 01/26/22 History Sulfate Hfa] Ondansetron [Zofran] 4 mg PO DAILY PRN 05/05/21 01/26/22 History Benzonatate [Tessalon Perles] 100 mg PO TID PRN 01/26/22 01/26/22 History Furosemide [Lasix] 40 mg PO DIRECTED PRN 01/26/22 01/26/22 History predniSONE See Taper PO DIRECTED 01/26/22 01/26/22 History Allergies Allergy/AdvReac Type Severity Reaction Status Date / Time amoxicillin [From Augmentin] Allergy SEE Verified 01/26/22 21:01 COMMENTS azithromycin [From Zithromax] Allergy Rash/Hives Verified 01/26/22 21:01 cephalexin monohydrate Allergy Rash/Hives Verified 01/26/22 21:01 [From Keflex] clavulanic acid Allergy SEE Verified 01/26/22 21:01 [From Augmentin] COMMENTS dexamethasone [From Decadron] Allergy Rash/Hives Verified 01/26/22 21:01 dexamethasone sod phosphate Allergy Rash/Hives Verified 01/26/22 21:01 [From Decadron] codeine AdvReac Nausea & Verified 01/26/22 21:01 Vomiting doxycycline AdvReac Nausea & Verified 01/26/22 21:01 Vomiting morphine AdvReac Nausea & Verified 01/26/22 21:01 Vomiting Physical Exam Vitals: Vital Signs Temp Pulse Resp BP Pulse Ox 01/27/22 13:11 92 17 145/91 94 L 01/27/22 12:20 74 01/27/22 12:06 72 01/27/22 08:10 72 01/27/22 08:00 69 01/27/22 07:31 78 18 136/68 99 01/27/22 05:24 72 20 135/70 93 L 01/27/22 04:00 85 22 127/66 96 01/27/22 03:07 75 20 131/74 94 L 01/27/22 02:00 73 20 123/55 94 L 01/27/22 00:26 92 12 115/88 94 L 01/26/22 23:00 98 18 98 01/26/22 22:00 112 H 18 118/88 93 L 01/26/22 21:05 74 01/26/22 21:00 105 H 16 146/80 93 L 01/26/22 20:40 76 01/26/22 20:19 91 01/26/22 20:00 72 18 193/96 97 01/26/22 17:07 97.5 F L 88 18 165/91 93 L Intake and Output 01/26/22 01/27/22 01/27/22 22:59 06:59 14:59 Other: Weight 103.873 kg - Constitutional General appearance: average body habitus, cooperative, disheveled, mild distress - EENT Eyes: EOMI, PERRLA ENT: normal oropharynx Ears: bilateral: normal - Neck Neck: normal ROM Carotids: bilateral: upstroke normal Thyroid: bilateral: normal size - Respiratory Respiratory: bilateral: wheezing, prolonged expiration - Cardiovascular Rhythm: regular Heart sounds: normal: S1, S2 - Gastrointestinal General gastrointestinal: soft - Integumentary Integumentary: normal turgor - Neurologic Neurologic: CNII-XII intact - Musculoskeletal Musculoskeletal: gait normal, generalized weakness, strength equal bilaterally - Psychiatric Psychiatric: A&O x's 3, appropriate affect, intact judgment & insight Results - Laboratory Findings CBC and BMP: 01/27/22 07:31 01/27/22 07:31 PT/INR, D-dimer PT 10.4 sec (9.0-12.0) 01/26/22 19:17 INR 1.0 (<1.2) 01/26/22 19:17 Abnormal lab findings: Abnormal Labs 01/26/22 01/26/22 01/27/22 19:17 19:17 07:31 WBC 12.4 H 14.4 H Neutrophils # 10.0 H 9.9 H BUN 21 H Creatinine 1.43 H Glucose 112 H POC Glucose (mg/dL) 01/27/22 01/27/22 07:31 13:03 WBC Neutrophils # BUN 26 H Creatinine 1.07 H Glucose POC Glucose (mg/dL) 131 H - Diagnostic Findings Chest x-ray: report reviewed, image reviewed (Finding as above) Assessment and Plan Assessment: Left upper lobe pneumonia on IV Levaquin Acute COPD exacerbation Purulent tracheobronchitis Acute on chronic hypoxic respiratory failure Ischemic cardiomyopathy with chronic systolic heart failure status post AICD and pacemaker History of CVA/TIA History of deep venous thrombosis GERD Hypertension hypertensive cardiovascular disease Dyslipidemia Coronary artery disease status post stent placement Morbid obesity with BMI of 42 Plan: Continue bronchodilator IV steroids Breathing treatments Broad-spectrum antibiotics Continue home medication Further plan of care as per clinical response of the patient Time with Patient: Greater than 30
[2022-01-27 17:10] LABS: Glucose,Whole Blood 206 mg/dL (70-110)
[2022-01-27 20:13] LABS: Glucose,Whole Blood 127 mg/dL (70-110)
[2022-01-27] MEDS: PANTOPRAZOLE 40 MG TABLET PO SCH (20:47)
[2022-01-27] MEDS: PRAVASTATIN SODIUM 40 MG TAB PO SCH (20:47)
[2022-01-27] MEDS: ASPIRIN 81 MG PO SCH (20:47)
[2022-01-28] MEDS: methylPREDNISolone SOD SUCCI 125 MG/2 ML VIAL IV SCH ×4 (00:12→17:41)
[2022-01-28 06:23] LABS: Glucose,Whole Blood 125 mg/dL (70-110)
[2022-01-28] MEDS: INSULIN ASPART (NovoLOG) 100 UNIT/ML VIAL SQ SCH ×4 (06:31→20:13)
[2022-01-28] MEDS ORDERED: ACETAMINOPHEN TAB 325 MG TAB PO PRN (07:02)
--- NOTE | 2022-01-28 07:36 | CDI ---
Documentation Clarification Form Date: 01/28/2022 07:27:57 AM From: Rula OlveraWorthyALICIA, CCDS Admit Date: 01/26/2022 08:32:00 PM Patient Name: Maggie Ji Visit Number: [id number] Discharge Date: ATTENTION: The Clinical Documentation Specialists (CDI) and [facility] Coding Staff appreciate your assistance in clarifying documentation. Please respond to the clarification below the line at the bottom and electronically sign. The CDI & [facility] Coding staff will review the response and follow-up if needed. Please note: Queries are made part of the Legal Health Record. If you have any questions, please contact the author of this message via ITS. Dr. Ye Boyd: Asthma is documented throughout the chart in the patient's Past Medical History without further specificity. Per the 01/26 Pulmonary Consult, Asthmatic Bronchitis is documented. Additional clarification regarding the type of Asthma is requested. History/risk factors per the 01/27 H/P: Asthma, COPD, Pneumonia, Breast Cancer status post mastectomy, Uterine Cancer, CHF, COPD, TIAs, CAD with stent & Pacemaker, DVT, GERD, Hypertension, Hyperlipidemia, Hypothyroidism, Fatty Liver Disease, Memory Loss, Osteoarthritis, Kidney Stones, Pancreatitis, Kidney Stones, Colon Polyps, Chronic Pain, Anemia, Former smoker. 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 Admit with Pneumonia and COPD Exacerbation. 01/26 VS: T 97.5, P 88, R 18 (sob, cough), BP 165/91, PO 93 RA, BMI: 41.9. 01/26 LAB: WBC 14.4, Neutrophils 9.9; CO2 23, BUN 26, Creatinine 1.07, Glucose 131 01/26 CXR: There is some lingula pleural thickening or infiltrate which is increased compared to old exam. No heart failure. Treatment 01/26: O2 (standby), INH Ventolin 10 mg x1, INH Atrovent 0.5 mg x1, IV Levaquin 150 mls @ 100 mls/hr q24H. Please clarify the Type & Severity of Asthma, if known: [ ] Extrinsic asthma [ ] with exacerbation [ ] without exacerbation [ ] Intrinsic asthma [ ] with exacerbation [ ] without exacerbation [ ] Mild intermittent asthma [ ] with exacerbation [ ] without exacerbation [ x ] Mild persistent asthma [ x] with exacerbation [ ] without exacerbation [ ] Moderate persistent asthma [ ] with exacerbation [ ] without exacerbation [ ] Severe persistent asthma [ ] with exacerbation [ ] without exacerbation [ ] Other, please specify ____ [ ] Unable to determine (Template Last Revised: April 2020) MTDD
[2022-01-28 07:47] LABS: Basophils % (A) 0 %; Eosinophils # (A) 0.1 k/uL (0-0.7); Eosinophils % (A) 1 %; HGB 14.2 gm/dL (11.4-16.0); Lymphocytes # (A) 1.2 k/uL (1.0-4.8); Lymphocytes % (A) 10 %; MCH 29.6 pg (25.0-35.0); MCV 89.7 fL (80.0-100.0); Mean Platelet Volume 8.9; Monocytes # (A) 0.2 k/uL (0-1.0); Monocytes % (A) 2 %; Neutrophils # (A) 10.9 k/uL (1.3-7.7); Neutrophils % (A) 87 %; Platelet Count 255 k/uL (150-450); RBC 4.79 m/uL (3.80-5.40); RDW 12.2 % (11.5-15.5); WBC 12.5 k/uL (3.8-10.6)
[2022-01-28 07:59] LABS: African American GFR (CKD) 72 (>60 ml/min/1.73 sqM); Anion Gap 10 mmol/L; Blood Urea Nitrogen 24 mg/dL (7-17); Calcium 9.7 mg/dL (8.4-10.2); Carbon Dioxide 22 mmol/L (22-30); Chloride 108 mmol/L (98-107); Glucose 141 mg/dL (74-99); Non-African American GFR(CKD) 62 (>60 ml/min/1.73 sqM); Potassium 4.4 mmol/L (3.5-5.1); Sodium 140 mmol/L (137-145)
[2022-01-28] MEDS: FLUTICASONE 50MCG/SPRAY NASAL 16GM EA NOSTRIL SCH (09:21)
[2022-01-28] MEDS: HEPARIN SODIUM,PORCINE/PF 5,000 UNIT/0.5 ML SYRINGE SQ SCH ×2 (09:21→20:13)
[2022-01-28] MEDS: METOPROLOL SUCCINATE (ER) 50 MG TAB.ER.24H PO SCH (09:21)
[2022-01-28] MEDS: MECLIZINE 25 MG TAB PO SCH (09:21)
[2022-01-28] MEDS: DOXYCYCLINE 100 MG CAP PO SCH ×3 (09:52→20:16)
[2022-01-28] MEDS: SYMBICORT 160-4.5 MCG INHALER INHALATION SCH ×2 (09:53→20:23)
[2022-01-28] MEDS: IPRATROPIUM-ALBUTEROL 3 ML NEB INHALATION SCH ×4 (09:53→20:23)
[2022-01-28] MEDS: SPIRONOLACTONE 25 MG TAB PO SCH (10:56)
[2022-01-28] MEDS: SACUBITRIL/VALSARTAN 49 MG-51 MG TABLET PO SCH ×2 (10:56→20:13)
[2022-01-28] MEDS: BUTALB/APAP/CAFF 50-325-40MG TAB PO PRN ×2 (10:56→17:41)
[2022-01-28] MEDS ORDERED: LEVOFLOXACIN 500 MG TAB PO SCH (11:00)
[2022-01-28 11:34] LABS: Glucose,Whole Blood 111 mg/dL (70-110)
[2022-01-28 12:41] VITALS: BMI 41.8
--- NOTE | 2022-01-28 15:06 | P.PN ---
Subjective Progress Note Date: 01/28/22 Principal diagnosis: Left upper lobe pneumonia on IV Levaquin Acute COPD exacerbation Purulent tracheobronchitis Acute on chronic hypoxic respiratory failure Ischemic cardiomyopathy with chronic systolic heart failure status post AICD and pacemaker History of CVA/TIA History of deep venous thrombosis GERD Hypertension hypertensive cardiovascular disease Dyslipidemia Coronary artery disease status post stent placement Morbid obesity with BMI of 42 01/28/2022, ongoing cough congestion is present but symptoms overall improved with less coughing now compared to today off of oxygen now white cell count is continued to decline is not 12.5, chemistries stable, patient remains afebrile, saturations 98%, Patient remains on IV steroids breathing treatments and antibiotics tolerating a well, noted results of COVID-19 and influenza A and B are negative Patient is a 71-year-old female with severe COPD as well as has a component of asthmatic bronchitis she has ongoing symptoms going on for last several week which have been progressive patient was treated with multiple courses of antibiotics and steroids without any significant relief she was seen in the office yesterday very short of breath very coarse breath sounds bilaterally is present with respiratory respiratory wheezing and rhonchi advised to be admitted into the hospital as likelihood of decompensation and developed an respiratory failure was high patient has very congested cough but mostly nonproductive, labs reviewed white cell count is 12.4 increased to 14.4, BUN/creatinine is 21/1.43, chest x-ray shows coarse bilateral interstitial marking some increased density in the lingular left upper lobe seen, patient has been on bronchodilator, Tessalon Perles, broad-spectrum antibiotics with Levaquin along with Solu-Medrol and supplemental oxygen at room air her oxygen saturation have been 88-90% when she is resting not talking improved to low 90s Objective - Vital Signs Vital signs: Vital Signs Temp 97.5 F L 01/28/22 14:47 Pulse 53 L 01/28/22 14:47 Resp 18 01/28/22 14:47 BP 154/80 01/28/22 14:47 Pulse Ox 98 01/28/22 14:47 FiO2 Intake & Output 01/27/22 01/28/22 01/28/22 18:59 06:59 18:59 Intake Total 480 Balance 480 Weight 103.873 kg 103.873 kg Intake: Oral 480 Other: Voiding Method Toilet Toilet # Voids 1 2 - Exam - Constitutional General appearance: average body habitus, cooperative, disheveled, mild distress - EENT Eyes: EOMI, PERRLA ENT: normal oropharynx Ears: bilateral: normal - Neck Neck: normal ROM Carotids: bilateral: upstroke normal Thyroid: bilateral: normal size - Respiratory Respiratory: bilateral: wheezing, prolonged expiration - Cardiovascular Rhythm: regular Heart sounds: normal: S1, S2 - Gastrointestinal General gastrointestinal: soft - Integumentary Integumentary: normal turgor - Neurologic Neurologic: CNII-XII intact - Musculoskeletal Musculoskeletal: gait normal, generalized weakness, strength equal bilaterally - Psychiatric Psychiatric: A&O x's 3, appropriate affect, intact judgment & insight - Labs CBC & Chem 7: 01/28/22 07:26 12 07:26 Labs: Abnormal Lab Results - Last 24 Hours (Table) 01/27/22 01/27/22 01/28/22 Range/Units 17:08 20:12 06:22 WBC (3.8-10.6) k/uL Neutrophils # (1.3-7.7) k/uL Chloride (98-107) mmol/L BUN (7-17) mg/dL Glucose (74-99) mg/dL POC Glucose (mg/dL) 206 H 127 H 125 H (70-110) mg/dL 01/28/22 01/28/22 12 Range/Units 07:26 07:26 11:33 WBC 12.5 H (3.8-10.6) k/uL Neutrophils # 10.9 H (1.3-7.7) k/uL Chloride 108 H (98-107) mmol/L BUN 24 H (7-17) mg/dL Glucose 141 H (74-99) mg/dL POC Glucose (mg/dL) 111 H (70-110) mg/dL Assessment and Plan Assessment: Left upper lobe pneumonia on IV Levaquin Acute COPD exacerbation Purulent tracheobronchitis Acute on chronic hypoxic respiratory failure Ischemic cardiomyopathy with chronic systolic heart failure status post AICD and pacemaker History of CVA/TIA History of deep venous thrombosis GERD Hypertension hypertensive cardiovascular disease Dyslipidemia Coronary artery disease status post stent placement Morbid obesity with BMI of 42 Plan: Continue bronchodilator IV steroids, however they can be switched to oral at the time of discharge Breathing treatments Broad-spectrum antibiotics Continue home medication Further plan of care as per clinical response of the patient Increase activity as tolerated
[2022-01-28 16:38] LABS: Glucose,Whole Blood 128 mg/dL (70-110)
--- NOTE | 2022-01-28 18:01 | P.PN ---
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 Boyd for respiratory symptoms and pneumonia and for IV antibiotic. Patient has been complaining of from shortness of breath with cough and occasional phlegm for about one month but with no chest pain. She denies abdominal pain vomiting diarrhea, no urinary complaints, no headache dizziness weakness or numbness. She denies smoking alcohol or illicit drugs. She quit smoking in 2002 after 20 years she has history of COPD and asthma and her symptoms started at the age of 59 She does not have pets at home Vitals on admission showing no fever, blood pressure on the high side, currently improved. Mildly tachycardic, Mild leukocytosis, rest of CBC, INR is unremarkable Creatinine is mildly elevated at 1.4, BNP 699 troponin negative. Chest x-ray shows some lingula pleural thickening or infiltrate which is increased compared to old exam. No heart failure. By radiologist Patient was started on Levaquin and pulmonary team were consulted 01/28/2022 Patient breathing and wheezing improving significantly compared to yesterday, patient was seen in walking in the hallway by herself. Patient denies any other new complaints, no chest pain or coughing. Patient had diarrhea on admission, she has about 5-6 bouts of bowel movements yesterday but this morning it feels better. No abdominal pain or vomiting. 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 Ambriz for her history of CHF, she is on pacemaker and AICD and she told me she has appointment with Dr. Ambriz this coming Wednesday recurrent currently patient is euvolemic Objective - Vital Signs Vital signs: Vital Signs Temp 98.3 F 01/28/22 07:33 Pulse 72 01/28/22 10:05 Resp 16 01/28/22 10:05 BP 154/86 01/28/22 07:33 Pulse Ox 91 L 01/28/22 07:33 FiO2 Intake & Output 01/27/22 01/28/22 01/28/22 18:59 06:59 18:59 Intake Total 480 Balance 480 Weight 103.873 kg Intake: Oral 480 Other: Voiding Method Toilet Toilet # Voids 1 2 - Exam GENERAL: The patient is alert and oriented x3, not in any acute distress. Well developed, well nourished. HEENT: Pupils are round and equally reacting to light. EOMI. No scleral icterus. No conjunctival pallor. Normocephalic, atraumatic. No pharyngeal erythema. No thyromegaly. CARDIOVASCULAR: S1 and S2 present. No murmurs, rubs, or gallops. -PULMONARY: Chest is clear to auscultation, no crackles. Wheezing is improving ABDOMEN: Soft, nontender, nondistended, normoactive bowel sounds. No palpable organomegaly. MUSCULOSKELETAL: No joint swelling or deformity. EXTREMITIES: No cyanosis, clubbing, or pedal edema. NEUROLOGICAL: Gross neurological examination did not reveal any focal deficits. SKIN: No rashes. no petechiae. - Labs CBC & Chem 7: 01/28/22 07:26 01/28/22 07:26 Labs: Abnormal Lab Results - Last 24 Hours (Table) 01/27/22 01/27/22 01/27/22 Range/Units 13:03 17:08 20:12 WBC (3.8-10.6) k/uL Neutrophils # (1.3-7.7) k/uL Chloride (98-107) mmol/L BUN (7-17) mg/dL Glucose (74-99) mg/dL POC Glucose (mg/dL) 131 H 206 H 127 H (70-110) mg/dL 01/28/22 01/28/22 01/28/22 Range/Units 06:22 07:26 07:26 WBC 12.5 H (3.8-10.6) k/uL Neutrophils # 10.9 H (1.3-7.7) k/uL Chloride 108 H (98-107) mmol/L BUN 24 H (7-17) mg/dL Glucose 141 H (74-99) mg/dL POC Glucose (mg/dL) 125 H (70-110) mg/dL 01/28/22 Range/Units 11:33 WBC (3.8-10.6) k/uL Neutrophils # (1.3-7.7) k/uL Chloride (98-107) mmol/L BUN (7-17) mg/dL Glucose (74-99) mg/dL POC Glucose (mg/dL) 111 H (70-110) mg/dL Assessment and Plan Assessment: Acute COPD exacerbation Possible community acquired pneumonia of the lingula of the lung Chronic heart failure, status post pacemaker and AICD. She follows up with Dr. Ambriz History of CVA/TIA History of DVT History of gastroesophageal reflux disease Hypertension Hyperlipidemia Memory problem Hypothyroidism History of coronary artery disease status post stents History of migraine History of vertigo Status post pacemaker and AICD Obesity with BMI of 41.9 Plan: Continue with Levaquin procalcitonin Start Solu-Medrol and Symbicort and bronchodilator Pulmonary consult Labs and medication were reviewed.. Continue same treatment. Continue with symptomatic treatment. Resume home medication. Monitor lytes and vitals. DVT and GI prophylaxis. Further recommendations as per clinical course of the patient DVT prophylaxis: Subcutaneous heparin GI Prophylaxis: Ppi Prognosis is guarded
[2022-01-28 19:14] LABS: Glucose,Whole Blood 177 mg/dL (70-110)
[2022-01-28] MEDS: ASPIRIN 81 MG PO SCH (20:12)
[2022-01-28] MEDS: PANTOPRAZOLE 40 MG TABLET PO SCH (20:12)
[2022-01-28] MEDS: PRAVASTATIN SODIUM 40 MG TAB PO SCH (20:13)
[2022-01-28] MEDS ORDERED: LEVOFLOXACIN 750MG-D5W PMX 750 MG in DEXTROSE/WATER 1 150ML.BAG IVPB SCH (21:00)
[2022-01-29] MEDS: methylPREDNISolone SOD SUCCI 125 MG/2 ML VIAL IV SCH ×3 (00:37→12:42)
[2022-01-29 05:51] LABS: Glucose,Whole Blood 132 mg/dL (70-110)
[2022-01-29] MEDS: INSULIN ASPART (NovoLOG) 100 UNIT/ML VIAL SQ SCH ×2 (05:53→12:01)
[2022-01-29 07:32] VITALS: BP 146/87; RESP 17; TEMP 98
[2022-01-29] MEDS: DOXYCYCLINE 100 MG CAP PO SCH (07:35)
[2022-01-29] MEDS: SYMBICORT 160-4.5 MCG INHALER INHALATION SCH (07:59)
[2022-01-29] MEDS: IPRATROPIUM-ALBUTEROL 3 ML NEB INHALATION SCH ×3 (07:59→15:33)
[2022-01-29] MEDS ORDERED: LORATADINE 10 MG TAB PO SCH (09:00)
[2022-01-29] MEDS: METOPROLOL SUCCINATE (ER) 50 MG TAB.ER.24H PO SCH (09:21)
[2022-01-29] MEDS: HEPARIN SODIUM,PORCINE/PF 5,000 UNIT/0.5 ML SYRINGE SQ SCH (09:21)
[2022-01-29] MEDS: SACUBITRIL/VALSARTAN 49 MG-51 MG TABLET PO SCH (09:21)
[2022-01-29] MEDS: MECLIZINE 25 MG TAB PO SCH ×2 (09:21→09:25)
[2022-01-29] MEDS: SPIRONOLACTONE 25 MG TAB PO SCH (09:21)
[2022-01-29] MEDS: FLUTICASONE 50MCG/SPRAY NASAL 16GM EA NOSTRIL SCH (09:22)
[2022-01-29 10:33] LABS: Basophils # (A) 0.01 X 10*3/uL (0.00-0.10); Basophils % (A) 0.1 %; Eosinophils # (A) 0 X 10*3/uL (0.04-0.35); Eosinophils % (A) 0 %; HCT 41.7 % (37.2-46.3); HGB 13.3 g/dL (12.0-15.0); Immature Grans, Automated 1.1 %; Lymphocytes # (A) 1.21 X 10*3/uL (0.90-5.00); Lymphocytes % (A) 9.2 %; MCH 28.9 pg (27.0-32.0); MCHC 31.9 g/dL (32.0-37.0); MCV 90.5 fL (80.0-97.0); Mean Platelet Volume 11.5 fL (9.5-12.2); Monocytes # (A) 0.41 X 10*3/uL (0.20-1.00); Monocytes % (A) 3.1 %; NRBC Per 100 WBC 0.2 /100 WBCS (0.0-0.0); Neutrophils # (A) 11.37 X 10*3/uL (1.80-7.70); Neutrophils % (A) 86.5 %; Platelet Count 284 X 10*3/uL (140-440); RBC 4.61 X 10*6/uL (4.10-5.20); RDW 12.7 % (11.5-14.5); WBC 13.14 X 10*3/uL (4.50-10.00)
[2022-01-29 10:49] LABS: African American GFR (CKD) 65.2 (60.0-200.0); Anion Gap 15.6 mmol/L (10.00-18.00); BUN/Creat Ratio 29.3 Ratio (12.00-20.00); Blood Urea Nitrogen 29.3 mg/dL (9.0-27.0); Calcium 9.7 mg/dL (8.7-10.3); Carbon Dioxide 20.4 mmol/L (20.0-27.5); Non-African American GFR(CKD) 56.2 (60.0-200.0); Potassium 4.3 mmol/L (3.5-5.5)
[2022-01-29] MEDS ORDERED: LEVOFLOXACIN 250 MG TAB PO SCH (11:00)
[2022-01-29 11:43] LABS: Glucose,Whole Blood 97 mg/dL (70-110)
[2022-01-29 15:36] VITALS: PULSE 72
--- NOTE | 2022-01-31 14:11 | P.PN ---
Subjective Progress Note Date: 01/29/22 Principal diagnosis: Left upper lobe pneumonia on IV Levaquin Acute COPD exacerbation Purulent tracheobronchitis Acute on chronic hypoxic respiratory failure Ischemic cardiomyopathy with chronic systolic heart failure status post AICD and pacemaker History of CVA/TIA History of deep venous thrombosis GERD Hypertension hypertensive cardiovascular disease Dyslipidemia Coronary artery disease status post stent placement Morbid obesity with BMI of 42 01/29/2022, patient seen eval examined, history status significantly improved, on room air breathing comfortably denies any chest pain, patient remains antibiotics steroids, would recommend switched to oral patient stable pulmonary standpoint for discharge follow-up in outpatient basis 01/28/2022, ongoing cough congestion is present but symptoms overall improved with less coughing now compared to today off of oxygen now white cell count is continued to decline is not 12.5, chemistries stable, patient remains afebrile, saturations 98%, Patient remains on IV steroids breathing treatments and antibiotics tolerating a well, noted results of COVID-19 and influenza A and B are negative Patient is a 71-year-old female with severe COPD as well as has a component of asthmatic bronchitis she has ongoing symptoms going on for last several week which have been progressive patient was treated with multiple courses of antibiotics and steroids without any significant relief she was seen in the office yesterday very short of breath very coarse breath sounds bilaterally is present with respiratory respiratory wheezing and rhonchi advised to be admitted into the hospital as likelihood of decompensation and developed an respiratory failure was high patient has very congested cough but mostly nonproductive, labs reviewed white cell count is 12.4 increased to 14.4, BUN/creatinine is 21/1.43, chest x-ray shows coarse bilateral interstitial marking some increased density in the lingular left upper lobe seen, patient has been on bronchodilator, Tessalon Perles, broad-spectrum antibiotics with Levaquin along with Solu-Medrol and supplemental oxygen at room air her oxygen saturation have been 88-90% when she is resting not talking improved to low 90s Objective - Vital Signs Vital signs: Vital Signs Temp 98.0 F 01/29/22 07:31 Pulse 76 01/29/22 11:28 Resp 17 01/29/22 07:31 BP 146/87 01/29/22 07:31 Pulse Ox 96 01/29/22 10:48 FiO2 Intake & Output 12/09/1201/29/22 01/29/22 18:59 06:59 18:59 Weight 103.873 kg Other: Voiding Method Toilet Toilet # Voids 5 5 # Bowel Movements 1 - Exam - Constitutional General appearance: average body habitus, cooperative, disheveled, mild distress - EENT Eyes: EOMI, PERRLA ENT: normal oropharynx Ears: bilateral: normal - Neck Neck: normal ROM Carotids: bilateral: upstroke normal Thyroid: bilateral: normal size - Respiratory Respiratory: bilateral: wheezing, prolonged expiration - Cardiovascular Rhythm: regular Heart sounds: normal: S1, S2 - Gastrointestinal General gastrointestinal: soft - Integumentary Integumentary: normal turgor - Neurologic Neurologic: CNII-XII intact - Musculoskeletal Musculoskeletal: gait normal, generalized weakness, strength equal bilaterally - Psychiatric Psychiatric: A&O x's 3, appropriate affect, intact judgment & insight - Labs CBC & Chem 7: 01/29/22 05:46 01/29/22 05:46 Labs: Abnormal Lab Results - Last 24 Hours (Table) 01/28/22 01/28/22 01/29/22 Range/Units 16:37 19:12 05:46 WBC 13.14 H (4.50-10.00) X 10*3/uL MCHC 31.9 L (32.0-37.0) g/dL Absolute Nucleated RBC 0.02 H (0.00-0.00) X 10*3/uL Immature Gran # 0.14 H (0.00-0.04) X 10*3/uL Neutrophils # 11.37 H (1.80-7.70) X 10*3/uL Eosinophils # 0 L (0.04-0.35) X 10*3/uL NRBC/100 WBC Diff 0.2 H (0.0-0.0) /100 WBCS BUN (9.0-27.0) mg/dL Est GFR (CKD-EPI)NonAf (60.0-200.0) BUN/Creatinine Ratio (12.00-20.00) Ratio Glucose (70-110) mg/dL POC Glucose (mg/dL) 128 H 177 H (70-110) mg/dL 01/29/22 01/29/22 Range/Units 05:46 05:50 WBC (4.50-10.00) X 10*3/uL MCHC (32.0-37.0) g/dL Absolute Nucleated RBC (0.00-0.00) X 10*3/uL Immature Gran # (0.00-0.04) X 10*3/uL Neutrophils # (1.80-7.70) X 10*3/uL Eosinophils # (0.04-0.35) X 10*3/uL NRBC/100 WBC Diff (0.0-0.0) /100 WBCS BUN 29.3 H (9.0-27.0) mg/dL Est GFR (CKD-EPI)NonAf 56.2 L (60.0-200.0) BUN/Creatinine Ratio 29.30 H (12.00-20.00) Ratio Glucose 115 H (70-110) mg/dL POC Glucose (mg/dL) 132 H (70-110) mg/dL Assessment and Plan Assessment: Left upper lobe pneumonia on IV Levaquin Acute COPD exacerbation Purulent tracheobronchitis Acute on chronic hypoxic respiratory failure Ischemic cardiomyopathy with chronic systolic heart failure status post AICD and pacemaker History of CVA/TIA History of deep venous thrombosis GERD Hypertension hypertensive cardiovascular disease Dyslipidemia Coronary artery disease status post stent placement Morbid obesity with BMI of 42 Plan: Continue bronchodilator IV steroids, however they can be switched to oral at the time of discharge Breathing treatments Broad-spectrum antibiotics Continue home medication Further plan of care as per clinical response of the patient Increase activity as tolerated Time with Patient: Greater than 30
--- NOTE | 2022-02-06 10:09 | P.DS ---
Providers Date of admission: 01/26/22 20:32 Attending physician: Anaid Webb Consults: 01/26/22 20:31 Consult Physician Routine Consulting Provider: Ye Boyd Consult Reason/Comments: pneumonia Do you want consulting provider notified?: Yes Primary care physician: Kailash Jacobson Hospital Course: Diagnoses: Acute COPD exacerbation Possible community acquired pneumonia of the lingula of the lung Chronic heart failure, status post pacemaker and AICD. She follows up with Dr. 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 Boyd for respiratory symptoms and pneumonia and for IV antibiotic. Patient has been complaining of from shortness of breath with cough and occasional phlegm for about one month but with no chest pain. Patient found to have COPD and pneumonia, evaluated by pulmonary team, patient is treated with antibiotic and IV steroids, patient showed interval improvement and on the day of discharge she was walking the hallway by herself. She denies any chest pain or dyspnea, respiratory symptoms improvement. Denies any new GI or endocrine symptoms. Patient was cleared for discharge by pulmonary service. Problems and management plan were discussed with the patient and he verbalized understanding and acceptance Patient was found stable and can be discharged home in guarded prognosis however he needs follow-up as an outpatient. Patient was instructed to follow up with PCP Dr. Jacobson within one week and patient agrees She was instructed to follow up with Dr. Boyd editor greeting card in 1 week and she agrees to call and make appointment Physical exam Gen: patient is a AAOx3, no distress CVS: S1-S2, RRR, no murmur Lungs: B/L CTA, no wheezing Abdomen: soft, no distention, no tenderness, positive bowel sounds Extremity: no leg edema or induration Time spent more than 35 minutes Patient Condition at Discharge: Serious Plan - Discharge Summary Discharge Rx Participant: Yes New Discharge Prescriptions: New Levofloxacin [Levaquin] 250 mg PO Q24H 3 Days #3 tab Acetaminophen Tab [Tylenol] 650 mg PO Q6HR PRN tab PRN Reason: Fever And/ Or Pain predniSONE 10 mg PO DIRECTED #30 tab guaiFENesin-DM 100-10MG/5ML [Robitussin DM] 10 ml PO Q6HR 3 Days #100 ml Budesonide-Formot 160-4.5 Mcg [Symbicort 160-4.5 Mcg Inhaler] 2 puff INHALATION RT-BID #1 each Continue Pantoprazole Sodium [Protonix] 40 mg PO HS Metoprolol Succinate [Toprol XL] 50 mg PO DAILY Nitroglycerin Sl Tabs [Nitrostat] 0.4 mg SUBLINGUAL Q5M PRN #25 tab PRN Reason: Chest Pain Fluticasone Nasal [place] [Flonase Nasal [place]] 1 spr EA NOSTRIL DAILY Pravastatin Sodium [Pravachol] 40 mg PO HS Cetirizine HCl [Zyrtec] 10 mg PO DAILY Spironolactone [Aldactone] 25 mg PO DAILY Sacubitril/Valsartan [Entresto 49 mg-51 mg Tablet] 1 tab PO BID Aspirin EC [Ecotrin Low Dose] 81 mg PO HS Meclizine [Antivert] 25 mg PO DAILY Ondansetron [Zofran] 4 mg PO DAILY PRN PRN Reason: Nausea Furosemide [Lasix] 40 mg PO DIRECTED PRN PRN Reason: Edema Albuterol Sulfate [Albuterol Sulfate Hfa] 2 puff PO RT-Q6H PRN #1 each PRN Reason: Shortness Of Breath Discontinued predniSONE See Taper PO DIRECTED Benzonatate [Tessalon Perles] 100 mg PO TID PRN PRN Reason: Cough Discharge Medication List Metoprolol Succinate [Toprol XL] 50 mg PO DAILY 08/22/13 [History] Pantoprazole Sodium [Protonix] 40 mg PO HS 08/22/13 [History] Nitroglycerin Sl Tabs [Nitrostat] 0.4 mg SUBLINGUAL Q5M PRN #25 tab 09/29/14 [Rx] Fluticasone Nasal [place] [Flonase Nasal [place]] 1 spr EA NOSTRIL DAILY 09/08/16 [History] Cetirizine HCl [Zyrtec] 10 mg PO DAILY 09/23/18 [History] Pravastatin Sodium [Pravachol] 40 mg PO HS 09/23/18 [History] Sacubitril/Valsartan [Entresto 49 mg-51 mg Tablet] 1 tab PO BID 09/23/18 [History] Spironolactone [Aldactone] 25 mg PO DAILY 09/23/18 [History] Aspirin EC [Ecotrin Low Dose] 81 mg PO HS 06/19/20 [History] Meclizine [Antivert] 25 mg PO DAILY 06/19/20 [History] Ondansetron [Zofran] 4 mg PO DAILY PRN 05/05/21 [History] Furosemide [Lasix] 40 mg PO DIRECTED PRN 01/26/22 [History] Acetaminophen Tab [Tylenol] 650 mg PO Q6HR PRN tab 01/29/22 [Rx] Albuterol Sulfate [Albuterol Sulfate Hfa] 2 puff PO RT-Q6H PRN #1 each 01/29/22 [Rx] Budesonide-Formot 160-4.5 Mcg [Symbicort 160-4.5 Mcg Inhaler] 2 puff INHALATION RT-BID #1 each 01/29/22 [Rx] Levofloxacin [Levaquin] 250 mg PO Q24H 3 Days #3 tab 01/29/22 [Rx] guaiFENesin-DM 100-10MG/5ML [Robitussin DM] 10 ml PO Q6HR 3 Days #100 ml 01/29/22 [Rx] predniSONE 10 mg PO DIRECTED #30 tab 01/29/22 [Rx] Follow up Appointment(s)/Referral(s): Kailash Jacobson III, MD [Primary Care Provider] - 1-2 days [facility] [NON-STAFF] - As Needed (Please contact [facility] if you have any questions regarding your new wheelchair. ) Ye Boyd MD [STAFF PHYSICIAN] - 1 Week Patient Instructions/Handouts: Pneumonia (DC) Activity/Diet/Wound Care/Special Instructions: heart healthy diet activity is restricted till you see your doctor Discharge Disposition: HOME SELF-CARE
== END 2022-01-29 16:18 | disposition home or self-care (01) | DRG 193 ==
LOC: EC 16:56 → 4SSUR 20:32
PROVIDERS: ADMIT Hospitalist; ATTEND Hospitalist
DX: J18.9 Pneumonia, unspecified organism (principal); J96.21 Acute and chronic respiratory failure with hypoxia; I50.22 Chronic systolic (congestive) heart failure; J44.0 Chronic obstructive pulmonary disease with (acute) lower respiratory infection; J44.1 Chronic obstructive pulmonary disease with (acute) exacerbation; J45.31 Mild persistent asthma with (acute) exacerbation; Z68.41 Body mass index [BMI] 40.0-44.9, adult; I11.0 Hypertensive heart disease with heart failure; E66.01 Morbid (severe) obesity due to excess calories; I73.9 Peripheral vascular disease, unspecified; Z20.822 Contact with and (suspected) exposure to COVID-19; Z28.310 Unvaccinated for COVID-19; I25.10 Atherosclerotic heart disease of native coronary artery without angina pectoris; I25.5 Ischemic cardiomyopathy; K21.9 Gastro-esophageal reflux disease without esophagitis; E03.9 Hypothyroidism, unspecified; E78.5 Hyperlipidemia, unspecified; K58.9 Irritable bowel syndrome, unspecified; K76.0 Fatty (change of) liver, not elsewhere classified; G43.909 Migraine, unspecified, not intractable, without status migrainosus; G89.29 Other chronic pain; K44.9 Diaphragmatic hernia without obstruction or gangrene; M19.90 Unspecified osteoarthritis, unspecified site; Z79.82 Long term (current) use of aspirin; Z79.899 Other long term (current) drug therapy; Z87.01 Personal history of pneumonia (recurrent); Z95.5 Presence of coronary angioplasty implant and graft; Z86.718 Personal history of other venous thrombosis and embolism; Z95.810 Presence of automatic (implantable) cardiac defibrillator; Z87.891 Personal history of nicotine dependence; Z87.442 Personal history of urinary calculi; Z85.42 Personal history of malignant neoplasm of other parts of uterus; Z86.73 Personal history of transient ischemic attack (TIA), and cerebral infarction without residual deficits; Z85.3 Personal history of malignant neoplasm of breast; Z71.3 Dietary counseling and surveillance; Z88.1 Allergy status to other antibiotic agents; Z88.5 Allergy status to narcotic agent; Z88.0 Allergy status to penicillin; Z88.8 Allergy status to other drugs, medicaments and biological substances
CPT/HCPCS: 36415; 71046; 80048; 80053; 83036; 83735; 83880; 84145; 84484; 85025; 85610; 85730; 87324; 87502; 87635; 93005; 94640; 94644; 96365; 96375; 99291

== ENCOUNTER → 2022-02-19 | Outpatient (CLI) | payer MEDICARE, BC ==
--- NOTE | 2022-02-20 09:45 | XR ---
EXAMINATION TYPE: XR chest 2V DATE OF EXAM: 02/19/2022 COMPARISON: 01/26/2022 and 05/06/2021 CT HISTORY: 71-year-old female J4 4.1, shortness of breath, multiple episodes of pneumonia this year. TECHNIQUE: Frontal and lateral views FINDINGS: Left anterior chest wall AICD generator with right ventricular lead. Heart normal size. Ongoing opaci ty along the left heart margin and left base. Mild hyperinflation. Remainder of the lungs and pleural spaces appear clear. IMPRESSION: 1. COPD with mild emphysema. 2. Mild density at the periphery of the left lower lung favored to represent atelectasis rather than infiltrate. Correlate with patient's symptoms. 3. Additional opacity along the left heart margin corresponds to a prominent epicardial fat pad when correlating with prior CT.
== END | disposition home or self-care (01) ==
LOC: RADXRMAIN 10:44
PROVIDERS: ATTEND Internal Medicine Sleep Medicine
DX: J43.9 Emphysema, unspecified (principal); R91.8 Other nonspecific abnormal finding of lung field
CPT/HCPCS: 71046

== ENCOUNTER → 2022-03-16 | Outpatient (CLI) | payer MEDICARE, BC ==
[2022-03-16 12:11] LABS: Basophils # (A) 0.1 k/uL (0-0.2); Basophils % (A) 1 %; Eosinophils # (A) 0.1 k/uL (0-0.7); Eosinophils % (A) 0 %; HCT 42.6 % (34.0-46.0); HGB 14.4 gm/dL (11.4-16.0); Lymphocytes # (A) 4.8 k/uL (1.0-4.8); Lymphocytes % (A) 32 %; MCH 29.4 pg (25.0-35.0); MCHC 33.9 g/dL (31.0-37.0); MCV 86.6 fL (80.0-100.0); Mean Platelet Volume 9.2; Monocytes # (A) 0.9 k/uL (0-1.0); Monocytes % (A) 6 %; Neutrophils % (A) 60 %; Platelet Count 251 k/uL (150-450); RBC 4.92 m/uL (3.80-5.40); RDW 12.6 % (11.5-15.5); WBC 15.2 k/uL (3.8-10.6)
[2022-03-16 12:38] LABS: ALT 21 U/L (4-34); AST 23 U/L (14-36); African American GFR (CKD) 61 (>60 ml/min/1.73 sqM); Albumin 4.6 g/dL (3.5-5.0); Albumin/Globulin Ratio 1.5; Alkaline Phosphatase 40 U/L (38-126); Anion Gap 10 mmol/L; Blood Urea Nitrogen 28 mg/dL (7-17); Calcium 9.6 mg/dL (8.4-10.2); Carbon Dioxide 23 mmol/L (22-30); Chloride 106 mmol/L (98-107); Glucose 82 mg/dL (74-99); Magnesium 1.6 mg/dL (1.6-2.3); Non-African American GFR(CKD) 53 (>60 ml/min/1.73 sqM); Potassium 3.9 mmol/L (3.5-5.1); Sodium 139 mmol/L (137-145); Total Bilirubin 0.7 mg/dL (0.2-1.3); Total Protein 7.6 g/dL (6.3-8.2)
--- NOTE | 2022-03-16 13:26 | CT ---
EXAMINATION TYPE: CT brain w con CT DLP: 1121 mGycm, Automated exposure control for dose reduction was used. DATE OF EXAM: 03/16/2022 1:01 PM COMPARISON: CT IAC 11/27/2019, CT brain 04/22/2019. CLINICAL INDICATION:Female, 71 years old with history of R42 DIZZY R11.0 NAUSEA R25.2 CRAMP/SPASM; PH H, DIZZY TECHNIQUE: Axial CT images of the brain were obtained followed by contrast enhanced axial images of t he brain with 70 cc of ISO-view 370 IV contrast. One or more CT dose reduction strategies were utiliz ed during this examination. FINDINGS: Extra-axial spaces: No abnormal extra-axial fluid collections. Ventricular system: Within normal limits Cerebral parenchyma: No acute intraparenchymal hemorrhage or mass effect. The villela-white junction is well differentiated. Confluent hypoattenuating areas are seen within the periventricular subcortical white matter, unchanged. No abnormal enhancement is seen after the administration of intravenous con trast. Cerebellum: Unremarkable. Mass effect: No evidence of midline shift. Intracranial vasculature: Atherosclerotic calcifications of the intracranial vessels. Soft tissues: Normal. Calvarium/osseous structures: No depressed skull fracture. Paranasal sinuses and mastoid air cells: Clear. Visualized orbits: Orbital contents are intact. IMPRESSION: 1. No acute intracranial process or abnormal contrast enhancement. 2. Nonspecific white matter changes, likely secondary to chronic small vessel ischemic disease. Demye linating disease is also in the differential.
== END | disposition home or self-care (01) ==
LOC: RADCTMAIN 11:36
PROVIDERS: ATTEND Family Medicine
DX: G37.9 Demyelinating disease of central nervous system, unspecified (principal); G93.89 Other specified disorders of brain; I73.9 Peripheral vascular disease, unspecified; I50.42 Chronic combined systolic (congestive) and diastolic (congestive) heart failure; J44.9 Chronic obstructive pulmonary disease, unspecified; D72.829 Elevated white blood cell count, unspecified; N28.89 Other specified disorders of kidney and ureter; I42.9 Cardiomyopathy, unspecified; R42 Dizziness and giddiness; R11.0 Nausea; R25.2 Cramp and spasm; R26.81 Unsteadiness on feet
CPT/HCPCS: 80053; 83735; 85025; 82306; 70460; 36415; Q9967

== ENCOUNTER → 2022-05-06 | Outpatient (CLI) | payer MEDICARE, BC ==
--- NOTE | 2022-05-06 12:50 | XR ---
EXAMINATION TYPE: XR chest 2V DATE OF EXAM: 05/06/2022 COMPARISON: 02/19/2022 TECHNIQUE: PA and lateral views submitted. HISTORY: Difficulty breathing FINDINGS: The lungs are clear and there is no pneumothorax, pleural effusion, or focal pneumonia. Heart size normal and no overt failure. Left-sided cardiac device seen. Atherosclerotic change aorta. Biapical p leural thickening. Mild degenerative disc disease. Surgical clips in the abdomen. No overt failure. E levated right hemidiaphragm. IMPRESSION: 1. No acute process.
== END | disposition home or self-care (01) ==
LOC: RADXRMAIN 12:25
PROVIDERS: ATTEND Internal Medicine Sleep Medicine
DX: J18.9 Pneumonia, unspecified organism (principal)
CPT/HCPCS: 71046

== ENCOUNTER → 2022-07-15 | Outpatient (CLI) | payer MEDICARE, BC ==
--- NOTE | 2022-07-16 12:07 | CT ---
EXAMINATION TYPE: CT abdomen pelvis w con DATE OF EXAM: 07/15/2022 HISTORY: nausea and abdominal pain. CT DLP: 1646.30mGycm Automated Exposure Control for Dose Reduction was Utilized. CONTRAST: CT scan of the abdomen and pelvis is performed with oral and with IV Contrast, patient injected with 75 mL of Isovue 300. COMPARISON: Most recent CT May 20, 2020 FINDINGS: LUNG BASES: Bilateral breast implants are partially imaged. Right-sided pacemaker leads are redemonst rated. LIVER/GB: Cholecystectomy clips are again seen. PANCREAS: No significant abnormality is seen. SPLEEN: No significant abnormality is seen. ADRENALS: No significant abnormality is seen. KIDNEYS: Symmetric cortical medullary uptake and excretion without hydronephrosis seen bilaterally. O ccasional tiny thin-walled cysts scattered throughout the left kidney is redemonstrated. BOWEL: Oral contrast reaches level of the rectum. No suspicious small or large bowel dilatation. Norm al contrast-filled appendix. UTERUS/ADNEXA: Uterus is surgically absent. LYMPH NODES: No greater than 1cm abdominal or pelvic lymph nodes are appreciated. OSSEOUS STRUCTURES: Mild disc space narrowing with vacuum disc phenomenon at L2-L3 level. Multilevel facet arthropathy in the lower lumbar spine. OTHER: Moderate to severe calcified plaque of the infrarenal abdominal aorta. There are metallic sten ts in the common iliac arteries bilaterally redemonstrated. IMPRESSION: No bowel obstruction. No significant new or acute finding is seen to account for patient' s clinical symptoms.
== END | disposition home or self-care (01) ==
LOC: RADCTMAIN 13:46
PROVIDERS: ATTEND Family Medicine
DX: K21.9 Gastro-esophageal reflux disease without esophagitis (principal); R14.0 Abdominal distension (gaseous); R11.0 Nausea
CPT/HCPCS: 82565; 84520; 74177; 36415; Q9967

== ENCOUNTER → 2022-12-03 | Outpatient (CLI) | payer MEDICARE, BC ==
--- NOTE | 2022-12-03 13:53 | US ---
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 TECHNIQUE: Multiple sonographic images of the right parotid gland. Images of the contralateral side for comparison purposes. FINDINGS: Solar Process Engineer notes: Scanned right parotid and left for comparison. No abnormalities visualized. IMPRESSION: No specific abnormality seen. Scanning targeted over the right parotid gland. Comparison images of the contralateral side were also obtained.
== END | disposition home or self-care (01) ==
LOC: RADUSWWP 12:16
PROVIDERS: ATTEND Family Medicine
DX: K11.9 Disease of salivary gland, unspecified (principal)
CPT/HCPCS: 76536

== ENCOUNTER → 2023-04-06 | Outpatient (CLI) | payer MEDICARE, BC ==
--- NOTE | 2023-04-06 18:03 | CT ---
EXAMINATION TYPE: CT brain wo con DATE OF EXAM: 04/06/2023 COMPARISON: 03/16/2022 INDICATION: LACK OF COORDINATION DLP: 957.1 mGycm, Automated exposure control for dose reduction was used. CONTRAST: None CT of the brain is performed utilizing 3 mm thick sections through the posterior fossa and 3 mm thick sections through the remaining calvarium. Study is performed within 24 hours of arrival to the hosp ital. No abnormal hyperdensity is present to suggest an acute intracranial hemorrhage. No mass lesion is evident. Mild physiologic basal ganglia calcification is present. No acute infarcts are evident. Periventricular white matter hypodensity is present, likely on the bas is of chronic white matter ischemic changes. Ventricles and sulci are appropriate for the patient age. Paranasal sinuses and mastoid air cells within the [id number] are clear. IMPRESSION: 1. Mild chronic appearing periventricular white matter ischemic changes.
--- NOTE | 2023-04-07 11:46 | CT ---
EXAMINATION TYPE: CT lumbar spine wo con DATE OF EXAM: 04/06/2023 COMPARISON: HISTORY: BACK PAIN CT DLP: 1495.9 mGycm CONTRAST: CT scan of the lumbar is performed , patient injected with mL of . TECHNIQUE: CT of the lumbar spine is performed on a spiral scan at 3 mm thick sections. Reconstructed images are performed in the coronal and sagittal planes. FINDINGS: Vertebral body heights are preserved. There is narrowing disc space at L2-3. Remaining disc heights are preserved. No spondylolisthesis is evident. There may be some mild scoliosis present. T12-L1: No focal disc herniation or significant disc bulge is evident. No spinal canal stenosis or neural foraminal stenosis is present. L1-L2: No focal disc herniation or significant disc bulge is evident. No spinal canal stenosis or n eural foraminal stenosis is present L2-L3: Back and disc phenomenon is present. No focal disc herniation. Minimal disc bulges and thecal sac contact.. Mild narrowing of disc height is present. No spinal canal stenosis or neural foraminal stenosis. L3-L4: No focal disc herniation or significant disc bulge is evident. No spinal canal stenosis is p resent. Moderate foraminal present. L4-L5: Broad-based disc bulge is [id number]-zo-[id number] anterior thecal sac compression. Facet hypertrophy and ligamentum flavum laxity contributing to spinal canal stenosis. Pedicles appear congenitally shor t L5-S1: Some disc bulging is present with antegrade sac contact. No AP spinal canal stenosis present. Facet hypertrophy is present. No spinal canal stenosis or neural foraminal stenosis is present. IMPRESSION: 1. Disc bulging and congenitally short pedicles and facet hypertrophy with ligamentum flavum laxity c ontributing to spinal canal stenosis at the L4-5 level. 2. Mild disc bulging L2-3 and L5-S1 without spinal canal stenosis. 3. Degenerative disc changes L2-3 with vacuum disc phenomenon. 4. Findings appears similar to comparison.
== END | disposition home or self-care (01) ==
LOC: RADCTMAIN 12:36
PROVIDERS: ATTEND Family Medicine
DX: R27.8 Other lack of coordination (principal); M54.16 Radiculopathy, lumbar region; I67.82 Cerebral ischemia
CPT/HCPCS: 70450; 72131

== ENCOUNTER → 2023-04-14 | Outpatient (CLI) | payer MEDICARE, BC ==
--- NOTE | 2023-04-14 14:01 | XR ---
EXAMINATION TYPE: XR chest 2V DATE OF EXAM: 04/14/2023 COMPARISON: 05/06/2022, CT abdomen and pelvis 07/15/2022 TECHNIQUE: PA and lateral views submitted. HISTORY: Chest pain. FINDINGS: The lungs are clear and there is no pneumothorax, pleural effusion, or focal pneumonia. Heart size normal and no overt failure. Osseous structures intact. Cardiac device stable. Diffuse osteopenia. At herosclerotic change aorta. Prominent pericardial fat pad along the right costophrenic angle. IMPRESSION: 1. No acute process.
== END | disposition home or self-care (01) ==
LOC: RADXRMAIN 13:38
PROVIDERS: ATTEND Internal Medicine Sleep Medicine
DX: R07.9 Chest pain, unspecified (principal)
CPT/HCPCS: 71046

== ENCOUNTER → 2023-05-03 | Outpatient (CLI) | payer MEDICARE, BC ==
[2023-05-03 18:46] LABS: HCT 41.9 % (37.2-46.3); HGB 13.7 g/dL (12.0-15.0); MCH 28.6 pg (27.0-32.0); MCHC 32.7 g/dL (32.0-37.0); MCV 87.5 FL (80.0-97.0); Mean Platelet Volume 12.4 FL (9.5-12.2); NRBC Per 100 WBC 0 X 10*3/uL (0.00-0.01); Platelet Count 211 X 10*3/uL (140-440); RBC 4.79 X 10*6/uL (4.10-5.20); RDW 12.1 % (11.5-14.5); WBC 8.22 X 10*3/uL (4.50-10.00)
[2023-05-03 19:35] LABS: Appearance,Urine Clear (Clear); Bilirubin,Urine Negative (Negative); Blood,Urine Negative (Negative); Color,Urine Yellow (Yellow); Ketones,Urine Negative (Negative); Nitrite,Urine Negative (Negative); Urobilinogen,Urine 0.2 E.U./DL
[2023-05-03 19:39] LABS: ALT 30 U/L (8-44); AST 20 U/L (13-35); Albumin 4.5 g/dL (3.8-4.9); Albumin/Globulin Ratio 1.67 Ratio (1.60-3.17); Alkaline Phosphatase 45 U/L (41-126); BUN/Creat Ratio 21.55 Ratio (12.00-20.00); Blood Urea Nitrogen 23.7 mg/dL (9.0-27.0); Calcium 9.6 mg/dL (8.7-10.3); Carbon Dioxide 23.5 mmol/L (21.6-31.8); Chloride 104 mmol/L (96-109); Chol/HDL Ratio 3.49 Ratio; Globulin 2.7 g/dL (1.6-3.3); Glucose 101 mg/dL (70-110); LDL Cholesterol,Calculated 67.4 mg/dL (0.0-131.0); Potassium 4.5 mmol/L (3.5-5.5); Sodium 140 mmol/L (135-145); T4, Free (Free Thyroxine) 1.08 ng/dL (0.80-1.80); Total Bilirubin 0.5 mg/dL (0.3-1.2); Total Protein 7.2 g/dL (6.2-8.2)
== END | disposition home or self-care (01) ==
LOC: LABWHC1 09:52
PROVIDERS: ATTEND Family Medicine
DX: I10 Essential (primary) hypertension (principal); E78.5 Hyperlipidemia, unspecified; E04.2 Nontoxic multinodular goiter; E66.9 Obesity, unspecified
CPT/HCPCS: 36415; 80053; 80061; 81003; 82306; 83036; 84439; 84443; 85027

== ENCOUNTER → 2023-05-11 | Outpatient (CLI) | payer MEDICARE, BC ==
[2023-05-11 17:31] LABS: BUN/Creat Ratio 20.22 Ratio (12.00-20.00); Blood Urea Nitrogen 18.2 mg/dL (9.0-27.0); Calcium 9.7 mg/dL (8.7-10.3); Carbon Dioxide 24.6 mmol/L (21.6-31.8); Chloride 104 mmol/L (96-109); Glucose 101 mg/dL (70-110); Potassium 4.4 mmol/L (3.5-5.5); Sodium 140 mmol/L (135-145)
== END | disposition home or self-care (01) ==
LOC: LABWHC1 09:00
PROVIDERS: ATTEND Family Medicine
DX: R94.4 Abnormal results of kidney function studies (principal)
CPT/HCPCS: 36415; 80048

== ENCOUNTER → 2023-05-31 | Outpatient (CLI) | payer MEDICARE, BC ==
--- NOTE | 2023-05-31 13:06 | CT ---
EXAMINATION TYPE: CT cervical spine wo con DATE OF EXAM: 05/31/2023 COMPARISON: 06/19/2020 HISTORY: pain, vertigo CT DLP: 767.7 mGycm CONTRAST: None CT of the cervical spine is performed in the axial plane at 2 mm thick sections. Reconstructed image s in the coronal, and sagittal plane are reviewed on the computer. No acute fractures are evident. There is slight kyphosis of the cervical spine There is loss of disc height at C4-5 C5-6 C6-7. Anterior vertebral body spurring is present C4-5. Mansoor e mild endplate spurring may be present posteriorly at C5-6. Vertebral body heights are preserved. No spinal canal stenosis is evident Mild right foraminal narrowing is present C2-3, C3-4. Bilateral foraminal narrowing present at C4-5, C5-6, C6-7. IMPRESSION: 1. Chronic degenerative disc changes with foraminal narrowing, greater on the right, discussed abov asa
== END | disposition home or self-care (01) ==
LOC: RADCTMAIN 11:54
PROVIDERS: ATTEND Psychiatry & Neurology Neurology
DX: M99.71 Connective tissue and disc stenosis of intervertebral foramina of cervical region (principal); M47.12 Other spondylosis with myelopathy, cervical region; M48.02 Spinal stenosis, cervical region; R42 Dizziness and giddiness; R26.89 Other abnormalities of gait and mobility
CPT/HCPCS: 72125

== ENCOUNTER → 2023-05-31 | Outpatient (CLI) | payer MEDICARE, BC ==
--- NOTE | 2023-05-31 19:07 | US ---
EXAMINATION TYPE: US thyroid st tissue head/neck DATE OF EXAM: 05/31/2023 COMPARISON: 06/29/2022 CLINICAL INDICATION: Female, 72 years old with history of E04.2 NONTOXIC MULTINODULAR GOITER; 06/29/22 GLAND SIZE: Right Lobe: 4.8 x 2.0 x 1.4 cm Overall Parenchyma: heterogeneous Left Lobe: 4.6 x 2.1 x 2.0 cm Overall Parenchyma: heterogeneous Isthmus Thickness: 0.8 cm NODULES RIGHT: # of nodules measured on right: 1 1. 2.5 X 1.7 x 1.8 cm, lower mid, Prior size: 2.4 x 1.7 x 1.9 cm TIRADS Score: 4 TIRADS Category 4: Composition: Solid or almost completely solid (2 points). Echogenicity: Hypoechoic (2 points). Shape: Wider than tall (0 points). Margin: Smooth (0 points). Echogenic foci: None or large comet-tail artifacts (0 points) Recommendation: If >1.5cm: FNA; If >1cm: Follow up at 1,2, 3,5 years LEFT: # of nodules measured on left: 2 1. 0.5 X 0.5 x 0.5 cm, upper lateral, Prior size: 0.6 x 0.5 x 0.5 cm TIRADS Score: 4 TIRADS Category 4: Composition: Solid or almost completely solid (2 points). Echogenicity: Hypoechoic (2 points). Shape: Wider than tall (0 points). Margin: Smooth (0 points). Echogenic foci: None or large comet-tail artifacts (0 points) Recommendation: If >1.5cm: FNA; If >1cm: Follow up at 1,2, 3,5 years 2. 2.4 X 1.7 x 1.9 cm, lower mid, Prior size: 2.4 x 1.7 x 1.9 cm TIRADS Score: 4 TIRADS Category 4: Composition: Solid or almost completely solid (2 points). Echogenicity: Hypoechoic (2 points). Shape: Wider than tall (0 points). Margin: Smooth (0 points). Echogenic foci: None or large comet-tail artifacts (0 points) Recommendation: If >1.5cm: FNA; If >1cm: Follow up at 1,2, 3,5 years ISTHMUS: # of nodules measured in the isthmus: 0 Bilateral neck scanned, no evidence of lymphadenopathy. IMPRESSION: Multiple thyroid nodules that meet criteria for fine-needle aspiration if not moderately performed.
== END | disposition home or self-care (01) ==
LOC: RADUSWWP 11:15
PROVIDERS: ATTEND Family Medicine
DX: E04.2 Nontoxic multinodular goiter (principal)
CPT/HCPCS: 76536

== ENCOUNTER → 2023-06-22 | Outpatient (CLI) | payer MEDICARE, BC ==
[2023-06-22 15:27] LABS: Protein, Total 6.8 g/dL (6.2-8.2)
[2023-06-22 15:49] LABS: C Reactive Protein <0.30 mg/dL (0.00-0.80); Creatine Kinase 37 U/L (26-186)
[2023-06-23 18:11] LABS: Albumin 3.81 g/dL (3.80-4.90); Gamma Globulin 0.96 g/dL (0.70-1.50)
== END | disposition home or self-care (01) ==
LOC: LABWHC1 10:15
PROVIDERS: ATTEND Psychiatry & Neurology Neurology
DX: G62.9 Polyneuropathy, unspecified (principal)
CPT/HCPCS: 36415; 82550; 82607; 82746; 83036; 84165; 85652; 86140

== ENCOUNTER 2023-07-09 20:38 | Emergency (ER) | payer MEDICARE, BC ==
--- NOTE | 2023-07-09 20:43 | ED ---
Abdominal Pain HPI - General Source: patient Mode of arrival: ambulatory Limitations: no limitations <Emory Peck - Last Filed: 07/09/23 20:42> <Johnie Braxton - Last Filed: 07/09/23 23:48> - General Stated Complaint: Vomitting, abd pain Time Seen by Provider: 07/09/23 20:42 - History of Present Illness Initial Comments: 72-year-old female presenting with chief complaint of abdominal pain nausea and vomiting. Pain is located on the left side. Feels similar to previous bowel obstructions. (Emory Peck) Dictation was produced using [employer] dictation software. please excuse any grammatical, word or spelling errors. Chief Complaint: 72-year-old female with episode of left-sided abdominal pain History of Present Illness: Patient 72-year-old female she was watching TV with her and all of a sudden she had significant severe abdominal pain to her left abdomen states it lasted for 1 to 2 hours however it resolved entirely by the time she left to the emergency department. Patient has history of small bowel obstruction. She has had bowel resection in the past. Patient [place] any fever. She did not have any nausea or vomiting. Patient has no complaints at the bedside. The ROS documented in this emergency department record has been reviewed and confirmed by me. Those systems with pertinent positive or negative responses have been documented in the HPI. All other systems are other negative and/or noncontributory. (Johnie Braxton) - Related Data Home Medications Medication Instructions Recorded Confirmed Metoprolol Succinate [Toprol XL] 50 mg PO DAILY 08/22/13 01/26/22 Pantoprazole Sodium [Protonix] 40 mg PO HS 08/22/13 01/26/22 Fluticasone Nasal [place] [Flonase 1 spr EA NOSTRIL DAILY 09/08/16 01/26/22 Nasal [place]] Cetirizine HCl [Zyrtec] 10 mg PO DAILY 09/23/18 01/26/22 Pravastatin Sodium [Pravachol] 40 mg PO HS 09/23/18 01/26/22 Sacubitril/Valsartan [Entresto 49 1 tab PO BID 09/23/18 01/26/22 mg-51 mg Tablet] Spironolactone [Aldactone] 25 mg PO DAILY 09/23/18 01/26/22 Aspirin EC [Ecotrin Low Dose] 81 mg PO HS 06/19/20 01/26/22 Meclizine [Antivert] 25 mg PO DAILY 06/19/20 01/26/22 Ondansetron [Zofran] 4 mg PO DAILY PRN 05/05/21 01/26/22 Furosemide [Lasix] 40 mg PO DIRECTED PRN 01/26/22 01/26/22 Previous Rx's Medication Instructions Recorded Nitroglycerin Sl Tabs [Nitrostat] 0.4 mg SUBLINGUAL Q5M PRN #25 tab 09/29/14 Acetaminophen Tab [Tylenol] 650 mg PO Q6HR PRN tab 01/29/22 Albuterol Sulfate [Albuterol 2 puff PO RT-Q6H PRN #1 each 01/29/22 Sulfate Hfa] Budesonide-Formot 160-4.5 Mcg 2 puff INHALATION RT-BID #1 each 01/29/22 [Symbicort 160-4.5 Mcg Inhaler] Levofloxacin [Levaquin] 250 mg PO Q24H 3 Days #3 tab 01/29/22 guaiFENesin-DM 100-10MG/5ML 10 ml PO Q6HR 3 Days #100 ml 01/29/22 [Robitussin DM] predniSONE 10 mg PO DIRECTED #30 tab 01/29/22 Allergies Allergy/AdvReac Type Severity Reaction Status Date / Time amoxicillin [From Augmentin] Allergy SEE Verified 07/09/23 21:18 COMMENTS azithromycin [From Zithromax] Allergy Rash/Hives Verified 07/09/23 21:18 cephalexin monohydrate Allergy Rash/Hives Verified 07/09/23 21:18 [From Keflex] clavulanic acid Allergy SEE Verified 07/09/23 21:18 [From Augmentin] COMMENTS dexamethasone [From Decadron] Allergy Rash/Hives Verified 07/09/23 21:18 dexamethasone sod phosphate Allergy Rash/Hives Verified 07/09/23 21:18 [From Decadron] codeine AdvReac Nausea & Verified 07/09/23 21:18 Vomiting doxycycline AdvReac Nausea & Verified 07/09/23 21:18 Vomiting morphine AdvReac Nausea & Verified 07/09/23 21:18 Vomiting Review of Systems ROS Other: All systems not noted in ROS Statement are negative. <Emory Peck - Last Filed: 07/09/23 20:42> ROS Other: All systems not noted in ROS Statement are negative. <Johnie Braxton - Last Filed: 07/09/23 23:48> ROS Statement: Those systems with pertinent positive or pertinent negative responses have been documented in the HPI. Past Medical History Past Medical History: Asthma, Cancer, Chest Pain / Angina, Heart Failure, COPD, CVA/TIA, Deep Vein Thrombosis (DVT), Eye Disorder, GERD/Reflux, Hyperlipidemia, Hypertension, Liver Disease, Memory Impairment, Osteoarthritis (OA), Pneumonia, Renal Disease, Thyroid Disorder, Vascular Disorder Additional Past Medical History / Comment(s): fullness after eating a few bites and distention,states lasix afftects my kidneys,09/28/14 Pt admitted to floor s/p PTCA with 3 stents to RCA. Other HX:MIGRAINES, VERTIGO,TIA (MULTIPLE- DATES UKN), NAKITA CATARACTS,HEART MURMUR, PVD, HIATAL HERNIA,. IBS, FATTY LIVER, PANCREATITITS, COLON POLYPS, KIDNEY CYSTS, URINARY CALCULI, CHRONIC PAIN,ANEMIA, DVT LEFT MESENTERIC VEIN 2007, [id number] received AND UTERINE CANCER- 1979 History of Any Multi-Drug Resistant Organisms: None Reported Past Surgical History: AICD, Appendectomy, Bladder Surgery, Bowel Resection, Cholecystectomy, Heart Catheterization, Heart Catheterization With Stent, Hysterectomy, Pacemaker, Tonsillectomy Additional Past Surgical History / Comment(s): 09/28/14 PTCA with stents (3) to RCA. COLONOSCOPY. BOWEL RESECTION, MULT. NAKITA MASTECTOMY with implants. AORTIC STENT, FEMORAL ILIAC ARTERY STENTS X 10. Rt Carotid surgery X 2 Past Anesthesia/Blood Transfusion Reactions: Motion Sickness, Postoperative Nausea & Vomiting (PONV) Additional Past Anesthesia/Blood Transfusion Reaction / Comment(s): SEVERE PONV. PT HAS RECEIVED BLOOD IN 1977 WITHOUT REACTION. Date of Last Stent Placement:: UNKNOWN Type of Cardiac Device: Permanent Pacemaker, AICD Device Placement Date:: Adapt Past Psychological History: Anxiety Additional Psychological History / Comment(s): Pt resides with her spouse. She is independent. She uses no assistive device or home care. She drives. Smoking Status: Former smoker Past Alcohol Use History: None Reported Additional Past Alcohol Use History / Comment(s): PT STATES SHE QUIT SMOKING IN 2003, smoked approx 20 years,1ppd Past Drug Use History: None Reported - Past Family History Sister(s) Family Medical History: Dementia Additional Family Medical History / Comment(s): Brain bleeds Mother Family Medical History: Diabetes Mellitus Additional Family Medical History / Comment(s): severe diabetic, kidney diease, heart attack Father Family Medical History: Cancer, CVA/TIA Additional Family Medical History / Comment(s): colon, heart attack <Emory Peck - Last Filed: 07/09/23 20:42> General Exam <Emory Peck - Last Filed: 07/09/23 20:42> <Johnie Braxton - Last Filed: 07/09/23 23:48> - General Exam Comments Initial Comments: Visual Physical Exam Vital signs reviewed General: Well-appearing, nontoxic, no acute distress. Head: Normocephalic, atraumatic Eyes: PERRLA, EOMI ENT: Airway patent Chest: Nonlabored breathing Skin: No visual rash, normal skin tone Neuro: Alert and oriented 3 Musculoskeletal: No gross abnormalities (Emory Peck) PHYSICAL EXAM: General Impression: Alert and oriented x3, not in acute distress HEENT: Normocephalic atraumatic, extra-ocular movements intact, pupils equal and reactive to light bilaterally, mucous membranes moist. Cardiovascular: Heart regular rate and rhythm Chest: Able to complete full sentences, no retractions, no tachypnea Abdomen: abdomen soft, non-tender, non-distended, no organomegaly Musculoskeletal: Pulses present and equal in all extremities, no peripheral edema Motor: no focal deficits noted Neurological: CN II-XII grossly intact, no focal motor or sensory deficits noted Skin: Intact with no visualized rashes Psych: Normal affect and mood (Johnie Braxton) Course Vital Signs 07/09/23 07/09/23 21:14 22:32 Temperature 98.0 F Pulse Rate 90 89 Respiratory 18 18 Rate Blood Pressure 133/72 161/116 O2 Sat by Pulse 96 95 Oximetry Medical Decision Making <Emory Peck - Last Filed: 07/09/23 20:42> - Lab Data Result diagrams: 07/09/23 22:48 07/09/23 22:48 <FoxJohnie D - Last Filed: 07/09/23 23:48> - Medical Decision Making I performed the quick note portion of this visit, electronically signed Emory Peck PA-C (Emory Peck) Was pt. sent in by a medical professional or institution (RADHA Chavis, T[employer] TR[employer] ENGINE MECHANIC, urgent care, hospital, or [facility]...) When possible be specific @ -No Did you speak to anyone other than the patient for history (EMS, parent, family, police, friend...)? What history was obtained from this source @ -No Did you review nursing and triage notes (agree or disagree)? Why? @ -I reviewed and agree with nursing and triage notes Were old charts reviewed (outside hosp., previous admission, EMS record, old EKG, old radiological studies, urgent care reports/EKG's, [facility] records)? Report findings @ -No old charts were reviewed Differential Diagnosis (chest pain, altered mental status, abdominal pain women, abdominal pain men, vaginal bleeding, musculoskeletal, weakness, fever, dyspnea, syncope, headache, dizziness, GI bleed, back pain, seizure, CVA, palpatations, mental health)? @ -Differential Abdominal Pain Women: Appendicitis, Cholecystitis, diverticulosis, ischemic bowel, pancreatitis, hepatitis, UTI, gastroenteritis, AAA, incarcerated hernia, bowel obstruction, constipation, inflammatory bowel, hepatitis, peptic ulcer disease, splenic infarction, perforated viscus, vulvitis, ovarian torsion, PID, kidney stone, placenta abruption, this is not meant to be an all-inclusive list EKG interpreted by me (3pts min.). @ -None done X-rays interpreted by me (1pt min.). @ -None done CT interpreted by me (1pt min.). @ -CT scan of the abdomen pelvis without contrast shows no acute processes U/S interpreted by me (1pt. min.). @ -None done What testing was considered but not performed or refused? (CT, X-rays, U/S, labs)? Why? @ -None What meds were considered but not given or refused? Why? @ -None Did you discuss the management of the patient with other professionals (professionals i.e. RADHA Chavis, T[employer] TR[employer] ENGINE MECHANIC, lab, RT, psych nurse, social work manager, application administrator, teacher, air crew officer, case management specialist)? Give summary @ -No Was smoking cessation discussed for >3mins.? @ -No Was critical care preformed (if so, how long)? @ -No Were there social determinants of health that impacted care today? How? (Homelessness, low income, unemployed, alcoholism, drug addiction, transportation, low edu. Level, literacy, decrease access to med. care, penitentiary, rehab)? @ -No Was there de-escalation of care discussed even if they declined (Discuss DNR or withdrawal of care, Hospice)? DNR status @ -No What co-morbidities impacted this encounter? (DM, HTN, Smoking, COPD, CAD, Cancer, CVA, ARF, Chemo, Hep., AIDS, mental health diagnosis, sleep apnea, morbid obesity)? @ -None Was patient admitted / discharged? Hospital course, mention meds given and route, prescriptions, significant lab abnormalities, going to OR and other pertinent info. @ -72-year-old female presents with episode of what she describes as intense abdominal pain. Patient asymptomatic however at the bedside. Patient felt like her symptoms were reminiscent of a small bowel obstruction in the past. Vital signs stable. Patient well-appearing at the bedside. Physical examination is unremarkable. Labs are within acceptable limits. Patient had greater than [address] scan of the abdomen pelvis shows no acute processes. At this point it is unclear what caused patient's symptoms however it is episodic. Perhaps it was a small symptomatic nephrolithiasis that was nonobstructing. Patient discharged advised follow-up with primary care doctor. Undiagnosed new problem with uncertain prognosis? @ -No Drug Therapy requiring intensive monitoring for toxicity (Heparin, Nitro, Insulin, Cardizem)? @ -No Were any procedures done? @ -No Diagnosis/symptom? Acute, or Chronic, or Acute on Chronic? Uncomplicated (without systemic symptoms) or Complicated (systemic symptoms)? @ -Abdominal pain, no obvious source Side effects of treatment? @ -No Exacerbation, Progression, or Severe Exacerbation? @ -No Poses a threat to life or bodily function? How? (Chest pain, [place], [place], pneumonia, PE, COPD, DKA, ARF, appy, cholecystitis, CVA, Diverticulitis, Homicidal, Suicidal, threat to staff... and all critical care pts) @ -No (Johnie Braxton) - Lab Data Lab Results 07/09/23 07/09/23 07/09/23 Range/Units 22:48 22:48 22:48 WBC 10.5 (3.8-10.6) k/uL RBC 4.96 (3.80-5.40) m/uL Hgb 14.1 (11.4-16.0) gm/dL Hct 43.3 (34.0-46.0) % MCV 87.2 (80.0-100.0) fL MCH 28.5 (25.0-35.0) pg MCHC 32.7 (31.0-37.0) g/dL RDW 12.4 (11.5-15.5) % Plt Count 189 (150-450) k/uL MPV 9.6 Neutrophils % 81 % Lymphocytes % 11 % Monocytes % 6 % Eosinophils % 1 % Basophils % 0 % Neutrophils # 8.5 H (1.3-7.7) k/uL Lymphocytes # 1.1 (1.0-4.8) k/uL Monocytes # 0.7 (0-1.0) k/uL Eosinophils # 0.1 (0-0.7) k/uL Basophils # 0.0 (0-0.2) k/uL Sodium 138 (137-145) mmol/L Potassium 4.6 (3.5-5.1) mmol/L Chloride 105 (98-107) mmol/L Carbon Dioxide 23 (22-30) mmol/L Anion Gap 10 mmol/L BUN 24 H (7-17) mg/dL Creatinine 1.08 H (0.52-1.04) mg/dL Est GFR (CKD-EPI)AfAm 59 (>60 ml/min/1.73 sqM) Est GFR (CKD-EPI)NonAf 51 (>60 ml/min/1.73 sqM) Glucose 107 H (74-99) mg/dL Plasma Lactic Acid Mark (0.7-2.0) mmol/L Calcium 9.5 (8.4-10.2) mg/dL Total Bilirubin 0.8 (0.2-1.3) mg/dL AST 27 (14-36) U/L ALT 27 (4-34) U/L Alkaline Phosphatase 51 (38-126) U/L Total Protein 7.2 (6.3-8.2) g/dL Albumin 4.3 (3.5-5.0) g/dL Amylase 71 (30-110) U/L Lipase 193 (23-300) U/L Urine Color Light Yellow Urine Appearance Cloudy H (Clear) Urine pH 5.0 (5.0-8.0) Ur Specific [place] 1.015 (1.001-1.035) Urine Protein Trace H (Negative) Urine Glucose (UA) 4+ H (Negative) Urine Ketones Negative (Negative) Urine Blood Large H (Negative) Urine Nitrite Negative (Negative) Urine Bilirubin Negative (Negative) Urine Urobilinogen <2.0 (<2.0) mg/dL Ur Leukocyte Esterase Negative (Negative) Urine RBC >182 H (0-5) /hpf Urine WBC 8 H (0-5) /hpf Urine WBC Clumps Occasional H (None) /hpf Ur Squamous Epith Cells 1 (0-4) /hpf Amorphous Sediment Rare H (None) /hpf Urine Mucus Occasional H (None) /hpf 07/09/23 Range/Units 22:48 WBC (3.8-10.6) k/uL RBC (3.80-5.40) m/uL Hgb (11.4-16.0) gm/dL Hct (34.0-46.0) % MCV (80.0-100.0) fL MCH (25.0-35.0) pg MCHC (31.0-37.0) g/dL RDW (11.5-15.5) % Plt Count (150-450) k/uL MPV Neutrophils % % Lymphocytes % % Monocytes % % Eosinophils % % Basophils % % Neutrophils # (1.3-7.7) k/uL Lymphocytes # (1.0-4.8) k/uL Monocytes # (0-1.0) k/uL Eosinophils # (0-0.7) k/uL Basophils # (0-0.2) k/uL Sodium (137-145) mmol/L Potassium (3.5-5.1) mmol/L Chloride (98-107) mmol/L Carbon Dioxide (22-30) mmol/L Anion Gap mmol/L BUN (7-17) mg/dL Creatinine (0.52-1.04) mg/dL Est GFR (CKD-EPI)AfAm (>60 ml/min/1.73 sqM) Est GFR (CKD-EPI)NonAf (>60 ml/min/1.73 sqM) Glucose (74-99) mg/dL Plasma Lactic Acid Mark 1.9 (0.7-2.0) mmol/L Calcium (8.4-10.2) mg/dL Total Bilirubin (0.2-1.3) mg/dL AST (14-36) U/L ALT (4-34) U/L Alkaline Phosphatase (38-126) U/L Total Protein (6.3-8.2) g/dL Albumin (3.5-5.0) g/dL Amylase (30-110) U/L Lipase (23-300) U/L Urine Color Urine Appearance (Clear) Urine pH (5.0-8.0) Ur Specific [place] (1.001-1.035) Urine Protein (Negative) Urine Glucose (UA) (Negative) Urine Ketones (Negative) Urine Blood (Negative) Urine Nitrite (Negative) Urine Bilirubin (Negative) Urine Urobilinogen (<2.0) mg/dL Ur Leukocyte Esterase (Negative) Urine RBC (0-5) /hpf Urine WBC (0-5) /hpf Urine WBC Clumps (None) /hpf Ur Squamous Epith Cells (0-4) /hpf Amorphous Sediment (None) /hpf Urine Mucus (None) /hpf Disposition <Emory Peck - Last Filed: 07/09/23 20:42> Is patient prescribed a controlled substance at d/c from ED?: No Time of Disposition: 23:48 <Johnie Braxton - Last Filed: 07/09/23 23:48> Clinical Impression: Abdominal pain Disposition: HOME SELF-CARE Condition: Good Instructions (If sedation given, give patient instructions): Abdominal Pain (ED) Referrals: Kwan Hansen DO [Primary Care Provider] - 1-2 days
--- NOTE | 2023-07-09 22:11 | CT ---
EXAMINATION TYPE: CT abdomen pelvis wo con CT DLP: 1172 mGycm, Automated exposure control for dose reduction was used. DATE OF EXAM: 07/09/2023 9:47 PM COMPARISON: CT abdomen pelvis most recent from CLINICAL INDICATION:Female, 72 years old with history of abdominal pain; Bilateral flank pain. Nausea , vomiting. TECHNIQUE: Axial CT abdomen pelvis wo con;Sagittal and coronal reformats were created on a separate workstation. Contrast used: mL of , (none if empty) Oral contrast used: without Oral Contrast (none if empty) FINDINGS: LOWER CHEST: Bilateral breast implants appear intact. Cardiac conduction leads terminating in right v entricle. ABDOMEN LIVER: Unremarkable GALLBLADDER AND BILE DUCTS: The gallbladder is surgically absent. PANCREAS: Unremarkable. SPLEEN: Unremarkable. ADRENAL GLANDS: Unremarkable. KIDNEYS AND URETERS: No evidence of hydronephrosis or renal calculus. The ureters are unremarkable. Calcifications are seen along the gonadal vessels which are not within the collecting systems. PELVIS BLADDER: Unremarkable REPRODUCTIVE: Uterus is surgically absent. ABDOMEN & PELVIS STOMACH AND BOWEL: No evidence of bowel obstruction. Postsurgical changes to the bowel in the right. PERITONEUM/RETROPERITONEUM: No evidence of pneumoperitoneum or free fluid. VASCULATURE: Moderate atherosclerotic calcifications are present throughout the abdominal aorta and i ts branches. No evidence of aortic aneurysm. Bilateral common iliac stent grafts are present. MUSCULOSKELETAL: No acute osseous abnormalities LYMPH NODES: No gross evidence for lymphadenopathy. SOFT TISSUE/ABDOMINAL WALL: Fat-containing umbilical hernia. IMPRESSION: 1. No evidence for obstructive uropathy or renal calculus. 2. No acute intra-abdominal process.
[2023-07-09 23:10] LABS: Basophils % (A) 0 %; Eosinophils # (A) 0.1 k/uL (0-0.7); Eosinophils % (A) 1 %; HCT 43.3 % (34.0-46.0); HGB 14.1 gm/dL (11.4-16.0); Lymphocytes # (A) 1.1 k/uL (1.0-4.8); Lymphocytes % (A) 11 %; MCH 28.5 pg (25.0-35.0); MCHC 32.7 g/dL (31.0-37.0); MCV 87.2 fL (80.0-100.0); Mean Platelet Volume 9.6; Monocytes # (A) 0.7 k/uL (0-1.0); Monocytes % (A) 6 %; Neutrophils # (A) 8.5 k/uL (1.3-7.7); Neutrophils % (A) 81 %; Platelet Count 189 k/uL (150-450); RBC 4.96 m/uL (3.80-5.40); RDW 12.4 % (11.5-15.5); WBC 10.5 k/uL (3.8-10.6)
[2023-07-09 23:19] LABS: ALT 27 U/L (4-34); AST 27 U/L (14-36); African American GFR (CKD) 59 (>60 ml/min/1.73 sqM); Albumin 4.3 g/dL (3.5-5.0); Alkaline Phosphatase 51 U/L (38-126); Amylase 71 U/L (30-110); Anion Gap 10 mmol/L; Blood Urea Nitrogen 24 mg/dL (7-17); Calcium 9.5 mg/dL (8.4-10.2); Carbon Dioxide 23 mmol/L (22-30); Chloride 105 mmol/L (98-107); Glucose 107 mg/dL (74-99); Lipase 193 U/L (23-300); Non-African American GFR(CKD) 51 (>60 ml/min/1.73 sqM); Potassium 4.6 mmol/L (3.5-5.1); Sodium 138 mmol/L (137-145); Total Bilirubin 0.8 mg/dL (0.2-1.3); Total Protein 7.2 g/dL (6.3-8.2)
[2023-07-09 23:35] LABS: Amorphous Sediment,Urine Rare /hpf; Appearance,Urine Cloudy (Clear); Bilirubin,Urine Negative (Negative); Blood,Urine Large (Negative); Color,Urine Light Yellow; Glucose,Urine (UA) 4+ (Negative); Ketones,Urine Negative (Negative); Leukocyte Esterase,Urine Negative (Negative); Mucus,Urine Occasional /hpf; Nitrite,Urine Negative (Negative); Protein,Urine Trace (Negative); RBC,Urine >182 /hpf (0-5); Specific Gravity,Urine 1.015 (1.001-1.035); Squamous Epithelial Cell,Urine 1 /hpf (0-4); Urobilinogen,Urine <2.0 mg/dL (<2.0); WBC,Urine 8 /hpf (0-5)
[2023-07-10 01:15] VITALS: BP 133/73; PULSE 78; RESP 17; TEMP 98
== END 2023-07-10 00:36 | disposition home or self-care (01) ==
LOC: EC 20:38
DX: R10.9 Unspecified abdominal pain (principal); Z87.891 Personal history of nicotine dependence; Z88.0 Allergy status to penicillin; Z88.1 Allergy status to other antibiotic agents; Z88.8 Allergy status to other drugs, medicaments and biological substances; Z90.49 Acquired absence of other specified parts of digestive tract; Z86.73 Personal history of transient ischemic attack (TIA), and cerebral infarction without residual deficits; Z95.5 Presence of coronary angioplasty implant and graft
CPT/HCPCS: 36415; 74176; 80053; 81001; 82150; 83605; 83690; 85025; 99284

== ENCOUNTER → 2023-11-01 | Outpatient (CLI) | payer MEDICARE, BC ==
[2023-11-01 11:22] LABS: Basophils % (A) 1 %; Eosinophils # (A) 0.2 k/uL (0-0.7); Eosinophils % (A) 2 %; HCT 41.4 % (34.0-46.0); Lymphocytes # (A) 2.2 k/uL (1.0-4.8); Lymphocytes % (A) 30 %; MCH 29.8 pg (25.0-35.0); MCHC 33.8 g/dL (31.0-37.0); MCV 88.3 fL (80.0-100.0); Mean Platelet Volume 9.1; Monocytes # (A) 0.6 k/uL (0-1.0); Monocytes % (A) 8 %; Neutrophils # (A) 4.2 k/uL (1.3-7.7); Neutrophils % (A) 57 %; RBC 4.68 m/uL (3.80-5.40); RDW 13.3 % (11.5-15.5); WBC 7.3 k/uL (3.8-10.6)
[2023-11-01 11:34] LABS: T4, Free (Free Thyroxine) 0.91 ng/dL (0.78-2.19)
[2023-11-01 12:04] LABS: ALT 34 U/L (4-34); AST 49 U/L (14-36); African American GFR (CKD) 71 (>60 ml/min/1.73 sqM); Albumin 4.2 g/dL (3.5-5.0); Alkaline Phosphatase 33 U/L (38-126); Anion Gap 13 mmol/L; Blood Urea Nitrogen 14 mg/dL (7-17); Calcium 9.8 mg/dL (8.4-10.2); Carbon Dioxide 18 mmol/L (22-30); Chloride 109 mmol/L (98-107); Glucose 99 mg/dL (74-99); Non-African American GFR(CKD) 62 (>60 ml/min/1.73 sqM); Potassium 4.9 mmol/L (3.5-5.1); Sodium 140 mmol/L (137-145); Total Bilirubin 1.3 mg/dL (0.2-1.3); Total Protein 6.8 g/dL (6.3-8.2)
[2023-11-01 12:57] LABS: Platelet Count 188 k/uL (150-450); RBC Morphology Normal
== END | disposition home or self-care (01) ==
LOC: LABT 09:33
PROVIDERS: ATTEND Family Medicine
DX: E78.5 Hyperlipidemia, unspecified (principal); E66.9 Obesity, unspecified; E04.2 Nontoxic multinodular goiter
CPT/HCPCS: 80053; 83036; 84439; 84443; 85025

== ENCOUNTER → 2023-11-05 | Outpatient (CLI) | payer MEDICARE, BC ==
[2023-11-05 15:12] LABS: Basophils # (A) 0.05 X 10*3/uL (0.00-0.10); Basophils % (A) 0.7 %; Eosinophils # (A) 0.18 X 10*3/uL (0.04-0.35); Eosinophils % (A) 2.6 %; HGB 13.4 g/dL (12.0-15.0); Lymphocytes # (A) 1.87 X 10*3/uL (0.90-5.00); Lymphocytes % (A) 27.2 %; MCH 28.8 pg (27.0-32.0); MCHC 32.7 g/dL (32.0-37.0); MCV 88.2 FL (80.0-97.0); Mean Platelet Volume 12.4 FL (9.5-12.2); Monocytes # (A) 0.66 X 10*3/uL (0.20-1.00); Monocytes % (A) 9.6 %; NRBC Per 100 WBC 0 X 10*3/uL (0.00-0.01); Neutrophils % (A) 59.8 %; Platelet Count 199 X 10*3/uL (140-440); RBC 4.65 X 10*6/uL (4.10-5.20); RDW 12.7 % (11.5-14.5); WBC 6.87 X 10*3/uL (4.50-10.00)
[2023-11-05 15:56] LABS: ALT 39 U/L (8-44); AST 37 U/L (13-35); Albumin 4.2 g/dL (3.8-4.9); Albumin/Globulin Ratio 1.75 Ratio (1.60-3.17); Alkaline Phosphatase 43 U/L (41-126); Blood Urea Nitrogen 12.2 mg/dL (9.0-27.0); Calcium 9.7 mg/dL (8.7-10.3); Carbon Dioxide 24.1 mmol/L (21.6-31.8); Chloride 104 mmol/L (96-109); Chol/HDL Ratio 3.15 Ratio; Globulin 2.4 g/dL (1.6-3.3); Glucose 103 mg/dL (70-110); LDL Cholesterol,Calculated 63.9 mg/dL (0.0-131.0); Potassium 4.6 mmol/L (3.5-5.5); Sodium 142 mmol/L (135-145); Total Bilirubin 0.8 mg/dL (0.3-1.2); Total Protein 6.6 g/dL (6.2-8.2)
== END | disposition home or self-care (01) ==
LOC: LABWHC1 10:01
PROVIDERS: ATTEND Family Medicine
DX: Z00.00 Encounter for general adult medical examination without abnormal findings (principal); E78.5 Hyperlipidemia, unspecified; E04.2 Nontoxic multinodular goiter; E66.9 Obesity, unspecified; R89.9 Unspecified abnormal finding in specimens from other organs, systems and tissues
CPT/HCPCS: 36415; 80053; 80061; 82306; 83036; 84443; 85025

== ENCOUNTER → 2023-11-17 | Outpatient (CLI) | payer MEDICARE, BC ==
[2023-11-17 15:24] LABS: BUN/Creat Ratio 14.11 Ratio (12.00-20.00); Blood Urea Nitrogen 12.7 mg/dL (9.0-27.0); Calcium 9.6 mg/dL (8.7-10.3); Chloride 103 mmol/L (96-109); Glucose 86 mg/dL (70-110); Potassium 4.6 mmol/L (3.5-5.5); Sodium 139 mmol/L (135-145)
== END | disposition home or self-care (01) ==
LOC: LABWHC1 12:00
PROVIDERS: ATTEND Family Medicine
DX: E55.9 Vitamin D deficiency, unspecified (principal); R94.4 Abnormal results of kidney function studies
CPT/HCPCS: 36415; 80048; 82306

== ENCOUNTER → 2024-01-18 | Outpatient (CLI) | payer MEDICARE, BC ==
--- NOTE | 2024-01-18 12:43 | CT ---
EXAMINATION TYPE: CT chest wo con CT DLP: 734 mGycm, Automated exposure control for dose reduction was used. DATE OF EXAM: 01/18/2024 11:50 AM COMPARISON: CTA chest 05/06/2021, CT chest abdomen and pelvis 05/20/2020. CLINICAL INDICATION:Female, 73 years old with history of J44.1 COPD J96.90 RESPIRATORY FAILURE; PHH, wheezing/copd TECHNIQUE: Multiple axial images were obtained through the chest without IV contrast. Lack of IV or o ral contrast limits evaluation of solid and hollow organ viscera. . Coronal and sagittal reformats re viewed. FINDINGS: LUNGS/ PLEURA: No pleural effusion, pneumothorax, or focal consolidation. Stable left upper lobe 4 m m pulmonary nodule (series 4, image 24). Stable dating back to 2021 and considered benign. No new nayely picious pulmonary nodules or masses. No significant emphysematous changes. No evidence for interstiti al lung disease. AIRWAY: Patent and unremarkable.. HEART: Mildly prominent in size. Left chest wall AICD with lead terminating in the right ventricle. S mall coronary calcifications. No pericardial effusion. MEDIASTINUM: No gross evidence of adenopathy. VASCULATURE: No aortic aneurysm. Mild atherosclerotic calcification of the aorta and its branches. MUSCULOSKELETAL: No acute osseous abnormalities SOFT TISSUES/LYMPH NODES: Bilateral breast prosthesis. LOWER NECK: No significant findings. UPPER ABDOMEN: Gallbladder surgically absent. IMPRESSION: No acute thoracic process. [facility], , 01/18/2024 12:41 PM
== END | disposition home or self-care (01) ==
LOC: RADCTMAIN 11:33
PROVIDERS: ATTEND Internal Medicine Sleep Medicine
DX: J44.1 Chronic obstructive pulmonary disease with (acute) exacerbation (principal); J96.90 Respiratory failure, unspecified, unspecified whether with hypoxia or hypercapnia; I70.0 Atherosclerosis of aorta; Z98.82 Breast implant status
CPT/HCPCS: 71250

== ENCOUNTER → 2024-06-06 | Outpatient (CLI) | payer MEDICARE, BC ==
--- NOTE | 2024-06-06 15:41 | US ---
EXAMINATION TYPE: US thyroid st tissue head/neck DATE OF EXAM: 06/06/2024 COMPARISON: US 05/31/2023 CLINICAL INDICATION: Female, 73 years old with history of E04.1 THYROID NODULE; Thyroid nodule TECHNIQUE: Grayscale and color Doppler imaging of the thyroid gland. FINDINGS: GLAND SIZE: Right Lobe: 5.2 x 1.7 x 1.8 cm Overall Parenchyma: heterogeneous Left Lobe: 5.1 x 2.2 x 2.2 cm Overall Parenchyma: heterogeneous Isthmus Thickness: 0.7 cm NODULES RIGHT: # of nodules measured on right: 1 1. 2.7 X 2.1 x 1.9 cm, lower mid, solid or almost completely solid, hypoechoic TR 4 nodule, which i s wider than tall, with smooth margins, without echogenic foci. Prior size: 2.5 x 1.8 x 1.7 cm Isoechoic area seen adjacent to right thyroid lobe measuring 1.4 x 1.1 x1.2 cm, either exophytic TR 3 nodule or parathyroid gland LEFT: # of nodules measured on left: 2 1. 2.8 X 2.1 x 2.1 cm, lower mid, solid or almost completely solid, heterogeneous mixed isoechoic a nd hypoechoic TR 4 nodule, which is wider than tall, with ill-defined margins, without echogenic foci . Prior size: 2.5 x 1.9 x 1.7 cm 2. 0.7 X 0.6 x 0.5 cm, upper lateral, solid or almost completely solid, hypoechoic TR 4 nodule, wh ich is wider than tall, with smooth margins, without echogenic foci. Prior size: 0.5 x 0.5 x 0.5 cm ISTHMUS: # of nodules measured in the isthmus: 0 Bilateral neck scanned, no evidence of lymphadenopathy. IMPRESSION: Consider multinodular goiter. There are TR 4 nodules which are either stable or minimally larger. Dom inant nodule on the right measuring 2.7 cm versus 2.5 cm, previously. Dominant nodule on the left ronny suring 2.8 cm versus 2.5 cm, previously. TR4: If nodule size is ? 1.5 cm, FNA is recommended. If nodule size is ? 1.0 cm, follow-up imaging at 1, 2, 3, and 5 years is recommended. [facility], , 06/06/2024 3:38 PM
== END | disposition home or self-care (01) ==
LOC: RADUSWWP 12:19
PROVIDERS: ATTEND Otolaryngology
DX: E04.2 Nontoxic multinodular goiter (principal)
CPT/HCPCS: 76536

== ENCOUNTER → 2024-06-08 | Outpatient (CLI) | payer MEDICARE, BC ==
[2024-06-08 18:43] LABS: HCT 42.8 % (37.2-46.3); HGB 13.9 g/dL (12.0-15.0); MCH 29.1 pg (27.0-32.0); MCHC 32.5 g/dL (32.0-37.0); MCV 89.5 FL (80.0-97.0); Mean Platelet Volume 12.2 FL (9.5-12.2); NRBC Per 100 WBC 0 X 10*3/uL (0.00-0.01); Platelet Count 216 X 10*3/uL (140-440); RBC 4.78 X 10*6/uL (4.10-5.20); RDW 12.2 % (11.5-14.5); WBC 7.61 X 10*3/uL (4.50-10.00)
[2024-06-08 19:19] LABS: ALT 34 U/L (8-44); AST 33 U/L (13-35); Albumin 4.4 g/dL (3.8-4.9); Albumin/Globulin Ratio 1.69 Ratio (1.60-3.17); Alkaline Phosphatase 45 U/L (41-126); BUN/Creat Ratio 14.09 Ratio (12.00-20.00); Blood Urea Nitrogen 15.5 mg/dL (9.0-27.0); Calcium 9.5 mg/dL (8.7-10.3); Carbon Dioxide 22.2 mmol/L (21.6-31.8); Chloride 103 mmol/L (96-109); Chol/HDL Ratio 3.35 Ratio; Globulin 2.6 g/dL (1.6-3.3); Glucose 99 mg/dL (70-110); LDL Cholesterol,Calculated 63.6 mg/dL (0.0-131.0); Magnesium 1.7 mg/dL (1.5-2.4); Potassium 4.6 mmol/L (3.5-5.5); Sodium 140 mmol/L (135-145); T4, Free (Free Thyroxine) 0.99 ng/dL (0.80-1.80); Total Bilirubin 0.8 mg/dL (0.3-1.2)
== END | disposition home or self-care (01) ==
LOC: LABWHC1 12:20
PROVIDERS: ATTEND Family Medicine
DX: I10 Essential (primary) hypertension (principal); E04.2 Nontoxic multinodular goiter; E78.5 Hyperlipidemia, unspecified; E61.2 Magnesium deficiency; E55.9 Vitamin D deficiency, unspecified; E66.01 Morbid (severe) obesity due to excess calories
CPT/HCPCS: 36415; 80053; 80061; 82306; 83036; 83735; 84439; 84443; 85027